=== PATIENT | male | born 1960 | race Caucasian/White ===

== ENCOUNTER 2017-09-10 05:55 | Inpatient (IN) | payer BC ==
[2017-09-10] MEDS ORDERED: IPRATROPIUM-ALBUTEROL 3 ML NEB INHALATION STA (06:29)
--- NOTE | 2017-09-10 06:47 | ED ---
General Adult HPI - General Chief complaint: Upper Respiratory Infection Stated complaint: CODEY Time Seen by Provider: 09/10/17 06:39 Source: patient, RN notes reviewed, old records reviewed Mode of arrival: ambulatory Limitations: no limitations - History of Present Illness Initial comments: This is a 56-year-old male the ER for evaluation, significant increased cough and congestion, shortness of breath. Patient denies recent travel history or sick contacts. Patient states he was at work yesterday he was getting comes and difficulty breathing. This persisted again today at work and he states he felt crappy. Low-grade fever. No modifying factors no recent similar complaints. No travel history no known sick contacts. Patient states he cannot catch his breath he has continuous chronic hacking cough and is coughing up sputum - Related Data Allergies Allergy/AdvReac Type Severity Reaction Status Date / Time aluminum hydroxide Allergy Nausea & Verified 09/10/17 06:02 [From Mylanta] Vomiting barium iodide Allergy Nausea & Verified 09/10/17 06:02 Vomiting barium sulfate Allergy Nausea & Verified 09/10/17 06:02 Vomiting bee venom protein (honey bee) Allergy Swelling Verified 09/10/17 06:02 calcium carbonate Allergy Nausea & Verified 09/10/17 06:02 [From Mylanta] Vomiting magnesium [From Mylanta] Allergy Nausea & Verified 09/10/17 06:02 Vomiting magnesium hydroxide Allergy Nausea & Verified 09/10/17 06:02 [From Mylanta] Vomiting simethicone [From Mylanta] Allergy Nausea & Verified 09/10/17 06:02 Vomiting Review of Systems ROS Statement: Those systems with pertinent positive or pertinent negative responses have been documented in the HPI. ROS Other: All systems not noted in ROS Statement are negative. Past Medical History Past Medical History: Diabetes Mellitus History of Any Multi-Drug Resistant Organisms: None Reported Additional Past Surgical History / Comment(s): eye surgery Past Psychological History: No Psychological Hx Reported Smoking Status: Former smoker Past Alcohol Use History: None Reported Past Drug Use History: None Reported General Exam Limitations: no limitations General appearance: alert, in no apparent distress Head exam: Present: atraumatic, normocephalic, normal inspection Eye exam: Present: normal appearance, PERRL, EOMI. Absent: scleral icterus, conjunctival injection, periorbital swelling ENT exam: Present: normal exam, mucous membranes moist Neck exam: Present: normal inspection. Absent: tenderness, meningismus, lymphadenopathy Respiratory exam: Present: normal lung sounds bilaterally, wheezes, decreased breath sounds, prolonged expiratory. Absent: respiratory distress, rales, rhonchi, stridor Cardiovascular Exam: Present: regular rate, normal rhythm, normal heart sounds. Absent: systolic murmur, diastolic murmur, rubs, gallop, clicks GI/Abdominal exam: Present: soft, normal bowel sounds. Absent: distended, tenderness, guarding, rebound, rigid Extremities exam: Present: normal inspection, full ROM, normal capillary refill. Absent: tenderness, pedal edema, joint swelling, calf tenderness Back exam: Present: normal inspection Neurological exam: Present: alert, oriented X3, CN II-XII intact Psychiatric exam: Present: normal affect, normal mood Skin exam: Present: warm, dry, intact, normal color. Absent: rash Course Vital Signs 09/10/17 09/10/17 09/10/17 05:56 06:32 06:44 Temperature 98.4 F Pulse Rate 87 85 97 Respiratory 20 Rate Blood Pressure 150/85 O2 Sat by Pulse 96 Oximetry - Reevaluation(s) Reevaluation #1: 09/10/17 07:15 Minimal improvement no improvement after breathing treatment EKG Findings - EKG Comments: EKG Findings:: EKG shows sinus rhythm rate of 86, MD 150, QRS 90, QTc 435 Medical Decision Making - Medical Decision Making 56 male the ER for evaluation positive cough and congestion positive pneumonia, patient will be admitted for breathing treatments IV antibiotics - Lab Data Result diagrams: 09/10/17 06:17 09/10/17 06:17 Lab Results 09/10/17 09/10/17 Range/Units 06:17 06:17 WBC 9.6 (3.8-10.6) k/uL RBC 4.69 (4.30-5.90) m/uL Hgb 13.1 (13.0-17.5) gm/dL Hct 39.4 (39.0-53.0) % MCV 84.1 (80.0-100.0) fL MCH 28.0 (25.0-35.0) pg MCHC 33.3 (31.0-37.0) g/dL RDW 14.5 (11.5-15.5) % Plt Count 160 (150-450) k/uL Neutrophils % 75 % Lymphocytes % 14 % Monocytes % 8 % Eosinophils % 1 % Basophils % 1 % Neutrophils # 7.2 (1.3-7.7) k/uL Lymphocytes # 1.4 (1.0-4.8) k/uL Monocytes # 0.7 (0-1.0) k/uL Eosinophils # 0.1 (0-0.7) k/uL Basophils # 0.1 (0-0.2) k/uL Sodium 139 (137-145) mmol/L Potassium 4.5 (3.5-5.1) mmol/L Chloride 103 (98-107) mmol/L Carbon Dioxide 25 (22-30) mmol/L Anion Gap 11 mmol/L BUN 15 (9-20) mg/dL Creatinine 0.90 (0.66-1.25) mg/dL Est GFR (CKD-EPI)AfAm >90 (>60 ml/min/1.73 sqM) Est GFR (CKD-EPI)NonAf >90 (>60 ml/min/1.73 sqM) Glucose 189 H (74-99) mg/dL Calcium 9.1 (8.4-10.2) mg/dL Magnesium 1.7 (1.6-2.3) mg/dL Total Bilirubin 0.7 (0.2-1.3) mg/dL AST 20 (17-59) U/L ALT 34 (21-72) U/L Alkaline Phosphatase 84 (38-126) U/L Total Protein 6.4 (6.3-8.2) g/dL Albumin 3.7 (3.5-5.0) g/dL Lipase 63 (23-300) U/L - Radiology Data Radiology results: report reviewed (Right middle lobe pneumonia on chest x-ray) , image reviewed Disposition Clinical Impression: Bronchitis, Community acquired pneumonia Disposition: ADMITTED IP TO THIS HOSP Condition: Good Is patient prescribed a controlled substance at d/c from ED?: No Referrals: Jonas Holden MD [Primary Care Provider] - 1-2 days
[2017-09-10 06:52] LABS: Basophils # (A) 0.1 k/uL (0-0.2); Basophils % (A) 1 %; Eosinophils # (A) 0.1 k/uL (0-0.7); Eosinophils % (A) 1 %; HCT 39.4 % (39.0-53.0); HGB 13.1 gm/dL (13.0-17.5); Lymphocytes # (A) 1.4 k/uL (1.0-4.8); Lymphocytes % (A) 14 %; MCHC 33.3 g/dL (31.0-37.0); MCV 84.1 fL (80.0-100.0); Monocytes # (A) 0.7 k/uL (0-1.0); Monocytes % (A) 8 %; Neutrophils # (A) 7.2 k/uL (1.3-7.7); Neutrophils % (A) 75 %; Platelet Count 160 k/uL (150-450); RBC 4.69 m/uL (4.30-5.90); RDW 14.5 % (11.5-15.5); WBC 9.6 k/uL (3.8-10.6)
[2017-09-10 07:06] LABS: D-Dimer 1.36 mg/L FEU (<0.60); Partial Thromboplastin Time 24.5 sec (22.0-30.0); Prothrombin Time 10.1 sec (9.0-12.0)
[2017-09-10 07:11] LABS: ALT 34 U/L (21-72); AST 20 U/L (17-59); Albumin 3.7 g/dL (3.5-5.0); Alkaline Phosphatase 84 U/L (38-126); Anion Gap 11 mmol/L; Blood Urea Nitrogen 15 mg/dL (9-20); Calcium 9.1 mg/dL (8.4-10.2); Carbon Dioxide 25 mmol/L (22-30); Chloride 103 mmol/L (98-107); Glucose 189 mg/dL (74-99); Lipase 63 U/L (23-300); Magnesium 1.7 mg/dL (1.6-2.3); Potassium 4.5 mmol/L (3.5-5.1); Sodium 139 mmol/L (137-145); Total Bilirubin 0.7 mg/dL (0.2-1.3); Total Protein 6.4 g/dL (6.3-8.2)
[2017-09-10] MEDS ORDERED: MORPHINE SULFATE 2 MG/ML SYRINGE IVP STA (07:12)
[2017-09-10] MEDS ORDERED: AZITHROMYCIN 500 MG in SODIUM CHLORIDE 0.9% 250 ML IVPB STA (07:13)
[2017-09-10] MEDS ORDERED: PNEUMONIA PROTOCOL UTILIZED 1 EACH MISC PO PRN (07:13)
[2017-09-10] MEDS ORDERED: cefTRIAXone IN SWFI 1,000 MG/10 ML SYRINGE IVP STA (07:13)
[2017-09-10] MEDS ORDERED: SODIUM CHLORIDE 0.9% 1,000 ML IV SCH (07:15)
[2017-09-10 07:31] LABS: Creatine Kinase 298 U/L (55-170)
[2017-09-10 07:43] LABS: Creatine Kinase MB 1.7 ng/mL (0.0-2.4); Troponin I <0.012 ng/mL (0.000-0.034)
--- NOTE | 2017-09-10 07:46 | XR ---
EXAMINATION TYPE: XR chest 2V DATE OF EXAM: 09/10/2017 COMPARISON: NONE INDICATION: Chest pain cough x3 days TECHNIQUE: Frontal and lateral views of the chest are obtained. FINDINGS: The heart size is normal. The pulmonary vasculature is normal. The lungs are clear. IMPRESSION: 1. No acute pulmonary process.
[2017-09-10] MEDS: IPRATROPIUM-ALBUTEROL 3 ML NEB INHALATION SCH ×4 (09:02→20:36)
[2017-09-10] MEDS: ENOXAPARIN 40 MG/0.4 ML SYRINGE SQ SCH (09:08)
[2017-09-10] MEDS: SODIUM CHLORIDE 0.9% 1,000 ML IV SCH (16:13)
[2017-09-10 17:12] LABS: Glucose,Whole Blood 190 mg/dL (75-99)
[2017-09-10] MEDS: INSULIN ASPART 100 UNIT/ML 1 ML 10 ML VIAL SQ SCH ×2 (17:58→21:05)
--- NOTE | 2017-09-10 18:18 | HP ---
HISTORY AND PHYSICAL CHIEF COMPLAINT: Cough and difficulty breathing. HISTORY OF PRESENT ILLNESS: This gentleman was at work and became short of breath. He came to the emergency room. He was not febrile and he was not coughing up any blood or sputum. He had no chest pain. In the emergency room he had an assessment which reports that he had a right middle lobe pneumonia, and he was admitted. REVIEW OF SYSTEMS: He has had no headaches, neurologic problems, difficulty with vision or hearing, sore throat, chest pain, orthopnea, PND, abdominal pain, nausea, vomiting, hematemesis, melena, hematochezia, jaundice, liver disease, abdominal pain, vomiting, diarrhea, melena, etc. He is diabetic and has a history of hypertension. ALLERGIES: 1. REGLAN. 2. ANTACIDS. 3. BARIUM. MEDICATIONS: 1. Lipitor 80 mg at bedtime. 2. Lisinopril 10 mg once a day. 3. Glimepiride 4 mg twice a day. 4. Metformin 1 gram twice a day. 5. Pioglitazone 45 mg once a day. 6. Acarbose 100 mg 3 times a day. 7. Vitamin D3 two monthly. 8. Vicodin 7.5 p.r.n. Past medical history, family history, and personal and social histories are all otherwise unremarkable and noncontributory. He used to smoke and he does have a history of mild COPD. He does not drink. He has had some problems with depression and recently lost his . PHYSICAL EXAMINATION: Blood pressure 144/84 with a pulse of 93 and respirations of 38. He is afebrile. In general he appeared to be overweight and in no acute distress, but he was short of breath. Lymph nodes are not enlarged. Head, ears, eyes, nose, mouth and throat were normal. Chest demonstrated somewhat decreased sounds with occasional rales. Cardiac exam was sinus with no murmurs or extra sounds. The abdomen was protuberant, soft and nontender without any visceromegaly or masses. Bowel sounds were present. Neurologically he was intact. He is admitted to the hospital with the diagnoses: 1. Exacerbation of chronic obstructive pulmonary disease. 2. Possible pneumonia, but x-ray report is read as not showing same. 3. Type 2 [id number] diabetes mellitus. 4. Hypertension. PLAN: 1. Bed rest. 2. IV fluids. 3. Updrafts. 4. IV and inhaled steroids. MMODL / IJN: [id number] /
[2017-09-10 21:05] LABS: Glucose,Whole Blood 173 mg/dL (75-99)
[2017-09-10] MEDS: LATANOPROST 0.005% OPHTH DROPS 2.5 ML BTL BOTH EYES SCH (21:05)
[2017-09-11] MEDS: ACETAMINOPHEN TAB 325 MG TAB PO PRN ×3 (02:14→21:34)
[2017-09-11 02:46] LABS: Hemoglobin A1C 9.4 % (4.0-6.0)
[2017-09-11 07:14] LABS: Glucose,Whole Blood 184 mg/dL (75-99)
--- NOTE | 2017-09-11 07:26 | XR ---
EXAMINATION TYPE: XR chest 2V DATE OF EXAM: 09/11/2017 COMPARISON: 09/10/2017 HISTORY: Symptoms of pneumonia per patient history. Cough. Follow-up exam. TECHNIQUE: Frontal and lateral views of the chest are obtained. FINDINGS: There is no focal air space opacity, pleural effusion, or pneumothorax seen. The cardiac silhouette size is within normal limits. The osseous structures are intact. Mild multilevel degener ative changes of the thoracic spine are seen. Very mild right infrahilar peribronchial cuffing could relate to reactive airway disease. IMPRESSION: No focal consolidation. Very mild right infrahilar peribronchial cuffing may relate to r eactive airway disease in this patient with clinical provided history of pneumonia.
[2017-09-11] MEDS: ENOXAPARIN 40 MG/0.4 ML SYRINGE SQ SCH (07:47)
[2017-09-11] MEDS: INSULIN ASPART 100 UNIT/ML 1 ML 10 ML VIAL SQ SCH ×4 (07:47→21:21)
[2017-09-11] MEDS: AZITHROMYCIN 500 MG TAB PO SCH (07:47)
[2017-09-11] MEDS: cefTRIAXone IN SWFI 1,000 MG/10 ML SYRINGE IVP SCH (07:48)
[2017-09-11] MEDS: SODIUM CHLORIDE 0.9% 1,000 ML IV SCH ×2 (07:48→23:23)
[2017-09-11] MEDS: IPRATROPIUM-ALBUTEROL 3 ML NEB INHALATION SCH ×4 (08:21→20:59)
[2017-09-11 10:37] VITALS: BMI 39.4
[2017-09-11 11:55] LABS: Glucose,Whole Blood 168 mg/dL (75-99)
--- NOTE | 2017-09-11 14:22 | PN ---
PROGRESS NOTE CHIEF COMPLAINT: Shortness of breath and congestion. HISTORY OF PRESENT ILLNESS: This gentleman is a little bit better but he still has some congestion, shortness of breath and wheezing. He has had no fever or chills. PHYSICAL EXAM: He has rhonchi and rales scattered throughout with expiratory wheezing. Cardiac exam is normal. The abdomen is soft, nontender. IMPRESSION: 1. Chest pain. 2. Chronic obstructive pulmonary disease. 3. Possible pneumonitis. PLAN: Continue with updrafts, steroids and antibiotics. MMODL / IJN: [id number] /
[2017-09-11 17:22] LABS: Glucose,Whole Blood 206 mg/dL (75-99)
[2017-09-11 20:42] LABS: Glucose,Whole Blood 155 mg/dL (75-99)
[2017-09-11] MEDS: LATANOPROST 0.005% OPHTH DROPS 2.5 ML BTL BOTH EYES SCH (21:20)
[2017-09-11] MEDS: GLIMEPIRIDE 4 MG TAB PO SCH (21:21)
[2017-09-12 07:17] LABS: Glucose,Whole Blood 153 mg/dL (75-99)
[2017-09-12] MEDS: INSULIN ASPART 100 UNIT/ML 1 ML 10 ML VIAL SQ SCH ×3 (07:46→17:55)
[2017-09-12] MEDS: AZITHROMYCIN 500 MG TAB PO SCH (07:47)
[2017-09-12] MEDS: ENOXAPARIN 40 MG/0.4 ML SYRINGE SQ SCH (07:48)
[2017-09-12] MEDS: GLIMEPIRIDE 4 MG TAB PO SCH (07:48)
[2017-09-12] MEDS: cefTRIAXone IN SWFI 1,000 MG/10 ML SYRINGE IVP SCH (07:48)
[2017-09-12] MEDS: IPRATROPIUM-ALBUTEROL 3 ML NEB INHALATION SCH ×3 (07:53→17:11)
[2017-09-12 12:18] LABS: Glucose,Whole Blood 137 mg/dL (75-99)
[2017-09-12] MEDS ORDERED: RX INFO: IV CONTRAST WAS GIVEN 1 EACH MISC MISCELLANE PRN (14:46)
[2017-09-12 14:56] VITALS: BP 126/67; PULSE 93; RESP 18; TEMP 98.2
--- NOTE | 2017-09-12 17:49 | CT ---
EXAMINATION TYPE: CT chest angio for PE DATE OF EXAM: 09/12/2017 COMPARISON: NONE HISTORY: Difficulty breathing. CT DLP: 519 mGycm Automated exposure control for dose reduction was used. CONTRAST: CT Chest for pulmonary embolism performed with with IV Contrast, patient injected with 100 mL of Isov ue 370. There are 3-D post processed images. FINDINGS: There is a 2.6 cm somewhat rounded infiltrate at the anterior aspect of right pulmonary hilum. There is some peripheral airspace infiltrate in the anterior right upper lobe. There is a 19 x 14 mm enlarg ed right bronchial lymph node. The other lung alvarez are clear. There is no pleural effusion. Heart size is normal. There is no red cardial effusion. Thoracic aorta appears normal. There is no evidence of aneurysm or dissection. The bony thorax appears intact. There is normal contrast opacification of the pulmonary arteries. I see no filling defects. IMPRESSION: Masslike infiltrate at the right pulmonary hilum. Right bronchial adenopathy. Tumor is possible. Foll ow-up is recommended. No evidence of pulmonary embolism.
[2017-09-12 17:53] LABS: Glucose,Whole Blood 122 mg/dL (75-99)
[2017-09-12] MEDS: SODIUM CHLORIDE 0.9% 1,000 ML IV SCH (18:08)
--- NOTE | 2017-09-12 18:23 | DS ---
DISCHARGE SUMMARY I am covering for Dr. Holden. FINAL DIAGNOSES: 1. Chronic obstructive pulmonary disease acute exacerbation with possible right infrahilar peribronchial bronchopneumonia. 2. Chest pain, improved. 3. Hypertension. 4. Hyperlipidemia. DISCHARGE DISPOSITION: Patient will be discharged in stable condition with guarded prognosis. HISTORY OF PRESENT ILLNESS: This 56-year-old gentleman with past medical history of multiple medical problems was admitted with COPD exacerbation also possible pneumonia, treated with IV antibiotics. The patient improved significantly. Bronchodilators also given. The was as mentioned earlier. The patient will be discharged in stable condition with guarded prognosis with the following advice and medications: 1. Diet is cardiac. 2. Activity limited until followup. 3. Follow with Dr. Holden in 3-4 days or p.r.n. MEDICATIONS: 1.acarbose 100 mg p.o. t.i.d. 2. Lipitor 80 mg p.o. daily. 3. Zithromax 500 mg p.o. daily for 5 days. 4. Symbicort 1 puff b.i.d. 5. Ceftin 500 mg p.o. b.i.d. for 5 days. 6. Amaryl 4 mg b.i.d. 7. [place] 7.5 q.i.d. p.r.n. 8. DuoNeb q.i.d. and p.r.n. 9. Xalatan 0.05% 1 drop both eyes. 10.Zestril 10 mg p.o. daily. 11.Metformin 1000 mg p.o. b.i.d. 12.Actos 45 mg p.o. daily. Once again, the patient will be discharged in stable condition with guarded prognosis. MMODL / IJN: [id number] / MTDD
--- NOTE | 2017-09-15 21:53 | DS ---
DISCHARGE SUMMARY CHIEF COMPLAINT: Difficulty breathing. HISTORY OF PRESENT ILLNESS AND PHYSICAL EXAM: Details of this man's history and physical can be found in the initial workup. LABORATORY STUDIES: While he was in the hospital, he had laboratory studies, details of which can be found in the laboratory section of his chart. COURSE IN HOSPITAL: After admission, he was placed on bedrest and started on intravenous fluids, updrafts and steroids. He slowly began to improve and he is doing well enough that it was felt he could be discharged on the . He will go home on light activity and regular diet and follow up in the office in a few days. FINAL DIAGNOSES: 1. Bronchial pneumonia. 2. Exacerbation of chronic obstructive pulmonary disease. 3. Reactive airway disease. 4. Hypertension. 5. Diabetes mellitus. OPERATIONS: None. CONSULTATION: None. He is improved. MMODL / KRYSN: [id number] /
== END 2017-09-12 19:39 | disposition home or self-care (01) | DRG 194 ==
LOC: EC 05:55 → 4MS4W 07:14 → UNDODISIN 09-12 15:52
PROVIDERS: ADMIT Family Medicine; ATTEND Family Medicine
DX: J18.0 Bronchopneumonia, unspecified organism (principal); J44.0 Chronic obstructive pulmonary disease with (acute) lower respiratory infection; J44.1 Chronic obstructive pulmonary disease with (acute) exacerbation; E11.9 Type 2 diabetes mellitus without complications; E78.5 Hyperlipidemia, unspecified; I10 Essential (primary) hypertension; Z87.891 Personal history of nicotine dependence; Z88.8 Allergy status to other drugs, medicaments and biological substances; Z79.84 Long term (current) use of oral hypoglycemic drugs; Z79.899 Other long term (current) drug therapy; Z91.030 Bee allergy status
CPT/HCPCS: 36415; 71046; 71275; 80053; 82550; 82553; 83036; 83690; 83735; 84484; 85025; 85379; 85610; 85730; 87040; 93005; 94640; 96365; 96372; 96375; 99285

== ENCOUNTER → 2017-11-12 | Outpatient (CLI) | payer BC ==
[2017-11-12 12:26] LABS: Blood Urea Nitrogen 12 mg/dL (9-20)
--- NOTE | 2017-11-12 13:24 | CT ---
EXAMINATION TYPE: CT chest w con DATE OF EXAM: 11/12/2017 COMPARISON: 09/12/2017 HISTORY: Lung nodule CT DLP: 747 mGycm Automated exposure control for dose reduction was used. CONTRAST: CT scan of the chest is performed with IV Contrast, patient injected with 100 mL of Isovue 300. FINDINGS: LUNGS: Previously noted masslike area right suprahilar region has resolved. There is no evidence for nodule or mass at this time. The lungs are clear . No effusions seen. MEDIASTINUM: There are no greater than 1 cm hilar or mediastinal lymph nodes. No pericardial effusi on is seen. Thoracic aorta is of normal caliber. The heart is not enlarged. UPPER ABDOMEN: No significant abnormality appreciated. OTHER: Bilateral gynecomastia noted. IMPRESSION: 1. Resolution of previously noted right suprahilar infiltrate. No evidence for mass or nodule at this time. No adenopathy. 2. Gynecomastia.
== END ==
LOC: RADCTMAIN 11:50
PROVIDERS: ATTEND Internal Medicine Sleep Medicine
DX: N62 Hypertrophy of breast (principal); R91.1 Solitary pulmonary nodule
CPT/HCPCS: 82565; 84520; 71260; 36415; Q9967

== ENCOUNTER → 2017-12-31 | Outpatient (CLI) | payer BC ==
--- NOTE | 2017-12-31 09:50 | XR ---
EXAMINATION TYPE: XR chest 2V DATE OF EXAM: 12/31/2017 COMPARISON: 09/11/2017 HISTORY: Cough and congestion for 4 days TECHNIQUE: Frontal and lateral views of the chest are obtained. FINDINGS: There is no focal air space opacity, pleural effusion, or pneumothorax seen. The cardiac silhouette size is within normal limits. The osseous structures are intact. Multilevel mild degener ative changes of the thoracic spine. IMPRESSION: No acute cardiopulmonary process.
== END | disposition home or self-care (01) ==
LOC: RADXRMAIN 09:20
PROVIDERS: ATTEND Internal Medicine Sleep Medicine
DX: J18.9 Pneumonia, unspecified organism (principal)
CPT/HCPCS: 71046

== ENCOUNTER 2018-02-21 18:38 | Emergency (ER) | payer BC ==
[2018-02-21 19:02] VITALS: TEMP 98.3
[2018-02-21 20:45] LABS: Basophils # (A) 0.1 k/uL (0-0.2); Basophils % (A) 0 %; Eosinophils # (A) 0.2 k/uL (0-0.7); Eosinophils % (A) 1 %; HCT 40.9 % (39.0-53.0); HGB 13.5 gm/dL (13.0-17.5); Lymphocytes # (A) 1.9 k/uL (1.0-4.8); Lymphocytes % (A) 15 %; MCH 28.8 pg (25.0-35.0); MCHC 32.9 g/dL (31.0-37.0); MCV 87.4 fL (80.0-100.0); Mean Platelet Volume 7.2; Monocytes # (A) 0.6 k/uL (0-1.0); Monocytes % (A) 5 %; Neutrophils % (A) 78 %; Platelet Count 162 k/uL (150-450); RBC 4.68 m/uL (4.30-5.90); WBC 12.8 k/uL (3.8-10.6)
[2018-02-21 21:10] LABS: ALT 27 U/L (21-72); AST 17 U/L (17-59); Albumin 3.6 g/dL (3.5-5.0); Alkaline Phosphatase 101 U/L (38-126); Anion Gap 11 mmol/L; Blood Urea Nitrogen 15 mg/dL (9-20); Carbon Dioxide 24 mmol/L (22-30); Chloride 104 mmol/L (98-107); Glucose 276 mg/dL (74-99); Potassium 4.8 mmol/L (3.5-5.1); Sodium 139 mmol/L (137-145); Total Bilirubin 0.6 mg/dL (0.2-1.3); Total Protein 6.6 g/dL (6.3-8.2)
--- NOTE | 2018-02-21 21:13 | US ---
EXAMINATION TYPE: US venous doppler duplex LE DATE OF EXAM: 02/21/2018 9:00 PM COMPARISON: NONE CLINICAL HISTORY: Leg pain. SIDE PERFORMED: Bilateral TECHNIQUE: The lower extremity deep venous system is examined utilizing real time linear array sonog caleb with graded compression, doppler sonography and color-flow sonography. VESSELS IMAGED: External Iliac Vein (EIV) Common Femoral Vein Deep Femoral Vein Greater Saphenous Vein * Femoral Vein Popliteal Vein Small Saphenous Vein * Proximal Calf Veins (* superficial vessels) Limited due to pt tolerance. Right Leg: Negative for DVT Left Leg: Negative for DVT IMPRESSION: No sonographic evidence of thrombus of the bilateral lower extremities.
[2018-02-21 21:45] LABS: Basophils # (A) 0.1 k/uL (0-0.2); Basophils % (A) 0 %; Eosinophils # (A) 0.2 k/uL (0-0.7); Eosinophils % (A) 1 %; HCT 39.5 % (39.0-53.0); HGB 13.5 gm/dL (13.0-17.5); Lymphocytes % (A) 16 %; MCH 29.4 pg (25.0-35.0); MCHC 34.2 g/dL (31.0-37.0); MCV 85.8 fL (80.0-100.0); Mean Platelet Volume 7.5; Monocytes # (A) 0.6 k/uL (0-1.0); Monocytes % (A) 5 %; Neutrophils # (A) 9.9 k/uL (1.3-7.7); Neutrophils % (A) 77 %; Platelet Count 167 k/uL (150-450); RDW 13.9 % (11.5-15.5); WBC 12.9 k/uL (3.8-10.6)
[2018-02-21 22:04] LABS: Partial Thromboplastin Time 24.3 sec (22.0-30.0); Prothrombin Time 9.8 sec (9.0-12.0)
--- NOTE | 2018-02-21 22:16 | ED ---
General Adult HPI - General Source: patient, RN notes reviewed, old records reviewed Mode of arrival: ambulatory Limitations: no limitations <Jaylan Lerma - Last Filed: 02/21/18 23:23> <Claudio Richards - Last Filed: 02/23/18 23:34> - General Chief complaint: Extremity Injury, Lower Stated complaint: Leg Pain - History of Present Illness Initial comments: 57-year-old male patient past medical history of diabetes presents to ER with 1 day of left lower extremity pain. Patient states until he woke up this morning he notices posterior knee, posterior left calf was very tender. Patient additionally complains that his left posterior calf is swollen, red. Patient has pain with ambulation. Patient denies any recent fall or trauma. Patient denies any history of blood clots. Patient denies any blood thinners, regular NSAID use. Patient denies prolonged recent travel, history of malignancy, recent surgery. Patient denies chest pain, shortness of breath, abdominal pain , pleuritic chest pain, nausea vomiting diarrhea, fever chills, heart palpitations. Systemic: Pt denies fatigue, myalgia, fever/chills, rash. Pt denies weakness, night sweats, weight loss. Neuro: Pt denies headache, visual disturbances, syncope or pre-syncope. HEENT: Pt denies ocular discharge or irritation, otalgia, rhinorrhea, pharyngitis or notable lymphadenopathy. Cardiopulmonary: Pt denies chest pain, SOB, heart palpitations, dyspnea on exertion. Abdominal/GI: Pt denies abdominal pain, n/v/d. : Pt denies dysuria, burning w/ urination, frequency/urgency. Denies new onset urinary or bowel incontinence. (Jaylan Lerma) - Related Data Home Medications Medication Instructions Recorded Confirmed Acarbose 100 mg PO TID 09/10/17 09/10/17 Atorvastatin [Lipitor] 80 mg PO DAILY 09/10/17 09/10/17 Glimepiride [Amaryl] 4 mg PO AC-BID 09/10/17 09/10/17 HYDROcodone/APAP 7.5-325MG [Goff 1 tab PO QID PRN 09/10/17 09/10/17 7.5-325] Latanoprost [Xalatan 0.005%] 1 drop BOTH EYES HS 09/10/17 09/10/17 Lisinopril [Zestril] 10 mg PO DAILY 09/10/17 09/10/17 Pioglitazone [Actos] 45 mg PO DAILY 09/10/17 09/10/17 metFORMIN HCL 1,000 mg PO BID 09/10/17 09/10/17 Previous Rx's Medication Instructions Recorded Azithromycin [Zithromax] 500 mg PO DAILY #5 tab 09/12/17 Budesonide/Formoterol Fumarate 1 puff IH BID #1 hfa.aer.ad 09/12/17 [Symbicort 160-4.5 Mcg Inhaler] Cefuroxime Axetil [Ceftin] 500 mg PO BID #10 tab 09/12/17 Ipratropium-Albuterol Nebulize 3 ml INHALATION RT-QID #120 09/12/17 [Duoneb 0.5 mg-3 mg/3 ml Soln] ampul.neb Apixaban [Eliquis] 5 mg PO DIRECTED #42 tab 02/22/18 Allergies Allergy/AdvReac Type Severity Reaction Status Date / Time aluminum hydroxide Allergy Nausea & Verified 02/21/18 18:59 [From Mylanta] Vomiting barium iodide Allergy Nausea & Verified 02/21/18 18:59 Vomiting barium sulfate Allergy Nausea & Verified 02/21/18 18:59 Vomiting bee venom protein (honey bee) Allergy Swelling Verified 02/21/18 18:59 calcium carbonate Allergy Nausea & Verified 02/21/18 18:59 [From Mylanta] Vomiting magnesium [From Mylanta] Allergy Nausea & Verified 02/21/18 18:59 Vomiting magnesium hydroxide Allergy Nausea & Verified 02/21/18 18:59 [From Mylanta] Vomiting simethicone [From Mylanta] Allergy Nausea & Verified 02/21/18 18:59 Vomiting Review of Systems ROS Other: All systems not noted in ROS Statement are negative. <Jaylan Lerma - Last Filed: 02/21/18 23:23> ROS Other: All systems not noted in ROS Statement are negative. <Claudio Richards - Last Filed: 02/23/18 23:34> ROS Statement: Those systems with pertinent positive or pertinent negative responses have been documented in the HPI. Past Medical History Past Medical History: Diabetes Mellitus, Eye Disorder, Hyperlipidemia, Hypertension Additional Past Medical History / Comment(s): NIDDM type II, glaucoma bilateral eyes, leg cramps at night occasionally, bilateral hand tremors-pt states he does not know reason. History of Any Multi-Drug Resistant Organisms: None Reported Additional Past Surgical History / Comment(s): bilateral eye laser surgery for cataract removal/lens implants Past Anesthesia/Blood Transfusion Reactions: Unable to Obtain Additional Past Anesthesia/Blood Transfusion Reaction / Comment(s): Pt states he has never had general anesthesia. Past Psychological History: No Psychological Hx Reported Smoking Status: Never smoker Past Alcohol Use History: None Reported Past Drug Use History: None Reported - Past Family History Mother Family Medical History: Diabetes Mellitus Additional Family Medical History / Comment(s): Mother in her sleep when she was in her 60s. Pt does not know cause of . Father Family Medical History: No Reported History Additional Family Medical History / Comment(s): Pt states father is healthy and is 88yrs old <Jaylan Lerma - Last Filed: 02/21/18 23:23> General Exam Limitations: no limitations <Jaylan Lerma - Last Filed: 02/21/18 23:23> <Claudio Richards - Last Filed: 02/23/18 23:34> - General Exam Comments Initial Comments: Constitutional: NAD, AOX3, Pt has pleasant affect. HEENT: NC/AT, trachea midline, neck supple, no lymphadenopathy. Posterior pharynx non erythematous, without exudates. External ears appear normal, without discharge. Mucous membranes moist. Eyes PERRLA, EOM intact. There is no scleral icterus. No pallor noted. Cardiopulmonary: RRR, no murmurs, rubs or gallops, no JVD noted. No tachypnea. Lungs CTAB in anterior and posterior alvarez. No peripheral edema. Abdominal exam: Abdomen soft and non-distended. Abdomen non-tender to palpation in all 4 quadrants. Bowel sounds active in LLQ. No hepatosplenomegaly. Neuro: CN II-XII grossly intact. MSK: LLE edematous, ttp in posterior L calf and popliteal region. Homans sign positive on left lower extremity, Homans sign negative and right lower extremity. RLE non edematous, non ttp in calf and popliteal region. Lower extremities neurovascularly intact bilaterally, posterior tibialis, dorsalis pedis pulse +2 bilaterally, sensation intact bilaterally. Bilateral anterior/ posterior thigh non tender to palpation. (Jaylan Lerma) Vital Signs 02/21/18 02/22/18 18:59 00:13 Temperature 98.3 F Pulse Rate 99 86 Respiratory 18 20 Rate Blood Pressure 140/83 114/65 O2 Sat by Pulse 97 98 Oximetry Medical Decision Making - Lab Data Result diagrams: 02/21/18 21:30 02/21/18 20:22 <Jaylan Lerma - Last Filed: 02/21/18 23:23> - Lab Data Result diagrams: 02/21/18 21:30 02/21/18 20:22 <BharathhernanClaudio - Last Filed: 02/23/18 23:34> - Medical Decision Making 57-year-old male patient past medical history of diabetes presents to ER with 1 day of left lower extremity pain. Patient states until he woke up this morning he notices posterior knee, posterior left calf was very tender. Patient additionally complains that his left posterior calf is swollen, red. Patient has pain with ambulation. Patient denies any recent fall or trauma. Patient denies any history of blood clots. Patient denies any blood thinners, regular NSAID use. Patient denies prolonged recent travel, history of malignancy, recent surgery. Patient denies chest pain, shortness of breath, abdominal pain , pleuritic chest pain, nausea vomiting diarrhea, fever chills, heart palpitations. LLE edematous, ttp in posterior L calf and popliteal region. Homans sign positive on left lower extremity, Homans sign negative and right lower extremity. RLE non edematous, non ttp in calf and popliteal region. Lower extremities neurovascularly intact bilaterally, posterior tibialis, dorsalis pedis pulse +2 bilaterally, sensation intact bilaterally. Bilateral anterior/posterior thigh non tender to palpation. Laboratory investigations were conducted including CBC, CMP, CBC displayed a slight leukocytosis, CMP displayed elevated glucose, patient history of diabetes. Coagulation studies were not impressive. EKG not concerning for acute ischemia. D-dimer is elevated at 5.2. Bilateral venous duplex ultrasound did not display a DVT. CT pulmonary angiography did not display a pulmonary embolism. Long discussion with patient was initiated, shared decision making. Explained to patient that I have a strong suspicion of a DVT in his left lower extremity, explained to Patient that his d-dimer is elevated which is indicative of some sort of thrombotic process. Explained results of CT pulmonary angiography with patient. Explained Dr. Newman's and I recommendation of starting on eliquis for 2 weeks until proper follow up can be attained. Risks versus benefits were explained, patient verbalized understanding. Patient to follow-up with PCP in 1- 2 days. Patient to follow up with heme/onc tomorrow. Patient to return to [facility] to have repeat lower extremity ultrasound on 02/27. Eliquis dosing discussed with Pharmacy. Case discussed in depth and pt examined by Dr. Newman. (Jaylan Lerma) I saw this patient in conjunction with the physician assistant professor of dietetics. I performed independent history and physical exam. Agree with case management. (Claudio Richards) - Lab Data Lab Results 02/21/18 02/21/18 02/21/18 Range/Units 20:22 20:22 21:30 WBC 12.8 H 12.9 H (3.8-10.6) k/uL RBC 4.68 4.60 (4.30-5.90) m/uL Hgb 13.5 13.5 (13.0-17.5) gm/dL Hct 40.9 39.5 (39.0-53.0) % MCV 87.4 85.8 (80.0-100.0) fL MCH 28.8 29.4 (25.0-35.0) pg MCHC 32.9 34.2 (31.0-37.0) g/dL RDW 14.0 13.9 (11.5-15.5) % Plt Count 162 167 (150-450) k/uL Neutrophils % 78 77 % Lymphocytes % 15 16 % Monocytes % 5 5 % Eosinophils % 1 1 % Basophils % 0 0 % Neutrophils # 10.0 H 9.9 H (1.3-7.7) k/uL Lymphocytes # 1.9 2.0 (1.0-4.8) k/uL Monocytes # 0.6 0.6 (0-1.0) k/uL Eosinophils # 0.2 0.2 (0-0.7) k/uL Basophils # 0.1 0.1 (0-0.2) k/uL PT (9.0-12.0) sec INR (<1.2) APTT (22.0-30.0) sec D-Dimer (<0.60) mg/L FEU Sodium 139 (137-145) mmol/L Potassium 4.8 (3.5-5.1) mmol/L Chloride 104 (98-107) mmol/L Carbon Dioxide 24 (22-30) mmol/L Anion Gap 11 mmol/L BUN 15 (9-20) mg/dL Creatinine 0.82 (0.66-1.25) mg/dL Est GFR (CKD-EPI)AfAm >90 (>60 ml/min/1.73 sqM) Est GFR (CKD-EPI)NonAf >90 (>60 ml/min/1.73 sqM) Glucose 276 H (74-99) mg/dL Calcium 9.0 (8.4-10.2) mg/dL Total Bilirubin 0.6 (0.2-1.3) mg/dL AST 17 (17-59) U/L ALT 27 (21-72) U/L Alkaline Phosphatase 101 (38-126) U/L Total Protein 6.6 (6.3-8.2) g/dL Albumin 3.6 (3.5-5.0) g/dL 02/21/18 Range/Units 21:30 WBC (3.8-10.6) k/uL RBC (4.30-5.90) m/uL Hgb (13.0-17.5) gm/dL Hct (39.0-53.0) % MCV (80.0-100.0) fL MCH (25.0-35.0) pg MCHC (31.0-37.0) g/dL RDW (11.5-15.5) % Plt Count (150-450) k/uL Neutrophils % % Lymphocytes % % Monocytes % % Eosinophils % % Basophils % % Neutrophils # (1.3-7.7) k/uL Lymphocytes # (1.0-4.8) k/uL Monocytes # (0-1.0) k/uL Eosinophils # (0-0.7) k/uL Basophils # (0-0.2) k/uL PT 9.8 (9.0-12.0) sec INR 1.0 (<1.2) APTT 24.3 (22.0-30.0) sec D-Dimer 5.32 H (<0.60) mg/L FEU Sodium (137-145) mmol/L Potassium (3.5-5.1) mmol/L Chloride (98-107) mmol/L Carbon Dioxide (22-30) mmol/L Anion Gap mmol/L BUN (9-20) mg/dL Creatinine (0.66-1.25) mg/dL Est GFR (CKD-EPI)AfAm (>60 ml/min/1.73 sqM) Est GFR (CKD-EPI)NonAf (>60 ml/min/1.73 sqM) Glucose (74-99) mg/dL Calcium (8.4-10.2) mg/dL Total Bilirubin (0.2-1.3) mg/dL AST (17-59) U/L ALT (21-72) U/L Alkaline Phosphatase (38-126) U/L Total Protein (6.3-8.2) g/dL Albumin (3.5-5.0) g/dL Disposition Is patient prescribed a controlled substance at d/c from ED?: No Time of Disposition: 00:02 Decision Time: 00:09 <Jaylan Lerma - Last Filed: 02/21/18 23:23> <Claudio Richards - Last Filed: 02/23/18 23:34> Clinical Impression: DVT (deep venous thrombosis) Disposition: HOME SELF-CARE Condition: Good Instructions: Deep Vein Thrombosis (ED) Additional Instructions: Patient to adhere to previously discussed treatment plan and will take medication(s) as directed. Patient to follow up with PCP in 1-2 days. Patient to return to ED if symptoms do not improve. Prescriptions: Apixaban [Eliquis] 5 mg PO DIRECTED #42 tab Referrals: Jonas Holden MD [Primary Care Provider] - 1-2 days Daren Walsh MD [STAFF PHYSICIAN] - 1-2 days
[2018-02-21 22:25] LABS: D-Dimer 5.32 mg/L FEU (<0.60)
--- NOTE | 2018-02-21 23:24 | CT ---
EXAMINATION TYPE: CT chest angio for PE DATE OF EXAM: 02/21/2018 COMPARISON: 09/12/2017 HISTORY: R/O PE CT DLP: 741.50 mGycm Automated exposure control for dose reduction was used. CONTRAST: CT Chest for pulmonary embolism performed with with IV Contrast, patient injected with 100 mL of Isov ue 370. FINDINGS: There are 3-D post processed images. The lungs are clear of infiltrate. There is no pleural effusion. Heart size is normal. There is no pe ricardial effusion. There is no mediastinal adenopathy. Thoracic aorta shows no evidence of aneurysm or dissection. There is normal contrast opacification of the pulmonary arteries. I see no filling defects. There is small hiatal hernia. There is spurring in the thoracic spine. There is no compression fracture. IMPRESSION: No evidence of pulmonary embolism. There is apparent complete clearing of the right upper lobe infilt rate compared to old exam.
--- NOTE | 2018-02-22 00:11 | ED ---
Medical Decision Making - Medical Decision Making discussed eliquis dosing with Maria Elena Funes. - Lab Data Result diagrams: 02/21/18 21:30 02/21/18 20:22 Lab Results 02/21/18 02/21/18 02/21/18 Range/Units 20:22 20:22 21:30 WBC 12.8 H 12.9 H (3.8-10.6) k/uL RBC 4.68 4.60 (4.30-5.90) m/uL Hgb 13.5 13.5 (13.0-17.5) gm/dL Hct 40.9 39.5 (39.0-53.0) % MCV 87.4 85.8 (80.0-100.0) fL MCH 28.8 29.4 (25.0-35.0) pg MCHC 32.9 34.2 (31.0-37.0) g/dL RDW 14.0 13.9 (11.5-15.5) % Plt Count 162 167 (150-450) k/uL Neutrophils % 78 77 % Lymphocytes % 15 16 % Monocytes % 5 5 % Eosinophils % 1 1 % Basophils % 0 0 % Neutrophils # 10.0 H 9.9 H (1.3-7.7) k/uL Lymphocytes # 1.9 2.0 (1.0-4.8) k/uL Monocytes # 0.6 0.6 (0-1.0) k/uL Eosinophils # 0.2 0.2 (0-0.7) k/uL Basophils # 0.1 0.1 (0-0.2) k/uL PT (9.0-12.0) sec INR (<1.2) APTT (22.0-30.0) sec D-Dimer (<0.60) mg/L FEU Sodium 139 (137-145) mmol/L Potassium 4.8 (3.5-5.1) mmol/L Chloride 104 (98-107) mmol/L Carbon Dioxide 24 (22-30) mmol/L Anion Gap 11 mmol/L BUN 15 (9-20) mg/dL Creatinine 0.82 (0.66-1.25) mg/dL Est GFR (CKD-EPI)AfAm >90 (>60 ml/min/1.73 sqM) Est GFR (CKD-EPI)NonAf >90 (>60 ml/min/1.73 sqM) Glucose 276 H (74-99) mg/dL Calcium 9.0 (8.4-10.2) mg/dL Total Bilirubin 0.6 (0.2-1.3) mg/dL AST 17 (17-59) U/L ALT 27 (21-72) U/L Alkaline Phosphatase 101 (38-126) U/L Total Protein 6.6 (6.3-8.2) g/dL Albumin 3.6 (3.5-5.0) g/dL 02/21/18 Range/Units 21:30 WBC (3.8-10.6) k/uL RBC (4.30-5.90) m/uL Hgb (13.0-17.5) gm/dL Hct (39.0-53.0) % MCV (80.0-100.0) fL MCH (25.0-35.0) pg MCHC (31.0-37.0) g/dL RDW (11.5-15.5) % Plt Count (150-450) k/uL Neutrophils % % Lymphocytes % % Monocytes % % Eosinophils % % Basophils % % Neutrophils # (1.3-7.7) k/uL Lymphocytes # (1.0-4.8) k/uL Monocytes # (0-1.0) k/uL Eosinophils # (0-0.7) k/uL Basophils # (0-0.2) k/uL PT 9.8 (9.0-12.0) sec INR 1.0 (<1.2) APTT 24.3 (22.0-30.0) sec D-Dimer 5.32 H (<0.60) mg/L FEU Sodium (137-145) mmol/L Potassium (3.5-5.1) mmol/L Chloride (98-107) mmol/L Carbon Dioxide (22-30) mmol/L Anion Gap mmol/L BUN (9-20) mg/dL Creatinine (0.66-1.25) mg/dL Est GFR (CKD-EPI)AfAm (>60 ml/min/1.73 sqM) Est GFR (CKD-EPI)NonAf (>60 ml/min/1.73 sqM) Glucose (74-99) mg/dL Calcium (8.4-10.2) mg/dL Total Bilirubin (0.2-1.3) mg/dL AST (17-59) U/L ALT (21-72) U/L Alkaline Phosphatase (38-126) U/L Total Protein (6.3-8.2) g/dL Albumin (3.5-5.0) g/dL Disposition Clinical Impression: DVT (deep venous thrombosis) Disposition: HOME SELF-CARE Condition: Good Instructions: Deep Vein Thrombosis (ED) Additional Instructions: Patient to adhere to previously discussed treatment plan and will take medication(s) as directed. Patient to follow up with PCP in 1-2 days. Patient to return to ED if symptoms do not improve. Prescriptions: Apixaban [Eliquis] 5 mg PO DIRECTED #42 tab Is patient prescribed a controlled substance at d/c from ED?: No Referrals: Jonas Holden MD [Primary Care Provider] - 1-2 days Daren Walsh MD [STAFF PHYSICIAN] - 1-2 days
[2018-02-22 00:20] VITALS: BP 114/65; PULSE 86; RESP 20
== END 2018-02-22 00:14 | disposition home or self-care (01) ==
LOC: EC 18:38
DX: I82.402 Acute embolism and thrombosis of unspecified deep veins of left lower extremity (principal); E11.9 Type 2 diabetes mellitus without complications; E78.5 Hyperlipidemia, unspecified; I10 Essential (primary) hypertension; H40.9 Unspecified glaucoma; Z79.84 Long term (current) use of oral hypoglycemic drugs; Z79.899 Other long term (current) drug therapy; Z79.01 Long term (current) use of anticoagulants; Z91.030 Bee allergy status; Z88.8 Allergy status to other drugs, medicaments and biological substances
CPT/HCPCS: 36415; 93005; 85379; 80053; 85025; 85610; 85730; 93970; 71275; 99284; Q9967

== ENCOUNTER 2018-03-31 21:49 | Observation (INO) | payer BC ==
[2018-03-31] MEDS ORDERED: SODIUM CHLORIDE 0.9% 1,000 ML BAG ONE (23:30)
[2018-04-01] MEDS ORDERED: HEPARIN SOD,PORK IN 0.45% NACL PMX 25,000 UNIT/250 ML BAG IV ONE (02:00)
[2018-04-01] MEDS ORDERED: MAGNESIUM SULFATE-D5W PMX 1 GM/100 ML BAG IVPB ONE (02:00)
[2018-04-01] MEDS ORDERED: HEPARIN SODIUM,PORCINE 5,000 UNIT/ML 1 ML VIAL ONE (02:00)
[2018-04-01 03:13] LABS: Glucose,Whole Blood 161 mg/dL (75-99)
[2018-04-01 05:52] LABS: ALT 38 U/L (21-72); AST 19 U/L (17-59); Albumin 3.8 g/dL (3.5-5.0); Alkaline Phosphatase 88 U/L (38-126); Amylase 38 U/L (30-110); Anion Gap 9 mmol/L; Blood Urea Nitrogen 12 mg/dL (9-20); Carbon Dioxide 24 mmol/L (22-30); Chloride 104 mmol/L (98-107); GGT 21 U/L (15-73); Glucose 168 mg/dL (74-99); Lipase 128 U/L (23-300); Magnesium 1.4 mg/dL (1.6-2.3); Sodium 137 mmol/L (137-145); Total Bilirubin 0.7 mg/dL (0.2-1.3); Total Protein 6.6 g/dL (6.3-8.2)
[2018-04-01 05:53] LABS: Creatine Kinase 152 U/L (55-170); Creatine Kinase MB 0.5 ng/mL (0.0-2.4); Troponin I <0.012 ng/mL (0.000-0.034)
[2018-04-01 06:10] LABS: Basophils # (A) 0.1 k/uL (0-0.2); Basophils % (A) 1 %; Eosinophils # (A) 0.1 k/uL (0-0.7); Eosinophils % (A) 2 %; HCT 39.8 % (39.0-53.0); HGB 13.4 gm/dL (13.0-17.5); Lymphocytes # (A) 1.2 k/uL (1.0-4.8); Lymphocytes % (A) 14 %; MCH 28.5 pg (25.0-35.0); MCHC 33.6 g/dL (31.0-37.0); Mean Platelet Volume 7.1; Monocytes # (A) 0.5 k/uL (0-1.0); Monocytes % (A) 6 %; Neutrophils # (A) 6.3 k/uL (1.3-7.7); Neutrophils % (A) 76 %; Platelet Count 171 k/uL (150-450); RBC 4.69 m/uL (4.30-5.90); RDW 14.5 % (11.5-15.5); WBC 8.3 k/uL (3.8-10.6)
[2018-04-01 06:14] LABS: INR 0.9 (<1.2); Partial Thromboplastin Time 24.8 sec (22.0-30.0); Prothrombin Time 10.2 sec (9.0-12.0)
[2018-04-01 06:15] LABS: D-Dimer 0.7 mg/L FEU (<0.60)
[2018-04-01] MEDS ORDERED: ACETAMINOPHEN TAB 325 MG TAB PO PRN (08:16)
[2018-04-01] MEDS ORDERED: ONDANSETRON 4 MG/2 ML VIAL IVP PRN (08:16)
[2018-04-01] MEDS ORDERED: NITROGLYCERIN OINT 1 INCH/GM PACKET TOPICAL STA (08:32)
[2018-04-01 09:57] LABS: Glucose,Whole Blood 229 mg/dL (75-99)
[2018-04-01] MEDS ORDERED: Magnesium Replacement Protocol 1 EACH MISC MISCELLANE PRN (10:09)
[2018-04-01 10:26] LABS: Creatine Kinase MB 0.3 ng/mL (0.0-2.4)
[2018-04-01] MEDS: SODIUM CHLORIDE 0.9% 1,000 ML IV SCH ×2 (11:41→20:56)
--- NOTE | 2018-04-01 11:59 | CT ---
ADDENDUM - Added by Sherin Kelly M.D. on 04/01/2018 4:43 AM (-08:00) History: Elevated d-dimer EXAM: CT Angiography Chest With Intravenous Contrast CLINICAL HISTORY: R/O PE TECHNIQUE: Axial computed tomographic angiography images of the chest with intravenous contrast using pulmonary embolism protocol. CTDI is 15.7 mGy and DLP is 745.6. mGy-cm. This CT exam was performed using one or more of the following dose reduction techniques: automated exposure control, adjustment of the mA and/or kV according to patient size, and/or use of iterative reconstruction technique. MIP reconstructed images were created and reviewed. COMPARISON: 11/12/2017 and 09/12/[address] 01/19/16 [address] pelvis. FINDINGS: Artifacts: Mild breathing motion artifact and streak artifact from dense contrast in the superior vena cava. Somewhat limits evaluation of smaller vessels. Pulmonary arteries: No central pulmonary embolism. Slightly lower density appearance of the left upper lobe pulmonary arteries has somewhat symmetric appearance to the right side. Series 401, image 48. On the corresponding coronal images and MIP images, again slightly lower density without discrete filling defect appearance. Favor this is artifactual rather than PE. Aorta: No acute findings. No thoracic aortic aneurysm. Lungs: Unremarkable. No mass. No consolidation. Pleural space: Unremarkable. No significant effusion. No pneumothorax. Heart: Coronary calcifications. No significant pericardial effusion. No evidence of RV dysfunction. Mediastinum: Small hiatal hernia. Bones/joints: No acute fracture. No dislocation. Soft tissues: Bilateral gynecomastia. Lymph nodes: Unremarkable. No enlarged lymph nodes. Kidneys and ureters: Partially visualized left kidney with left hydronephrosis versus parapelvic cysts. On the prior CT pelvis study, similar appearance and likely represent parapelvic cysts. Partially visualized proximal ureter is not dilated today. Other findings: . IMPRESSION: 1. Some artifact limits evaluation of small arteries. No central pulmonary embolism. Slightly lower density appearance of the left upper lobe pulmonary arteries. Favor this is artifactual rather than PE. Correlate. 2. Coronary calcifications. 3. Small hiatal hernia. 4. Probable left renal parapelvic cysts [employer] 04/01/18 04:41 Call Doctor Regarding Above results, called Dr. Montejo on 04/01 04:40 (-05:00)
--- NOTE | 2018-04-01 11:59 | XR ---
EXAM: XR Chest, 2 Views CLINICAL HISTORY: General Abd. pain. TECHNIQUE: Frontal and lateral views of the chest. COMPARISON: 12/31/17. FINDINGS: Lungs: Unremarkable. No consolidation. Pleural space: Unremarkable. No pneumothorax. Heart: Unremarkable. No cardiomegaly. Mediastinum: Unremarkable. Bones/joints: Unremarkable. IMPRESSION: No evidence of acute cardiopulmonary disease.
--- NOTE | 2018-04-01 12:00 | XR ---
EXAM: XR Abdomen, 2 Views CLINICAL HISTORY: General Abd. pain. TECHNIQUE: 2 upright frontal views of the abdomen. COMPARISON: Chest x-ray today and 12/31/17 FINDINGS: Intraperitoneal space: No free air. Gastrointestinal tract: Nonspecific bowel gas pattern with scattered normal caliber gas-filled small bowel and colonic loops. No dilation. Bones/joints: Mild levorotoscoliosis of the lumbar spine and degenerative changes. IMPRESSION: No acute findings.
[2018-04-01] MEDS: FAMOTIDINE 20 MG TAB PO SCH ×2 (12:13→20:55)
[2018-04-01] MEDS: LISINOPRIL 10 MG TAB PO SCH (12:13)
[2018-04-01] MEDS: ATORVASTATIN 80 MG TAB PO SCH (12:15)
[2018-04-01] MEDS: MAGNESIUM SULFATE-D5W PMX 1 GM in DEXTROSE/WATER 1 100ML.BAG IVPB SCH ×3 (12:16→17:20)
[2018-04-01] MEDS: NITROGLYCERIN OINT 1 INCH/GM PACKET TOPICAL SCH ×3 (12:18→23:00)
[2018-04-01] MEDS: metFORMIN 500 MG TAB PO SCH ×2 (12:35→20:55)
[2018-04-01] MEDS: PIOGLITAZONE 45 MG TAB PO SCH (12:35)
[2018-04-01] MEDS: GLIMEPIRIDE 4 MG TAB PO SCH (12:35)
[2018-04-01] MEDS: INSULIN ASPART 100 UNIT/ML 1 ML 10 ML VIAL SQ SCH ×2 (12:37→18:14)
--- NOTE | 2018-04-01 13:00 | P.CRDCN ---
History of Present Illness History of present illness: This is a pleasant 57-year-old male past medical history significant for hypertension, dyslipidemia, diabetes mellitus and morbid obesity with a BMI of 43. He denies history of coronary artery disease or heart failure and has never seen a cadmium plater for any reason. We have been asked to see him in consultation for symptoms of chest discomfort. He states for the previous day or 2 he has been feeling generally unwell. He states he had pneumonia over the summer and symptoms feel very similar in nature. He states he has been coughing but not bringing up any phlegm has felt increasingly short of breath at rest and with exertion and has felt a tight burning sensation in the midsternal region. He continues to have a burning in the midsternal region described as heartburn despite having a nitro patch in place. Chest x-ray and CT angio are pending. He states he presented to the hospital in early February with symptoms of lower extremity pain, redness and swelling and despite having a negative lower extremity Doppler he was still diagnosed with a probable DVT and placed on Eliquis. He states he took the Eliquis for approximately one week , which is what was prescribed, and then stopped. He denies ongoing pain, swelling or redness in either lower extremity. EKG reveals sinus mechanism with no acute ST or T wave abnormalities noted. Laboratory data reviewed, WBC 8.3, hemoglobin 13.4, platelets 171, d-dimer 0.7, sodium 137, potassium 4.0, magnesium 1.4, creatinine 0.74, cardiac enzymes negative 1. Current cardiac medications include atorvastatin 80 mg daily and lisinopril 10 mg daily. At the time of my exam: CONSTITUTIONAL: Denies fever. Denies chills. EYES: Denies blurred vision. Denies vision changes. Denies eye pain. EARS, NOSE, MOUTH & THROAT: Denies headache. Denies sore throat. Denies ear pain. CARDIOVASCULAR: Denies chest pain. Denies shortness of breath. Denies orthopnea. Denies PND. Denies palpitations. RESPIRATORY: Complains of cough. GASTROINTESTINAL: Denies abdominal pain. Denies diarrhea. Denies constipation. Denies nausea. Denies vomiting. MUSCULOSKELETAL: Denies myalgias. INTEGUMENTARY: Denies pruitis. Denies rash. NEUROLOGIC: Denies numbness. Denies tingling. Denies weakness. PSYCHIATRIC: Denies anxiety. Denies depression. ENDOCRINE: Denies fatigue. Denies weight change. Denies polydipsia. Denies polyurina. GENITOURINARY: Denies burning, hematuria or urgency with micturation. HEMATOLOGIC: Denies history of anemia. Denies bleeding. Blood pressure 134/71 heart rate 71 afebrile maintaining oxygen saturation on room air GENERAL: This is a 57-year-old male in no apparent distress at the time of my examination. Morbidly obese. HEENT: Head is atraumatic, normocephalic. Pupils are equal, round. Sclerae anicteric. Conjunctivae are clear. Mucous membranes of the mouth are moist. Neck is supple. There is no jugular venous distention. No carotid bruit is heard. LUNGS: Clear to auscultation no wheezes, rales or rhonchi. No chest wall tenderness is noted on palpation or with deep breathing. HEART: Regular rate and rhythm without murmurs, rubs or gallops. S1 and S2 heard. ABDOMEN: Soft, nontender. Bowel sounds are heard. No organomegaly noted. EXTREMITIES: Trace bilateral lower extremity edema and no calf tenderness noted. VASCULAR: Radial and dorsalis pedis pulses palpated, no evidence of clubbing. NEUROLOGIC: Patient is awake, alert and oriented x3. ASSESSMENT Chest pain, atypical for angina. Hypomagnesemia Hypertension Dyslipidemia Diabetes mellitus Morbid obesity, BMI 43 PLAN Obtain 2-D echocardiogram and Doppler study to assess cardiac structure and function. Continue to obtain serial cardiac enzymes to rule out an acute event. Replace magnesium per protocol. If enzymes are normal we will pursue a stress test tomorrow morning. After stress testing we will place him on a beta libby. Lifestyle modifications recommended for weight loss. Thank you kindly for this consultation. Nurse Practitioner note has been reviewed, I agree with a documented findings and plan of care. Patient was seen and examined. Past Medical History Past Medical History: Diabetes Mellitus, Eye Disorder, Hyperlipidemia, Hypertension Additional Past Medical History / Comment(s): NIDDM type II, glaucoma bilateral eyes, leg cramps at night occasionally, bilateral hand tremors-pt states he does not know reason. History of Any Multi-Drug Resistant Organisms: None Reported Additional Past Surgical History / Comment(s): bilateral eye laser surgery for cataract removal/lens implants Past Anesthesia/Blood Transfusion Reactions: Unable to Obtain Additional Past Anesthesia/Blood Transfusion Reaction / Comment(s): Pt states he has never had general anesthesia. Past Psychological History: No Psychological Hx Reported Smoking Status: Never smoker Past Alcohol Use History: None Reported Past Drug Use History: None Reported - Past Family History Mother Family Medical History: Diabetes Mellitus Additional Family Medical History / Comment(s): Mother in her sleep when she was in her 60s. Pt does not know cause of . Father Family Medical History: No Reported History Additional Family Medical History / Comment(s): Pt states father is healthy and is 88yrs old Medications and Allergies Home Medications Medication Instructions Recorded Confirmed Type Atorvastatin [Lipitor] 80 mg PO DAILY 09/10/17 04/01/18 History HYDROcodone/APAP 7.5-325MG [Starlight 1 tab PO QID PRN 09/10/17 04/01/18 History 7.5-325] Lisinopril [Zestril] 10 mg PO DAILY 09/10/17 04/01/18 History metFORMIN HCL 1,000 mg PO BID 09/10/17 04/01/18 History Insulin Glargine,Hum.rec.anlog 64 unit SQ DAILY 03/31/18 04/01/18 History [Basaglar Kwikpen U-100] Acarbose 100 mg PO TID 04/01/18 04/01/18 History Ergocalciferol (Vitamin D2) 50,000 unit PO QMONTH 04/01/18 04/01/18 History [Vitamin D2] Glimepiride [Amaryl] 4 mg PO AC-BRKFST 04/01/18 04/01/18 History Insulin Lispro [humaLOG Kwikpen] 10 unit SQ AC-TID 04/01/18 04/01/18 History Pioglitazone [Actos] 45 mg PO DAILY 04/01/18 04/01/18 History Allergies Allergy/AdvReac Type Severity Reaction Status Date / Time aluminum hydroxide Allergy Nausea & Verified 04/01/18 09:19 [From Mylanta] Vomiting barium iodide Allergy Nausea & Verified 04/01/18 09:19 Vomiting barium sulfate Allergy Nausea & Verified 04/01/18 09:19 Vomiting bee venom protein (honey bee) Allergy Swelling Verified 04/01/18 09:19 calcium carbonate Allergy Nausea & Verified 04/01/18 09:19 [From Mylanta] Vomiting magnesium [From Mylanta] Allergy Nausea & Verified 04/01/18 09:19 Vomiting magnesium hydroxide Allergy Nausea & Verified 04/01/18 09:19 [From Mylanta] Vomiting simethicone [From Mylanta] Allergy Nausea & Verified 04/01/18 09:19 Vomiting Physical Exam Vitals: Vital Signs Temp Pulse Pulse Resp BP BP Pulse Ox 04/01/18 08:45 98.2 F 71 18 134/71 96 04/01/18 05:33 98.2 F 77 16 129/79 98 03/31/18 22:46 20 03/31/18 22:15 98.4 F 78 20 133/77 98 Intake and Output 03/31/18 04/01/18 04/01/18 22:59 06:59 14:59 Other: Weight 115.212 kg Results 03/31/18 22:50 03/31/18 22:50 Cardiac Enzymes 03/31/18 03/31/18 Range/Units 22:50 22:50 AST 19 (17-59) U/L CK-MB (CK-2) 0.5 (0.0-2.4) ng/mL Troponin I <0.012 (0.000-0.034) ng/mL Coagulation 03/31/18 04/01/18 Range/Units 22:50 09:08 PT 10.2 (9.0-12.0) sec APTT 24.8 46.0 H (22.0-30.0) sec CBC 03/31/18 Range/Units 22:50 WBC 8.3 (3.8-10.6) k/uL RBC 4.69 (4.30-5.90) m/uL Hgb 13.4 (13.0-17.5) gm/dL Hct 39.8 (39.0-53.0) % Plt Count 171 (150-450) k/uL Comprehensive Metabolic Panel 03/31/18 Range/Units 22:50 Sodium 137 (137-145) mmol/L Potassium 4.0 (3.5-5.1) mmol/L Chloride 104 (98-107) mmol/L Carbon Dioxide 24 (22-30) mmol/L BUN 12 (9-20) mg/dL Creatinine 0.74 (0.66-1.25) mg/dL Glucose 168 H (74-99) mg/dL Calcium 9.0 (8.4-10.2) mg/dL AST 19 (17-59) U/L ALT 38 (21-72) U/L Alkaline Phosphatase 88 (38-126) U/L Total Protein 6.6 (6.3-8.2) g/dL Albumin 3.8 (3.5-5.0) g/dL Current Medications Generic Name Dose Route Start Last Admin Trade Name Freq PRN Reason Stop Dose Admin Acetaminophen 650 mg 04/01/18 08:16 Tylenol Tab PO Q6HR PRN Mild Pain or Fever > 100.5 Famotidine 20 mg 04/01/18 09:00 Pepcid PO BID [facility] Sodium Chloride 1,000 mls @ 80 mls/hr 04/01/18 08:30 Saline 0.9% IV .[id number] [facility] Nitroglycerin 1 inch 04/01/18 13:00 Nitro-Bid Oint TOPICAL Q6HR [facility] Ondansetron HCl 4 mg 04/01/18 08:16 Zofran IVP DAILY PRN Nausea And Vomiting Zolpidem Tartrate 5 mg 04/01/18 21:00 Ambien PO HS PRN Insomnia Intake and Output 03/31/18 04/01/18 04/01/18 22:59 06:59 14:59 Other: Weight 115.212 kg 03/31/18 22:50 03/31/18 22:50
[2018-04-01 15:25] LABS: Glucose,Whole Blood 190 mg/dL (75-99)
--- NOTE | 2018-04-01 15:58 | HP ---
HISTORY AND PHYSICAL CHIEF COMPLAINT: Chest pain. HISTORY OF PRESENT ILLNESS: This is another admission for this 57-year-old obese white male with insulin-dependent diabetes mellitus with only fair control. Presented to the emergency room with a burning anterior chest pain. EKG and enzymes are normal. His D-dimer was up slightly and a CTA was ordered, but this was normal. He is admitted for observation. He has never had heart trouble in the past. REVIEW OF SYSTEMS: He has had no syncope, radiation of the pain, diaphoresis, shortness of breath, nausea, etc. Past medical history, family history personal and social history social history is reveal that he is not take Reglan, oral antacids. He is on Humalog 10 units 3 times a day, Eliquis 5 mg twice a day, 64 units once a day, atorvastatin 80 q.h.s., lisinopril 10 once a day, glimepiride 4 mg twice a day, metformin 1 g twice a day, Pioglitazone 45 mg once a day, acarbose 100 mg 3 times a day, vitamin D, and Vicodin. The remainder of his history is unremarkable. He does not smoke or drink. PHYSICAL EXAM: Blood pressure 130/80 with a pulse of 80, respirations. He is afebrile. In general, he appeared to be overweight in no acute distress. Skin color is normal. Skin is warm, dry. Lymph nodes not enlarged. Head, ears, eyes, nose, mouth, and throat were normal. Neck veins not distended. Thyroid is not enlarged. Chest is clear. Cardiac exam demonstrates normal sinus rhythm and no murmurs or extra sounds. Abdomen is soft, nontender and it is protuberant. EXTREMITIES: Normal. NEUROLOGICAL: He is intact. He is admitted to the hospital with diagnoses: 1. Chest pain. 2. Insulin-dependent diabetes mellitus. 3. Hypertension. PLAN: 1. Bed rest. 2. IV fluids. 3. Serial EKGs and enzymes. 4. Consult Cardiology. MMODL / IJN: [id number] /
[2018-04-01 16:07] VITALS: BMI 43.6
[2018-04-01 16:41] LABS: Creatine Kinase 150 U/L (55-170)
[2018-04-01 16:46] LABS: Glucose,Whole Blood 158 mg/dL (75-99)
[2018-04-01 16:54] LABS: Creatine Kinase MB 0.7 ng/mL (0.0-2.4); Troponin I <0.012 ng/mL (0.000-0.034)
[2018-04-01] MEDS: INSULIN DETEMIR 100 UNIT/ML 10 ML VIAL SQ SCH (18:14)
[2018-04-01] MEDS: ACARBOSE 25 MG TAB PO SCH ×2 (18:15→20:55)
--- NOTE | 2018-04-01 19:17 | ECHOF ---
Referral Reason:cp MEASUREMENTS -------- HEIGHT: 162.6 cm WEIGHT: 115.2 kg BP: RVIDd: 2.7 cm (< 3.3) IVSd: 1.2 cm (0.6 - 1.1) LVIDd: 4.6 cm (3.9 - 5.3) LVPWd: 1.3 cm (0.6 - 1.1) IVSs: 1.7 cm LVIDs: 3.3 cm LVPWs: 1.2 cm LAESV Index (A-L): 12.46 ml/m Ao Diam: 4.0 cm (2.0 - 3.7) AV Cusp: 1.6 cm (1.5 - 2.6) LA Diam: 3.2 cm (2.7 - 3.8) MV EXCURSION: 14.577 mm (> 18.000) MV EF SLOPE: 74 mm/s (70 - 150) EPSS: 0.6 cm MV E Rocael: 0.71 m/s MV DecT: 251 ms MV A Rocael: 0.98 m/s MV E/A Ratio: 0.73 RAP: 5.00 mmHg RVSP: 15.73 mmHg FINDINGS -------- Sinus rhythm. Morbid Obesity The left ventricular size is normal. There is borderline concentric left ventricular hypertrophy. Overall left ventricular systolic function is normal with, an EF between 55 - 60 %. The right ventricle is normal in size. The left atrial size is normal. The right atrial size is normal. The aortic valve is trileaflet, and appears structurally normal. No aortic stenosis or regurgitation. Mild mitral annular calcification present. Mild mitral regurgitation is present. Mild tricuspid regurgitation present. There is no evidence of pulmonary hypertension. The right v entricular systolic pressure, as measured by Doppler, is 15.73mmHg. There is no pulmonic regurgitation present. The aortic root size is normal. Echo free space represents a pericardial fat pad. CONCLUSIONS -------- 1. Morbid Obesity 2. The left ventricular size is normal. 3. There is borderline concentric left ventricular hypertrophy. 4. Overall left ventricular systolic function is normal with, an EF between 55 - 60 %. 5. The right ventricle is normal in size. 6. The left atrial size is normal. 7. The right atrial size is normal. 8. The aortic valve is trileaflet, and appears structurally normal. No aortic stenosis or regurgitati on. 9. Mild mitral annular calcification present. 10. Mild mitral regurgitation is present. 11. Mild tricuspid regurgitation present. 12. There is no evidence of pulmonary hypertension. 13. The right ventricular systolic pressure, as measured by Doppler, is 15.73mmHg. 14. There is no pulmonic regurgitation present. 15. The aortic root size is normal. 16. Echo free space represents a pericardial fat pad. MEDICAL CLAIMS ANALYST: Laila Hardin RDCS
[2018-04-01] MEDS ORDERED: ZOLPIDEM 5 MG TAB PO PRN (21:00)
[2018-04-01 21:01] LABS: Glucose,Whole Blood 99 mg/dL (75-99)
[2018-04-02 07:01] LABS: Glucose,Whole Blood 139 mg/dL (75-99)
[2018-04-02] MEDS ORDERED: DOBUTamine DRIP for NUC MED 500 MG in DEXTROSE/WATER 1 250ML.BAG IV ONE (08:00)
[2018-04-02 08:36] VITALS: RESP 18
--- NOTE | 2018-04-02 11:30 | P.PN ---
Subjective This is a pleasant 57-year-old male past medical history significant for hypertension, dyslipidemia, diabetes mellitus and morbid obesity with a BMI of 43. He denies history of coronary artery disease or heart failure and has never seen a patient appointment coordinator for any reason. We have been asked to see him in consultation for symptoms of chest discomfort. Echocardiogram data reveals preserved left ventricular systolic function ejection fraction 55-60%. Blood pressure 116/68 heart rate 67 afebrile maintaining oxygen saturation on room air. Laboratory data reviewed, magnesium 2.3, cardiac enzymes negative 3. He denies any further symptoms of chest discomfort. Continues to complain of shortness of breath and cough intermittently. GENERAL: This is a 57-year-old male in no apparent distress at the time of my examination. Morbidly obese. HEENT: Head is atraumatic, normocephalic. Pupils are equal, round. Sclerae anicteric. Conjunctivae are clear. Mucous membranes of the mouth are moist. Neck is supple. There is no jugular venous distention. No carotid bruit is heard. LUNGS: Clear to auscultation no wheezes, rales or rhonchi. No chest wall tenderness is noted on palpation or with deep breathing. HEART: Regular rate and rhythm without murmurs, rubs or gallops. S1 and S2 heard. EXTREMITIES: Trace bilateral lower extremity edema and no calf tenderness noted. ASSESSMENT Chest pain, atypical for angina. An acute coronary event has been ruled out with no EKG evidence of ischemia and negative cardiac enzymes. Hypomagnesemia, resolved. Hypertension Dyslipidemia Diabetes mellitus Morbid obesity, BMI 43 PLAN Proceed with dobutamine stress echocardiogram as ordered. If stress test is normal he is stable from a cardiac perspective. Symptoms may be related to gastroesophageal reflux disease. Follow up with Dr. Black in 2-3 weeks upon discharge. Nurse Practitioner note has been reviewed, I agree with a documented findings and plan of care. Patient was seen and examined. Objective - Vital Signs Vital signs: Vital Signs Temp 98.1 F 04/02/18 08:00 Pulse 67 04/02/18 08:00 Resp 18 04/02/18 08:00 BP 116/68 04/02/18 08:00 Pulse Ox 96 04/02/18 08:00 Intake & Output 04/01/18 04/02/18 04/02/18 18:59 06:59 18:59 Weight 115.212 kg Other: Voiding Method Toilet Toilet Toilet # Voids 1 1 - Labs CBC & Chem 7: 03/31/18 22:50 03/31/18 22:50 Labs: Abnormal Lab Results - Last 24 Hours (Table) 04/01/18 04/01/18 04/01/18 Range/Units 09:08 15:16 16:43 POC Glucose (mg/dL) 190 H 158 H (75-99) mg/dL Hemoglobin A1c 10.0 H (4.0-6.0) % 04/02/18 Range/Units 06:50 POC Glucose (mg/dL) 139 H (75-99) mg/dL Hemoglobin A1c (4.0-6.0) %
[2018-04-02 12:16] LABS: Glucose,Whole Blood 109 mg/dL (75-99)
--- NOTE | 2018-04-02 12:22 | ECHOS ---
STRESS ECHOCARDIOGRAM DATE OF SERVICE: 04/02/2018 INDICATIONS: Chest pain. MEDICATIONS: BASELINE HEART RATE: 66 BASELINE BLOOD PRESSURE: 169/77 MAXIMUM HEART RATE: 142 MAXIMUM BLOOD PRESSURE: 217/75 85% MPHR: 139 100% MPHR: 163 METS: MAXIMUM STAGE REACHED: TOTAL EXERCISE TIME: CLINICAL INFORMATION: Baseline EKG revealed normal sinus rhythm without significant ST-T changes. With dobutamine administration as per protocol, his heart rate went up to 142 beats per minute which is more than 85% of predicted maximal. He also had hypertensive response with a peak pressure of 217/75. He did not have any anginal symptoms. There were no ST-segment changes to indicate ischemia. By EKG criteria, this is an unremarkable dobutamine stress test. Baseline echo images revealed normal wall motion and wall thickening of all segments. With dobutamine administration as per protocol, there was progressive increase in contractility noted without any evidence of ischemia. FINAL IMPRESSION: 1. By EKG criteria, this is an unremarkable dobutamine stress test. 2. Normal dobutamine stress echocardiogram. MMODL / IJN: [id number] /
[2018-04-02] MEDS: INSULIN ASPART 100 UNIT/ML 1 ML 10 ML VIAL SQ SCH (12:32)
[2018-04-02] MEDS: LISINOPRIL 10 MG TAB PO SCH (12:36)
[2018-04-02] MEDS: ACARBOSE 25 MG TAB PO SCH (12:36)
[2018-04-02] MEDS: ATORVASTATIN 80 MG TAB PO SCH (12:36)
[2018-04-02] MEDS: FAMOTIDINE 20 MG TAB PO SCH (12:36)
[2018-04-02] MEDS: GLIMEPIRIDE 4 MG TAB PO SCH (12:36)
[2018-04-02] MEDS: PIOGLITAZONE 45 MG TAB PO SCH (12:36)
[2018-04-02 12:37] VITALS: BP 130/77; PULSE 77; TEMP 97.7
[2018-04-02] MEDS: INSULIN DETEMIR 100 UNIT/ML 10 ML VIAL SQ SCH (12:37)
--- NOTE | 2018-04-03 19:31 | DS ---
DISCHARGE SUMMARY CHIEF COMPLAINT: Chest pain. HISTORY OF PRESENT ILLNESS AND PHYSICAL EXAM: Details of this man's history and physical can be found in the initial workup. LABORATORY STUDIES: While he was in the hospital, he had laboratory studies, details of which can be found in laboratory section of his chart. COURSE IN HOSPITAL: After admission, he was placed on bedrest, started on intravenous fluids and had serial EKGs and they were normal. He was seen by Cardiology. He was taken for a stress study, which is negative. It was felt he could go home. He will go home on his usual activity, diet and medication and follow up in a day or 2. He will probably be treated for GERD. FINAL DIAGNOSES: 1. Anterior chest pain, noncardiac. 2. History of insulin-dependent diabetes mellitus. 3. Probable esophagitis. OPERATIONS: None. CONSULTATIONS: Cardiology. He is improved. EVAN / TALIA: [id number] /
== END 2018-04-02 16:14 | disposition home or self-care (01) ==
LOC: EC 21:49 → 1SOBS 04-01 01:25 → 2ORMAIN 04-01 07:37 → 1SOBS 04-01 15:09
PROVIDERS: ADMIT Family Medicine; ATTEND Family Medicine
DX: R07.89 Other chest pain (principal); E83.42 Hypomagnesemia; R77.8 Other specified abnormalities of plasma proteins; R12 Heartburn; R06.02 Shortness of breath; R05 Cough; E11.9 Type 2 diabetes mellitus without complications; I10 Essential (primary) hypertension; E78.5 Hyperlipidemia, unspecified; E66.01 Morbid (severe) obesity due to excess calories; Z68.41 Body mass index [BMI] 40.0-44.9, adult; H40.9 Unspecified glaucoma; Z79.4 Long term (current) use of insulin; Z79.01 Long term (current) use of anticoagulants; Z79.899 Other long term (current) drug therapy; Z88.8 Allergy status to other drugs, medicaments and biological substances; Z91.030 Bee allergy status; Z91.041 Radiographic dye allergy status; Z87.01 Personal history of pneumonia (recurrent); Z98.42 Cataract extraction status, left eye; Z98.41 Cataract extraction status, right eye; Z96.1 Presence of intraocular lens; Z83.3 Family history of diabetes mellitus
CPT/HCPCS: 96365; 96366; 99285; 36415; 93005; 93306; 93351; 85379; 80053; 82150; 82550; 82553; 82977; 83690; 83735 ×2; 84484; 85025; 85610; 85730; 83036; 71046; 74018; 71275; G0378 ×2; J1250; J3475; Q9967

== ENCOUNTER 2018-05-11 19:33 | Emergency (ER) | payer BC ==
[2018-05-11] MEDS ORDERED: SODIUM CHLORIDE 0.9% 500 ML 500 ML IV STA (22:01)
[2018-05-11] MEDS ORDERED: KETOROLAC 30 MG/ML 1 ML VIAL IVP STA (22:01)
[2018-05-11 22:14] LABS: Basophils # (A) 0.1 k/uL (0-0.2); Basophils % (A) 1 %; Eosinophils # (A) 0.2 k/uL (0-0.7); Eosinophils % (A) 1 %; HCT 43.4 % (39.0-53.0); HGB 14.2 gm/dL (13.0-17.5); Lymphocytes # (A) 2.1 k/uL (1.0-4.8); Lymphocytes % (A) 16 %; MCH 28.7 pg (25.0-35.0); MCHC 32.7 g/dL (31.0-37.0); MCV 87.8 fL (80.0-100.0); Mean Platelet Volume 6.5; Monocytes # (A) 0.7 k/uL (0-1.0); Monocytes % (A) 5 %; Neutrophils % (A) 76 %; Platelet Count 238 k/uL (150-450); RBC 4.94 m/uL (4.30-5.90); RDW 14.9 % (11.5-15.5); WBC 13.1 k/uL (3.8-10.6)
[2018-05-11 22:23] LABS: ALT 37 U/L (21-72); AST 19 U/L (17-59); Albumin 4.2 g/dL (3.5-5.0); Alkaline Phosphatase 111 U/L (38-126); Anion Gap 11 mmol/L; Blood Urea Nitrogen 15 mg/dL (9-20); Calcium 9.7 mg/dL (8.4-10.2); Carbon Dioxide 26 mmol/L (22-30); Chloride 102 mmol/L (98-107); Glucose 122 mg/dL (74-99); Magnesium 1.5 mg/dL (1.6-2.3); Potassium 4.4 mmol/L (3.5-5.1); Sodium 139 mmol/L (137-145); Total Bilirubin 0.7 mg/dL (0.2-1.3); Total Protein 7.5 g/dL (6.3-8.2)
[2018-05-11 22:24] LABS: INR 0.9 (<1.2); Partial Thromboplastin Time 25.9 sec (22.0-30.0)
[2018-05-11 22:31] LABS: Creatine Kinase 63 U/L (55-170)
[2018-05-11 22:45] LABS: Creatine Kinase MB 0.6 ng/mL (0.0-2.4); Troponin I <0.012 ng/mL (0.000-0.034)
--- NOTE | 2018-05-11 22:55 | XR ---
EXAM: XR Chest, 2 Views CLINICAL HISTORY: Chest pain TECHNIQUE: Frontal and lateral views of the chest. COMPARISON: Chest x-ray dated 03/31/2017 FINDINGS: Lungs: Unremarkable. No consolidation. Pleural space: Unremarkable. No pneumothorax. Heart: Unremarkable. No cardiomegaly. Mediastinum: Unremarkable. Bones/joints: Unremarkable. IMPRESSION: Normal chest x-rays.
--- NOTE | 2018-05-11 22:56 | XR ---
EXAM: XR Left Shoulder Complete, 2 or More Views CLINICAL HISTORY: Pain TECHNIQUE: Two or more views of the left shoulder. COMPARISON: No relevant prior studies available. FINDINGS: Bones/joints: Unremarkable. No acute fracture. No dislocation. Soft tissues: Unremarkable. IMPRESSION: Normal left shoulder x-rays.
[2018-05-11] MEDS ORDERED: MORPHINE SULFATE 4 MG/ML SYRINGE IVP STA (23:31)
--- NOTE | 2018-05-11 23:33 | ED ---
General Adult HPI - General Chief complaint: Extremity Injury, Upper Stated complaint: Arm pain, can't move arm Time Seen by Provider: 05/11/18 21:47 Source: patient Mode of arrival: ambulatory Limitations: no limitations - History of Present Illness Initial comments: 57-year-old male patient presents to the emergency department today for evaluation of left shoulder pain. Patient states the pain worsens significantly with any type of movement. States that the pain started last evening. He denies any injury to the arm. Patient states the pain radiates from the shoulder down to the elbow. Denies any pain to the elbow or difficulty with range of motion of the elbow or wrist. Denies any swelling or redness to the arm. Denies any fevers or chills. Patient states that time the pain becomes so bad it causes some tightness in his chest and his been having some mild shortness of breath. Denies any sweats, nausea, vomiting. Denies any abdominal pain. Denies any dizziness or weakness. Patient denies any recent rash, diarrhea, constipation, back pain, numbness, tingling, hematuria, dysuria, urinary urgency, urinary frequency, headache, visual changes, or any other complaints. - Related Data Home Medications Medication Instructions Recorded Confirmed Atorvastatin [Lipitor] 80 mg PO DAILY 09/10/17 04/01/18 HYDROcodone/APAP 7.5-325MG [Logan 1 tab PO QID PRN 09/10/17 04/01/18 7.5-325] Lisinopril [Zestril] 10 mg PO DAILY 09/10/17 04/01/18 metFORMIN HCL 1,000 mg PO BID 09/10/17 04/01/18 Insulin Glargine,Hum.rec.anlog 64 unit SQ DAILY 03/31/18 04/01/18 [Basaglar Kwikpen U-100] Acarbose 100 mg PO TID 04/01/18 04/01/18 Ergocalciferol (Vitamin D2) 50,000 unit PO QMONTH 04/01/18 04/01/18 [Vitamin D2] Glimepiride [Amaryl] 4 mg PO AC-BRKFST 04/01/18 04/01/18 Insulin Lispro [humaLOG Kwikpen] 10 unit SQ AC-TID 04/01/18 04/01/18 Pioglitazone [Actos] 45 mg PO DAILY 04/01/18 04/01/18 Previous Rx's Medication Instructions Recorded Ibuprofen [Motrin] 600 mg PO Q8HR PRN #30 tab 05/11/18 Allergies Allergy/AdvReac Type Severity Reaction Status Date / Time aluminum hydroxide Allergy Nausea & Verified 05/11/18 20:08 [From Mylanta] Vomiting barium iodide Allergy Nausea & Verified 05/11/18 20:08 Vomiting barium sulfate Allergy Nausea & Verified 05/11/18 20:08 Vomiting bee venom protein (honey bee) Allergy Swelling Verified 05/11/18 20:08 calcium carbonate Allergy Nausea & Verified 05/11/18 20:08 [From Mylanta] Vomiting magnesium [From Mylanta] Allergy Nausea & Verified 05/11/18 20:08 Vomiting magnesium hydroxide Allergy Nausea & Verified 05/11/18 20:08 [From Mylanta] Vomiting simethicone [From Mylanta] Allergy Nausea & Verified 05/11/18 20:08 Vomiting Review of Systems ROS Statement: Those systems with pertinent positive or pertinent negative responses have been documented in the HPI. ROS Other: All systems not noted in ROS Statement are negative. Past Medical History Past Medical History: Asthma, COPD, Diabetes Mellitus, Eye Disorder, Hyperlipidemia, Hypertension, Sleep Apnea/CPAP/BIPAP Additional Past Medical History / Comment(s): NIDDM type II, glaucoma bilat eyes , eye laser sx to help glaucoma per pt, leg cramps at night occasionally, bilateral hand tremors-pt states he does not know reason. possible asthma/copd, KATY with cpap, History of Any Multi-Drug Resistant Organisms: None Reported Additional Past Surgical History / Comment(s): bilateral eye laser surgery for cataract removal/lens implants, Past Anesthesia/Blood Transfusion Reactions: Unable to Obtain Additional Past Anesthesia/Blood Transfusion Reaction / Comment(s): Pt states he has never had general anesthesia. Past Psychological History: No Psychological Hx Reported Smoking Status: Former smoker Past Alcohol Use History: None Reported Past Drug Use History: None Reported - Past Family History Mother Family Medical History: Diabetes Mellitus Additional Family Medical History / Comment(s): Mother in her sleep when she was in her 60s. Pt does not know cause of . Father Family Medical History: No Reported History Additional Family Medical History / Comment(s): Pt states father is healthy and is 88yrs old General Exam Limitations: no limitations General appearance: alert, in no apparent distress, other (This is a well- developed, well-nourished adult male patient in no acute distress. Vital signs upon presentation were temperature 98.1F, pulse 83, respirations 20, blood pressure 144/83, pulse ox 96% on room air.) Eye exam: Present: normal appearance, PERRL, EOMI. Absent: scleral icterus, conjunctival injection, periorbital swelling ENT exam: Present: normal exam, normal oropharynx, mucous membranes moist Neck exam: Present: normal inspection, full ROM. Absent: tenderness, meningismus, lymphadenopathy Respiratory exam: Present: normal lung sounds bilaterally. Absent: respiratory distress, wheezes, rales, rhonchi, stridor Cardiovascular Exam: Present: regular rate, normal rhythm, normal heart sounds. Absent: systolic murmur, diastolic murmur, rubs, gallop, clicks GI/Abdominal exam: Present: soft, normal bowel sounds. Absent: distended, tenderness, guarding, rebound, rigid Extremities exam: Present: tenderness (Right anterior shoulder tenderness), normal capillary refill, other (Skin to the right upper extremity is pink, warm , dry. Cap refills less than 3 seconds. Radial pulses 2+ and equal bilaterally.). Absent: normal inspection, full ROM (Decreased range of motion due to increased pain with movement), pedal edema, joint swelling, calf tenderness Neurological exam: Present: alert, oriented X3, CN II-XII intact Psychiatric exam: Present: normal affect, normal mood Skin exam: Present: warm, dry, intact, normal color. Absent: rash Course Vital Signs 05/11/18 05/11/18 20:02 22:46 Temperature 98.1 F Pulse Rate 83 80 Respiratory 20 20 Rate Blood Pressure 144/83 148/89 O2 Sat by Pulse 96 96 Oximetry EKG Findings - EKG Comments: EKG Findings:: EKG obtained at 2051 shows normal sinus rhythm with incomplete right bundle branch block. Ventricular rate 75, VT interval 154, QR uatsdin 96, QT 376, QTC 419. No evidence of ST elevation or depression. Medical Decision Making - Medical Decision Making 57-year-old male patient presents to emergency department today for evaluation of left shoulder pain started last evening. No trauma. Physical examination did reveal left anterior shoulder tenderness and significant pain with any attempts at movement. Patient also stated when the pain in his shoulder gets worse he does have some chest tightness with this. Labs reviewed and did reveal white blood cell count 13.1, remainder labs were normal. Normal troponin. Left shoulder x-ray was negative. Chest x-ray is negative. EKG showed no acute abnormalities. Patient symptoms are consistent with a left shoulder bursitis. Joint is not swollen or red. We will discharge with anti- inflammatory pain medication. He is instructed to follow-up with orthopedics for further evaluation as soon as possible. Return parameters discussed in detail. He verbalizes understanding and agrees with this plan. - Lab Data Result diagrams: 05/11/18 21:55 05/11/18 21:55 Lab Results 05/11/18 05/11/18 05/11/18 Range/Units 21:55 21:55 21:55 WBC 13.1 H (3.8-10.6) k/uL RBC 4.94 (4.30-5.90) m/uL Hgb 14.2 (13.0-17.5) gm/dL Hct 43.4 (39.0-53.0) % MCV 87.8 (80.0-100.0) fL MCH 28.7 (25.0-35.0) pg MCHC 32.7 (31.0-37.0) g/dL RDW 14.9 (11.5-15.5) % Plt Count 238 (150-450) k/uL Neutrophils % 76 % Lymphocytes % 16 % Monocytes % 5 % Eosinophils % 1 % Basophils % 1 % Neutrophils # 10.0 H (1.3-7.7) k/uL Lymphocytes # 2.1 (1.0-4.8) k/uL Monocytes # 0.7 (0-1.0) k/uL Eosinophils # 0.2 (0-0.7) k/uL Basophils # 0.1 (0-0.2) k/uL PT (9.0-12.0) sec INR (<1.2) APTT (22.0-30.0) sec Sodium 139 (137-145) mmol/L Potassium 4.4 (3.5-5.1) mmol/L Chloride 102 (98-107) mmol/L Carbon Dioxide 26 (22-30) mmol/L Anion Gap 11 mmol/L BUN 15 (9-20) mg/dL Creatinine 0.88 (0.66-1.25) mg/dL Est GFR (CKD-EPI)AfAm >90 (>60 ml/min/1.73 sqM) Est GFR (CKD-EPI)NonAf >90 (>60 ml/min/1.73 sqM) Glucose 122 H (74-99) mg/dL Calcium 9.7 (8.4-10.2) mg/dL Magnesium 1.5 L (1.6-2.3) mg/dL Total Bilirubin 0.7 (0.2-1.3) mg/dL AST 19 (17-59) U/L ALT 37 (21-72) U/L Alkaline Phosphatase 111 (38-126) U/L Total Creatine Kinase 63 (55-170) U/L CK-MB (CK-2) 0.6 (0.0-2.4) ng/mL CK-MB (CK-2) Rel Index 1.0 Troponin I <0.012 (0.000-0.034) ng/mL Total Protein 7.5 (6.3-8.2) g/dL Albumin 4.2 (3.5-5.0) g/dL 05/11/18 Range/Units 21:55 WBC (3.8-10.6) k/uL RBC (4.30-5.90) m/uL Hgb (13.0-17.5) gm/dL Hct (39.0-53.0) % MCV (80.0-100.0) fL MCH (25.0-35.0) pg MCHC (31.0-37.0) g/dL RDW (11.5-15.5) % Plt Count (150-450) k/uL Neutrophils % % Lymphocytes % % Monocytes % % Eosinophils % % Basophils % % Neutrophils # (1.3-7.7) k/uL Lymphocytes # (1.0-4.8) k/uL Monocytes # (0-1.0) k/uL Eosinophils # (0-0.7) k/uL Basophils # (0-0.2) k/uL PT 10.0 (9.0-12.0) sec INR 0.9 (<1.2) APTT 25.9 (22.0-30.0) sec Sodium (137-145) mmol/L Potassium (3.5-5.1) mmol/L Chloride (98-107) mmol/L Carbon Dioxide (22-30) mmol/L Anion Gap mmol/L BUN (9-20) mg/dL Creatinine (0.66-1.25) mg/dL Est GFR (CKD-EPI)AfAm (>60 ml/min/1.73 sqM) Est GFR (CKD-EPI)NonAf (>60 ml/min/1.73 sqM) Glucose (74-99) mg/dL Calcium (8.4-10.2) mg/dL Magnesium (1.6-2.3) mg/dL Total Bilirubin (0.2-1.3) mg/dL AST (17-59) U/L ALT (21-72) U/L Alkaline Phosphatase (38-126) U/L Total Creatine Kinase (55-170) U/L CK-MB (CK-2) (0.0-2.4) ng/mL CK-MB (CK-2) Rel Index Troponin I (0.000-0.034) ng/mL Total Protein (6.3-8.2) g/dL Albumin (3.5-5.0) g/dL - Radiology Data Radiology results: report reviewed, image reviewed X-ray of the left shoulder was obtained. Report was reviewed in its entirety. Impression by Dr. Villarreal shows normal left shoulder x-rays. Two-view x-ray of the chest is obtained. Report reviewed in its entirety. Impression by Dr. Villarreal shows normal chest x-rays Disposition Clinical Impression: Bursitis of left shoulder Disposition: HOME SELF-CARE Condition: Good Instructions (If sedation given, give patient instructions): Shoulder Bursitis (ED) Additional Instructions: Take medications as directed. Follow-up with the orthopedic physician for recheck in 1-2 days. Return to the emergency department immediately for any new , worsening, or concerning symptoms. Prescriptions: Ibuprofen [Motrin] 600 mg PO Q8HR PRN #30 tab PRN Reason: Pain Is patient prescribed a controlled substance at d/c from ED?: No Referrals: Jonas Holden MD [Primary Care Provider] - 1-2 days Modesto Murdock MD [Medical Doctor] - 1-2 days Time of Disposition: 23:33
[2018-05-12 00:21] VITALS: BP 140/78; PULSE 82; RESP 16; TEMP 98
== END 2018-05-12 00:20 | disposition home or self-care (01) ==
LOC: EC 19:33
DX: M75.52 Bursitis of left shoulder (principal); E11.9 Type 2 diabetes mellitus without complications; E78.5 Hyperlipidemia, unspecified; I10 Essential (primary) hypertension; G47.33 Obstructive sleep apnea (adult) (pediatric); Z99.89 Dependence on other enabling machines and devices; H40.9 Unspecified glaucoma; Z87.891 Personal history of nicotine dependence; Z79.4 Long term (current) use of insulin; Z79.899 Other long term (current) drug therapy; Z91.030 Bee allergy status; Z88.8 Allergy status to other drugs, medicaments and biological substances
CPT/HCPCS: 36415; 93005; 80053; 82550; 82553; 83735; 84484; 85025; 85610; 85730; 73030; 71046; 99284; 96374; 96375; 96361; J2270; J1885

== ENCOUNTER → 2018-07-23 | Outpatient (CLI) | payer BC ==
--- NOTE | 2018-07-24 07:29 | CT ---
EXAMINATION TYPE: CT abdomen wo/w con DATE OF EXAM: 07/23/2018 COMPARISON: CTA chest April 01, 2018. CT pelvis January 19, 2016 HISTORY: Renal mass, hematuria CT DLP: 2456.20 mGycm, Automated Exposure Control for Dose Reduction was Utilized. CONTRAST: CT scan of the abdomen is performed with oral and without and with IV Contrast, patient injected with 100 mL of Isovue 300. FINDINGS: LUNG BASES: No significant abnormality is appreciated. LIVER/GB: Contracted gallbladder incidentally seen. PANCREAS: No significant abnormality is seen. SPLEEN: Small splenule splenic hilum redemonstrated.. ADRENALS: No significant abnormality is seen. KIDNEYS: Noncontrast images show single 2 mm calculus mid pole level posteriorly right kidney coronal image 73. No definitive left-sided nephrolithiasis. Postcontrast images show symmetric cardiomegaly uptake and excretion without evidence of hydronephrosis bilaterally. There are persistent prominent o therwise simple appearing parapelvic cysts centrally in the left kidney mid to lower pole level not s ignificantly changed back through [address] No new suspicious solid or cystic mass in either ki dney is identified. BOWEL: Oral contrast does not reach colonic level. No suspicious small or large bowel dilatation. LYMPH NODES: No greater than 1cm abdominal lymph nodes are appreciated. OSSEOUS STRUCTURES: No significant abnormality is seen. OTHER: No significant additional abnormality is seen. IMPRESSION: Single 2 mm nonobstructing calculus mid pole of the right kidney. Stable simple appearing parapelvic cysts mid to lower pole level left kidney. No new concerning solid or cystic renal mass i n either kidney identified. No hydronephrosis is noted bilaterally.
== END | disposition home or self-care (01) ==
LOC: RADCTMAIN 16:10
PROVIDERS: ATTEND Family Medicine
DX: N20.0 Calculus of kidney (principal); N28.1 Cyst of kidney, acquired; E11.9 Type 2 diabetes mellitus without complications; Z88.2 Allergy status to sulfonamides; Z88.8 Allergy status to other drugs, medicaments and biological substances
CPT/HCPCS: 82565; 84520; 74170; 36415; Q9967

== ENCOUNTER 2018-09-22 22:45 | Emergency (ER) | payer BC ==
[2018-09-22 22:49] VITALS: RESP 18; TEMP 98.2
--- NOTE | 2018-09-23 00:02 | ED ---
General Adult HPI - General Chief complaint: Extremity Injury, Lower Stated complaint: Lt Leg Pain Time Seen by Provider: 09/22/18 22:50 Source: patient Mode of arrival: ambulatory Limitations: no limitations - History of Present Illness Initial comments: The patient is a 57-year-old male presents to the emergency room with complaint of left leg cramping. Patient admits to history of lower extremity cramping. States that tonight he was sitting in his recliner when he had sudden onset of cramping in his posterior left thigh. Reports that it starts at the knee and the radiates to his left mid thigh. Denies history of DVTs or PEs. Denies numbness, weakness or paralysis. Denies any swelling or cellulitic changes. No pain in the hip, knee or ankle. Patient is ambulatory without difficulty. He did not take any medications at home for symptoms. He denies any numbness or weakness in his upper extremities. Denies chest pain, shortness of breath, headache or vision changes. No back pain or flank pain. No trauma. Denies saddle anesthesia or urinary/stool retention or incontinence. No recent travel or prolonged immobility. No history of blood clotting disorders. There are no other alleviating, precipitating or modifying factors - Related Data Home Medications Medication Instructions Recorded Confirmed Atorvastatin [Lipitor] 80 mg PO DAILY 09/10/17 09/22/18 Lisinopril [Zestril] 10 mg PO DAILY 09/10/17 09/22/18 metFORMIN HCL 1,000 mg PO BID 09/10/17 09/22/18 Insulin Glargine,Hum.rec.anlog 80 unit SQ DAILY 03/31/18 09/22/18 [Basaglar Kwikpen U-100] Ergocalciferol (Vitamin D2) 50,000 unit PO QMONTH 04/01/18 09/22/18 [Vitamin D2] Insulin Lispro [humaLOG Kwikpen] 16 unit SQ AC-TID 04/01/18 09/22/18 Dulaglutide [Trulicity] 1.5 mg SQ SA 09/22/18 09/22/18 Furosemide [Lasix] 40 mg PO DAILY 09/22/18 09/22/18 Allergies Allergy/AdvReac Type Severity Reaction Status Date / Time aluminum hydroxide Allergy Nausea & Verified 09/22/18 23:13 [From Mylanta] Vomiting barium iodide Allergy Nausea & Verified 09/22/18 23:13 Vomiting barium sulfate Allergy Nausea & Verified 09/22/18 23:13 Vomiting bee venom protein (honey bee) Allergy Swelling Verified 09/22/18 23:13 calcium carbonate Allergy Nausea & Verified 09/22/18 23:13 [From Mylanta] Vomiting magnesium [From Mylanta] Allergy Nausea & Verified 09/22/18 23:13 Vomiting magnesium hydroxide Allergy Nausea & Verified 09/22/18 23:13 [From Mylanta] Vomiting simethicone [From Mylanta] Allergy Nausea & Verified 09/22/18 23:13 Vomiting Review of Systems ROS Statement: Those systems with pertinent positive or pertinent negative responses have been documented in the HPI. ROS Other: All systems not noted in ROS Statement are negative. Past Medical History Past Medical History: Asthma, COPD, Diabetes Mellitus, Eye Disorder, Hyperlipidemia, Hypertension, Sleep Apnea/CPAP/BIPAP Additional Past Medical History / Comment(s): NIDDM type II, glaucoma bilat eyes, eye laser sx to help glaucoma per pt, leg cramps at night occasionally, bilateral hand tremors-pt states he does not know reason. possible asthma/copd, KATY with cpap, History of Any Multi-Drug Resistant Organisms: None Reported Additional Past Surgical History / Comment(s): bilateral eye laser surgery for cataract removal/lens implants, Past Anesthesia/Blood Transfusion Reactions: Unable to Obtain Additional Past Anesthesia/Blood Transfusion Reaction / Comment(s): Pt states he has never had general anesthesia. Past Psychological History: No Psychological Hx Reported Smoking Status: Former smoker Past Alcohol Use History: None Reported Past Drug Use History: None Reported - Past Family History Mother Family Medical History: Diabetes Mellitus Additional Family Medical History / Comment(s): Mother in her sleep when she was in her 60s. Pt does not know cause of . Father Family Medical History: No Reported History Additional Family Medical History / Comment(s): Pt states father is healthy and is 88yrs old General Exam Limitations: no limitations General appearance: alert, in no apparent distress Head exam: Present: atraumatic, normocephalic, normal inspection Eye exam: Present: normal appearance, PERRL, EOMI. Absent: scleral icterus, conjunctival injection, periorbital swelling ENT exam: Present: normal exam, mucous membranes moist Neck exam: Present: normal inspection. Absent: tenderness, meningismus, lymphadenopathy Respiratory exam: Present: normal lung sounds bilaterally. Absent: respiratory distress, wheezes, rales, rhonchi, stridor Cardiovascular Exam: Present: regular rate, normal rhythm, normal heart sounds. Absent: systolic murmur, diastolic murmur, rubs, gallop, clicks GI/Abdominal exam: Present: soft, normal bowel sounds. Absent: distended, tenderness, guarding, rebound, rigid Extremities exam: Present: normal inspection, full ROM, tenderness, normal capillary refill, other (The patient has mild tenderness to palpation of the left posteior thigh. Compartments are soft. 5/5 muscle strength in his b/l lower extremities. 2+ DP an PT pulses bilaterally. Cap refill <3 seconds. Intact 2 point discrimination and soft touch over the medial, lateral and dorsal b/l lower extremities. ). Absent: pedal edema, joint swelling, calf tenderness Back exam: Present: normal inspection Neurological exam: Present: alert, oriented X3, CN II-XII intact Psychiatric exam: Present: normal affect, normal mood Skin exam: Present: warm, dry, intact, normal color. Absent: rash Course Vital Signs 09/22/18 09/22/18 09/23/18 22:46 23:51 01:17 Temperature 98.2 F Pulse Rate 93 84 79 Respiratory 18 18 18 Rate Blood Pressure 157/66 127/69 121/68 O2 Sat by Pulse 96 94 L 96 Oximetry Medical Decision Making - Medical Decision Making Upon arrival the patient is placed in bed 2. He is offered pain medication however he refuses. I did recommend laboratory studies as well as a venous duplex the patient's lower extremity. The patient does have 2+ dorsalis pedis and posterior tibial pulses. Upon return, the results are discussed with the patient. I did offer pain medication once again and the patient does agree. He is given a 30 mg IM injection of Toradol. He is reevaluated and does have some improvement in his pain. I discussed the diagnosis, differential and treatment options. I did inform the patient that his symptoms may be secondary to his statin. I did inform him that he should follow up with his primary care physician and discuss lowering his dose to see if this improves his symptoms. The patient does have Sandwich at home for pain. I did inform him that he should take this medication when he gets home if he has continued pain. He is to follo w-up with his primary care physician in 2-4 days for reevaluation. If he has any new or worsening symptoms, he should return the emergency room. Patient was in agreement to plan and was discharged home in stable condition. - Differential Diagnosis acute myalgias, electrolyte abnormality, compartment syndrom, rhabdo - Lab Data Result diagrams: 09/22/18 23:47 09/22/18 23:47 Lab Results 09/22/18 09/22/18 09/22/18 Range/Units 23:47 23:47 23:47 WBC 11.5 H (3.8-10.6) k/uL RBC 4.35 (4.30-5.90) m/uL Hgb 12.3 L (13.0-17.5) gm/dL Hct 37.0 L (39.0-53.0) % MCV 85.1 (80.0-100.0) fL MCH 28.3 (25.0-35.0) pg MCHC 33.3 (31.0-37.0) g/dL RDW 15.4 (11.5-15.5) % Plt Count 185 (150-450) k/uL Neutrophils % 74 % Lymphocytes % 16 % Monocytes % 6 % Eosinophils % 1 % Basophils % 1 % Neutrophils # 8.5 H (1.3-7.7) k/uL Lymphocytes # 1.9 (1.0-4.8) k/uL Monocytes # 0.7 (0-1.0) k/uL Eosinophils # 0.2 (0-0.7) k/uL Basophils # 0.1 (0-0.2) k/uL Sodium 137 (137-145) mmol/L Potassium 4.7 (3.5-5.1) mmol/L Chloride 104 (98-107) mmol/L Carbon Dioxide 21 L (22-30) mmol/L Anion Gap 12 mmol/L BUN 37 H (9-20) mg/dL Creatinine 1.39 H (0.66-1.25) mg/dL Est GFR (CKD-EPI)AfAm 65 (>60 ml/min/1.73 sqM) Est GFR (CKD-EPI)NonAf 56 (>60 ml/min/1.73 sqM) Glucose 120 H (74-99) mg/dL Calcium 10.1 (8.4-10.2) mg/dL Magnesium 2.0 (1.6-2.3) mg/dL Creatine Kinase 161 (55-170) U/L Disposition Clinical Impression: Leg cramp Disposition: HOME SELF-CARE Condition: Stable Instructions (If sedation given, give patient instructions): Leg Pain (ED) Additional Instructions: Please follow-up with your primary care physician in one to 2 days. Your leg cramping may be secondary to your statin medication. Please discuss this with your doctor and possibly lowering your dose. Return to the emergency department if you have any new or worsening symptoms. Is patient prescribed a controlled substance at d/c from ED?: No Referrals: Jonas Holden MD [Primary Care Provider] - 1-2 days Time of Disposition: 01:49
[2018-09-23 00:03] LABS: Basophils # (A) 0.1 k/uL (0-0.2); Basophils % (A) 1 %; Eosinophils # (A) 0.2 k/uL (0-0.7); Eosinophils % (A) 1 %; HGB 12.3 gm/dL (13.0-17.5); Lymphocytes # (A) 1.9 k/uL (1.0-4.8); Lymphocytes % (A) 16 %; MCH 28.3 pg (25.0-35.0); MCHC 33.3 g/dL (31.0-37.0); MCV 85.1 fL (80.0-100.0); Mean Platelet Volume 8.2; Monocytes # (A) 0.7 k/uL (0-1.0); Monocytes % (A) 6 %; Neutrophils # (A) 8.5 k/uL (1.3-7.7); Neutrophils % (A) 74 %; Platelet Count 185 k/uL (150-450); RBC 4.35 m/uL (4.30-5.90); RDW 15.4 % (11.5-15.5); WBC 11.5 k/uL (3.8-10.6)
[2018-09-23 00:12] LABS: Calcium 10.1 mg/dL (8.4-10.2)
[2018-09-23 00:26] LABS: Potassium 4.7 mmol/L (3.5-5.1)
--- NOTE | 2018-09-23 00:30 | US ---
EXAM: US Duplex Left Lower Extremity Veins CLINICAL HISTORY: Pain. Left leg pain x 1 day. No hx of DVT. Pt not on blood thinners. TECHNIQUE: Left lower extremity deep venous system is examined utilizing real time linear array sonography with graded compression, doppler sonography and color-flow sonography. COMPARISON: No relevant prior studies available. FINDINGS: veins: Unremarkable. No DVT in the visualized common femoral, femoral, proximal deep femoral , greater saphenous or popliteal veins. The veins demonstrate normal color flow, are normally compressible, with normal phasic flow and/or augmentation response. Soft tissues: No acute findings. No popliteal cyst. IMPRESSION: No venous thrombosis identified.
[2018-09-23 01:18] VITALS: BP 121/68; PULSE 79
[2018-09-23] MEDS ORDERED: KETOROLAC 60 MG/2 ML VIAL IM STA (01:48)
--- NOTE | 2018-09-24 01:55 | CDI ---
Documentation Clarification OP Dear Rhoda GARCIA, DO Please do addendum to ED report for missing Physical examination. Thank you, Manuela Bray Paraprofessional Education Assistant If you have any questions, please contact [employer] at [phone] Original document not signed yet - addendum not needed... Doc added now that I signed it. [id number]
== END 2018-09-23 02:09 | disposition home or self-care (01) ==
LOC: EC 22:45
DX: R25.2 Cramp and spasm (principal); E11.9 Type 2 diabetes mellitus without complications; E78.5 Hyperlipidemia, unspecified; I10 Essential (primary) hypertension; G47.33 Obstructive sleep apnea (adult) (pediatric); Z99.89 Dependence on other enabling machines and devices; Z87.891 Personal history of nicotine dependence; Z79.4 Long term (current) use of insulin; Z79.899 Other long term (current) drug therapy; Z88.8 Allergy status to other drugs, medicaments and biological substances; Z91.048 Other nonmedicinal substance allergy status
CPT/HCPCS: 99284; 96372; 36415; 80048; 82550; 83735; 85025; 93971; J1885

== ENCOUNTER → 2018-09-22 | Outpatient (CLI) | payer BC ==
--- NOTE | 2018-09-22 10:30 | CT ---
EXAMINATION TYPE: CT angio chest DATE OF EXAM: 09/22/2018 COMPARISON: 04/01/2018 HISTORY: 57-year-old male shortness of breath, Elevated D-dimer TECHNIQUE: Contiguous axial scanning of the chest performed with IV Contrast, patient injected with 1 00 mL of Isovue 370. Coronal/sagittal MIP reconstructions performed. CT DLP: 590 mGycm Automated exposure control for dose reduction was used. FINDINGS: Heart normal size without pericardial effusion. Coronary vessel calcifications are present in remarka ble for coronary artery disease. Aorta normal caliber with bovine configuration to the aortic arch. Mild to moderate bilateral gynecomastia. No thoracic lymphadenopathy by CT size criteria. There is suboptimal opacification of the pulmonary arterial system with attenuation up to 215 Hounsfi eld units. No definite large central or lobar embolus is seen. Many of the segmental and more distal branches are nondiagnostic and emboli in these locations cannot be adequately excluded on the basis o f this exam. Mild diffuse bronchial wall thickening. No consolidation or pleural effusion. Tiny hiatal hernia. Hilar splenule. Bones: Bulky anterior endplate thoracic spine. IMPRESSION: 1. SUBOPTIMAL CONTRAST BOLUS. NO DEFINITE LARGE CENTRAL OR LOBAR PULMONARY EMBOLUS. ASSESSMENT OF MAN Y OF THE SEGMENTAL AND MORE DISTAL ARTERIAL BRANCHES IS NONDIAGNOSTIC AND EMBOLI IN THESE LOCATIONS C ANNOT BE ADEQUATELY EXCLUDED ON THE BASIS OF THIS EXAM. 2. MILD DIFFUSE BRONCHIAL WALL THICKENING SUGGESTS BRONCHITIS OR ASTHMA. 3. CORONARY ARTERY DISEASE. 4. TINY HIATAL HERNIA.
== END | disposition home or self-care (01) ==
LOC: RADCTMAIN 06:04
PROVIDERS: ATTEND Family Medicine
DX: J98.09 Other diseases of bronchus, not elsewhere classified (principal); K44.9 Diaphragmatic hernia without obstruction or gangrene; E11.9 Type 2 diabetes mellitus without complications; Z88.2 Allergy status to sulfonamides; Z88.8 Allergy status to other drugs, medicaments and biological substances; Z91.030 Bee allergy status
CPT/HCPCS: 82565; 84520; 71275; 36415; Q9967

== ENCOUNTER → 2018-10-09 | Outpatient (CLI) | payer BC ==
--- NOTE | 2018-10-09 11:56 | P.STRESS ---
- Stress Test Note Stress Test Results/Findings: Exam Performed: Exam Date: Reason for Exam: Height: 0 in Weight: 0 g Protocol: Stage: Duration of Exercise: Resting Heart Rate: Resting Blood Pressure: Maximum Achieved Heart Rate: Maximum Achieved Blood Pressure: 85% PMHR: 100% PMHR: METS: Technologist Comment: Stress Test Results/Findings: This is a 57-year-old gentleman with history of hypertension, diabetes and family history of ischemic heart disease being evaluated for symptoms of chest pain and shortness of breath. Stress data: Baseline EKG showed sinus rhythm with normal CO interval and QRS duration. Blood pressure at rest is 127/67 with a pulse rate of 78. Patient walked on the Jeremy protocol for about 7 minutes achieving a maximum heart rate of 141 with a blood pressure of 208/107. EKGs taken during and after exercise not revealing significant changes from the baseline. Echo data: This study is done with contrast. Baseline echo images showed normal wall motion and thickening. Exercise echo images showed augmentation of wall motion and thickening in all the segments. Final impression: #1. Negative stress test #2. Negative stress echo.
--- NOTE | 2018-10-12 13:58 | ECHOS ---
Stress Test Results/Findings: Exam Performed: Exam Date: Reason for Exam: Height: 64 in Weight: 251 lbs Protocol: Stress Echo Stage: 3 Duration of Exercise: 7:00 Resting Heart Rate: 78 Resting Blood Pressure: 127/67 Maximum Achieved Heart Rate: 141 Maximum Achieved Blood Pressure: 214/46 85% PMHR: 100% PMHR: METS: Technologist Comment: Stress Test Results/Findings: This is a 57-year-old gentleman with history of hypertension, diabetes and family history of ischemic heart disease being evaluated for symptoms of chest pain and shortness of breath. Stress data: Baseline EKG showed sinus rhythm with normal ME interval and QRS duration. Blood pressure at rest is 127/67 with a pulse rate of 78. Patient walked on the Jeremy protocol for about 7 minutes achieving a maximum heart rate of 141 with a blood pressure of 208/107. EKGs taken during and after exercise not revealing significant changes from the baseline. Echo data: This study is done with contrast. Baseline echo images showed normal wall motion and thickening. Exercise echo images showed augmentation of wall motion and thickening in all the segments. Final impression: #1. Negative stress test #2. Negative stress echo. FAMD
== END | disposition home or self-care (01) ==
LOC: RADNMMAIN 09:22
PROVIDERS: ATTEND Family Medicine
DX: I25.10 Atherosclerotic heart disease of native coronary artery without angina pectoris (principal); J44.9 Chronic obstructive pulmonary disease, unspecified; E11.65 Type 2 diabetes mellitus with hyperglycemia; R06.02 Shortness of breath; Z91.030 Bee allergy status; Z88.8 Allergy status to other drugs, medicaments and biological substances
CPT/HCPCS: 93351; Q9950

== ENCOUNTER → 2018-10-26 | Outpatient (CLI) | payer BC ==
--- NOTE | 2018-10-26 15:54 | US ---
EXAMINATION TYPE: US kidneys/renal and bladder DATE OF EXAM: 10/26/2018 COMPARISON: CT July 23, 2018 CLINICAL HISTORY: N18 Chronic Kidney Disease. CKD EXAM MEASUREMENTS: Right Kidney: 11.1 x 5.6 x 4.4 cm Left Kidney: 12.7 x 5.1 x 4.8 cm Right Kidney: no evidence of hydronephrosis Left Kidney: parapelvic cystic areas noted Bladder: not fully distended Bilateral Jets seen: no There is no evidence for hydronephrosis at this point in time. No nephrolithiasis is seen. No jackeline s are identified. The urinary bladder is poorly distended. Bilateral ureteral jets are not seen. IMPRESSION: Redemonstration of central simple appearing parapelvic cyst in left kidney. No hydronephrosis is evid ent bilaterally.
[2018-10-26 18:36] LABS: Total Volume 24 Hour,Urine 1600 mls (800-1800)
[2018-10-26 18:47] LABS: Total Protein 24 Hour,Urine 144 mg/24hr (42.0-225.0)
== END | disposition home or self-care (01) ==
LOC: RADUSWWP 15:17
PROVIDERS: ATTEND Family Medicine
DX: N28.1 Cyst of kidney, acquired (principal); N18.9 Chronic kidney disease, unspecified; Z91.030 Bee allergy status; Z88.8 Allergy status to other drugs, medicaments and biological substances
CPT/HCPCS: 76770; 81050; 82575; 84156

== ENCOUNTER 2019-02-08 18:24 | Observation (INO) | payer BC ==
--- NOTE | 2019-02-08 18:35 | ED ---
General Adult HPI - General Chief complaint: Chest Pain Stated complaint: CHEST PAIN Time Seen by Provider: 02/08/19 18:25 Source: patient, RN notes reviewed, old records reviewed Mode of arrival: wheelchair Limitations: no limitations - History of Present Illness Initial comments: This is a 58-year-old male who presents emergency Department with a past medical history significant for diabetes hypertension high cholesterol. Patient states he does not smoke. Patient comes in today because last 4 days been having intermittent chest pain that radiates to his back and makes her short of breath. Patient states the pain comes about a half an hour to hour a time. Patient states he went to his primary medical care doctor's office today and he recomm ended he come to the hospital. Patient denies any fever chills or cough. Patient does state he recently had a stress test that was normal but he continues to have chest pain. Patient denies any lightheadedness or dizziness. Patient denies any abdominal pain patient denies nausea vomiting or diarrhea. Patient denies any recent injury or trauma. - Related Data Home Medications Medication Instructions Recorded Confirmed Atorvastatin [Lipitor] 80 mg PO DAILY 09/10/17 09/22/18 Lisinopril [Zestril] 10 mg PO DAILY 09/10/17 09/22/18 metFORMIN HCL 1,000 mg PO BID 09/10/17 09/22/18 Insulin Glargine,Hum.rec.anlog 80 unit SQ DAILY 03/31/18 09/22/18 [Basaglar Kwikpen U-100] Ergocalciferol (Vitamin D2) 50,000 unit PO QMONTH 04/01/18 09/22/18 [Vitamin D2] Insulin Lispro [humaLOG Kwikpen] 16 unit SQ AC-TID 04/01/18 09/22/18 Dulaglutide [Trulicity] 1.5 mg SQ SA 09/22/18 09/22/18 Furosemide [Lasix] 40 mg PO DAILY 09/22/18 09/22/18 Allergies Allergy/AdvReac Type Severity Reaction Status Date / Time aluminum hydroxide Allergy Nausea & Verified 09/22/18 23:13 [From Mylanta] Vomiting barium iodide Allergy Nausea & Verified 09/22/18 23:13 Vomiting barium sulfate Allergy Nausea & Verified 09/22/18 23:13 Vomiting bee venom protein (honey bee) Allergy Swelling Verified 09/22/18 23:13 calcium carbonate Allergy Nausea & Verified 09/22/18 23:13 [From Mylanta] Vomiting magnesium [From Mylanta] Allergy Nausea & Verified 09/22/18 23:13 Vomiting magnesium hydroxide Allergy Nausea & Verified 09/22/18 23:13 [From Mylanta] Vomiting simethicone [From Mylanta] Allergy Nausea & Verified 09/22/18 23:13 Vomiting Review of Systems ROS Statement: Those systems with pertinent positive or pertinent negative responses have been documented in the HPI. ROS Other: All systems not noted in ROS Statement are negative. Past Medical History Past Medical History: Asthma, COPD, Diabetes Mellitus, Eye Disorder, Hyperlipidemia, Hypertension, Sleep Apnea/CPAP/BIPAP Additional Past Medical History / Comment(s): NIDDM type II, glaucoma bilat eyes, eye laser sx to help glaucoma per pt, leg cramps at night occasionally, bilateral hand tremors-pt states he does not know reason. possible asthma/copd, KATY with cpap, History of Any Multi-Drug Resistant Organisms: None Reported Additional Past Surgical History / Comment(s): bilateral eye laser surgery for cataract removal/lens implants, Past Anesthesia/Blood Transfusion Reactions: Unable to Obtain Additional Past Anesthesia/Blood Transfusion Reaction / Comment(s): Pt states he has never had general anesthesia. Past Psychological History: No Psychological Hx Reported Smoking Status: Former smoker Past Alcohol Use History: None Reported Past Drug Use History: None Reported - Past Family History Mother Family Medical History: Diabetes Mellitus Additional Family Medical History / Comment(s): Mother in her sleep when she was in her 60s. Pt does not know cause of . Father Family Medical History: No Reported History Additional Family Medical History / Comment(s): Pt states father is healthy and is 88yrs old General Exam - General Exam Comments Initial Comments: GENERAL: Patient is well-developed and well-nourished. Patient is nontoxic and well-hydr ated and is in mild distress. ENT: Neck is soft and supple. No significant lymphadenopathy is noted. Oropharynx is clear. Moist mucous membranes. Neck has full range of motion without eliciting any pain. EYES: The sclera were anicteric and conjunctiva were pink and moist. Extraocular movements were intact and pupils were equal round and reactive to light. Eyelids were unremarkable. PULMONARY: Unlabored respirations. Good breath sounds bilaterally. No audible rales rhonchi or wheezing was noted. CARDIOVASCULAR: There is a regular rate and rhythm without any murmurs gallops or rubs. ABDOMEN: Soft and nontender with normal bowel sounds. SKIN: Skin is clear with no lesions or rashes and otherwise unremarkable. NEUROLOGIC: Patient is alert and oriented x3. Cranial nerves II through XII are grossly intact. Motor and sensory are also intact. Normal speech, volume and content. Symmetrical smile. MUSCULOSKELETAL: Normal extremities with adequate strength and full range of motion. No lower extremity swelling or edema. No calf tenderness. LYMPHATICS: No significant lymphadenopathy is noted PSYCHIATRIC: Normal psychiatric evaluation. Limitations: no limitations Course Vital Signs 02/08/19 02/08/19 02/08/19 18:26 18:41 19:00 Temperature 97.8 F Pulse Rate 81 80 80 Respiratory 18 18 Rate Blood Pressure 147/89 129/88 O2 Sat by Pulse 98 95 96 Oximetry 02/08/19 02/08/19 19:20 19:40 Temperature Pulse Rate 83 85 Respiratory 18 18 Rate Blood Pressure 141/83 131/77 O2 Sat by Pulse 94 L 96 Oximetry Medical Decision Making - Medical Decision Making EKG shows a normal sinus rhythm at 78 bpm WI interval 156 QRS is 98 QT interval 378 QTC is 4:30. Patient's EKG shows no ST segment elevation or depression. Chest x-ray shows no acute abnormalities I spoke with Dr. Gomez and he agreed to admit the patient admitted the patient wrote admitting ordersI consulted cardiology. - Lab Data Result diagrams: 02/08/19 19:10 02/08/19 19:10 Lab Results 02/08/19 02/08/19 02/08/19 Range/Units 19:10 19:10 19:10 WBC 12.9 H (3.8-10.6) k/uL RBC 4.74 (4.30-5.90) m/uL Hgb 13.6 (13.0-17.5) gm/dL Hct 40.8 (39.0-53.0) % MCV 86.1 (80.0-100.0) fL MCH 28.7 (25.0-35.0) pg MCHC 33.3 (31.0-37.0) g/dL RDW 14.0 (11.5-15.5) % Plt Count 214 (150-450) k/uL Neutrophils % 73 % Lymphocytes % 18 % Monocytes % 5 % Eosinophils % 2 % Basophils % 1 % Neutrophils # 9.5 H (1.3-7.7) k/uL Lymphocytes # 2.4 (1.0-4.8) k/uL Monocytes # 0.6 (0-1.0) k/uL Eosinophils # 0.2 (0-0.7) k/uL Basophils # 0.1 (0-0.2) k/uL PT 10.3 (9.0-12.0) sec INR 1.0 (<1.2) APTT 25.1 (22.0-30.0) sec Sodium 142 (137-145) mmol/L Potassium 4.0 (3.5-5.1) mmol/L Chloride 108 H (98-107) mmol/L Carbon Dioxide 24 (22-30) mmol/L Anion Gap 10 mmol/L BUN 16 (9-20) mg/dL Creatinine 0.96 (0.66-1.25) mg/dL Est GFR (CKD-EPI)AfAm >90 (>60 ml/min/1.73 sqM) Est GFR (CKD-EPI)NonAf 87 (>60 ml/min/1.73 sqM) Glucose 87 (74-99) mg/dL Calcium 9.3 (8.4-10.2) mg/dL Magnesium 1.7 (1.6-2.3) mg/dL Total Bilirubin 0.5 (0.2-1.3) mg/dL AST 20 (17-59) U/L ALT 28 (21-72) U/L Alkaline Phosphatase 93 (38-126) U/L Troponin I (0.000-0.034) ng/mL Total Protein 7.1 (6.3-8.2) g/dL Albumin 3.9 (3.5-5.0) g/dL 02/08/19 Range/Units 19:10 WBC (3.8-10.6) k/uL RBC (4.30-5.90) m/uL Hgb (13.0-17.5) gm/dL Hct (39.0-53.0) % MCV (80.0-100.0) fL MCH (25.0-35.0) pg MCHC (31.0-37.0) g/dL RDW (11.5-15.5) % Plt Count (150-450) k/uL Neutrophils % % Lymphocytes % % Monocytes % % Eosinophils % % Basophils % % Neutrophils # (1.3-7.7) k/uL Lymphocytes # (1.0-4.8) k/uL Monocytes # (0-1.0) k/uL Eosinophils # (0-0.7) k/uL Basophils # (0-0.2) k/uL PT (9.0-12.0) sec INR (<1.2) APTT (22.0-30.0) sec Sodium (137-145) mmol/L Potassium (3.5-5.1) mmol/L Chloride (98-107) mmol/L Carbon Dioxide (22-30) mmol/L Anion Gap mmol/L BUN (9-20) mg/dL Creatinine (0.66-1.25) mg/dL Est GFR (CKD-EPI)AfAm (>60 ml/min/1.73 sqM) Est GFR (CKD-EPI)NonAf (>60 ml/min/1.73 sqM) Glucose (74-99) mg/dL Calcium (8.4-10.2) mg/dL Magnesium (1.6-2.3) mg/dL Total Bilirubin (0.2-1.3) mg/dL AST (17-59) U/L ALT (21-72) U/L Alkaline Phosphatase (38-126) U/L Troponin I <0.012 (0.000-0.034) ng/mL Total Protein (6.3-8.2) g/dL Albumin (3.5-5.0) g/dL Disposition Clinical Impression: Chest pain Disposition: ADMITTED IP TO THIS HOSP Referrals: Jonas Holden MD [Primary Care Provider] - 1-2 days Time of Disposition: 20:02
[2019-02-08] MEDS ORDERED: NITROGLYCERIN OINT 1 INCH/GM PACKET TOPICAL STA (18:48)
[2019-02-08] MEDS ORDERED: ASPIRIN 81 MG PO STA (18:48)
--- NOTE | 2019-02-08 19:33 | XR ---
EXAMINATION TYPE: XR chest 2V DATE OF EXAM: 02/08/2019 COMPARISON: 05/11/2018 HISTORY: Shortness of breath TECHNIQUE: Frontal and lateral views of the chest are obtained. FINDINGS: Scattered senescent parenchymal changes noted. Hyperinflation compatible with COPD. No evidence for infiltrate. No evidence for atelectasis. Heart size is stable. Mediastinal structures are stable and grossly unremarkable. No evidence for hilar prominence. Degenerative changes dorsal spine. IMPRESSION: 1. No evidence for acute pulmonary disease.
[2019-02-08 19:36] LABS: Basophils # (A) 0.1 k/uL (0-0.2); Basophils % (A) 1 %; Eosinophils # (A) 0.2 k/uL (0-0.7); Eosinophils % (A) 2 %; HCT 40.8 % (39.0-53.0); HGB 13.6 gm/dL (13.0-17.5); Lymphocytes # (A) 2.4 k/uL (1.0-4.8); Lymphocytes % (A) 18 %; MCH 28.7 pg (25.0-35.0); MCHC 33.3 g/dL (31.0-37.0); MCV 86.1 fL (80.0-100.0); Mean Platelet Volume 7.1; Monocytes # (A) 0.6 k/uL (0-1.0); Monocytes % (A) 5 %; Neutrophils # (A) 9.5 k/uL (1.3-7.7); Neutrophils % (A) 73 %; Platelet Count 214 k/uL (150-450); RBC 4.74 m/uL (4.30-5.90); WBC 12.9 k/uL (3.8-10.6)
[2019-02-08 19:38] LABS: ALT 28 U/L (21-72); AST 20 U/L (17-59); African American GFR (CKD) >90 (>60 ml/min/1.73 sqM); Albumin 3.9 g/dL (3.5-5.0); Alkaline Phosphatase 93 U/L (38-126); Anion Gap 10 mmol/L; Blood Urea Nitrogen 16 mg/dL (9-20); Calcium 9.3 mg/dL (8.4-10.2); Carbon Dioxide 24 mmol/L (22-30); Chloride 108 mmol/L (98-107); Glucose 87 mg/dL (74-99); Magnesium 1.7 mg/dL (1.6-2.3); Non-African American GFR(CKD) 87 (>60 ml/min/1.73 sqM); Sodium 142 mmol/L (137-145); Total Bilirubin 0.5 mg/dL (0.2-1.3); Total Protein 7.1 g/dL (6.3-8.2)
[2019-02-08 19:47] LABS: Partial Thromboplastin Time 25.1 sec (22.0-30.0); Prothrombin Time 10.3 sec (9.0-12.0)
[2019-02-08] MEDS ORDERED: NITROGLYCERIN SL TABS 0.4 MG TAB SUBLINGUAL PRN (20:04)
[2019-02-08 22:22] LABS: Glucose,Whole Blood 82 mg/dL (75-99)
[2019-02-08] MEDS: NITROGLYCERIN OINT 1 INCH/GM PACKET TOPICAL SCH (23:10)
[2019-02-08] MEDS: LATANOPROST 0.005% OPHTH DROPS 2.5 ML BTL BOTH EYES SCH (23:11)
[2019-02-09] MEDS: NITROGLYCERIN OINT 1 INCH/GM PACKET TOPICAL SCH ×4 (01:37→22:16)
[2019-02-09 06:32] LABS: Glucose,Whole Blood 121 mg/dL (75-99)
[2019-02-09 08:38] LABS: Cholesterol 124 mg/dL (<200); HDL Cholesterol 29 mg/dL (40-60); LDL Cholesterol,Calculated 75 mg/dL (0-99); Triglycerides 100 mg/dL (<150)
[2019-02-09] MEDS ORDERED: ALPRAZolam 0.25 MG TAB PO PRN (09:23)
[2019-02-09] MEDS ORDERED: SODIUM CHLORIDE 0.9% 1,000 ML in EMPTY BAG 1 BAG IV ONE (09:23)
[2019-02-09] MEDS ORDERED: ALPRAZolam 0.5 MG TAB PO PRN (09:23)
[2019-02-09] MEDS ORDERED: METOPROLOL TARTRATE 12.5 MG TAB PO SCH (09:30)
[2019-02-09] MEDS: ATORVASTATIN 80 MG TAB PO SCH (10:44)
[2019-02-09] MEDS: ASPIRIN 325 MG TAB PO SCH (10:44)
[2019-02-09] MEDS: LISINOPRIL 10 MG TAB PO SCH (10:44)
--- NOTE | 2019-02-09 10:53 | P.CRDCN ---
History of Present Illness History of present illness: HISTORY OF PRESENTING ILLNESS This is a pleasant 58-year-old male past medical history significant for diabetes mellitus, hypertension, dyslipidemia, sleep apnea, COPD and frequent tremors. He presented with chest pain. 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 We have been asked to see him in consultation for chest pain. He complains of pain in the left precordial region with radiation back and forth in the midsternal area intermittently and ongoing for the pre vious one year. When he has this discomfort he also has associated shortness of breath. The pain does not radiate to the arm, back, neck or jaw. There is no specific aggravating or alleviating factors. He denies associated palpitations, nausea, vomiting or diaphoresis. He has undergone stress testing on 2 separate occasions in March 2018 he had a dobutamine stress echocardiogram that was ne gative for stress-induced ischemia. In September 2018 he had a stress echocardiogram that also was negative for stress-induced ischemia. He states he has been under significant amount of stress in the previous one year losing his and most recently his father. 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 DIAGNOSTICS EKG reveals sinus mechanism heart rate 78, incomplete right bundle branch block, no acute ST or T-wave abnormalities. Chest xray due to for acute cardiopulmonary process. Laboratory reviewed, ABC 12.9, hemoglobin 13.6, platelets 214, sodium 140, po tassium 4.0, creatinine 0.96, magnesium 1.7, cardiac enzymes negative 3, LDL 75. Current cardiac medications include lisinopril 10 mg daily, Lasix 40 mg daily and atorvastatin 80 mg daily. Most recent echocardiogram obtained 03/2018 reveals preserved LV systolic function EF 55-60%. REVIEW OF SYSTEMS At the time of my exam: CONSTITUTIONAL: Denies fever or chills. CARDIOVASCULAR: Denies chest pain, shortness of breath, orthopnea, PND or palpitations. RESPIRATORY: Denies cough. GASTROINTESTINAL: Denies abdominal pain, diarrhea, constipation, nausea or vomiting. MUSCULOSKELETAL: Denies myalgias. NEUROLOGIC: Denies numbness, tingling or weakness. ENDOCRINE: Denies fatigue, weight change, polydipsia or polyurina. GENITOURINARY: Denies burning, hematuria or urgency with micturation. HEMATOLOGIC: Denies history of anemia or bleeding. PHYSICAL EXAMINATION Blood pressure 123/76 heart rate 71 afebrile and maintaining oxygen saturaiton on room air. CONSTITUTIONAL: No apparent distress. Obese. HEENT: Head is normocephalic. Pupils are equal, round. Sclerae anicteric. Mucous membranes of the mouth are moist. No JVD. No carotid bruit. CHEST EXAMINATION: Lungs are clear to auscultation. No chest wall tenderness is noted on palpation or with deep breathing. HEART EXAMINATION: Regular rate and rhythm. S1, S2 heard. No murmurs, gallops or rub. ABDOMEN: Soft, nontender. Positive bowel sounds. EXTREMITIES: 2+ peripheral pulses, no lower extremity edema and no calf tenderness. NEUROLOGIC EXAMINATION: Patient is awake, alert and oriented x3. ASSESSMENT Chest pain, an acute coronary event has been ruled out. Hypertension Dyslipidemia Diabetes mellitus Family history of premature coronary artery disease PLAN Symptoms are atypical however he has significant risk factors. Recommend pr oceeding with cardiac catheterization for definitive diagnosis. I have discussed the risks, benefits and alternative therapies for the above-mentioned procedure and for both sedation/analgesia as well as necessary blood product administration, if indicated, as they pertain to this patient. The patient has indicated understanding and acceptance of the risks and procedures discussed. Questions have been answered appropriately and he is agreeable to move forward with the above-stated procedure. Initiate metoprolol 12.5 mg twice a day. Continue atorvastatin and lisinopril as previously ordered. Further recommendations to follow based upon clinical course. Thank you kindly for this consultation. Nurse Practitioner note has been reviewed, I agree with a documented findings and plan of care. Patient was seen and examined. Past Medical History Past Medical History: Asthma, COPD, Diabetes Mellitus, Eye Disorder, Hyperlipidemia, Hypertension, Sleep Apnea/CPAP/BIPAP Additional Past Medical History / Comment(s): NIDDM type II, glaucoma bilat eyes, eye laser sx to help glaucoma per pt, leg cramps at night occasionally, bilateral hand tremors-pt states he does not know reason. possible asthma/copd, KATY with cpap, History of Any Multi-Drug Resistant Organisms: None Reported Additional Past Surgical History / Comment(s): bilateral eye laser surgery for cataract removal/lens implants, Past Anesthesia/Blood Transfusion Reactions: Unable to Obtain Additional Past Anesthesia/Blood Transfusion Reaction / Comment(s): Pt states he has never had general anesthesia. Past Psychological History: No Psychological Hx Reported Smoking Status: Never smoker Past Alcohol Use History: None Reported Past Drug Use History: None Reported - Past Family History Mother Family Medical History: Diabetes Mellitus Additional Family Medical History / Comment(s): Mother in her sleep when she was in her 60s. Pt does not know cause of . Father Family Medical History: No Reported History Additional Family Medical History / Comment(s): Pt states father is healthy and is 88yrs old Medications and Allergies Home Medications Medication Instructions Recorded Confirmed Type Atorvastatin [Lipitor] 80 mg PO DAILY 09/10/17 02/08/19 History Lisinopril [Zestril] 10 mg PO DAILY 09/10/17 02/08/19 History Insulin Glargine,Hum.rec.anlog 94 unit SQ DAILY 03/31/18 02/08/19 History [Basaglar Kwikpen U-100] Ergocalciferol (Vitamin D2) 50,000 unit PO QMONTH 04/01/18 02/08/19 History [Vitamin D2] Insulin Lispro [humaLOG Kwikpen] 18 unit SQ AC-TID 04/01/18 02/08/19 History Dulaglutide [Trulicity] 1.5 mg SQ SA 09/22/18 02/08/19 History Furosemide [Lasix] 40 mg PO DAILY 09/22/18 02/08/19 History Hydrocortisone Cream 1 applic TOPICAL TID PRN 02/08/19 02/08/19 History [Hydrocortisone 2.5% Cream] Latanoprost/Pf [Latanoprost 0.005% 1 drop BOTH EYES HS 02/08/19 02/08/19 History Eye Drop] Allergies Allergy/AdvReac Type Severity Reaction Status Date / Time aluminum hydroxide Allergy Nausea & Verified 02/08/19 21:46 [From Mylanta] Vomiting barium iodide Allergy Nausea & Verified 02/08/19 21:46 Vomiting barium sulfate Allergy Nausea & Verified 02/08/19 21:46 Vomiting bee venom protein (honey bee) Allergy Swelling Verified 02/08/19 21:46 calcium carbonate Allergy Nausea & Verified 02/08/19 21:46 [From Mylanta] Vomiting magnesium [From Mylanta] Allergy Nausea & Verified 02/08/19 21:46 Vomiting magnesium hydroxide Allergy Nausea & Verified 02/08/19 21:46 [From Mylanta] Vomiting simethicone [From Mylanta] Allergy Nausea & Verified 02/08/19 21:46 Vomiting Physical Exam Vitals: Vital Signs Temp Pulse Pulse Resp BP BP BP 02/09/19 07:05 97.9 F 71 18 123/76 02/09/19 04:00 98 F 72 18 94/54 02/08/19 21:54 97.6 F 89 18 115/70 02/08/19 21:00 94 20 127/69 02/08/19 20:20 92 16 141/76 02/08/19 20:00 86 18 131/77 02/08/19 19:40 85 18 131/77 02/08/19 19:20 83 18 141/83 02/08/19 19:00 80 18 129/88 02/08/19 18:41 80 02/08/19 18:26 97.8 F 81 18 147/89 Pulse Ox 02/09/19 07:05 96 02/09/19 04:00 97 02/08/19 21:54 97 02/08/19 21:00 95 02/08/19 20:20 95 02/08/19 20:00 96 02/08/19 19:40 96 02/08/19 19:20 94 L 02/08/19 19:00 96 02/08/19 18:41 95 02/08/19 18:26 98 Intake and Output 02/08/19 02/09/19 02/09/19 22:59 06:59 14:59 Other: Voiding Method Toilet Toilet Toilet # Voids 1 Weight 115.212 kg Results 02/08/19 19:10 02/08/19 19:10 Cardiac Enzymes 02/08/19 02/08/19 02/09/19 Range/Units 19:10 19:10 01:44 AST 20 (17-59) U/L Troponin I <0.012 <0.012 (0.000-0.034) ng/mL Coagulation 02/08/19 Range/Units 19:10 PT 10.3 (9.0-12.0) sec APTT 25.1 (22.0-30.0) sec CBC 02/08/19 Range/Units 19:10 WBC 12.9 H (3.8-10.6) k/uL RBC 4.74 (4.30-5.90) m/uL Hgb 13.6 (13.0-17.5) gm/dL Hct 40.8 (39.0-53.0) % Plt Count 214 (150-450) k/uL Comprehensive Metabolic Panel 02/08/19 Range/Units 19:10 Sodium 142 (137-145) mmol/L Potassium 4.0 (3.5-5.1) mmol/L Chloride 108 H (98-107) mmol/L Carbon Dioxide 24 (22-30) mmol/L BUN 16 (9-20) mg/dL Creatinine 0.96 (0.66-1.25) mg/dL Glucose 87 (74-99) mg/dL Calcium 9.3 (8.4-10.2) mg/dL AST 20 (17-59) U/L ALT 28 (21-72) U/L Alkaline Phosphatase 93 (38-126) U/L Total Protein 7.1 (6.3-8.2) g/dL Albumin 3.9 (3.5-5.0) g/dL Current Medications Generic Name Dose Route Start Last Admin Trade Name Freq PRN Reason Stop Dose Admin Aspirin 325 mg 02/09/19 09:00 Aspirin PO DAILY MCKINLEY Latanoprost 1 drops 02/08/19 22:45 02/08/19 23:11 Xalatan 0.005% BOTH EYES 1 drops HS MCKINLEY Administration Nitroglycerin 0.4 mg 02/08/19 20:04 Nitrostat SUBLINGUAL Q5M PRN Chest Pain Nitroglycerin 1 inch 02/09/19 00:00 02/09/19 01:37 Nitro-Bid Oint TOPICAL Not Given Q6HR MCKINLEY Intake and Output 02/08/19 02/09/19 02/09/19 22:59 06:59 14:59 Other: Voiding Method Toilet Toilet Toilet # Voids 1 Weight 115.212 kg 02/08/19 19:10 02/08/19 19:10
[2019-02-09 11:43] LABS: Glucose,Whole Blood 186 mg/dL (75-99)
[2019-02-09] MEDS: INSULIN ASPART (NovoLOG) 100 UNIT/ML VIAL SQ SCH ×2 (12:03→16:53)
[2019-02-09] MEDS ORDERED: IV FLUID CONTINUATION 600 ML IV ONE (14:43)
[2019-02-09] MEDS ORDERED: MIDAZOLAM 2 MG/2 ML VIAL IV ONE (14:57)
[2019-02-09] MEDS ORDERED: LIDOCAINE 1% INJ 10MG/ML (20 ML MDV) SQ ONE (15:01)
[2019-02-09] MEDS: VERAPAMIL SYRINGE (5 MG/10 ML) INTRAARTER ONE ×2 (15:02→15:37)
[2019-02-09] MEDS: HEPARIN SODIUM 1,000 UN/ML (10ML VL) IV ONE ×2 (15:07→15:26)
[2019-02-09] MEDS ORDERED: NITROGLYCERIN 1000MCG/10ML SYRINGE INTRACORON ONE (15:34)
[2019-02-09] MEDS ORDERED: IOPAMIDOL-370 100ML BTL INJ ONE (15:36)
--- NOTE | 2019-02-09 16:27 | HP ---
HISTORY AND PHYSICAL CHIEF COMPLAINT: Chest pain. HISTORY OF PRESENT ILLNESS: This is another admission for this 58-year-old obese white male with a history of marginally controlled type 2 diabetes mellitus, hypertension and GERD. He presented to the office with a 2- to 3-day history of left anterior chest pain. It was not typical for angina. It was somewhat fleeting. It occasionally radiated to the back. He had no associated fever, chills, cough, hemoptysis, pleurisy, diaphoresis, shortness of breath, etc. In the office, chest x-ray demonstrated no definite disease and his EKG was unremarkable. His pulse ox was low in the low 80s, however. He did not seem to be tachypneic. He was sent to the emergency room for further evaluation. His enzymes are normal. He has had several stress studies and CTAs which have been negative. He is admitted for observation, and it is probably time to perform a cardiac cath to rule out coronary artery disease in this diabetic. REVIEW OF SYSTEMS: Review of systems is otherwise normal. He has had no syncope, problems with the vision or the hearing, focal neurologic deficits, murmurs, rheumatic fever, abdominal pain, nausea, vomiting, indigestion, melena, hematochezia, jaundice, etc. He does have GERD. He has had no renal failure, nocturia, incontinence, frequency, urgency, hematuria, prostate disease, etc. Past medical history, family history, and personal and social histories reveal that he is ALLERGIC to REGLAN, MAALOX, MYLANTA and BARIUM. MEDICATIONS: His medications include: Vitamin D, lisinopril 10 mg once a day, Humalog 18 units before Basaglar 94 units once a day, Lasix 20 mg once a day, atorvastatin 80 mg at bedtime, Trulicity 0.75 mg once a week, Vicodin 7.5 p.r.n. Remainder of his history is unremarkable. He does not have a significant history of heart disease and he smoked, but stopped long ago. PHYSICAL EXAMINATION: Blood pressure 120/78, pulse of 88, respirations of 18. He is afebrile. In general he appeared to be obese and in no acute distress. Skin color was normal. Skin was warm and dry. There was no diaphoresis. Lymph nodes are not enlarged. Head, ears, eyes, nose, mouth and throat were normal. Neck veins were not distended. Thyroid and his heart were not enlarged. Chest was clear. There were no rales, rhonchi, rubs, etc. Cardiac exam normal, in sinus rhythm with no murmurs or extra sounds. There was no chest wall tenderness. Abdominal exam was unremarkable. The abdomen was protuberant and there was no tenderness or visceromegaly. Bowel sounds were present. Extremities were normal. Neurologically he was intact. ADMITTING DIAGNOSES: 1. Anterior chest pain. 2. History of insulin-dependent, poorly controlled diabetes mellitus. 3. History of hypertension. PLAN: 1. Bed rest. 2. IV fluids. 3. Serial EKGs and enzymes. 4. Cardiology consult for possible cardiac cath. MMODL / IJN: [id number] /
[2019-02-09 16:44] LABS: Glucose,Whole Blood 136 mg/dL (75-99)
[2019-02-09] MEDS: SODIUM CHLORIDE 0.9% 1,000 ML IV SCH (16:53)
--- NOTE | 2019-02-09 17:18 | PN ---
PROGRESS NOTE DATE OF SERVICE: 02/09/2019 CHIEF COMPLAINT: Chest pain. HISTORY OF PRESENT ILLNESS: This gentleman is doing well. He has had no further pain. He is going for a cardiac cath. PHYSICAL EXAMINATION: His chest is clear. Cardiac exam is normal. The abdomen is soft and nontender. Extremities are normal. IMPRESSION: 1. Chest pain. 2. Hypertension. 3. Diabetes. PLAN: Cardiac cath today. MMODL / IJN: [id number] /
[2019-02-09 19:59] LABS: Glucose,Whole Blood 153 mg/dL (75-99)
[2019-02-09] MEDS: LATANOPROST 0.005% OPHTH DROPS 2.5 ML BTL BOTH EYES SCH (20:40)
[2019-02-10] MEDS ORDERED: ACETAMINOPHEN TAB 325 MG TAB PO STA (00:42)
[2019-02-10] MEDS: SODIUM CHLORIDE 0.9% 1,000 ML IV SCH (03:47)
[2019-02-10] MEDS: NITROGLYCERIN OINT 1 INCH/GM PACKET TOPICAL SCH (03:54)
[2019-02-10 06:46] LABS: Glucose,Whole Blood 142 mg/dL (75-99)
[2019-02-10] MEDS ORDERED: INSULIN DETEMIR (LEVEMIR) 100 UNIT/ML SYR SQ SCH (07:00)
[2019-02-10 07:35] VITALS: RESP 18
[2019-02-10] MEDS: INSULIN ASPART (NovoLOG) 100 UNIT/ML VIAL SQ SCH ×2 (08:45→11:57)
[2019-02-10] MEDS: ATORVASTATIN 80 MG TAB PO SCH (08:45)
[2019-02-10] MEDS: LISINOPRIL 10 MG TAB PO SCH (08:45)
[2019-02-10] MEDS: ASPIRIN 325 MG TAB PO SCH (08:45)
[2019-02-10] MEDS ORDERED: METOPROLOL TARTRATE 25 MG TAB PO SCH (09:00)
[2019-02-10] MEDS ORDERED: FUROSEMIDE 40 MG TAB PO SCH (09:00)
--- NOTE | 2019-02-10 11:15 | CC ---
CARDIAC CATHETERIZATION REPORT DATE OF SERVICE: 02/09/2019. PROCEDURES: 1. Left heart catheterization and coronary angiography. 2. Fractional flow reserve assessment of proximal RCA lesion/IFR assessment. PERFORMED BY: Dr. Souleymane Black Moderate conscious sedation time was 38 minutes. CLINICAL INFORMATION: Mr. Maynor Hoffman is a 58-year-old gentleman with history of obesity, type 2 diabetes, hypertension, hyperlipidemia with recurrent hospitalization with chest discomfort and a previous negative stress test. In view of his ongoing episodes of chest pain that were responding to nitroglycerin, even though he had a negative stress test, I recommended coronary angiography after due discussion with the patient and his friend. PROCEDURE NOTE: Under local anesthesia and strict aseptic precautions, a 6-Croatian introducer was placed in the right radial artery. Using a JL3.5 and JR4 catheters I performed coronary angiography using the same right catheter. I checked LV pressures but did not perform an LV gram. Following the procedure, I noted the patient had a moderate lesion in the proximal dominant RCA and also mild to moderate lesion in the left main body. He was advised FFR that was performed expeditiously. LV pressures were checked but LV gram was not performed. FFR ASSESSMENT: I used a JR4 guide catheter to cannulate the right coronary artery. A Verrata wire was advanced and positioned in the distal aspect of the RCA. An IFR assessment was performed after nitroglycerin was given and heparin was also given. IFR was 0.94 and 0.97 suggesting that the RCA lesion was not significant. The catheter and wire were taken out. Hemostasis was secured with a TR band. Saturation in the fingers of the right hand was 94%. Patient received 5000 units of heparin and also received intracoronary nitroglycerin prior to the IFR assessment. He tolerated the procedure well without complication. Findings and recommendations were reviewed with the patient and . Continued medical therapy is advised. 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 CARDIAC CATHETERIZATION FINDINGS: 1. Left ventricle end-diastolic pressure was 30 mmHg without any gradient across aortic valve. CORONARY ANGIOGRAPHY FINDINGS: 1. RIGHT CORONARY ARTERY: A very dominant vessel has about a 50% proximal lesion, caliber improves distally, bifurcates into a large PDA and PLV. No significant disease. Proximal RCA has about a 50% lesion. 2. LEFT MAIN CORONARY ARTERY: Short patent vessel in BAZAN caudal projection. There is a body of the left main lesion of about 30%. It then bifurcates into LAD and circumflex. 3. LEFT ANTERIOR DESCENDING CORONARY ARTERY: This is a very tortuous vessel, proximally branch comes off that runs superiorly and seem to directly empty into a low-pressure chamber, probably a pulmonary artery. 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 Beyond that, the LAD caliber is good, gives off a diagonal branch and gives off a large caliber diagonal branch and also some septal branches. There is no significant disease involving the LAD system other than minor irregularities. The diagonal branch is of good caliber has no significant disease. Immediately after the diagonal branches, there is about a 40% disease within the LAD and it runs all the way to the apex. Diagonal is a good caliber vessel that divides into 2 branches, supplies a fair amount of myocardium. LAD therefore has no significant disease. There is a 35% mid lesion after diagonal branch and both the diagonal and LAD itself are free of significant disease. There is a proximal branch that seems to go superiorly and empty into the pulmonary artery system. 4. LEFT POSTERIOR CIRCUMFLEX CORONARY ARTERY: Technically a nondominant vessel, gives off a good-sized obtuse marginal that runs laterally, has about a 35%-40% lesion in the midportion. The AV groove branch and left atrial circumflex branch are free of significant disease. FINAL IMPRESSION: This patient has a right dominant system 50% RCA lesion was noted proximally. Left main has a 35% body lesion. LAD is a 35% mid lesion. Circumflex marginal has a 35%- 40% mid lesion. There is a superior branch coming off from the LAD emptying into the pulmonary artery directly, it looks like a coronary fistula. I do not believe this is of clinical consequence at this time. Echo was unremarkable and will be repeated. There are no critical lesions. Patient has a right dominant system. Filling pressure is normal without any gradient across aortic valve. RECOMMENDATIONS: I am recommending aggressive medical therapy and we will perform an echocardiogram to assess for any pulmonary, arterial or right ventricular enlargement. I will consider doing a CT angio down the road or . However, patient is not symptomatic from the coronary fistula. I think his previous stress tests were negative. I will review the findings with the patient tomorrow. Moderate conscious sedation time was 38 minutes. Patient was administered Versed and oxygen saturation, hemodynamics and EKG were monitored closely. EVAN / KRYSN: [id number] /
[2019-02-10 11:43] LABS: Glucose,Whole Blood 198 mg/dL (75-99)
[2019-02-10 12:00] VITALS: BP 135/75; PULSE 69; TEMP 98
--- NOTE | 2019-02-10 15:48 | P.PN ---
Subjective HISTORY OF PRESENTING ILLNESS This is a pleasant 58-year-old male past medical history significant for diabetes mellitus, hypertension, dyslipidemia, sleep apnea, COPD and frequent tremors. He underwent cathterization yesterday late afternoon via right radial artery revealing mild non-obstructive CAD. No intervention required. Medical therapy. Right radial artery clean dry intact. No chest pain, shortness of breath or dizziness. Blood pressure 135/75 heart rate 69 afebrile and maintaining oxygen saturation on room air. PHYSICAL EXAMINATION CONSTITUTIONAL: No apparent distress. Obese. HEENT: Head is normocephalic. Pupils are equal, round. Sclerae anicteric. Mucous membranes of the mouth are moist. No JVD. No carotid bruit. CHEST EXAMINATION: Lungs are clear to auscultation. No chest wall tenderness is noted on palpation or with deep breathing. HEART EXAMINATION: Regular rate and rhythm. S1, S2 heard. No murmurs, gallops or rub. EXTREMITIES: 2+ peripheral pulses, no lower extremity edema and no calf tenderness. Right radial access site clean, dry and intact with strong pulse. No ecchymosis, hematoma or bleeding. ASSESSMENT Chest pain, an acute coronary event has been ruled out. Hypertension Dyslipidemia Diabetes mellitus Family history of premature coronary artery disease PLAN Increase lopressor to 25 mg BID. Continue aspirin, atorvastatin, lisinopril and lasix as previously ordered. Echocardiogram has been obtained and will be reviewed. Follow up in the office with Dr. Black in 1-2 weeks. Nurse Practitioner note has been reviewed, I agree with a documented findings and plan of care. Patient was seen and examined. Objective - Vital Signs Vital signs: Vital Signs Temp 98 F 02/10/19 11:57 Pulse 69 02/10/19 11:57 Resp 18 02/10/19 11:57 BP 135/75 02/10/19 11:57 Pulse Ox 97 02/10/19 11:57 Intake & Output 02/09/19 02/10/19 02/10/19 18:59 06:59 18:59 Intake Total 340 300 Balance 340 300 Intake: IV 100 Oral 240 300 Other: Voiding Method Toilet Toilet Toilet # Voids 1 1 - Labs CBC & Chem 7: 02/08/19 19:10 02/08/19 19:10 Labs: Abnormal Lab Results - Last 24 Hours (Table) 02/09/19 02/09/1902/10/19 Range/Units 16:36 19:57 06:44 POC Glucose (mg/dL) 136 H 153 H 142 H (75-99) mg/dL 02/10/19 Range/Units 11:42 POC Glucose (mg/dL) 198 H (75-99) mg/dL
--- NOTE | 2019-02-10 17:51 | DS ---
DISCHARGE SUMMARY CHIEF COMPLAINT: Chest pain. HISTORY OF PRESENT ILLNESS AND PHYSICAL EXAMINATION: Details of this man's history and physical can be found in the initial workup. COURSE IN THE HOSPITAL: After admission he was placed on bedrest and started on intravenous fluids. He had normal troponins. He was seen by Cardiology. Since he had had so many episodes of chest discomfort without any definite resolution, a decision was made to take him to the label drier. There he had no critical artery stenoses, but several significant lesions in several different arteries. It was felt that he could be managed medically. Postoperatively he had no problems, and it was felt that he could go home on February 10. He will go home on his usual medication, diet and activity. He was encouraged to lose weight and increase exercise. FINAL DIAGNOSES: 1. Chest pain. 2. Moderate coronary artery disease. 3. Obesity. 4. Insulin-dependent diabetes mellitus. PLAN: in 1 or 2 days and will start encouraging healthier lifestyle issues and management. MMODL / IJN: [id number] /
--- NOTE | 2019-02-11 07:28 | ECHOF ---
Referral Reason:evaluate right LV size MEASUREMENTS -------- HEIGHT: 162.6 cm WEIGHT: 115.2 kg BP: 128/78 RVIDd: 3.2 cm (< 3.3) IVSd: 1.2 cm (0.6 - 1.1) LVIDd: 4.4 cm (3.9 - 5.3) LVPWd: 1.3 cm (0.6 - 1.1) IVSs: 1.7 cm LVIDs: 1.5 cm LVPWs: 1.5 cm LAESV Index (A-L): 17.30 ml/m Ao Diam: 3.7 cm (2.0 - 3.7) AV Cusp: 1.7 cm (1.5 - 2.6) LA Diam: 2.6 cm (2.7 - 3.8) MV EXCURSION: 15.488 mm (> 18.000) MV EF SLOPE: 78 mm/s (70 - 150) EPSS: 0.4 cm MV E Rocael: 0.79 m/s MV DecT: 242 ms MV A Rocael: 0.91 m/s MV E/A Ratio: 0.86 RAP: 5.00 mmHg RVSP: 20.06 mmHg TAPSE: 18.13 mm FINDINGS -------- Sinus rhythm. This was a technically good study. The left ventricular size is normal. There is mild concentric left ventricular hypertrophy. Overa ll left ventricular systolic function is normal with, an EF between 55 - 60 %. The diastolic fillin g pattern is normal for the age of the patient 9.49. The right ventricle is normal in size. The right ventricular systolic function is normal. The left atrial size is normal. Normal LA size by volume 22+/-6 ml/m2. The right atrial size is normal. Interatrial and interventricular septum intact. The aortic valve is trileaflet and appears structurally normal. The mitral valve is normal. There is trace mitral regurgitation. The tricuspid valve appears structurally normal. Trace tricuspid regurgitation present. Right sonam tricular systolic pressure is normal at < 35 mmHg. There is no pulmonic regurgitation present. The aortic root size is normal. Normal inferior vena cava with normal inspiratory collapse consistent with estimated right atrial pre ssure of 5 mmHg. There is no pericardial effusion. CONCLUSIONS -------- 1. Sinus rhythm. 2. This was a technically good study. 3. The left ventricular size is normal. 4. There is mild concentric left ventricular hypertrophy. 5. Overall left ventricular systolic function is normal with, an EF between 55 - 60 %. 6. The diastolic filling pattern is normal for the age of the patient 9.49 7. The right ventricle is normal in size. 8. The right ventricular systolic function is normal. 9. The left atrial size is normal. 10. Normal LA size by volume 22+/-6 ml/m2. 11. The right atrial size is normal. 12. Interatrial and interventricular septum intact. 13. The aortic valve is trileaflet and appears structurally normal. 14. The mitral valve is normal. 15. There is trace mitral regurgitation. 16. The tricuspid valve appears structurally normal. 17. Trace tricuspid regurgitation present. 18. Right ventricular systolic pressure is normal at < 35 mmHg. 19. There is no pulmonic regurgitation present. 20. The aortic root size is normal. 21. Normal inferior vena cava with normal inspiratory collapse consistent with estimated right atrial pressure of 5 mmHg. 22. There is no pericardial effusion. [employer]OR WINDER: Debbie Arellano RDCS
[2019-02-11] MEDS ORDERED: FUROSEMIDE 40 MG TAB PO SCH (09:00)
[2019-02-11] MEDS ORDERED: ASPIRIN 81 MG PO SCH (09:00)
== END 2019-02-10 15:40 | disposition home or self-care (01) ==
LOC: EC 18:24 → UNDOADMOB 20:07 → 1SOBS 20:07 → INTOOBSV 02-10 09:05 → OBSVTOIN 02-10 09:05 → UNDODISIN 02-10 15:40
PROVIDERS: ADMIT Family Medicine; ATTEND Family Medicine
DX: I25.10 Atherosclerotic heart disease of native coronary artery without angina pectoris (principal); Z68.41 Body mass index [BMI] 40.0-44.9, adult; E11.9 Type 2 diabetes mellitus without complications; E66.9 Obesity, unspecified; E78.00 Pure hypercholesterolemia, unspecified; E78.5 Hyperlipidemia, unspecified; I25.41 Coronary artery aneurysm; I10 Essential (primary) hypertension; I45.10 Unspecified right bundle-branch block; J44.9 Chronic obstructive pulmonary disease, unspecified; K21.9 Gastro-esophageal reflux disease without esophagitis; G47.30 Sleep apnea, unspecified; Z96.1 Presence of intraocular lens; Z79.4 Long term (current) use of insulin; Z79.899 Other long term (current) drug therapy; Z82.49 Family history of ischemic heart disease and other diseases of the circulatory system; Z83.3 Family history of diabetes mellitus; Z87.891 Personal history of nicotine dependence; Z91.030 Bee allergy status; Z88.8 Allergy status to other drugs, medicaments and biological substances; Z91.048 Other nonmedicinal substance allergy status; Z91.09 Other allergy status, other than to drugs and biological substances; Z99.89 Dependence on other enabling machines and devices; Z98.42 Cataract extraction status, left eye; Z98.41 Cataract extraction status, right eye
CPT/HCPCS: 99285; 36415; 93005; 93306; 93571; 93458; 80061; 80053; 83735; 84484 ×2; 85025; 85610; 85730; 83036; 71046; G0378 ×3; C1887; C1769 ×2; C1894; J2250; J2001; J1644; Q9967

== ENCOUNTER → 2019-04-21 | Outpatient (CLI) | payer BC ==
[2019-04-21 09:28] LABS: MCH 28.3 pg (25.0-35.0); MCHC 32.5 g/dL (31.0-37.0); MCV 86.9 fL (80.0-100.0); Mean Platelet Volume 7.6; Platelet Count 213 k/uL (150-450); RDW 14.3 % (11.5-15.5); WBC 9.6 k/uL (3.8-10.6)
[2019-04-21 10:44] LABS: Appearance,Urine Clear (Clear); Bacteria,Urine Rare /hpf; Bilirubin,Urine Negative (Negative); Blood,Urine Moderate (Negative); Color,Urine Yellow; Glucose,Urine (UA) Negative (Negative); Ketones,Urine Negative (Negative); Leukocyte Esterase,Urine Negative (Negative); Mucus,Urine Rare /hpf; Nitrite,Urine Negative (Negative); Protein,Urine Trace (Negative); RBC,Urine 22 /hpf (0-5); Specific Gravity,Urine 1.013 (1.001-1.035); Squamous Epithelial Cell,Urine <1 /hpf (0-4); Urobilinogen,Urine <2.0 mg/dL (<2.0); WBC,Urine 2 /hpf (0-5)
[2019-04-21 19:24] LABS: % Iron Saturation 19.42 (15.00-50.00); African American GFR (CKD) 95.7 (60.0-200.0); Albumin 4.2 g/dL (3.80-4.90); Albumin/Globulin Ratio 2.1 (1.60-3.17); Anion Gap 8.7 mmol/L (4.00-12.00); Calcium 8.6 mg/dL (8.7-10.3); Carbon Dioxide 28.3 mmol/L (21.6-31.8); Ferritin 661.9 ng/mL (22.0-322.0); Magnesium 1.8 mg/dL (1.5-2.4); Non-African American GFR(CKD) 82.6 (60.0-200.0); Phosphorus 2.4 mg/dL (2.4-5.1); Potassium 3.8 mmol/L (3.5-5.5); Total Bilirubin 0.6 mg/dL (0.3-1.2); Total Protein 6.2 g/dL (6.2-8.2); Uric Acid 6.7 mg/dL (3.7-8.7)
[2019-04-21 21:31] LABS: Urine Creatinine 99.3 mg/dL
== END ==
LOC: LABWHC1 08:58
PROVIDERS: ATTEND Internal Medicine
DX: N17.9 Acute kidney failure, unspecified (principal); D64.9 Anemia, unspecified; N39.0 Urinary tract infection, site not specified; N25.81 Secondary hyperparathyroidism of renal origin; E55.9 Vitamin D deficiency, unspecified; M10.9 Gout, unspecified; R80.9 Proteinuria, unspecified
CPT/HCPCS: 36415; 80053; 81001; 82043; 82306; 82570; 82728; 83540; 83550; 83735; 83970; 84100; 84550; 85027

== ENCOUNTER 2019-05-23 23:18 | Emergency (ER) | payer BC ==
--- NOTE | 2019-05-23 23:32 | ED ---
Abdominal Pain HPI - General Chief Complaint: Abdominal Pain Stated Complaint: LLQ Pain/SOB Time Seen by Provider: 05/23/19 23:32 Source: patient Mode of arrival: ambulatory Limitations: no limitations - History of Present Illness Initial Comments: Maynor is a pleasant but morbidly obese 43-year-old gentleman who presents the emergency department today for evaluation of pain in the left side of his abdomen. Patient reports the pain developed earlier in the day. He cannot identify any positive factors. Denies any heavy lifting or injuries. Denies any change in bowel or bladder habits. Patient reports he feels like the left side of his abdomen is tender. Pain seems to be superficial, not worse with deep palpation. Patient can night identify any relieving factors. Reports is worse with any palpation and taking deep breaths or moving the muscles of his abdomen. Patient denies history of similar pain. Patient has not noticed any rash or injury to the skin. - Related Data Home Medications Medication Instructions Recorded Confirmed RX: Atorvastatin [Lipitor] 80 mg PO DAILY 09/10/17 02/08/19 RX: Lisinopril [Zestril] 10 mg PO DAILY 09/10/17 02/08/19 RX: Insulin Glargine,Hum.rec.anlog 94 unit SQ DAILY 03/31/18 02/08/19 [Basaglar Kwikpen U-100] RX: Ergocalciferol (Vitamin D2) 50,000 unit PO QMONTH 04/01/18 02/08/19 [Vitamin D2] RX: Insulin Lispro [humaLOG 18 unit SQ AC-TID 04/01/18 02/08/19 Kwikpen] RX: Dulaglutide [Trulicity] 1.5 mg SQ SA 09/22/18 02/08/19 RX: Furosemide [Lasix] 40 mg PO DAILY 09/22/18 02/08/19 RX: Hydrocortisone Cream 1 applic TOPICAL TID PRN 02/08/19 02/08/19 [Hydrocortisone 2.5% Cream] RX: Latanoprost/Pf [Latanoprost 1 drop BOTH EYES HS 02/08/19 02/08/19 0.005% Eye Drop] Previous Rx's Medication Instructions Recorded RX: Aspirin 81 mg PO DAILY #100 chew 02/10/19 RX: Metoprolol Tartrate [Lopressor] 25 mg PO BID #60 tab 02/10/19 RX: Nitroglycerin Sl Tabs 0.4 mg SUBLINGUAL Q5M PRN #20 tab 02/10/19 [Nitrostat] Allergies Allergy/AdvReac Type Severity Reaction Status Date / Time aluminum hydroxide Allergy Nausea & Verified 05/23/19 23:26 [From Mylanta] Vomiting barium iodide Allergy Nausea & Verified 05/23/19 23:26 Vomiting barium sulfate Allergy Nausea & Verified 05/23/19 23:26 Vomiting bee venom protein (honey bee) Allergy Swelling Verified 05/23/19 23:26 calcium carbonate Allergy Nausea & Verified 05/23/19 23:26 [From Mylanta] Vomiting magnesium [From Mylanta] Allergy Nausea & Verified 05/23/19 23:26 Vomiting magnesium hydroxide Allergy Nausea & Verified 05/23/19 23:26 [From Mylanta] Vomiting simethicone [From Mylanta] Allergy Nausea & Verified 05/23/19 23:26 Vomiting Review of Systems ROS Statement: Those systems with pertinent positive or pertinent negative responses have been documented in the HPI. ROS Other: All systems not noted in ROS Statement are negative. Past Medical History Past Medical History: Asthma, COPD, Diabetes Mellitus, Eye Disorder, Hyperlipidemia, Hypertension, Sleep Apnea/CPAP/BIPAP Additional Past Medical History / Comment(s): NIDDM type II, glaucoma bilat eyes, eye laser sx to help glaucoma per pt, leg cramps at night occasionally, bilateral hand tremors-pt states he does not know reason. possible asthma/copd, KATY with cpap, History of Any Multi-Drug Resistant Organisms: None Reported Additional Past Surgical History / Comment(s): bilateral eye laser surgery for cataract removal/lens implants, Past Anesthesia/Blood Transfusion Reactions: Unable to Obtain Additional Past Anesthesia/Blood Transfusion Reaction / Comment(s): Pt states he has never had general anesthesia. Past Psychological History: No Psychological Hx Reported Smoking Status: Never smoker Past Alcohol Use History: None Reported Past Drug Use History: None Reported - Past Family History Mother Family Medical History: Diabetes Mellitus Additional Family Medical History / Comment(s): Mother in her sleep when she was in her 60s. Pt does not know cause of . Father Family Medical History: No Reported History Additional Family Medical History / Comment(s): Pt states father is healthy and is 88yrs old General Exam - General Exam Comments Initial Comments: Physical Exam GENERAL: Patient is well-developed and well-nourished. Patient is nontoxic and well- hydrated and is in no distress. HENT: Normocephalic, Atraumatic. EYES: PERRL, EOMI PULMONARY: Unlabored respirations. No audible rales rhonchi or wheezing was noted. CARDIOVASCULAR: There is a regular rate and rhythm without any murmurs gallops or rubs. ABDOMEN: Obese Soft and nontender with normal bowel sounds. SKIN: Skin is clear with no lesions or rashes and otherwise unremarkable. No rash or signs of shingles : Deferred NEUROLOGIC: Patient is alert and oriented x3. Moving all extremities spontaneously MUSCULOSKELETAL: Normal extremities with adequate strength and full range of motion. No lower extremity swelling or edema. No calf tenderness. PSYCHIATRIC: Normal psychiatric evaluation. Limitations: no limitations Course Vital Signs 05/23/19 05/24/19 23:24 02:57 Temperature 97.8 F 98.4 F Pulse Rate 85 87 Respiratory 18 20 Rate Blood Pressure 174/70 131/74 O2 Sat by Pulse 99 95 Oximetry Medical Decision Making - Medical Decision Making Patient was seen and evaluated history was obtained from the patient History and physical exam are relatively unremarkable patient is obese abdomen with tenderness to palpation of the skin but no worsening tenderness with deep palpation No rash on the skin or signs of shingles Labs were obtained and resulted with mild leukocytosis of unknown etiology, urinalysis with no signs of infection but there is hematuria A computed tomography scan of the abdomen was obtained and resulted with no acute pathology These results were discussed with the patient who stresses some relief. I did discuss the patient possibility of development of very early shingles in the importance of keeping an eye on the area to make sure he is not developing a rash and immediately being evaluated by a physician if he does develop a rash. All questions pertaining care were answered return parameters were discussed patient was discharged home in stable condition with a planned follow-up with his primary care physician. - Lab Data Result diagrams: 05/23/19 23:40 05/23/19 23:40 Lab Results 05/23/19 05/23/19 05/23/19 Range/Units 23:40 23:40 23:40 WBC 14.9 H (3.8-10.6) k/uL RBC 4.80 (4.30-5.90) m/uL Hgb 13.5 (13.0-17.5) gm/dL Hct 41.6 (39.0-53.0) % MCV 86.5 (80.0-100.0) fL MCH 28.1 (25.0-35.0) pg MCHC 32.5 (31.0-37.0) g/dL RDW 14.7 (11.5-15.5) % Plt Count 209 (150-450) k/uL Neutrophils % 76 % Lymphocytes % 15 % Monocytes % 5 % Eosinophils % 2 % Basophils % 0 % Neutrophils # 11.4 H (1.3-7.7) k/uL Lymphocytes # 2.3 (1.0-4.8) k/uL Monocytes # 0.7 (0-1.0) k/uL Eosinophils # 0.3 (0-0.7) k/uL Basophils # 0.1 (0-0.2) k/uL Sodium 136 L (137-145) mmol/L Potassium 4.0 (3.5-5.1) mmol/L Chloride 99 (98-107) mmol/L Carbon Dioxide 26 (22-30) mmol/L Anion Gap 11 mmol/L BUN 21 H (9-20) mg/dL Creatinine 1.10 (0.66-1.25) mg/dL Est GFR (CKD-EPI)AfAm 85 (>60 ml/min/1.73 sqM) Est GFR (CKD-EPI)NonAf 74 (>60 ml/min/1.73 sqM) Glucose 190 H (74-99) mg/dL Plasma Lactic Acid [place] (0.7-2.0) mmol/L Calcium 9.2 (8.4-10.2) mg/dL Total Bilirubin 0.4 (0.2-1.3) mg/dL AST 23 (17-59) U/L ALT 24 (4-49) U/L Alkaline Phosphatase 96 (38-126) U/L Total Protein 7.2 (6.3-8.2) g/dL Albumin 4.1 (3.5-5.0) g/dL Lipase 806 H (23-300) U/L Urine Color Yellow Urine Appearance Clear (Clear) Urine pH 6.0 (5.0-8.0) Ur Specific [place] 1.023 (1.001-1.035) Urine Protein Trace H (Negative) Urine Glucose (UA) Negative (Negative) Urine Ketones Negative (Negative) Urine Blood Moderate H (Negative) Urine Nitrite Negative (Negative) Urine Bilirubin Negative (Negative) Urine Urobilinogen 2.0 (<2.0) mg/dL Ur Leukocyte Esterase Negative (Negative) Urine RBC 37 H (0-5) /hpf Urine WBC <1 (0-5) /hpf Ur Squamous Epith Cells <1 (0-4) /hpf Urine Bacteria Rare H (None) /hpf Urine Mucus Rare H (None) /hpf 05/23/19 Range/Units 23:40 WBC (3.8-10.6) k/uL RBC (4.30-5.90) m/uL Hgb (13.0-17.5) gm/dL Hct (39.0-53.0) % MCV (80.0-100.0) fL MCH (25.0-35.0) pg MCHC (31.0-37.0) g/dL RDW (11.5-15.5) % Plt Count (150-450) k/uL Neutrophils % % Lymphocytes % % Monocytes % % Eosinophils % % Basophils % % Neutrophils # (1.3-7.7) k/uL Lymphocytes # (1.0-4.8) k/uL Monocytes # (0-1.0) k/uL Eosinophils # (0-0.7) k/uL Basophils # (0-0.2) k/uL Sodium (137-145) mmol/L Potassium (3.5-5.1) mmol/L Chloride (98-107) mmol/L Carbon Dioxide (22-30) mmol/L Anion Gap mmol/L BUN (9-20) mg/dL Creatinine (0.66-1.25) mg/dL Est GFR (CKD-EPI)AfAm (>60 ml/min/1.73 sqM) Est GFR (CKD-EPI)NonAf (>60 ml/min/1.73 sqM) Glucose (74-99) mg/dL Plasma Lactic Acid [place] 1.7 (0.7-2.0) mmol/L Calcium (8.4-10.2) mg/dL Total Bilirubin (0.2-1.3) mg/dL AST (17-59) U/L ALT (4-49) U/L Alkaline Phosphatase (38-126) U/L Total Protein (6.3-8.2) g/dL Albumin (3.5-5.0) g/dL Lipase (23-300) U/L Urine Color Urine Appearance (Clear) Urine pH (5.0-8.0) Ur Specific [place] (1.001-1.035) Urine Protein (Negative) Urine Glucose (UA) (Negative) Urine Ketones (Negative) Urine Blood (Negative) Urine Nitrite (Negative) Urine Bilirubin (Negative) Urine Urobilinogen (<2.0) mg/dL Ur Leukocyte Esterase (Negative) Urine RBC (0-5) /hpf Urine WBC (0-5) /hpf Ur Squamous Epith Cells (0-4) /hpf Urine Bacteria (None) /hpf Urine Mucus (None) /hpf Disposition Clinical Impression: Abdominal pain Disposition: HOME SELF-CARE Condition: Stable Additional Instructions: Your labs look pretty good today, you do have some slight blood in your urine but no infection Follow up with your primary care doctor to have this urine test repeated to make sure that this improves She is drinking plenty of fluids and stay hydrated take Tylenol or Motrin for discomfort Follow-up with your regular doctor in the next week for reevaluation of your abdominal pain Return to the emergency department for any worsening of your abdominal pain or development of any new or concerning symptoms Is patient prescribed a controlled substance at d/c from ED?: No Referrals: Jonas Holden MD [Primary Care Provider] - 1-2 days
[2019-05-24 00:07] LABS: Basophils # (A) 0.1 k/uL (0-0.2); Basophils % (A) 0 %; Eosinophils # (A) 0.3 k/uL (0-0.7); Eosinophils % (A) 2 %; HCT 41.6 % (39.0-53.0); HGB 13.5 gm/dL (13.0-17.5); Lymphocytes # (A) 2.3 k/uL (1.0-4.8); Lymphocytes % (A) 15 %; MCH 28.1 pg (25.0-35.0); MCHC 32.5 g/dL (31.0-37.0); MCV 86.5 fL (80.0-100.0); Mean Platelet Volume 7.6; Monocytes # (A) 0.7 k/uL (0-1.0); Monocytes % (A) 5 %; Neutrophils # (A) 11.4 k/uL (1.3-7.7); Neutrophils % (A) 76 %; Platelet Count 209 k/uL (150-450); RDW 14.7 % (11.5-15.5); WBC 14.9 k/uL (3.8-10.6)
--- NOTE | 2019-05-24 00:17 | XR ---
EXAMINATION TYPE: XR KUB DATE OF EXAM: 05/24/2019 COMPARISON: NONE HISTORY: Left lower quadrant pain TECHNIQUE: 2 views upright FINDINGS: Bowel gas pattern is normal. There is no sign of intestinal obstruction or pneumoperitoneum . Fecal pattern is normal. Lung bases are clear of consolidation. There is probably some mild atelect asis right lung base. There are no pathologic calcifications over the kidneys. IMPRESSION: Nonacute abdomen. There is probably some atelectasis at the lung bases.
[2019-05-24 00:27] LABS: Albumin 4.1 g/dL (3.5-5.0); Calcium 9.2 mg/dL (8.4-10.2); Total Bilirubin 0.4 mg/dL (0.2-1.3); Total Protein 7.2 g/dL (6.3-8.2)
[2019-05-24 00:36] LABS: Appearance,Urine Clear (Clear); Bacteria,Urine Rare /hpf; Bilirubin,Urine Negative (Negative); Blood,Urine Moderate (Negative); Color,Urine Yellow; Glucose,Urine (UA) Negative (Negative); Ketones,Urine Negative (Negative); Leukocyte Esterase,Urine Negative (Negative); Mucus,Urine Rare /hpf; Nitrite,Urine Negative (Negative); Protein,Urine Trace (Negative); RBC,Urine 37 /hpf (0-5); Specific Gravity,Urine 1.023 (1.001-1.035); Squamous Epithelial Cell,Urine <1 /hpf (0-4); WBC,Urine <1 /hpf (0-5)
--- NOTE | 2019-05-24 01:21 | CT ---
EXAMINATION TYPE: CT abdomen pelvis w con DATE OF EXAM: 05/24/2019 COMPARISON: July 23, 2018 HISTORY: LLQ Abd Pain CT DLP: 2419.40 mGycm Automated exposure control for dose reduction was used. CONTRAST: Performed with IV Contrast, patient injected with 100 mL of Isovue 300. Multiple axial sections were obtained from the diaphragm to the floor the pelvis with intravenous con trast. The lung bases are clear of infiltrate. There is no pleural effusion. There is mild subsegmental atel ectasis left lung base. Heart size is normal. There is no pericardial effusion. Stomach is intact. Liver spleen pancreas gallbladder appear normal. Bile ducts are not dilated. There is no adrenal mass. Kidneys show satisfactory contrast opacification. There is no hydronephrosi s. Ureters are not dilated. There is 1 mm calculus posterior right kidney. There are left-sided renal parapelvic cysts. There is no retroperitoneal adenopathy. Bladder distends smoothly. There is no ing uinal hernia. There is no free fluid in the pelvis. The appendix appears normal. There is no mesenter ic edema. There is no ascites or free air. There is no sign of a bowel obstruction. Lumbar vertebra have fairly normal spacing and alignment. The posterior elements are intact. There is a very slight lumbar levoscoliosis. Bony pelvis appears intact. There is prostatic calcification. IMPRESSION: No sign of acute abdomen and pelvis. I do not see a cause for left lower quadrant pain. No adverse ch rik compared to old exam.
[2019-05-24 03:00] VITALS: BP 131/74; PULSE 87; RESP 20; TEMP 98.4
== END 2019-05-24 03:35 | disposition home or self-care (01) ==
LOC: EC 23:18
DX: R10.9 Unspecified abdominal pain (principal); D72.829 Elevated white blood cell count, unspecified; R31.9 Hematuria, unspecified; E11.9 Type 2 diabetes mellitus without complications; E78.5 Hyperlipidemia, unspecified; I10 Essential (primary) hypertension; H40.9 Unspecified glaucoma; G47.33 Obstructive sleep apnea (adult) (pediatric); Z88.8 Allergy status to other drugs, medicaments and biological substances; Z91.030 Bee allergy status; Z91.048 Other nonmedicinal substance allergy status; Z79.4 Long term (current) use of insulin; Z79.899 Other long term (current) drug therapy; Z98.890 Other specified postprocedural states; Z99.89 Dependence on other enabling machines and devices
CPT/HCPCS: 36415; 80053; 83605; 83690; 85025; 81001; 74018; 74177; 99284; Q9967

== ENCOUNTER 2020-03-08 07:37 | Day surgery (SDC) | payer BC ==
[2020-03-06 09:43] VITALS: BMI 44.2
[~2020-03-08 07:37] MED LIST: LACTATED RINGERS 1,000 ML IV SCH
[2020-03-08 08:03] LABS: Glucose,Whole Blood 120 mg/dL (75-99)
[2020-03-08 08:08] VITALS: RESP 16; TEMP 97.5
[2020-03-08] MEDS ORDERED: LIDOCAINE 1% (10MG/ML) FOR IV START INTRADERMA ONE (08:08)
[2020-03-08] MEDS ORDERED: PROPOFOL 10 MG/ML 20 ML VIAL IV ONE (08:36)
--- NOTE | 2020-03-08 08:55 | P.PCN ---
Date of Procedure: 03/08/20 Procedure(s) Performed: BRIEF HISTORY: Patient is a 59-year-old pleasant male scheduled for an elective colonoscopy as a part of evaluation of Hemoccult-positive stool. PROCEDURE PERFORMED: Colonoscopy with biopsy. PREOPERATIVE DIAGNOSIS: Hemoccult-positive. IV sedation per Anesthesia. PROCEDURE: After informed consent was obtained, the patient, was brought into the endoscopy unit. IV sedation was administered by Anesthesia under continuous monitoring. Digital rectal examination was normal. Initially the Olympus CF-160 flexible video colonoscope was then inserted in the rectum, gradually advanced into the cecum without any difficulty. Careful examination was performed as the scope was gradually being withdrawn. Ileocecal valve and the appendiceal orifice were visualized and appeared normal. Prep was excellent. Mucosa of the cecum, appeared normal. In descending colon there was a 2-3 mm polyp that was removed by cold biopsy. Rest of the ascending colon, transverse colon, descending colon, sigmoid colon, and rectum appeared normal. Retroflexion was performed in the rectum and all internal hemorrhoids were seen. The patient tolerated the procedure well. IMPRESSION: 2-3 mm ascending colon polyp status post removal by cold biopsy Small internal hemorrhoids RECOMMENDATIONS: Findings of this examination were discussed with the patient as well as his family. He was advised to follow with the biopsy results. If the biopsy shows an adenoma he can have a repeat colonoscopy in 5 years.
[2020-03-08 09:11] VITALS: BP 126/77; PULSE 75
== END 2020-03-08 09:52 | disposition home or self-care (01) ==
LOC: ORWHC2ENDO 07:37
PROVIDERS: ATTEND Internal Medicine Gastroenterology
DX: D12.4 Benign neoplasm of descending colon (principal); K64.8 Other hemorrhoids; I10 Essential (primary) hypertension; E78.5 Hyperlipidemia, unspecified; J44.9 Chronic obstructive pulmonary disease, unspecified; G47.33 Obstructive sleep apnea (adult) (pediatric); H40.9 Unspecified glaucoma; E11.9 Type 2 diabetes mellitus without complications; K21.9 Gastro-esophageal reflux disease without esophagitis; Z79.82 Long term (current) use of aspirin; Z79.4 Long term (current) use of insulin; Z79.899 Other long term (current) drug therapy
CPT/HCPCS: 88305; 45380; J2704

== ENCOUNTER 2020-08-26 22:56 | Emergency (ER) | payer BC ==
[2020-08-26 23:20] VITALS: TEMP 98.3
[2020-08-27] MEDS ORDERED: MORPHINE SULFATE 2 MG/ML SYRINGE IVP STA (00:01)
[2020-08-27] MEDS ORDERED: ONDANSETRON 4 MG/2 ML VIAL IVP STA (00:01)
[2020-08-27] MEDS ORDERED: SODIUM CHLORIDE 0.9% 500 ML 500 ML IV STA (00:01)
[2020-08-27 00:45] LABS: Basophils # (A) 0.1 k/uL (0-0.2); Basophils % (A) 1 %; Eosinophils # (A) 0.1 k/uL (0-0.7); Eosinophils % (A) 1 %; HCT 40.2 % (39.0-53.0); HGB 13.2 gm/dL (13.0-17.5); Lymphocytes # (A) 1.7 k/uL (1.0-4.8); Lymphocytes % (A) 15 %; MCH 28.7 pg (25.0-35.0); MCHC 32.9 g/dL (31.0-37.0); MCV 87.3 fL (80.0-100.0); Mean Platelet Volume 7.1; Monocytes # (A) 0.6 k/uL (0-1.0); Monocytes % (A) 5 %; Neutrophils # (A) 9.1 k/uL (1.3-7.7); Neutrophils % (A) 77 %; Platelet Count 184 k/uL (150-450); RDW 15.4 % (11.5-15.5); WBC 11.8 k/uL (3.8-10.6)
[2020-08-27 00:46] LABS: Albumin 4.2 g/dL (3.5-5.0); Calcium 9.4 mg/dL (8.4-10.2); Potassium 3.7 mmol/L (3.5-5.1); Total Bilirubin 0.7 mg/dL (0.2-1.3)
[2020-08-27 01:30] LABS: Appearance,Urine Clear (Clear); Bacteria,Urine Rare /hpf; Bilirubin,Urine Negative (Negative); Blood,Urine Large (Negative); Color,Urine Yellow; Glucose,Urine (UA) Negative (Negative); Ketones,Urine Negative (Negative); Leukocyte Esterase,Urine Negative (Negative); Mucus,Urine Rare /hpf; Nitrite,Urine Negative (Negative); PH, Urine 5.5 (5.0-8.0); Protein,Urine 1+ (Negative); RBC,Urine 7 /hpf (0-5); Specific Gravity,Urine 1.026 (1.001-1.035); Urobilinogen,Urine <2.0 mg/dL (<2.0); WBC,Urine 3 /hpf (0-5)
--- NOTE | 2020-08-27 01:32 | CT ---
EXAM: CT Abdomen and Pelvis With Intravenous Contrast CLINICAL HISTORY: ITS.REASON CT Reason: RLQ abdominal pain TECHNIQUE: Axial computed tomography images of the abdomen and pelvis with intravenous contrast. CTDI is 62.552 mGy and DLP is 2341.70 mGy-cm. This CT exam was performed using one or more of the following dose reduction techniques: automated exposure control, adjustment of the mA and/or kV according to patient size, and/or use of iterative reconstruction technique. COMPARISON: CT dated 05/24/2019 FINDINGS: Lung bases: Unremarkable. ABDOMEN: Liver: Hepatic steatosis. Gallbladder and bile ducts: Unremarkable. Pancreas: Unremarkable. Spleen: Unremarkable. Adrenals: Unremarkable. Kidneys and ureters: Nonobstructing calculi within both kidneys. Otherwise the kidneys and ureters are unremarkable. Stomach and bowel: Unremarkable. PELVIS: Appendix: Appendix is not identified. Bladder: Unremarkable. Reproductive: Unremarkable as visualized. ABDOMEN and PELVIS: Intraperitoneal space: Unremarkable. Bones/joints: No acute fracture. No dislocation. Soft tissues: Unremarkable. Vasculature: Vascular calcifications. Lymph nodes: Unremarkable. IMPRESSION: Nonobstructing calculi within both kidneys. Otherwise the kidneys and ureters are unremarkable.
[2020-08-27] MEDS ORDERED: ACET/COD 300 MG/30 MG STARTER PACK 6 TAB BTL PO STA (01:41)
--- NOTE | 2020-08-27 01:41 | ED ---
Abdominal Pain HPI - General Chief Complaint: Abdominal Pain Stated Complaint: abd & leg pain Time Seen by Provider: 08/26/20 23:53 Source: patient Mode of arrival: ambulatory Limitations: no limitations - History of Present Illness Initial Comments: 59-year-old male patient presents to the emergency department today for evaluation of right lower quadrant abdominal pain. He is also reporting pain to the left medial thigh. Patient states symptoms started earlier today. States that with thigh pain does worsen with movement and walking. States that the pain in his abdomen is a sharp stabbing pain. States it has improved since onset. Denies nausea or vomiting. Denies any constipation or diarrhea. Denies any difficulty with urination. He denies any fever or chills. Denies previous abdominal surgery. Has had colonoscopy within the last year. Patient denies any recent rash, cough, shortness of breath, chest pain, back pain, numbness, ting ling, dizziness, weakness, hematuria, dysuria, urinary urgency, urinary frequency, headache, visual changes, or any other complaints. - Related Data Home Medications Medication Instructions Recorded Confirmed Atorvastatin [Lipitor] 80 mg PO DAILY 09/10/17 03/08/20 Insulin Glargine,Hum.rec.anlog 130 unit SQ QAM 03/31/18 03/08/20 [Basaglar Kwikpen U-100] Ergocalciferol (Vitamin D2) 50,000 unit PO QMONTH 04/01/18 03/08/20 [Vitamin D2] Insulin Lispro [humaLOG Kwikpen] 24 unit SQ AC-TID 04/01/18 03/08/20 Dulaglutide [Trulicity] 1.5 mg SQ TH 09/22/18 03/08/20 Carbidopa-Levodopa 25-250 mg 1 each PO BID 03/06/20 03/08/20 [Sinemet 25-250] Furosemide [Lasix] 20 mg PO DAILY 03/06/20 03/08/20 lisinopriL [Zestril] 2.5 mg PO DAILY 03/06/20 03/08/20 Previous Rx's Medication Instructions Recorded Aspirin 81 mg PO DAILY #100 chew 02/10/19 Nitroglycerin Sl Tabs [Nitrostat] 0.4 mg SUBLINGUAL Q5M PRN #20 tab 02/10/19 Allergies Allergy/AdvReac Type Severity Reaction Status Date / Time aluminum hydroxide Allergy Nausea & Verified 08/26/20 23:20 [From Mylanta] Vomiting barium iodide Allergy Nausea & Verified 08/26/20 23:20 Vomiting barium sulfate Allergy Nausea & Verified 08/26/20 23:20 Vomiting bee venom protein (honey bee) Allergy Swelling Verified 08/26/20 23:20 calcium carbonate Allergy Nausea & Verified 08/26/20 23:20 [From Mylanta] Vomiting magnesium [From Mylanta] Allergy Nausea & Verified 08/26/20 23:20 Vomiting magnesium hydroxide Allergy Nausea & Verified 08/26/20 23:20 [From Mylanta] Vomiting simethicone [From Mylanta] Allergy Nausea & Verified 08/26/20 23:20 Vomiting LYSAL SPRAY Allergy Unknown Dyspnea Uncoded 08/26/20 23:20 Review of Systems ROS Statement: Those systems with pertinent positive or pertinent negative responses have been documented in the HPI. ROS Other: All systems not noted in ROS Statement are negative. Past Medical History Past Medical History: Asthma, COPD, Diabetes Mellitus, Eye Disorder, GERD/Reflux, Hyperlipidemia, Hypertension, Sleep Apnea/CPAP/BIPAP Additional Past Medical History / Comment(s): hx glaucoma with surgery, bilateral hand tremors, sleep apnea (no machine)., states positive blood in stool. History of Any Multi-Drug Resistant Organisms: None Reported Past Surgical History: Heart Catheterization Additional Past Surgical History / Comment(s): bilateral eye laser surgery for cataract removal/lens implants, Past Anesthesia/Blood Transfusion Reactions: No Reported Reaction Additional Past Anesthesia/Blood Transfusion Reaction / Comment(s): . Past Psychological History: No Psychological Hx Reported Smoking Status: Never smoker Past Alcohol Use History: None Reported Past Drug Use History: None Reported - Past Family History Mother Family Medical History: Diabetes Mellitus Additional Family Medical History / Comment(s): Mother in her sleep when she was in her 60s. Pt does not know cause of . Father Family Medical History: No Reported History Additional Family Medical History / Comment(s): . General Exam Limitations: no limitations General appearance: alert, in no apparent distress, other (This is a well- developed, well-nourished adult male patient in no acute distress. Vital signs upon presentation are temperature 98.3F, pulse 88, respirations 20, blood pressure 137/79, pulse ox 95% on room air.) Eye exam: Present: normal appearance, PERRL, EOMI. Absent: scleral icterus, conjunctival injection, periorbital swelling ENT exam: Present: normal exam, normal oropharynx, mucous membranes moist Respiratory exam: Present: normal lung sounds bilaterally. Absent: respiratory distress, wheezes, rales, rhonchi, stridor Cardiovascular Exam: Present: regular rate, normal rhythm, normal heart sounds. Absent: systolic murmur, diastolic murmur, rubs, gallop, clicks GI/Abdominal exam: Present: soft, tenderness (Right lower quadrant), normal bowel sounds. Absent: distended, guarding, rebound, rigid Back exam: Present: normal inspection. Absent: CVA tenderness (R), CVA tenderness (L) Neurological exam: Present: alert, oriented X3, CN II-XII intact Psychiatric exam: Present: normal affect, normal mood Skin exam: Present: warm, dry, intact, normal color. Absent: rash Course Vital Signs 08/26/20 08/27/20 23:15 02:02 Temperature 98.3 F Pulse Rate 88 76 Respiratory 20 18 Rate Blood Pressure 137/79 136/83 O2 Sat by Pulse 95 98 Oximetry Medical Decision Making - Medical Decision Making 59-year-old male patient presents the emergency department today for evaluation of right lower quadrant abdominal pain left thigh pain. Physical examination is unremarkable. Abdomen did reveal some right lower quadrant tenderness. Skin to the left thigh is normal no evidence for rash or skin changes. There is no leg swelling. Neurovascular status is intact. Labs reviewed and did reveal white blood cell count at 11.8, neutrophils 9.1. BUN 31, creatinine 1.62. Urinalysis shows a small amount of red blood cells. CT abdomen and pelvis shows nonobstructing calculi within both kidneys but no other abnormalities. Patient was given IV fluids and pain medication. Upon reevaluation is resting comfor tably in bed. States he does feel somewhat improved. He did discuss findings and results with him. He'll be discharged with his primary care physician for recheck in 1-2 days. Return parameters were discussed in detail. He verbalizes understanding and agrees with this plan. Case discussed with my attending Dr. Hebert. - Lab Data Result diagrams: 08/27/20 00:15 08/27/20 00:15 Lab Results 08/27/20 08/27/20 08/27/20 Range/Units 00:15 00:15 00:15 WBC 11.8 H (3.8-10.6) k/uL RBC 4.60 (4.30-5.90) m/uL Hgb 13.2 (13.0-17.5) gm/dL Hct 40.2 (39.0-53.0) % MCV 87.3 (80.0-100.0) fL MCH 28.7 (25.0-35.0) pg MCHC 32.9 (31.0-37.0) g/dL RDW 15.4 (11.5-15.5) % Plt Count 184 (150-450) k/uL MPV 7.1 Neutrophils % 77 % Lymphocytes % 15 % Monocytes % 5 % Eosinophils % 1 % Basophils % 1 % Neutrophils # 9.1 H (1.3-7.7) k/uL Lymphocytes # 1.7 (1.0-4.8) k/uL Monocytes # 0.6 (0-1.0) k/uL Eosinophils # 0.1 (0-0.7) k/uL Basophils # 0.1 (0-0.2) k/uL Sodium 139 (137-145) mmol/L Potassium 3.7 (3.5-5.1) mmol/L Chloride 103 (98-107) mmol/L Carbon Dioxide 25 (22-30) mmol/L Anion Gap 11 mmol/L BUN 31 H (9-20) mg/dL Creatinine 1.62 H (0.66-1.25) mg/dL Est GFR (CKD-EPI)AfAm 53 (>60 ml/min/1.73 sqM) Est GFR (CKD-EPI)NonAf 46 (>60 ml/min/1.73 sqM) Glucose 73 L (74-99) mg/dL Plasma Lactic Acid [place] (0.7-2.0) mmol/L Calcium 9.4 (8.4-10.2) mg/dL Total Bilirubin 0.7 (0.2-1.3) mg/dL AST 45 (17-59) U/L ALT 26 (4-49) U/L Alkaline Phosphatase 99 (38-126) U/L Total Protein 7.0 (6.3-8.2) g/dL Albumin 4.2 (3.5-5.0) g/dL Lipase 76 (23-300) U/L Urine Color Yellow Urine Appearance Clear (Clear) Urine pH 5.5 (5.0-8.0) Ur Specific [place] 1.026 (1.001-1.035) Urine Protein 1+ H (Negative) Urine Glucose (UA) Negative (Negative) Urine Ketones Negative (Negative) Urine Blood Large H (Negative) Urine Nitrite Negative (Negative) Urine Bilirubin Negative (Negative) Urine Urobilinogen <2.0 (<2.0) mg/dL Ur Leukocyte Esterase Negative (Negative) Urine RBC 7 H (0-5) /hpf Urine WBC 3 (0-5) /hpf Urine Bacteria Rare H (None) /hpf Urine Mucus Rare H (None) /hpf 08/27/20 Range/Units 00:15 WBC (3.8-10.6) k/uL RBC (4.30-5.90) m/uL Hgb (13.0-17.5) gm/dL Hct (39.0-53.0) % MCV (80.0-100.0) fL MCH (25.0-35.0) pg MCHC (31.0-37.0) g/dL RDW (11.5-15.5) % Plt Count (150-450) k/uL MPV Neutrophils % % Lymphocytes % % Monocytes % % Eosinophils % % Basophils % % Neutrophils # (1.3-7.7) k/uL Lymphocytes # (1.0-4.8) k/uL Monocytes # (0-1.0) k/uL Eosinophils # (0-0.7) k/uL Basophils # (0-0.2) k/uL Sodium (137-145) mmol/L Potassium (3.5-5.1) mmol/L Chloride (98-107) mmol/L Carbon Dioxide (22-30) mmol/L Anion Gap mmol/L BUN (9-20) mg/dL Creatinine (0.66-1.25) mg/dL Est GFR (CKD-EPI)AfAm (>60 ml/min/1.73 sqM) Est GFR (CKD-EPI)NonAf (>60 ml/min/1.73 sqM) Glucose (74-99) mg/dL Plasma Lactic Acid [place] 0.8 (0.7-2.0) mmol/L Calcium (8.4-10.2) mg/dL Total Bilirubin (0.2-1.3) mg/dL AST (17-59) U/L ALT (4-49) U/L Alkaline Phosphatase (38-126) U/L Total Protein (6.3-8.2) g/dL Albumin (3.5-5.0) g/dL Lipase (23-300) U/L Urine Color Urine Appearance (Clear) Urine pH (5.0-8.0) Ur Specific [place] (1.001-1.035) Urine Protein (Negative) Urine Glucose (UA) (Negative) Urine Ketones (Negative) Urine Blood (Negative) Urine Nitrite (Negative) Urine Bilirubin (Negative) Urine Urobilinogen (<2.0) mg/dL Ur Leukocyte Esterase (Negative) Urine RBC (0-5) /hpf Urine WBC (0-5) /hpf Urine Bacteria (None) /hpf Urine Mucus (None) /hpf - Radiology Data Radiology results: report reviewed, image reviewed CT abdomen and pelvis with contrast was obtained. Report was reviewed in its entirety. Impression by Dr. Elise shows nonobstructive calculi within both kidneys. Otherwise the kidneys and ureters are unremarkable. Disposition Clinical Impression: Abdominal pain, Left leg pain Disposition: HOME SELF-CARE Condition: Good Instructions (If sedation given, give patient instructions): Abdominal Pain (ED), Leg Pain (ED) Additional Instructions: Follow up with your primary care physician for recheck in 1-2 days. Return for any new, worsening, or concerning symptoms. Is patient prescribed a controlled substance at d/c from ED?: No Referrals: Jonas Holden MD [Primary Care Provider] - 1-2 days Time of Disposition: 01:41
[2020-08-27 02:03] VITALS: BP 136/83; PULSE 76; RESP 18
== END 2020-08-27 02:03 | disposition home or self-care (01) ==
LOC: EC 22:56
DX: R10.31 Right lower quadrant pain (principal); M79.652 Pain in left thigh; E11.9 Type 2 diabetes mellitus without complications; E78.5 Hyperlipidemia, unspecified; I10 Essential (primary) hypertension; G47.30 Sleep apnea, unspecified; J44.9 Chronic obstructive pulmonary disease, unspecified; K21.9 Gastro-esophageal reflux disease without esophagitis; Z79.4 Long term (current) use of insulin; Z79.82 Long term (current) use of aspirin
CPT/HCPCS: 36415; 80053; 83605; 83690; 85025; 81001; 74177; 99284; 96374; 96375; J2405; J2270; Q9967

== ENCOUNTER → 2021-01-31 | Outpatient (CLI) | payer BC ==
[2021-01-31 10:11] VITALS: BMI 43.2
== END ==
LOC: DBWHC3 08:24
PROVIDERS: ATTEND Family Medicine
DX: E11.9 Type 2 diabetes mellitus without complications (principal); Z91.030 Bee allergy status; Z88.8 Allergy status to other drugs, medicaments and biological substances

== ENCOUNTER 2021-09-28 02:06 | Emergency (ER) | payer BC ==
[2021-09-28 02:35] VITALS: TEMP 98.2
[2021-09-28] MEDS ORDERED: IPRATROPIUM-ALBUTEROL 3 ML NEB INHALATION STA (04:03)
[2021-09-28] MEDS ORDERED: MORPHINE SULFATE 4 MG/ML SYRINGE IV STA (04:03)
[2021-09-28] MEDS ORDERED: SODIUM CHLORIDE 0.9% 1,000 ML IV STA (04:03)
[2021-09-28] MEDS ORDERED: ONDANSETRON 4 MG/2 ML VIAL IVP STA (04:03)
--- NOTE | 2021-09-28 04:04 | ED ---
Abdominal Pain HPI - General Chief Complaint: Abdominal Pain Stated Complaint: side pain Time Seen by Provider: 09/28/21 03:19 Source: patient, RN notes reviewed, old records reviewed, Caregiver Mode of arrival: ambulatory Limitations: no limitations - History of Present Illness Initial Comments: This is a 60-year-old male to the emergency department for evaluation patient resents today for evaluation bowel pain nausea vomiting. No fevers no travel s how sick contacts no history of similar complaint in the past. Patient has right-sided abdominal pain that occurred with a coughing fit. Patient's pain is persistent here in the ER with abdominal pain MD Complaint: abdominal pain -: days(s) Location: diffuse Radiation: epigastric, suprapubic, L flank, R flank Migration to: epigastric, suprapubic Severity: moderate Severity scale (1-10): 7 Quality: cramping, aching, fullness Consistency: intermittent Improves With: nothing Worsens With: eating Context: possible food poisoning Associated Symptoms: vomiting, diarrhea Treatments Prior to Arrival: other (0) - Related Data Home Medications Medication Instructions Recorded Confirmed Atorvastatin [Lipitor] 80 mg PO DAILY 09/10/17 03/08/20 Insulin Glargine,Hum.rec.anlog 130 unit SQ QAM 03/31/18 03/08/20 [Basaglar Kwikpen U-100] Ergocalciferol (Vitamin D2) 50,000 unit PO QMONTH 04/01/18 03/08/20 [Vitamin D2] Insulin Lispro [humaLOG Kwikpen] 24 unit SQ AC-TID 04/01/18 03/08/20 Dulaglutide [Trulicity] 1.5 mg SQ TH 09/22/18 03/08/20 Carbidopa-Levodopa 25-250 mg 1 each PO BID 03/06/20 03/08/20 [Sinemet 25-250] Furosemide [Lasix] 20 mg PO DAILY 03/06/20 03/08/20 lisinopriL [Zestril] 2.5 mg PO DAILY 03/06/20 03/08/20 Previous Rx's Medication Instructions Recorded Aspirin 81 mg PO DAILY #100 chew 02/10/19 Nitroglycerin Sl Tabs [Nitrostat] 0.4 mg SUBLINGUAL Q5M PRN #20 tab 02/10/19 Allergies Allergy/AdvReac Type Severity Reaction Status Date / Time aluminum hydroxide Allergy Nausea & Verified 09/28/21 02:36 [From Mylanta] Vomiting barium iodide Allergy Nausea & Verified 09/28/21 02:36 Vomiting barium sulfate Allergy Nausea & Verified 09/28/21 02:36 Vomiting bee venom protein (honey bee) Allergy Swelling Verified 09/28/21 02:36 calcium carbonate Allergy Nausea & Verified 09/28/21 02:36 [From Mylanta] Vomiting magnesium [From Mylanta] Allergy Nausea & Verified 09/28/21 02:36 Vomiting magnesium hydroxide Allergy Nausea & Verified 09/28/21 02:36 [From Mylanta] Vomiting simethicone [From Mylanta] Allergy Nausea & Verified 09/28/21 02:36 Vomiting LYSAL SPRAY Allergy Unknown Dyspnea Uncoded 09/28/21 02:36 Review of Systems ROS Statement: Those systems with pertinent positive or pertinent negative responses have been documented in the HPI. ROS Other: All systems not noted in ROS Statement are negative. Past Medical History Past Medical History: Asthma, COPD, Diabetes Mellitus, Eye Disorder, GERD/Reflux, Hyperlipidemia, Hypertension, Sleep Apnea/CPAP/BIPAP Additional Past Medical History / Comment(s): hx glaucoma with surgery, bilateral hand tremors, sleep apnea (no machine)., states positive blood in stool. History of Any Multi-Drug Resistant Organisms: None Reported Past Surgical History: Heart Catheterization Additional Past Surgical History / Comment(s): bilateral eye laser surgery for cataract removal/lens implants, Past Anesthesia/Blood Transfusion Reactions: No Reported Reaction Additional Past Anesthesia/Blood Transfusion Reaction / Comment(s): . Past Psychological History: No Psychological Hx Reported Smoking Status: Never smoker Past Alcohol Use History: None Reported Past Drug Use History: None Reported - Past Family History Mother Family Medical History: Diabetes Mellitus Additional Family Medical History / Comment(s): Mother in her sleep when she was in her 60s. Pt does not know cause of . Father Family Medical History: No Reported History Additional Family Medical History / Comment(s): . General Exam Limitations: no limitations General appearance: alert, in no apparent distress, anxious Head exam: Present: atraumatic, normocephalic, normal inspection Eye exam: Present: normal appearance, PERRL, EOMI. Absent: scleral icterus, conjunctival injection, periorbital swelling ENT exam: Present: normal exam, mucous membranes moist Neck exam: Present: normal inspection. Absent: tenderness, meningismus, lymphadenopathy Respiratory exam: Present: normal lung sounds bilaterally. Absent: respiratory distress, wheezes, rales, rhonchi, stridor Cardiovascular Exam: Present: regular rate, normal rhythm, normal heart sounds. Absent: systolic murmur, diastolic murmur, rubs, gallop, clicks GI/Abdominal exam: Present: soft, normal bowel sounds. Absent: distended, tenderness, guarding, rebound, rigid Extremities exam: Present: normal inspection, full ROM, normal capillary refill. Absent: tenderness, pedal edema, joint swelling, calf tenderness Back exam: Present: normal inspection Neurological exam: Present: alert, oriented X3, CN II-XII intact Psychiatric exam: Present: normal affect, normal mood Skin exam: Present: warm, dry, intact, normal color. Absent: rash Course Vital Signs 09/28/21 09/28/21 09/28/21 02:27 05:43 05:51 Temperature 98.2 F Pulse Rate 89 92 95 Respiratory 18 Rate Blood Pressure 153/93 O2 Sat by Pulse 97 Oximetry 09/28/21 06:37 Temperature Pulse Rate 86 Respiratory 20 Rate Blood Pressure 160/82 O2 Sat by Pulse 97 Oximetry - Reevaluation(s) Reevaluation #1: 09/28/21 Medical record is reviewed Reevaluation #2: 09/28/21 Patient informed results and questions answered Reevaluation #3: 09/28/21 Patient symptoms improved is okay for discharge home Medical Decision Making - Medical Decision Making 60 male to the emergency department for evaluation. Patient presents today for evaluation regards to nausea vomiting abdominal pain. No acute cause found patient symptoms are improving he can be discharged home - Lab Data Result diagrams: 09/28/21 04:56 09/28/21 04:56 Lab Results 09/28/21 09/28/21 09/28/21 Range/Units 04:56 04:56 04:56 WBC 10.0 (3.8-10.6) k/uL RBC 4.59 (4.30-5.90) m/uL Hgb 13.7 (13.0-17.5) gm/dL Hct 40.2 (39.0-53.0) % MCV 87.7 (80.0-100.0) fL MCH 29.9 (25.0-35.0) pg MCHC 34.0 (31.0-37.0) g/dL RDW 15.0 (11.5-15.5) % Plt Count 172 (150-450) k/uL MPV 8.1 Neutrophils % 77 % Lymphocytes % 14 % Monocytes % 5 % Eosinophils % 2 % Basophils % 1 % Neutrophils # 7.7 (1.3-7.7) k/uL Lymphocytes # 1.4 (1.0-4.8) k/uL Monocytes # 0.5 (0-1.0) k/uL Eosinophils # 0.2 (0-0.7) k/uL Basophils # 0.1 (0-0.2) k/uL PT 10.3 (9.0-12.0) sec INR 0.9 (<1.2) APTT 23.2 (22.0-30.0) sec Sodium (137-145) mmol/L Potassium (3.5-5.1) mmol/L Chloride (98-107) mmol/L Carbon Dioxide (22-30) mmol/L Anion Gap mmol/L BUN (9-20) mg/dL Creatinine (0.66-1.25) mg/dL Est GFR (CKD-EPI)AfAm (>60 ml/min/1.73 sqM) Est GFR (CKD-EPI)NonAf (>60 ml/min/1.73 sqM) Glucose (74-99) mg/dL Calcium (8.4-10.2) mg/dL Phosphorus (2.5-4.5) mg/dL Magnesium (1.6-2.3) mg/dL Total Bilirubin (0.2-1.3) mg/dL AST (17-59) U/L ALT (4-49) U/L Alkaline Phosphatase (38-126) U/L Troponin I (0.000-0.034) ng/mL NT-Pro-B Natriuret Pep pg/mL Total Protein (6.3-8.2) g/dL Albumin (3.5-5.0) g/dL Lipase (23-300) U/L TSH (0.465-4.680) mIU/L Urine Color Light Yellow Urine Appearance Clear (Clear) Urine pH 6.5 (5.0-8.0) Ur Specific [place] 1.011 (1.001-1.035) Urine Protein Trace H (Negative) Urine Glucose (UA) 1+ H (Negative) Urine Ketones Negative (Negative) Urine Blood Large H (Negative) Urine Nitrite Negative (Negative) Urine Bilirubin Negative (Negative) Urine Urobilinogen <2.0 (<2.0) mg/dL Ur Leukocyte Esterase Negative (Negative) Urine RBC 29 H (0-5) /hpf Urine WBC 1 (0-5) /hpf 09/28/21 09/28/21 09/28/21 Range/Units 04:56 04:56 04:56 WBC (3.8-10.6) k/uL RBC (4.30-5.90) m/uL Hgb (13.0-17.5) gm/dL Hct (39.0-53.0) % MCV (80.0-100.0) fL MCH (25.0-35.0) pg MCHC (31.0-37.0) g/dL RDW (11.5-15.5) % Plt Count (150-450) k/uL MPV Neutrophils % % Lymphocytes % % Monocytes % % Eosinophils % % Basophils % % Neutrophils # (1.3-7.7) k/uL Lymphocytes # (1.0-4.8) k/uL Monocytes # (0-1.0) k/uL Eosinophils # (0-0.7) k/uL Basophils # (0-0.2) k/uL PT (9.0-12.0) sec INR (<1.2) APTT (22.0-30.0) sec Sodium 136 L (137-145) mmol/L Potassium 4.1 (3.5-5.1) mmol/L Chloride 99 (98-107) mmol/L Carbon Dioxide 29 (22-30) mmol/L Anion Gap 8 mmol/L BUN 14 (9-20) mg/dL Creatinine 0.98 (0.66-1.25) mg/dL Est GFR (CKD-EPI)AfAm >90 (>60 ml/min/1.73 sqM) Est GFR (CKD-EPI)NonAf 84 (>60 ml/min/1.73 sqM) Glucose 232 H (74-99) mg/dL Calcium 9.1 (8.4-10.2) mg/dL Phosphorus 3.2 (2.5-4.5) mg/dL Magnesium 1.5 L (1.6-2.3) mg/dL Total Bilirubin 0.5 (0.2-1.3) mg/dL AST 17 (17-59) U/L ALT 22 (4-49) U/L Alkaline Phosphatase 100 (38-126) U/L Troponin I <0.012 (0.000-0.034) ng/mL NT-Pro-B Natriuret Pep 63 pg/mL Total Protein 6.8 (6.3-8.2) g/dL Albumin 3.9 (3.5-5.0) g/dL Lipase 106 (23-300) U/L TSH 4.080 (0.465-4.680) mIU/L Urine Color Urine Appearance (Clear) Urine pH (5.0-8.0) Ur Specific [place] (1.001-1.035) Urine Protein (Negative) Urine Glucose (UA) (Negative) Urine Ketones (Negative) Urine Blood (Negative) Urine Nitrite (Negative) Urine Bilirubin (Negative) Urine Urobilinogen (<2.0) mg/dL Ur Leukocyte Esterase (Negative) Urine RBC (0-5) /hpf Urine WBC (0-5) /hpf - EKG Data -: EKG Interpreted by Me (EKG shows sinus rhythm 80 ID 170 QRS 99 QTC 404) - Radiology Data Radiology results: report reviewed (Chest x-ray CT head and pelvis is negative for acute disease), image reviewed Disposition Clinical Impression: Abdominal pain, Nausea & vomiting, Chest pain Disposition: HOME SELF-CARE Condition: Good Instructions (If sedation given, give patient instructions): Acute Nausea and Vomiting (ED), Abdominal Pain (ED) Is patient prescribed a controlled substance at d/c from ED?: No Referrals: Jonas Holden MD [Primary Care Provider] - 1-2 days Time of Disposition: 06:30
[2021-09-28 05:09] LABS: Basophils # (A) 0.1 k/uL (0-0.2); Basophils % (A) 1 %; Eosinophils # (A) 0.2 k/uL (0-0.7); Eosinophils % (A) 2 %; HCT 40.2 % (39.0-53.0); HGB 13.7 gm/dL (13.0-17.5); Lymphocytes # (A) 1.4 k/uL (1.0-4.8); Lymphocytes % (A) 14 %; MCH 29.9 pg (25.0-35.0); MCV 87.7 fL (80.0-100.0); Mean Platelet Volume 8.1; Monocytes # (A) 0.5 k/uL (0-1.0); Monocytes % (A) 5 %; Neutrophils # (A) 7.7 k/uL (1.3-7.7); Neutrophils % (A) 77 %; Platelet Count 172 k/uL (150-450); RBC 4.59 m/uL (4.30-5.90)
--- NOTE | 2021-09-28 05:15 | XR ---
EXAMINATION TYPE: XR chest 1V portable DATE OF EXAM: 09/28/2021 COMPARISON: Chest x-ray February 08, 2019. HISTORY: Shortness of breath and cough with right-sided pain TECHNIQUE: Single AP portable frontal upright view of the chest is obtained. FINDINGS: Slightly elevated left hemidiaphragm. There is mild chronic parenchymal change without susp icious new focal air space opacity, pleural effusion, or pneumothorax seen. The cardiac silhouette s ize is stable and upper limits of normal. The osseous structures are intact. IMPRESSION: No acute process. No significant change from prior.
[2021-09-28 05:19] LABS: ALT 22 U/L (4-49); AST 17 U/L (17-59); African American GFR (CKD) >90 (>60 ml/min/1.73 sqM); Albumin 3.9 g/dL (3.5-5.0); Alkaline Phosphatase 100 U/L (38-126); Anion Gap 8 mmol/L; Blood Urea Nitrogen 14 mg/dL (9-20); Calcium 9.1 mg/dL (8.4-10.2); Carbon Dioxide 29 mmol/L (22-30); Chloride 99 mmol/L (98-107); Glucose 232 mg/dL (74-99); Lipase 106 U/L (23-300); Magnesium 1.5 mg/dL (1.6-2.3); Non-African American GFR(CKD) 84 (>60 ml/min/1.73 sqM); Phosphorus 3.2 mg/dL (2.5-4.5); Potassium 4.1 mmol/L (3.5-5.1); Sodium 136 mmol/L (137-145); Total Bilirubin 0.5 mg/dL (0.2-1.3); Total Protein 6.8 g/dL (6.3-8.2)
--- NOTE | 2021-09-28 05:23 | CT ---
EXAMINATION TYPE: CT abdomen pelvis wo con DATE OF EXAM: 09/28/2021 HISTORY: Right-sided pain after coughing CT DLP: 1372 mGycm. Automated Exposure Control for Dose Reduction was Utilized. TECHNIQUE: CT scan of the abdomen and pelvis is performed without oral or IV contrast. COMPARISON: CT abdomen and pelvis August 27, 2020 FINDINGS: Within the limitations of a non-contrast study, the following observations are made. LUNG BASES: Slightly elevated left hemidiaphragm redemonstrated. Coronary artery calcification in the RCA distribution redemonstrated LIVER/GB: Visualized liver is heterogeneously hypodense consistent with diffuse fatty infiltration. PANCREAS: No significant abnormality is seen. SPLEEN: Small splenules in splenic hilum redemonstrated. Mild splenomegaly at 14.7 cm long axis coron al image 78 redemonstrated. ADRENALS: No significant abnormality is seen. KIDNEYS: Cortical thinning bilaterally redemonstrated. Stable 3 mm nonobstructing calculus lower pole right kidney coronal image 68. Stable 2 mm nonobstructing calculus posteriorly in the mid pole level left kidney coronal image 83. No hydronephrosis or obstructing ureteral calculi. No intraluminal birgit culi in the bladder. Scattered bilateral pelvic phleboliths. BOWEL: No significant abnormality is seen. GENITAL ORGANS: Normal size prostate with central calcifications. LYMPH NODES: No greater than 1cm abdominal or pelvic lymph nodes are appreciated. OSSEOUS STRUCTURES: Underlying scoliotic curvature redemonstrated. Facet arthropathy lower lumbar lev els. OTHER: Anterior skin thickening and superficial soft tissue stranding likely reflecting pannus in the pelvis is redemonstrated. Small symmetric fat containing bilateral inguinal hernias redemonstrated. IMPRESSION: No suspicious new or acute finding present to account for patient's symptoms.
[2021-09-28 05:45] LABS: INR 0.9 (<1.2); Partial Thromboplastin Time 23.2 sec (22.0-30.0); Prothrombin Time 10.3 sec (9.0-12.0)
[2021-09-28 06:39] VITALS: BP 160/82; PULSE 86; RESP 20
[2021-09-28 06:49] LABS: Appearance,Urine Clear (Clear); Bilirubin,Urine Negative (Negative); Blood,Urine Large (Negative); Color,Urine Light Yellow; Glucose,Urine (UA) 1+ (Negative); Ketones,Urine Negative (Negative); Leukocyte Esterase,Urine Negative (Negative); Nitrite,Urine Negative (Negative); PH, Urine 6.5 (5.0-8.0); Protein,Urine Trace (Negative); RBC,Urine 29 /hpf (0-5); Specific Gravity,Urine 1.011 (1.001-1.035); Urobilinogen,Urine <2.0 mg/dL (<2.0); WBC,Urine 1 /hpf (0-5)
== END 2021-09-28 07:03 | disposition home or self-care (01) ==
LOC: EC 02:06
DX: R11.2 Nausea with vomiting, unspecified (principal); R10.84 Generalized abdominal pain; R07.9 Chest pain, unspecified; J44.9 Chronic obstructive pulmonary disease, unspecified; E11.9 Type 2 diabetes mellitus without complications; E78.5 Hyperlipidemia, unspecified; I10 Essential (primary) hypertension; Z88.8 Allergy status to other drugs, medicaments and biological substances; Z91.030 Bee allergy status; Z79.899 Other long term (current) drug therapy; Z79.4 Long term (current) use of insulin
CPT/HCPCS: 36415; 94640; 93005; 83880; 80053; 83690; 83735; 84100; 84443; 84484; 85025; 85610; 85730; 81001; 71045; 74176; 99284; 96374; 96375; 96361; J2270; J2405

== ENCOUNTER 2022-03-24 04:02 | Emergency (ER) | payer BC ==
[2022-03-24 04:11] VITALS: TEMP 97.9
[2022-03-24 04:58] LABS: Basophils # (A) 0.1 k/uL (0-0.2); Basophils % (A) 1 %; Eosinophils # (A) 0.2 k/uL (0-0.7); Eosinophils % (A) 2 %; HCT 37.3 % (39.0-53.0); HGB 13.1 gm/dL (13.0-17.5); Lymphocytes # (A) 1.8 k/uL (1.0-4.8); Lymphocytes % (A) 18 %; MCH 29.8 pg (25.0-35.0); MCHC 35.1 g/dL (31.0-37.0); MCV 84.8 fL (80.0-100.0); Mean Platelet Volume 7.9; Monocytes # (A) 0.6 k/uL (0-1.0); Monocytes % (A) 6 %; Neutrophils % (A) 71 %; Platelet Count 191 k/uL (150-450); RDW 13.9 % (11.5-15.5); WBC 9.8 k/uL (3.8-10.6)
[2022-03-24 05:10] LABS: ALT 24 U/L (4-49); African American GFR (CKD) 72 (>60 ml/min/1.73 sqM); Albumin 3.7 g/dL (3.5-5.0); Anion Gap 7 mmol/L; Blood Urea Nitrogen 29 mg/dL (9-20); Calcium 9.3 mg/dL (8.4-10.2); Carbon Dioxide 25 mmol/L (22-30); Chloride 106 mmol/L (98-107); Glucose 154 mg/dL (74-99); Non-African American GFR(CKD) 62 (>60 ml/min/1.73 sqM); Sodium 138 mmol/L (137-145); Total Bilirubin 0.5 mg/dL (0.2-1.3); Total Protein 6.6 g/dL (6.3-8.2)
[2022-03-24 05:18] LABS: AST 24 U/L (17-59); Alkaline Phosphatase 88 U/L (38-126); Potassium 4.1 mmol/L (3.5-5.1)
[2022-03-24 05:19] LABS: Magnesium 1.4 mg/dL (1.6-2.3)
--- NOTE | 2022-03-24 06:13 | ED ---
General Adult HPI - General Chief complaint: Abdominal Pain Stated complaint: Abd Pain, Back Pain Time Seen by Provider: 03/24/22 04:14 Source: patient Mode of arrival: ambulatory Limitations: no limitations - History of Present Illness Initial comments: This patient is a 61-year-old man who presents to have evaluation of a "charley horse," that started in his right calf and then spread to the right leg. The spasms have resolved now, but they did last for number of minutes. The patient was concerned about whether it may be related to an ulceration to the left groin that he states Dr. Gomez then started treating for recently. Patient indicates that the folds under the abdomen stay moist and that there was concern they may be getting infected. He has not noted fever or chills. No leg swelling. No chest pain, dyspnea, palpitations, hemoptysis or syncope. -: minutes(s) Location: right, lower extremity Severity scale (1-10): 6 Quality: other (Spasm) Consistency: now resolved Improves with: none Worsens with: none Associated Symptoms: denies other symptoms Treatments Prior to Arrival: none - Related Data Home Medications Medication Instructions Recorded Confirmed Atorvastatin [Lipitor] 80 mg PO DAILY 09/10/17 03/08/20 Insulin Glargine,Hum.rec.anlog 130 unit SQ QAM 03/31/18 03/08/20 [Basaglar Kwikpen U-100] Ergocalciferol (Vitamin D2) 50,000 unit PO QMONTH 04/01/18 03/08/20 [Vitamin D2] Insulin Lispro [humaLOG Kwikpen] 24 unit SQ AC-TID 04/01/18 03/08/20 Dulaglutide [Trulicity] 1.5 mg SQ TH 09/22/18 03/08/20 Carbidopa-Levodopa 25-250 mg 1 each PO BID 03/06/20 03/08/20 [Sinemet 25-250] Furosemide [Lasix] 20 mg PO DAILY 03/06/20 03/08/20 lisinopriL [Zestril] 2.5 mg PO DAILY 03/06/20 03/08/20 Previous Rx's Medication Instructions Recorded Aspirin 81 mg PO DAILY #100 chew 02/10/19 Nitroglycerin Sl Tabs [Nitrostat] 0.4 mg SUBLINGUAL Q5M PRN #20 tab 02/10/19 Cephalexin [Keflex] 500 mg PO Q6HR #28 cap 03/24/22 Miconazole Nitrate [Lotrimin AF 1 applic TOPICAL Q8H #133 gm 03/24/22 Powder] Allergies Allergy/AdvReac Type Severity Reaction Status Date / Time aluminum hydroxide Allergy Nausea & Verified 03/24/22 04:11 [From Mylanta] Vomiting barium iodide Allergy Nausea & Verified 03/24/22 04:11 Vomiting barium sulfate Allergy Nausea & Verified 03/24/22 04:11 Vomiting bee venom protein (honey bee) Allergy Swelling Verified 03/24/22 04:11 calcium carbonate Allergy Nausea & Verified 03/24/22 04:11 [From Mylanta] Vomiting magnesium [From Mylanta] Allergy Nausea & Verified 03/24/22 04:11 Vomiting magnesium hydroxide Allergy Nausea & Verified 03/24/22 04:11 [From Mylanta] Vomiting simethicone [From Mylanta] Allergy Nausea & Verified 03/24/22 04:11 Vomiting LYSAL SPRAY Allergy Unknown Dyspnea Uncoded 03/24/22 04:11 Review of Systems ROS Statement: Those systems with pertinent positive or pertinent negative responses have been documented in the HPI. ROS Other: All systems not noted in ROS Statement are negative. Constitutional: Denies: fever, chills Respiratory: Denies: cough, dyspnea, hemoptysis Cardiovascular: Denies: chest pain, palpitations, syncope Gastrointestinal: Denies: abdominal pain, vomiting, diarrhea Genitourinary: Denies: dysuria, hematuria Musculoskeletal: Reports: myalgia Skin: Reports: as per HPI, rash, lesions Neurological: Denies: headache, weakness, numbness, paresthesias Past Medical History Past Medical History: Asthma, COPD, Diabetes Mellitus, Eye Disorder, GERD/Reflux, Hyperlipidemia, Hypertension, Sleep Apnea/CPAP/BIPAP Additional Past Medical History / Comment(s): hx glaucoma with surgery, bilateral hand tremors, sleep apnea (no machine)., states positive blood in stool. History of Any Multi-Drug Resistant Organisms: None Reported Past Surgical History: Heart Catheterization Additional Past Surgical History / Comment(s): bilateral eye laser surgery for cataract removal/lens implants, Past Anesthesia/Blood Transfusion Reactions: No Reported Reaction Additional Past Anesthesia/Blood Transfusion Reaction / Comment(s): . Past Psychological History: No Psychological Hx Reported Smoking Status: Never smoker Past Alcohol Use History: None Reported Past Drug Use History: None Reported - Past Family History Mother Family Medical History: Diabetes Mellitus Additional Family Medical History / Comment(s): Mother in her sleep when she was in her 60s. Pt does not know cause of . Father Family Medical History: No Reported History Additional Family Medical History / Comment(s): . General Exam Limitations: no limitations General appearance: alert, in no apparent distress Head exam: Present: atraumatic, normocephalic Eye exam: Present: normal appearance. Absent: scleral icterus, conjunctival injection Respiratory exam: Present: normal lung sounds bilaterally. Absent: respiratory distress, wheezes, rales, rhonchi, stridor Cardiovascular Exam: Present: regular rate, normal rhythm, normal heart sounds. Absent: systolic murmur, diastolic murmur, rubs, gallop GI/Abdominal exam: Present: soft. Absent: distended, tenderness, guarding, rebound, rigid, mass Extremities exam: Present: normal inspection, normal capillary refill. Absent: pedal edema, calf tenderness Neurological exam: Present: alert. Absent: motor sensory deficit Skin exam: Present: warm, dry, normal color, other (The patient does have some intertrigo. In addition there are 2 small ulcerations at the left groin. No erythema, warmth or purulent drainage.). Absent: rash Course Vital Signs 03/24/22 03/24/22 04:08 06:10 Temperature 97.9 F Pulse Rate 93 81 Respiratory 18 16 Rate Blood Pressure 169/70 138/76 O2 Sat by Pulse 96 96 Oximetry Medical Decision Making - Medical Decision Making Patient is 61-year-old man who has some intertrigo and there are also small ulcerations at the left groin. Patient will be prescribed antifungal powder. I discussed with him on port is to keep the area dry to prevent further skin breakdown or ulcerations developing. Patient will be given course of Keflex for the current ulcerations though no purulent drainage no erythema or warmth suggestive of current infection. There is some mild hypomagnesemia suspect this is due to patient having some underlying diuresis related to the hyperglycemia and discussed this with patient, he'll follow-up with Dr. Holden and attempt better blood sugar control. Was pt. sent in by a medical professional or institution? @ -no Did you speak to anyone other than the patient for history? @ -[no Did you review nursing and triage notes? @ -[agree Were old charts reviewed? @ -[No Differential Diagnosis? @ -[Differential diagnosis for skin rash includes bacterial infection, fungal infection EKG interpreted by me (3pts min.)? @ -no X-rays interpreted by me (1pt min.)? @ -no CT interpreted by me (1pt min.)? @ -[none] U/S interpreted by me (1pt. min.)? @ -[none] What testing was considered but not performed? (CT, X-rays, U/S, labs)? Why? @ [CT, X-rays, U/S, labs? Why?] What meds were considered but not given? Why? @ -[none] Did you discuss the management of the patient with other professionals? @ -[no] Did you reconcile home meds? @ -[none] Was smoking cessation discussed for >3mins.? @ -[none] Was critical care preformed (if so, how long)? @ -[none] Were there social determinants of health that impacted care today? How? (Homelessness, low income, unemployed, alcoholism, drug addiction, tr ansportation, low edu. Level, literacy, decrease access to med. care, care home, rehab)? @ -[none] Was there de-escalation of care discussed even if they declined? (Discuss DNR or withdrawal of care, Hospice)? @ -[no] What co-morbidities impacted this encounter? (DM, HTN, Smoking, COPD, CAD, Cancer, CVA, Hep., AIDS, mental health diagnosis, sleep apnea, morbid obesity)? @ -[Diabetes and morbid obesity Was patient admitted / discharged? @ -[Discharge Undiagnosed new problem with uncertain prognosis? @ -[none] Drug Therapy requiring intensive monitoring for toxicity (Heparin, Nitro, Insulin, Cardizem)? @ -[none] Were any procedures done? @ -[none] Diagnosis/symptom? @ -[Intertrigo Acute, or Chronic, or Acute on Chronic? @ -[Acute Uncomplicated (without systemic symptoms) or Complicated (systemic symptoms)? @ -[Uncomplicated] Side effects of treatment? @ -[none] Exacerbation, Progression, or Severe Exacerbation] @ -[no] Poses a threat to life or bodily function? @ -[no] - Lab Data Result diagrams: 03/24/22 04:48 03/24/22 04:48 Lab Results 03/24/22 03/24/22 Range/Units 04:48 04:48 WBC 9.8 (3.8-10.6) k/uL RBC 4.40 (4.30-5.90) m/uL Hgb 13.1 (13.0-17.5) gm/dL Hct 37.3 L (39.0-53.0) % MCV 84.8 (80.0-100.0) fL MCH 29.8 (25.0-35.0) pg MCHC 35.1 (31.0-37.0) g/dL RDW 13.9 (11.5-15.5) % Plt Count 191 (150-450) k/uL MPV 7.9 Neutrophils % 71 % Lymphocytes % 18 % Monocytes % 6 % Eosinophils % 2 % Basophils % 1 % Neutrophils # 7.0 (1.3-7.7) k/uL Lymphocytes # 1.8 (1.0-4.8) k/uL Monocytes # 0.6 (0-1.0) k/uL Eosinophils # 0.2 (0-0.7) k/uL Basophils # 0.1 (0-0.2) k/uL Sodium 138 (137-145) mmol/L Potassium 4.1 (3.5-5.1) mmol/L Chloride 106 (98-107) mmol/L Carbon Dioxide 25 (22-30) mmol/L Anion Gap 7 mmol/L BUN 29 H (9-20) mg/dL Creatinine 1.25 (0.66-1.25) mg/dL Est GFR (CKD-EPI)AfAm 72 (>60 ml/min/1.73 sqM) Est GFR (CKD-EPI)NonAf 62 (>60 ml/min/1.73 sqM) Glucose 154 H (74-99) mg/dL Calcium 9.3 (8.4-10.2) mg/dL Magnesium 1.4 L (1.6-2.3) mg/dL Total Bilirubin 0.5 (0.2-1.3) mg/dL AST 24 (17-59) U/L ALT 24 (4-49) U/L Alkaline Phosphatase 88 (38-126) U/L Total Protein 6.6 (6.3-8.2) g/dL Albumin 3.7 (3.5-5.0) g/dL Acetone, Qual Negative (Negative) Disposition Clinical Impression: Intertrigo Disposition: HOME SELF-CARE Condition: Good Prescriptions: Cephalexin [Keflex] 500 mg PO Q6HR #28 cap Miconazole Nitrate [Lotrimin AF Powder] 1 applic TOPICAL Q8H #133 gm Is patient prescribed a controlled substance at d/c from ED?: No Referrals: Jonas Holden MD [Primary Care Provider] - 1-2 days
[2022-03-24 06:29] VITALS: BP 138/76; PULSE 81; RESP 16
== END 2022-03-24 06:29 | disposition home or self-care (01) ==
LOC: EC 04:02
DX: L30.4 Erythema intertrigo (principal); J44.9 Chronic obstructive pulmonary disease, unspecified; E11.9 Type 2 diabetes mellitus without complications; K21.9 Gastro-esophageal reflux disease without esophagitis; E78.5 Hyperlipidemia, unspecified; I10 Essential (primary) hypertension; Z91.048 Other nonmedicinal substance allergy status; Z91.041 Radiographic dye allergy status; Z88.8 Allergy status to other drugs, medicaments and biological substances; Z79.4 Long term (current) use of insulin; Z79.899 Other long term (current) drug therapy
CPT/HCPCS: 36415; 80053; 82009; 83735; 85025; 99284

== ENCOUNTER 2022-07-15 23:39 | Observation (INO) | payer BC ==
[2022-07-16 00:22] LABS: Glucose,Whole Blood 97 mg/dL (70-110)
[2022-07-16] MEDS ORDERED: SODIUM CHLORIDE 0.9% 500 ML 500 ML IV STA (01:22)
--- NOTE | 2022-07-16 01:25 | ED ---
General Adult HPI - General Chief complaint: Extremity Problem,Nontraumatic Stated complaint: MUSCLE CRAMPS Time Seen by Provider: 07/16/22 01:17 Source: patient, RN notes reviewed, old records reviewed Mode of arrival: ambulatory Limitations: no limitations - History of Present Illness Initial comments: 61-year-old morbidly obese male presents to the emergency room with complaints of bilateral leg cramping and right arm cramping intermittently over the past few days. States that pain lasted about 5-10 minutes and is unable to walk denies any fevers. No difficulty breathing. No cough. No shortness of breath -: days(s) Location: right (forearm), lower extremity (bilateral thighs) Radiation: non-radiation Severity scale (1-10): 4 Quality: other (cramping) Consistency: now resolved Worsens with: none Treatments Prior to Arrival: none - Related Data Home Medications Medication Instructions Recorded Confirmed Atorvastatin [Lipitor] 80 mg PO DAILY 09/10/17 07/16/22 Insulin Glargine,Hum.rec.anlog 130 unit SQ QAM 03/31/18 07/16/22 [Basaglar Kwikpen U-100] Insulin Lispro [humaLOG Kwikpen] 24 unit SQ AC-TID 04/01/18 07/16/22 Dulaglutide [Trulicity] 1.5 mg SQ TH 09/22/18 07/16/22 Carbidopa-Levodopa 25-250 mg 1 each PO BID 03/06/20 07/16/22 [Sinemet 25-250] Furosemide [Lasix] 20 mg PO DAILY 03/06/20 07/16/22 lisinopriL [Zestril] 2.5 mg PO DAILY 03/06/20 07/16/22 Ergocalciferol [Vitamin D2 (1250 1,250 mcg PO QMONTHLY 07/16/22 07/16/22 Mcg = [id number] Iu)] HYDROcodone/APAP 7.5-325MG [[place] 1 tab PO Q6HR PRN 07/16/22 07/16/22 7.5-325] Hydrocortisone Cream 1 applic TOPICAL QID PRN 07/16/22 07/16/22 [Hydrocortisone 2.5% Cream] Ibuprofen [Motrin] 800 mg PO QID PRN 07/16/22 07/16/22 Latanoprost [Latanoprost 0.005%] 1 drop BOTH EYES HS 07/16/22 07/16/22 Metoprolol Tartrate [Lopressor] 25 mg PO BID 07/16/22 07/16/22 Previous Rx's Medication Instructions Recorded Aspirin 81 mg PO DAILY #100 chew 02/10/19 Nitroglycerin Sl Tabs [Nitrostat] 0.4 mg SUBLINGUAL Q5M PRN #20 tab 02/10/19 Allergies Allergy/AdvReac Type Severity Reaction Status Date / Time aluminum hydroxide Allergy Nausea & Verified 07/16/22 08:24 [From Mylanta] Vomiting barium iodide Allergy Nausea & Verified 07/16/22 08:24 Vomiting barium sulfate Allergy Nausea & Verified 07/16/22 08:24 Vomiting bee venom protein (honey bee) Allergy Swelling Verified 07/16/22 08:24 calcium carbonate Allergy Nausea & Verified 07/16/22 08:24 [From Mylanta] Vomiting magnesium [From Mylanta] Allergy Nausea & Verified 07/16/22 08:24 Vomiting magnesium hydroxide Allergy Nausea & Verified 07/16/22 08:24 [From Mylanta] Vomiting simethicone [From Mylanta] Allergy Nausea & Verified 07/16/22 08:24 Vomiting LYSAL SPRAY Allergy Unknown Dyspnea Uncoded 07/16/22 00:16 Review of Systems ROS Statement: Those systems with pertinent positive or pertinent negative responses have been documented in the HPI. ROS Other: All systems not noted in ROS Statement are negative. Past Medical History Past Medical History: Asthma, COPD, Diabetes Mellitus, Eye Disorder, GERD/Reflux, Hyperlipidemia, Hypertension, Sleep Apnea/CPAP/BIPAP Additional Past Medical History / Comment(s): hx glaucoma with surgery, bilateral hand tremors, sleep apnea (no machine)., states positive blood in stool. History of Any Multi-Drug Resistant Organisms: None Reported Past Surgical History: Heart Catheterization Additional Past Surgical History / Comment(s): bilateral eye laser surgery for cataract removal/lens implants, Past Anesthesia/Blood Transfusion Reactions: No Reported Reaction Additional Past Anesthesia/Blood Transfusion Reaction / Comment(s): . Past Psychological History: No Psychological Hx Reported Smoking Status: Never smoker Past Alcohol Use History: None Reported Past Drug Use History: None Reported - Past Family History Mother Family Medical History: Diabetes Mellitus Additional Family Medical History / Comment(s): Mother in her sleep when she was in her 60s. Pt does not know cause of . Father Family Medical History: No Reported History Additional Family Medical History / Comment(s): . General Exam Limitations: no limitations General appearance: alert, in no apparent distress Head exam: Present: atraumatic Eye exam: Present: normal appearance. Absent: scleral icterus, conjunctival injection, periorbital swelling, periorbital tenderness ENT exam: Present: mucous membranes moist Neck exam: Absent: meningismus Respiratory exam: Absent: respiratory distress, accessory muscle use Cardiovascular Exam: Present: regular rate GI/Abdominal exam: Present: soft Extremities exam: Present: normal capillary refill, pedal edema (1+) Back exam: Absent: tenderness, CVA tenderness (R), CVA tenderness (L), muscle spasm, paraspinal tenderness, vertebral tenderness, rash noted Neurological exam: Present: alert, altered Psychiatric exam: Present: normal affect, normal mood Skin exam: Present: warm, dry, normal color. Absent: cyanosis, diaphoretic, petechiae, pallor Course Vital Signs 07/16/22 07/16/22 07/16/22 00:12 03:00 08:30 Temperature 98.2 F 98.4 F Pulse Rate 87 77 85 Respiratory 18 20 20 Rate Blood Pressure 138/74 127/68 134/79 O2 Sat by Pulse 96 97 96 Oximetry EKG Findings - EKG Results: EKG: sinus rhythm (Sinus rhythm with a ventricular rate of 78, MS interval 0.159, QRS .106, QTC 0.399; normal axis no significant change compared to old 09/28/2021) Medical Decision Making - Medical Decision Making Patient has a history of asthma, COPD, diabetes, GERD, hypertension, hyperlipidemia. States lives at home with his special needs daughter. On physical exam patient has a rash to bilateral lower extremities that he states appeared today. Denies any itching. No fevers. Concerning for vasculitis. Patient states mainly concerned with bilateral leg cramping and right forearm pain, states feels like a charley horse getting ready to come on. Sinus rhythm with a ventricular rate of 78, MS interval 0.159, QRS .106, QTC 0.399; normal axis no significant change compared to old 09/28/2021 Troponin negative at 0.012. Electrolytes are unremarkable. Leukocytosis of 14.6 Magnesium level was low at 1.5 and was replaced. Chest x-ray interpreted by me shows no focal consolidation. Trachea is midline. No evidence of free air. Radiologist interpretation pending Patient was offered admission and is considering. Case was turned over to Dr. Richards for disposition - Lab Data Result diagrams: 07/16/22 01:39 07/16/22 01:39 Lab Results 07/16/22 07/16/22 07/16/22 Range/Units 00:20 01:39 01:39 WBC 14.6 H (3.8-10.6) k/uL RBC 4.85 (4.30-5.90) m/uL Hgb 13.9 (13.0-17.5) gm/dL Hct 42.2 (39.0-53.0) % MCV 87.0 (80.0-100.0) fL MCH 28.7 (25.0-35.0) pg MCHC 32.9 (31.0-37.0) g/dL RDW 14.7 (11.5-15.5) % Plt Count 210 (150-450) k/uL MPV 8.0 Neutrophils % 75 % Lymphocytes % 17 % Monocytes % 4 % Eosinophils % 2 % Basophils % 0 % Neutrophils # 11.0 H (1.3-7.7) k/uL Lymphocytes # 2.5 (1.0-4.8) k/uL Monocytes # 0.6 (0-1.0) k/uL Eosinophils # 0.3 (0-0.7) k/uL Basophils # 0.1 (0-0.2) k/uL PT 10.0 (9.0-12.0) sec INR 0.9 (<1.2) APTT 22.2 (22.0-30.0) sec Sodium (137-145) mmol/L Potassium (3.5-5.1) mmol/L Chloride (98-107) mmol/L Carbon Dioxide (22-30) mmol/L Anion Gap mmol/L BUN (9-20) mg/dL Creatinine (0.66-1.25) mg/dL Est GFR (CKD-EPI)AfAm (>60 ml/min/1.73 sqM) Est GFR (CKD-EPI)NonAf (>60 ml/min/1.73 sqM) Glucose (74-99) mg/dL POC Glucose (mg/dL) 97 (70-110) mg/dL POC Glu Handwriting Expert ID Katy Lipscomb Lactic Ac Sepsis Rflx Plasma Lactic Acid [place] (0.7-2.0) mmol/L Calcium (8.4-10.2) mg/dL Magnesium (1.6-2.3) mg/dL Total Bilirubin (0.2-1.3) mg/dL AST (17-59) U/L ALT (4-49) U/L Alkaline Phosphatase (38-126) U/L Troponin I (0.000-0.034) ng/mL NT-Pro-B Natriuret Pep pg/mL Total Protein (6.3-8.2) g/dL Albumin (3.5-5.0) g/dL 07/16/22 07/16/22 07/16/22 Range/Units 01:39 01:39 01:39 WBC (3.8-10.6) k/uL RBC (4.30-5.90) m/uL Hgb (13.0-17.5) gm/dL Hct (39.0-53.0) % MCV (80.0-100.0) fL MCH (25.0-35.0) pg MCHC (31.0-37.0) g/dL RDW (11.5-15.5) % Plt Count (150-450) k/uL MPV Neutrophils % % Lymphocytes % % Monocytes % % Eosinophils % % Basophils % % Neutrophils # (1.3-7.7) k/uL Lymphocytes # (1.0-4.8) k/uL Monocytes # (0-1.0) k/uL Eosinophils # (0-0.7) k/uL Basophils # (0-0.2) k/uL PT (9.0-12.0) sec INR (<1.2) APTT (22.0-30.0) sec Sodium 137 (137-145) mmol/L Potassium 4.9 (3.5-5.1) mmol/L Chloride 102 (98-107) mmol/L Carbon Dioxide 24 (22-30) mmol/L Anion Gap 11 mmol/L BUN 20 (9-20) mg/dL Creatinine 0.97 (0.66-1.25) mg/dL Est GFR (CKD-EPI)AfAm >90 (>60 ml/min/1.73 sqM) Est GFR (CKD-EPI)NonAf 85 (>60 ml/min/1.73 sqM) Glucose 87 (74-99) mg/dL POC Glucose (mg/dL) (70-110) mg/dL POC Glu Handwriting Expert ID Lactic Ac Sepsis Rflx Plasma Lactic Acid [place] 2.2 H* (0.7-2.0) mmol/L Calcium 9.3 (8.4-10.2) mg/dL Magnesium 1.5 L (1.6-2.3) mg/dL Total Bilirubin 0.9 (0.2-1.3) mg/dL AST 29 (17-59) U/L ALT 24 (4-49) U/L Alkaline Phosphatase 99 (38-126) U/L Troponin I <0.012 (0.000-0.034) ng/mL NT-Pro-B Natriuret Pep pg/mL Total Protein 7.5 (6.3-8.2) g/dL Albumin 3.9 (3.5-5.0) g/dL 07/16/22 07/16/22 07/16/22 Range/Units 01:39 02:51 04:52 WBC (3.8-10.6) k/uL RBC (4.30-5.90) m/uL Hgb (13.0-17.5) gm/dL Hct (39.0-53.0) % MCV (80.0-100.0) fL MCH (25.0-35.0) pg MCHC (31.0-37.0) g/dL RDW (11.5-15.5) % Plt Count (150-450) k/uL MPV Neutrophils % % Lymphocytes % % Monocytes % % Eosinophils % % Basophils % % Neutrophils # (1.3-7.7) k/uL Lymphocytes # (1.0-4.8) k/uL Monocytes # (0-1.0) k/uL Eosinophils # (0-0.7) k/uL Basophils # (0-0.2) k/uL PT (9.0-12.0) sec INR (<1.2) APTT (22.0-30.0) sec Sodium (137-145) mmol/L Potassium (3.5-5.1) mmol/L Chloride (98-107) mmol/L Carbon Dioxide (22-30) mmol/L Anion Gap mmol/L BUN (9-20) mg/dL Creatinine (0.66-1.25) mg/dL Est GFR (CKD-EPI)AfAm (>60 ml/min/1.73 sqM) Est GFR (CKD-EPI)NonAf (>60 ml/min/1.73 sqM) Glucose (74-99) mg/dL POC Glucose (mg/dL) (70-110) mg/dL POC Glu Handwriting Expert ID Lactic Ac Sepsis Rflx Y Plasma Lactic Acid [place] 1.0 (0.7-2.0) mmol/L Calcium (8.4-10.2) mg/dL Magnesium (1.6-2.3) mg/dL Total Bilirubin (0.2-1.3) mg/dL AST (17-59) U/L ALT (4-49) U/L Alkaline Phosphatase (38-126) U/L Troponin I (0.000-0.034) ng/mL NT-Pro-B Natriuret Pep 86 pg/mL Total Protein (6.3-8.2) g/dL Albumin (3.5-5.0) g/dL Disposition Clinical Impression: Hypomagnesemia, Weakness
[2022-07-16 01:52] LABS: Basophils # (A) 0.1 k/uL (0-0.2); Basophils % (A) 0 %; Eosinophils # (A) 0.3 k/uL (0-0.7); Eosinophils % (A) 2 %; HCT 42.2 % (39.0-53.0); HGB 13.9 gm/dL (13.0-17.5); Lymphocytes # (A) 2.5 k/uL (1.0-4.8); Lymphocytes % (A) 17 %; MCH 28.7 pg (25.0-35.0); MCHC 32.9 g/dL (31.0-37.0); Monocytes # (A) 0.6 k/uL (0-1.0); Monocytes % (A) 4 %; Neutrophils % (A) 75 %; Platelet Count 210 k/uL (150-450); RBC 4.85 m/uL (4.30-5.90); RDW 14.7 % (11.5-15.5); WBC 14.6 k/uL (3.8-10.6)
[2022-07-16 02:02] LABS: ALT 24 U/L (4-49); African American GFR (CKD) >90 (>60 ml/min/1.73 sqM); Albumin 3.9 g/dL (3.5-5.0); Anion Gap 11 mmol/L; Blood Urea Nitrogen 20 mg/dL (9-20); Calcium 9.3 mg/dL (8.4-10.2); Carbon Dioxide 24 mmol/L (22-30); Chloride 102 mmol/L (98-107); Glucose 87 mg/dL (74-99); Non-African American GFR(CKD) 85 (>60 ml/min/1.73 sqM); Sodium 137 mmol/L (137-145); Total Bilirubin 0.9 mg/dL (0.2-1.3); Total Protein 7.5 g/dL (6.3-8.2)
[2022-07-16 02:18] LABS: INR 0.9 (<1.2); Partial Thromboplastin Time 22.2 sec (22.0-30.0)
[2022-07-16 02:49] LABS: AST 29 U/L (17-59); Alkaline Phosphatase 99 U/L (38-126); Magnesium 1.5 mg/dL (1.6-2.3); Potassium 4.9 mmol/L (3.5-5.1)
[2022-07-16] MEDS ORDERED: Magnesium Replacement Protocol 1 EACH MISC MISCELLANE PRN (03:07)
[2022-07-16] MEDS: MAGNESIUM SULFATE-D5W PMX 1 GM in DEXTROSE/WATER 1 100ML.BAG IVPB SCH ×2 (03:16→04:04)
--- NOTE | 2022-07-16 05:44 | XR ---
EXAMINATION TYPE: XR chest 2V DATE OF EXAM: 07/16/2022 COMPARISON: Chest x-ray September 2021 HISTORY: Weakness. TECHNIQUE: Frontal and lateral views of the chest are obtained. FINDINGS: There is no suspicious focal air space opacity, pleural effusion, or pneumothorax seen. T he cardiac silhouette size is stable and upper limits of normal. The osseous structures are intact. IMPRESSION: No acute process. No significant change from prior.
[2022-07-16] MEDS ORDERED: ONDANSETRON 4 MG/2 ML VIAL IVP PRN (07:33)
[2022-07-16] MEDS ORDERED: IBUPROFEN 400 MG TAB PO PRN (07:33)
[2022-07-16] MEDS ORDERED: ACETAMINOPHEN TAB 325 MG TAB PO PRN (07:33)
[2022-07-16] MEDS ORDERED: NALOXONE 0.4 MG/ML 1 ML VIAL IV PRN (07:33)
[2022-07-16] MEDS: SODIUM CHLORIDE 0.9% 1,000 ML IV SCH (08:54)
[2022-07-16] MEDS: HEPARIN SODIUM,PORCINE/PF 5,000 UNIT/0.5 ML SYRINGE SQ SCH ×3 (08:55→20:34)
[2022-07-16] MEDS: FAMOTIDINE 20 MG TAB PO SCH ×2 (08:55→20:34)
[2022-07-16 09:29] LABS: Glucose,Whole Blood 154 mg/dL (70-110)
[2022-07-16 12:58] LABS: Glucose,Whole Blood 142 mg/dL (70-110)
[2022-07-16] MEDS ORDERED: IBUPROFEN 800 MG TAB PO PRN (13:08)
[2022-07-16] MEDS ORDERED: HYDROCORTISONE 1% CREAM 30 GM TUBE TOPICAL PRN (13:08)
[2022-07-16 17:25] LABS: Glucose,Whole Blood 241 mg/dL (70-110)
[2022-07-16] MEDS: INSULIN ASPART (NovoLOG) 100 UNIT/ML VIAL SQ SCH (17:30)
[2022-07-16 20:32] LABS: Glucose,Whole Blood 224 mg/dL (70-110)
[2022-07-16] MEDS: HYDROcodone/APAP 7.5-325MG 1 EACH TAB PO PRN (20:32)
[2022-07-16] MEDS: CARBIDOPA-LEVODOPA 25-250 MG 1 EACH TAB PO SCH (20:34)
[2022-07-16] MEDS: LATANOPROST 0.005% OPHTH DROPS 2.5 ML BTL BOTH EYES SCH (20:34)
[2022-07-16] MEDS: METOPROLOL TARTRATE 25 MG TAB PO SCH (20:34)
--- NOTE | 2022-07-16 22:59 | HP ---
HISTORY AND PHYSICAL CHIEF COMPLAINT: Rash in the legs. HISTORY OF PRESENT ILLNESS: This is another admission for this 61-year-old white male with history of diabetes. He is a fairly compliant individual. He came into the emergency room when he noticed red spots on his legs. In the emergency room, the physician felt that these were petechiae. The patient had these only in his legs. He has had no fever, chills, change in medication, joint pain, myalgias, hematuria, etc. Past medical history, family history, and personal and social histories are otherwise unremarkable and noncontributory. He is allergic to Reglan. CURRENT MEDICATIONS: 1. Lasix 20 mg once a day. 2. Atorvastatin 80 mg once a day. 3. Lisinopril 2.5 mg once a day. 4. Nystatin powder q.i.d. p.r.n. 5. Pepcid 20 mg daily. 6. Basaglar 78 units twice a day. 7. Metformin 1 g twice a day. 8. Farxiga 10 mg once a day. 9. Carbidopa/levodopa 25/250 once a day. 10.Vicodin p.r.n. 11.Omeprazole 20 mg once a day. 12.Metoprolol 25 twice a day. 13.Humalog 24 units before meals. 14.Vitamin D. 15.Trulicity 1.5 mg once a week. 16.Ibuprofen 800 q.i.d. p.r.n. 17.Aspirin. Major of his history is unremarkable. He does not smoke or drink. PHYSICAL EXAMINATION: VITAL SIGNS: Blood pressure 134/78, pulse 78, respirations 14, and he is afebrile. GENERAL: He appeared to be overweight, in no acute distress. HEAD, EARS, EYES, NOSE, MOUTH, AND THROAT: Normal. LYMPHATICS: Lymph nodes are not enlarged. Carotids are normal. CHEST: Clear. CARDIAC: Normal. No murmurs or extra sounds. ABDOMEN: Protuberant, soft and nontender without visceromegaly or masses. Bowel sounds present. EXTREMITIES: Normal except several areas on both legs it looked more like folliculitis than anything else. There are no petechiae. NEUROLOGICAL: Intact. IMPRESSION: 1. Rash on the lower extremities, etiology known. 2. Folliculitis. 3. Hypertension. 4. Insulin-dependent type 2 diabetes mellitus. 5. Hyperlipidemia. 6. Parkinson disease. PLAN: 1. Bed rest. 2. IV fluids. 3. Monitor rash and consider steroids. MMODL / KRYSN: [id number] /
[2022-07-17 07:27] LABS: Glucose,Whole Blood 156 mg/dL (70-110)
[2022-07-17] MEDS: HEPARIN SODIUM,PORCINE/PF 5,000 UNIT/0.5 ML SYRINGE SQ SCH ×3 (08:47→21:18)
[2022-07-17] MEDS: SODIUM CHLORIDE 0.9% 1,000 ML IV SCH (08:47)
[2022-07-17] MEDS: INSULIN ASPART (NovoLOG) 100 UNIT/ML VIAL SQ SCH ×3 (08:47→21:14)
[2022-07-17] MEDS: METOPROLOL TARTRATE 25 MG TAB PO SCH ×2 (08:48→21:18)
[2022-07-17] MEDS: ATORVASTATIN 80 MG TAB PO SCH (08:48)
[2022-07-17] MEDS: CARBIDOPA-LEVODOPA 25-250 MG 1 EACH TAB PO SCH ×2 (08:48→21:16)
[2022-07-17] MEDS: FAMOTIDINE 20 MG TAB PO SCH ×2 (08:48→21:18)
[2022-07-17] MEDS: ASPIRIN 81 MG PO SCH (08:48)
[2022-07-17] MEDS: FUROSEMIDE 20 MG TAB PO SCH (08:48)
[2022-07-17 12:13] LABS: Glucose,Whole Blood 220 mg/dL (70-110)
[2022-07-17] MEDS: INSULIN DETEMIR (LEVEMIR) 100 UNIT/ML SYR SQ SCH (13:01)
[2022-07-17 17:27] LABS: Glucose,Whole Blood 115 mg/dL (70-110)
[2022-07-17] MEDS: HYDROcodone/APAP 7.5-325MG 1 EACH TAB PO PRN (21:16)
[2022-07-17] MEDS: LATANOPROST 0.005% OPHTH DROPS 2.5 ML BTL BOTH EYES SCH (21:18)
[2022-07-17 21:19] LABS: Glucose,Whole Blood 215 mg/dL (70-110)
[2022-07-18 06:47] VITALS: BP 119/77; PULSE 96; RESP 16; TEMP 97.6
[2022-07-18 06:58] LABS: Glucose,Whole Blood 138 mg/dL (70-110)
[2022-07-18] MEDS: ASPIRIN 81 MG PO SCH (08:09)
[2022-07-18] MEDS: FAMOTIDINE 20 MG TAB PO SCH (08:09)
[2022-07-18] MEDS: FUROSEMIDE 20 MG TAB PO SCH (08:10)
[2022-07-18] MEDS: ATORVASTATIN 80 MG TAB PO SCH (08:10)
[2022-07-18] MEDS: METOPROLOL TARTRATE 25 MG TAB PO SCH (08:10)
[2022-07-18] MEDS: CARBIDOPA-LEVODOPA 25-250 MG 1 EACH TAB PO SCH (08:11)
[2022-07-18] MEDS: INSULIN DETEMIR (LEVEMIR) 100 UNIT/ML SYR SQ SCH (08:13)
[2022-07-18] MEDS: HEPARIN SODIUM,PORCINE/PF 5,000 UNIT/0.5 ML SYRINGE SQ SCH (08:13)
[2022-07-18] MEDS: INSULIN ASPART (NovoLOG) 100 UNIT/ML VIAL SQ SCH (08:14)
--- NOTE | 2022-07-19 16:04 | PN ---
PROGRESS NOTE DATE OF SERVICE: 07/17/2022 CHIEF COMPLAINT: Rash on the lower extremities. HISTORY OF PRESENT ILLNESS: This gentleman has had no symptoms. He has had no fever, chills, joint pains, extension of the rash, etc. PHYSICAL EXAMINATION: HEENT: Normal. CHEST: Clear. CARDIAC: Normal. ABDOMEN: Protuberant. Soft. EXTREMITIES: The rash, there are only relatively a few hemorrhagic areas under the skin of the lower extremities, and this actually looks more like a mild folliculitis. IMPRESSION: Rash on the lower extremities. PLAN: Wait for further studies to come back and continue to monitor his blood sugars. He will probably be able to go home tomorrow. MMODL / IJN: [id number] /
--- NOTE | 2022-07-20 08:43 | DS ---
DISCHARGE SUMMARY CHIEF COMPLAINT: Rash in the lower extremities. HISTORY OF PRESENT ILLNESS AND PHYSICAL EXAM: Details of this man's history and physical can be found in the initial workup. COURSE IN THE HOSPITAL: After admission, he was placed on bedrest, started intravenous fluids, and workup was begun for the rash in the lower extremities. This had been described as being petechial when he was in the emergency room, but it clearly was not. He had a few areas of hemorrhage probably around hair follicles and no further signs or symptoms developed. He had no fever, chills, pain in the legs, joint pain, etc. It was felt that he could return home on the on his usual activity, diet, and medication, and he will be followed in the office. FINAL DIAGNOSIS: 1. Follicular hemorrhages or folliculitis on the lower extremities. 2. Diabetes. 3. History of hypertension. OPERATIONS: None. CONSULTATIONS: None. He is improved. MMODL / IJN: [id number] /
== END 2022-07-18 12:00 | disposition home or self-care (01) ==
LOC: EC 23:39 → 6NMEDSUR 07-16 07:33
PROVIDERS: ADMIT Family Medicine; ATTEND Family Medicine
DX: L73.9 Follicular disorder, unspecified (principal); E83.42 Hypomagnesemia; R53.1 Weakness; J45.909 Unspecified asthma, uncomplicated; E11.9 Type 2 diabetes mellitus without complications; K21.9 Gastro-esophageal reflux disease without esophagitis; E78.5 Hyperlipidemia, unspecified; I10 Essential (primary) hypertension; G47.30 Sleep apnea, unspecified; G20 Parkinson's disease; E66.01 Morbid (severe) obesity due to excess calories; Z79.899 Other long term (current) drug therapy; Z79.4 Long term (current) use of insulin; Z79.85 Long-term (current) use of injectable non-insulin antidiabetic drugs; Z79.82 Long term (current) use of aspirin
CPT/HCPCS: 36415; 71046; 80053; 83605; 83735; 83880; 84484; 85025; 85610; 85730; 86038; 93005; 94760; 96361; 96365; 96366; 96372; 99284

== ENCOUNTER 2022-08-31 21:59 | Observation (INO) | payer BC ==
[2022-08-31 22:47] LABS: Basophils % (A) 0 %; Eosinophils # (A) 0.4 k/uL (0-0.7); Eosinophils % (A) 3 %; HCT 35.6 % (39.0-53.0); HGB 11.8 gm/dL (13.0-17.5); Lymphocytes % (A) 17 %; MCH 28.9 pg (25.0-35.0); MCHC 33.2 g/dL (31.0-37.0); MCV 87.1 fL (80.0-100.0); Mean Platelet Volume 7.7; Monocytes # (A) 0.5 k/uL (0-1.0); Monocytes % (A) 4 %; Neutrophils # (A) 9.1 k/uL (1.3-7.7); Neutrophils % (A) 75 %; Platelet Count 227 k/uL (150-450); RBC 4.09 m/uL (4.30-5.90); RDW 14.9 % (11.5-15.5); WBC 12.2 k/uL (3.8-10.6)
[2022-08-31 23:14] LABS: ALT 25 U/L (4-49); AST 25 U/L (17-59); African American GFR (CKD) 85 (>60 ml/min/1.73 sqM); Albumin 3.6 g/dL (3.5-5.0); Alkaline Phosphatase 91 U/L (38-126); Anion Gap 9 mmol/L; Blood Urea Nitrogen 18 mg/dL (9-20); Calcium 8.5 mg/dL (8.4-10.2); Carbon Dioxide 25 mmol/L (22-30); Chloride 105 mmol/L (98-107); Glucose 103 mg/dL (74-99); Non-African American GFR(CKD) 74 (>60 ml/min/1.73 sqM); Potassium 4.1 mmol/L (3.5-5.1); Sodium 139 mmol/L (137-145); Total Bilirubin 0.5 mg/dL (0.2-1.3); Total Protein 6.5 g/dL (6.3-8.2)
[2022-09-01] MEDS ORDERED: HYDROcodone/APAP 5-325MG 1 EACH TAB PO STA (00:08)
--- NOTE | 2022-09-01 00:12 | ED ---
Extremity Problem HPI - General Chief complaint: Extremity Problem,Nontraumatic Stated complaint: Swollen legs and feet Time Seen by Provider: 08/31/22 23:32 Source: patient, RN notes reviewed Mode of arrival: ambulatory Limitations: no limitations - History of Present Illness Initial comments: This is a 61-year-old male who presents to the emergency department for pain and swelling to the bilateral lower extremities. States that he noticed it this mo rning. He noticed open wounds to the left leg as well that started to drain pus. Denies any known injuries. States that the legs started to become very painful today as well. He is unsure if he has a history of blood clots or CHF. However, he does report a minor increase in shortness of breath over the last couple of days. Denies any chest pain. He is also unsure if he is on a water pill or blood thinner. While his legs are painful, he is still able to walk. Denies any fevers or chills associated with this. Denies any fevers, chills, sore throat, cough, chest pain, palpitations, abdominal pain, nausea, vomiting, diarrhea, back pain, or headaches. MD Complaint: extremity pain, extremity swelling Location: bilateral lower extremity - Related Data Home Medications Medication Instructions Recorded Confirmed Atorvastatin [Lipitor] 80 mg PO DAILY 09/10/17 07/16/22 Insulin Glargine,Hum.rec.anlog 130 unit SQ QAM 03/31/18 07/16/22 [Basaglar Kwikpen U-100] Insulin Lispro [humaLOG Kwikpen] 24 unit SQ AC-TID 04/01/18 07/16/22 Dulaglutide [Trulicity] 1.5 mg SQ TH 09/22/18 07/16/22 Carbidopa-Levodopa 25-250 mg 1 each PO BID 03/06/20 07/16/22 [Sinemet 25-250 mg] Furosemide [Lasix] 20 mg PO DAILY 03/06/20 07/16/22 lisinopriL [Zestril] 2.5 mg PO DAILY 03/06/20 07/16/22 Ergocalciferol [Vitamin D2 (1250 1,250 mcg PO QMONTHLY 07/16/22 07/16/22 Mcg = 78635 Iu)] HYDROcodone/APAP 7.5-325MG [[place] 1 tab PO Q6HR PRN 07/16/22 07/16/22 7.5-325] Hydrocortisone Cream 1 applic TOPICAL QID PRN 07/16/22 07/16/22 [Hydrocortisone 2.5% Cream] Ibuprofen [Motrin] 800 mg PO QID PRN 07/16/22 07/16/22 Latanoprost [Latanoprost 0.005%] 1 drop BOTH EYES HS 07/16/22 07/16/22 Metoprolol Tartrate [Lopressor] 25 mg PO BID 07/16/22 07/16/22 Previous Rx's Medication Instructions Recorded Aspirin 81 mg PO DAILY #100 chew 02/10/19 Nitroglycerin Sl Tabs [Nitrostat] 0.4 mg SUBLINGUAL Q5M PRN #20 tab 02/10/19 Allergies Allergy/AdvReac Type Severity Reaction Status Date / Time aluminum hydroxide Allergy Nausea & Verified 08/31/22 22:23 [From Mylanta] Vomiting barium iodide Allergy Nausea & Verified 08/31/22 22:23 Vomiting barium sulfate Allergy Nausea & Verified 08/31/22 22:23 Vomiting bee venom protein (honey bee) Allergy Swelling Verified 08/31/22 22:23 calcium carbonate Allergy Nausea & Verified 08/31/22 22:23 [From Mylanta] Vomiting magnesium [From Mylanta] Allergy Nausea & Verified 08/31/22 22:23 Vomiting magnesium hydroxide Allergy Nausea & Verified 08/31/22 22:23 [From Mylanta] Vomiting simethicone [From Mylanta] Allergy Nausea & Verified 08/31/22 22:23 Vomiting LYSAL SPRAY Allergy Unknown Dyspnea Uncoded 08/31/22 22:23 Review of Systems ROS Statement: Those systems with pertinent positive or pertinent negative responses have been documented in the HPI. ROS Other: All systems not noted in ROS Statement are negative. Past Medical History Past Medical History: Asthma, COPD, Diabetes Mellitus, Eye Disorder, GERD/Reflux, Hyperlipidemia, Hypertension, Sleep Apnea/CPAP/BIPAP Additional Past Medical History / Comment(s): hx glaucoma with surgery, bilateral hand tremors, sleep apnea (no machine)., states positive blood in stool. History of Any Multi-Drug Resistant Organisms: None Reported Past Surgical History: Heart Catheterization Additional Past Surgical History / Comment(s): bilateral eye laser surgery for cataract removal/lens implants, Past Anesthesia/Blood Transfusion Reactions: No Reported Reaction Additional Past Anesthesia/Blood Transfusion Reaction / Comment(s): . Past Psychological History: No Psychological Hx Reported Smoking Status: Never smoker Past Alcohol Use History: None Reported Past Drug Use History: None Reported - Past Family History Mother Family Medical History: Diabetes Mellitus Additional Family Medical History / Comment(s): Mother in her sleep when she was in her 60s. Pt does not know cause of . Father Family Medical History: No Reported History Additional Family Medical History / Comment(s): . General Exam Limitations: no limitations General appearance: alert, in no apparent distress Head exam: Present: atraumatic, normocephalic, normal inspection Respiratory exam: Present: normal lung sounds bilaterally. Absent: respiratory distress, wheezes, rales, rhonchi, stridor Cardiovascular Exam: Present: regular rate, normal rhythm, normal heart sounds. Absent: systolic murmur, diastolic murmur, rubs, gallop, clicks Extremities exam: Present: other (2-3+ pitting edema, erythema, and tenderness of the bilateral lower extremities. Several open wounds with active serous dr ainage to the left calf. 2+ DP and PT pulses and capillary refill <1 second bilaterally.) Neurological exam: Present: alert, oriented X3, CN II-XII intact Psychiatric exam: Present: normal affect, normal mood Course Vital Signs 08/31/22 09/01/22 22:24 02:56 Temperature 98.6 F Pulse Rate 88 80 Respiratory 18 18 Rate Blood Pressure 159/81 132/87 O2 Sat by Pulse 98 96 Oximetry Medical Decision Making - Medical Decision Making This is a 61-year-old male who presents to the emergency department for leg pain and swelling. Was pt. sent in by a medical professional or institution? @ -No Did you speak to anyone other than the patient for history? @ -No Did you review nursing and triage notes? @ -Yes, and I agree, it is accurate with regards to the patient's symptoms. Were old charts reviewed? @ -No Differential Diagnosis? @ -Differential Leg Pain/Swelling: Leg fracture, leg sprain, DVT, PVD, arterial insufficiency, iliac artery aneurysm, cellulitis, compartment syndrome, tendinopathy, nerve entrapment, piriformis syndrome, osteoarthritis, rhabdomyolysis, myositis, cramping from an electrolyte imbalance, this is not meant to be an all inclusive list. EKG interpreted by me (3pts min.)? @ -Not obtained. X-rays interpreted by me (1pt min.)? @ -Chest x-ray obtained, my interpretation identifies no localized consolidations or infiltrates. X-ray of the bilateral tib-fib obtained as well. My interpretation identifies no evidence of any acute fractures or subcutaneous gas formation. CT interpreted by me (1pt min.)? @ -Not obtained U/S interpreted by me (1pt. min.)? @ -Not obtained What testing was considered but not performed? (CT, X-rays, U/S, labs)? Why? @ -None What meds were considered but not given? Why? @ -None Did you discuss the management of the patient with other professionals? @ -ED attending Dr. Valenzuela spoke with Dr. Holden in the morning after shift completion. Did you reconcile home meds? @ -No Was smoking cessation discussed for >3mins.? @ -No Was critical care preformed (if so, how long)? @ -No Were there social determinants of health that impacted care today? How? (Homelessness, low income, unemployed, alcoholism, drug addiction, transportation, low edu. Level, literacy, decrease access to med. care, skilled nursing, rehab)? @ -No Was there de-escalation of care discussed even if they declined? (Discuss DNR or withdrawal of care, Hospice)? @ -No What co-morbidities impacted this encounter? (DM, HTN, Smoking, COPD, CAD, C ancer, CVA, Hep., AIDS, mental health diagnosis, sleep apnea, morbid obesity)? @ -DM, HTN, HLD, morbid obesity Was patient admitted / discharged? @ -Admitted. Lab work obtained revealing leukocytosis and a minor elevation in CRP. XR of the bilateral tib/fib reveals diffuse soft tissue swelling and no other acute findings. Duplex US of the LEs also negative for signs of a DVT. Patient appears to have cellulitis of the left lower extremity with scattered wounds, erythema, swelling, tenderness, and increased heat to the left lower extremity. The right lower extremity was not found to have any wounds, however it is erythematous, tender, and swollen, however not to the extent of the left leg. BNP was negative for signs of CHF. Discussed with the patient that given the extent of the cellulitis with his associated comorbidities, admission for IV antibiotics would be advised. Patient is agreeable to this, especially given that his pain isn't controllable with his medications at home. Patient admitted to medicine for further management. He was started on vancomycin and cefepime with blood cultures obtained prior. Infectious disease consult placed as well. Undiagnosed new problem with uncertain prognosis? @ -None Drug Therapy requiring intensive monitoring for toxicity (Heparin, Nitro, Insulin, Cardizem)? @ -None Were any procedures done? @ -None Diagnosis/symptom? @ -Left lower extremity cellulitis, Bilateral LE edema Acute, or Chronic, or Acute on Chronic? @ -Acute Uncomplicated (without systemic symptoms) or Complicated (systemic symptoms)? @ -Uncomplicated Side effects of treatment? @ -None Exacerbation, Progression, or Severe Exacerbation] @ -Not applicable Poses a threat to life or bodily function? @ -Yes This case was discussed in detail with the attending ED physician, Dr. Valenzuela. Presentation, findings, and treatment plan discussed in detail as well. - Lab Data Result diagrams: 08/31/22 22:40 08/31/22 22:40 Lab Results 08/31/22 08/31/22 08/31/22 Range/Units 22:40 22:40 23:58 WBC 12.2 H (3.8-10.6) k/uL RBC 4.09 L (4.30-5.90) m/uL Hgb 11.8 L (13.0-17.5) gm/dL Hct 35.6 L (39.0-53.0) % MCV 87.1 (80.0-100.0) fL MCH 28.9 (25.0-35.0) pg MCHC 33.2 (31.0-37.0) g/dL RDW 14.9 (11.5-15.5) % Plt Count 227 (150-450) k/uL MPV 7.7 Neutrophils % 75 % Lymphocytes % 17 % Monocytes % 4 % Eosinophils % 3 % Basophils % 0 % Neutrophils # 9.1 H (1.3-7.7) k/uL Lymphocytes # 2.0 (1.0-4.8) k/uL Monocytes # 0.5 (0-1.0) k/uL Eosinophils # 0.4 (0-0.7) k/uL Basophils # 0.0 (0-0.2) k/uL Sodium 139 (137-145) mmol/L Potassium 4.1 (3.5-5.1) mmol/L Chloride 105 (98-107) mmol/L Carbon Dioxide 25 (22-30) mmol/L Anion Gap 9 mmol/L BUN 18 (9-20) mg/dL Creatinine 1.08 (0.66-1.25) mg/dL Est GFR (CKD-EPI)AfAm 85 (>60 ml/min/1.73 sqM) Est GFR (CKD-EPI)NonAf 74 (>60 ml/min/1.73 sqM) Glucose 103 H (74-99) mg/dL Plasma Lactic Acid [place] 1.4 (0.7-2.0) mmol/L Calcium 8.5 (8.4-10.2) mg/dL Total Bilirubin 0.5 (0.2-1.3) mg/dL AST 25 (17-59) U/L ALT 25 (4-49) U/L Alkaline Phosphatase 91 (38-126) U/L C-Reactive Protein 2.3 H (<1.0) mg/dL NT-Pro-B Natriuret Pep pg/mL Total Protein 6.5 (6.3-8.2) g/dL Albumin 3.6 (3.5-5.0) g/dL 08/31/22 Range/Units 23:58 WBC (3.8-10.6) k/uL RBC (4.30-5.90) m/uL Hgb (13.0-17.5) gm/dL Hct (39.0-53.0) % MCV (80.0-100.0) fL MCH (25.0-35.0) pg MCHC (31.0-37.0) g/dL RDW (11.5-15.5) % Plt Count (150-450) k/uL MPV Neutrophils % % Lymphocytes % % Monocytes % % Eosinophils % % Basophils % % Neutrophils # (1.3-7.7) k/uL Lymphocytes # (1.0-4.8) k/uL Monocytes # (0-1.0) k/uL Eosinophils # (0-0.7) k/uL Basophils # (0-0.2) k/uL Sodium (137-145) mmol/L Potassium (3.5-5.1) mmol/L Chloride (98-107) mmol/L Carbon Dioxide (22-30) mmol/L Anion Gap mmol/L BUN (9-20) mg/dL Creatinine (0.66-1.25) mg/dL Est GFR (CKD-EPI)AfAm (>60 ml/min/1.73 sqM) Est GFR (CKD-EPI)NonAf (>60 ml/min/1.73 sqM) Glucose (74-99) mg/dL Plasma Lactic Acid Sohail (0.7-2.0) mmol/L Calcium (8.4-10.2) mg/dL Total Bilirubin (0.2-1.3) mg/dL AST (17-59) U/L ALT (4-49) U/L Alkaline Phosphatase (38-126) U/L C-Reactive Protein (<1.0) mg/dL NT-Pro-B Natriuret Pep 66 pg/mL Total Protein (6.3-8.2) g/dL Albumin (3.5-5.0) g/dL - Radiology Data Radiology results: report reviewed, image reviewed Disposition Clinical Impression: Cellulitis of left lower extremity, Bilateral edema of lower extremity Disposition: ADMITTED IP TO THIS HOSP
[2022-09-01 01:10] LABS: C Reactive Protein 2.3 mg/dL (<1.0)
--- NOTE | 2022-09-01 01:33 | US ---
EXAM: US Duplex Bilateral Lower Extremities Veins CLINICAL HISTORY: ITS.REASON US Reason: Pain, redness, and swelling TECHNIQUE: Real-time duplex ultrasound scan of the bilateral lower extremity veins integrating B-mode two-dimensional vascular structure, Doppler spectral analysis, color flow Doppler imaging and compression. COMPARISON: No relevant prior studies available. FINDINGS: Right deep veins: Unremarkable. No DVT in the right common femoral, femoral, proximal deep femoral or popliteal veins. The veins demonstrate normal color flow, are normally compressible, with normal phasic flow and/or augmentation response. The interrogated calf veins are patent. Right superficial veins: Unremarkable. No thrombus in the saphenofemoral junction. Left deep veins: Unremarkable. No DVT in the left common femoral, femoral, proximal deep femoral or popliteal veins. The veins demonstrate normal color flow, are normally compressible, with normal phasic flow and/or augmentation response. The interrogated calf veins are patent. Left superficial veins: Unremarkable. No thrombus in the saphenofemoral junction. Soft tissues: No acute findings. No popliteal cyst. IMPRESSION: No evidence for deep vein thrombosis involving the bilateral lower extremities.
--- NOTE | 2022-09-01 01:35 | XR ---
EXAM: XR Chest, 2 Views CLINICAL HISTORY: ITS. REASON XR Reason: CODEY TECHNIQUE: Frontal and lateral views of the chest. COMPARISON: No relevant prior studies available. FINDINGS: Lungs: Unremarkable. No consolidation. Pleural space: Unremarkable. No pneumothorax. Heart: Unremarkable. No cardiomegaly. Mediastinum: Unremarkable. Bones/joints: Unremarkable. IMPRESSION: Normal chest x-rays.
--- NOTE | 2022-09-01 01:41 | XR ---
EXAM: XR Bilateral Tibias and Fibulas, 2 Views CLINICAL HISTORY: ITS.REASON XR Reason: Pain, redness, and swelling TECHNIQUE: Frontal and lateral views of the bilateral tibias and fibulas. COMPARISON: No relevant prior studies available. FINDINGS: Bones/joints: Unremarkable. No bilateral acute fracture or dislocation. Soft tissues: Mild generalized soft tissue swelling, bilaterally. No radiopaque foreign body. IMPRESSION: 1. No bilateral acute fracture or dislocation. 2. Mild generalized soft tissue swelling, bilaterally.
[2022-09-01] MEDS ORDERED: HYDROcodone/APAP 5-325MG 1 EACH TAB PO PRN (02:22)
[2022-09-01] MEDS ORDERED: ACETAMINOPHEN TAB 325 MG TAB PO PRN (02:22)
[2022-09-01] MEDS ORDERED: NALOXONE 0.4 MG/ML 1 ML VIAL IV PRN (02:22)
[2022-09-01] MEDS ORDERED: IBUPROFEN 400 MG TAB PO PRN (02:22)
[2022-09-01] MEDS ORDERED: ONDANSETRON 4 MG/2 ML VIAL IVP PRN (02:22)
[2022-09-01] MEDS ORDERED: CEFEPIME 2 GM in SODIUM CHLORIDE 0.9% 100 ML IVPB STA (02:24)
[2022-09-01] MEDS ORDERED: VANCOMYCIN IV PER PHARMACY 1 EACH MISC MISCELLANE PRN (02:24)
[2022-09-01] MEDS ORDERED: VANCOMYCIN 2,000 MG in SODIUM CHLORIDE 0.9% 500 ML 500 ML IVPB STA (02:30)
[2022-09-01 06:16] LABS: Glucose,Whole Blood 127 mg/dL (70-110)
[2022-09-01] MEDS ORDERED: TRIAMCINOLONE 0.1% CREAM 80 GM TUBE TOPICAL PRN (09:45)
[2022-09-01] MEDS ORDERED: IBUPROFEN 800 MG TAB PO PRN (09:45)
[2022-09-01 12:04] LABS: Glucose,Whole Blood 141 mg/dL (70-110)
[2022-09-01] MEDS: INSULIN ASPART (NovoLOG) 100 UNIT/ML VIAL SQ SCH ×2 (17:14→18:24)
[2022-09-01 17:24] LABS: Glucose,Whole Blood 167 mg/dL (70-110)
[2022-09-01] MEDS ORDERED: VANCOMYCIN 2,000 MG in SODIUM CHLORIDE 0.9% 500 ML 500 ML IVPB SCH (18:00)
[2022-09-01] MEDS: METOPROLOL TARTRATE 25 MG TAB PO SCH (20:20)
[2022-09-01] MEDS: LATANOPROST 0.005% OPHTH DROPS 2.5 ML BTL BOTH EYES SCH (20:20)
[2022-09-01] MEDS: CARBIDOPA-LEVODOPA 25-250 MG 1 EACH TAB PO SCH (20:20)
[2022-09-01 20:44] LABS: Glucose,Whole Blood 171 mg/dL (70-110)
[2022-09-01] MEDS: HYDROcodone/APAP 7.5-325MG 1 EACH TAB PO PRN (21:22)
--- NOTE | 2022-09-01 22:45 | P.CONS ---
History of Present Illness - Reason for Consult Consult date: 09/01/22 - History of Present Illness Patient is a 61-year-old male with a past medical history significant for diabetes mellitus hypertension hyperlipidemia COPD presenting to the hospital for evaluation of bilateral lower extremity pain especially in the left leg with the patient did have some superficial ulceration and drainage patient denies having any history of any trauma he did have some dull aching pain especially to the left leg area 3-4 out of 10 no radiation with associated swelling redness and some drainage patient on presentation to the hospital was afebrile and no fever has been recorded subsequently patient did have a white count of 5.2 with a left shift creatinine was normal her liver enzymes are normal patient did have a venous Doppler study that was negative for DVT x-ray of the tibia-fibula did not show any bony erosion patient was admitted to hospital started on vancomycin infectious disease was consulted for further management of antibiotic therapy Past Medical History Past Medical History: Asthma, COPD, Diabetes Mellitus, Eye Disorder, GERD/Re flux, Hyperlipidemia, Hypertension, Sleep Apnea/CPAP/BIPAP Additional Past Medical History / Comment(s): hx glaucoma with surgery, bilateral hand tremors, sleep apnea (no machine)., states positive blood in stool. History of Any Multi-Drug Resistant Organisms: None Reported Past Surgical History: Heart Catheterization Additional Past Surgical History / Comment(s): bilateral eye laser surgery for c ataract removal/lens implants, Past Anesthesia/Blood Transfusion Reactions: No Reported Reaction Additional Past Anesthesia/Blood Transfusion Reaction / Comm: . Past Psychological History: No Psychological Hx Reported Additional Psychological History / Comment(s): Pt resides with his daughter. Smoking Status: Never smoker Past Alcohol Use History: None Reported Additional Past Alcohol Use History / Comment(s): . Past Drug Use History: None Reported - Past Family History Mother Family Medical History: Diabetes Mellitus Additional Family Medical History / Comment(s): Mother in her sleep when she was in her 60s. Pt does not know cause of . Father Family Medical History: No Reported History Additional Family Medical History / Comment(s): . Medications and Allergies Home Medications Medication Instructions Recorded Confirmed Type Atorvastatin [Lipitor] 80 mg PO DAILY 09/10/17 09/01/22 History Insulin Glargine,Hum.rec.anlog 90 unit SQ BID 03/31/18 09/01/22 History [Basaglar Kwikpen U-100] Insulin Lispro [humaLOG Kwikpen] 24 unit SQ AC-TID 04/01/18 09/01/22 History Aspirin 81 mg PO DAILY #100 chew 02/10/19 09/01/22 Rx Nitroglycerin Sl Tabs [Nitrostat] 0.4 mg SUBLINGUAL Q5M PRN #20 tab 02/10/19 09/01/22 Rx Carbidopa-Levodopa 25-250 mg 1 tab PO TID 03/06/20 09/01/22 History [Sinemet 25-250 mg] Furosemide [Lasix] 20 mg PO DAILY 03/06/20 09/01/22 History lisinopriL [Zestril] 2.5 mg PO DAILY 03/06/20 09/01/22 History Ergocalciferol [Vitamin D2 (1250 1,250 mcg PO QMONTHLY 07/16/22 09/01/22 History Mcg = 96377 Iu)] HYDROcodone/APAP 7.5-325MG [[place] 1 tab PO Q6HR PRN 07/16/22 09/01/22 History 7.5-325] Hydrocortisone Cream 1 applic TOPICAL QID PRN 07/16/22 09/01/22 History [Hydrocortisone 2.5% Cream] Ibuprofen [Motrin] 800 mg PO QID PRN 07/16/22 09/01/22 History Latanoprost [Latanoprost 0.005%] 1 drop BOTH EYES HS 07/16/22 09/01/22 History Metoprolol Tartrate [Lopressor] 25 mg PO BID 07/16/22 09/01/22 History Cyclobenzaprine [Flexeril] 10 mg PO Q6H PRN 09/01/22 09/01/22 History Dulaglutide [Trulicity] 3 mg SQ TH 09/01/22 09/01/22 History Nystatin 100,000 Unit/gm Powd 1 applic TOPICAL BID 09/01/22 09/01/22 History [Mycostatin Powder] metFORMIN HCL 1,000 mg PO BID 09/01/22 09/01/22 History Allergies Allergy/AdvReac Type Severity Reaction Status Date / Time aluminum hydroxide Allergy Nausea & Verified 09/01/22 10:37 [From Mylanta] Vomiting barium iodide Allergy Nausea & Verified 09/01/22 10:37 Vomiting barium sulfate Allergy Nausea & Verified 09/01/22 10:37 Vomiting bee venom protein (honey bee) Allergy Swelling Verified 09/01/22 10:37 calcium carbonate Allergy Nausea & Verified 09/01/22 10:37 [From Mylanta] Vomiting magnesium [From Mylanta] Allergy Nausea & Verified 09/01/22 10:37 Vomiting magnesium hydroxide Allergy Nausea & Verified 09/01/22 10:37 [From Mylanta] Vomiting simethicone [From Mylanta] Allergy Nausea & Verified 09/01/22 10:37 Vomiting LYSAL SPRAY Allergy Unknown Dyspnea Uncoded 08/31/22 22:23 Physical Exam Vitals: Vital Signs Temp Pulse Pulse Resp BP BP Pulse Ox 09/01/22 07:00 97.7 F 79 16 137/80 96 09/01/22 05:42 97.6 F 79 16 162/81 98 09/01/22 02:56 80 18 132/87 96 08/31/22 22:24 98.6 F 88 18 159/81 98 Intake and Output 08/31/22 09/01/22 09/01/22 22:59 06:59 14:59 Other: # Voids 1 Weight 120.202 kg 120.202 kg Results CBC & Chem 7: 08/31/22 22:40 09/02/22 06:14 Labs: Abnormal Lab Results - Last 24 Hours (Table) 08/31/22 08/31/22 09/01/22 Range/Units 22:40 22:40 06:14 WBC 12.2 H (3.8-10.6) k/uL RBC 4.09 L (4.30-5.90) m/uL Hgb 11.8 L (13.0-17.5) gm/dL Hct 35.6 L (39.0-53.0) % Neutrophils # 9.1 H (1.3-7.7) k/uL Glucose 103 H (74-99) mg/dL POC Glucose (mg/dL) 127 H (70-110) mg/dL C-Reactive Protein 2.3 H (<1.0) mg/dL 09/01/22 Range/Units 12:03 WBC (3.8-10.6) k/uL RBC (4.30-5.90) m/uL Hgb (13.0-17.5) gm/dL Hct (39.0-53.0) % Neutrophils # (1.3-7.7) k/uL Glucose (74-99) mg/dL POC Glucose (mg/dL) 141 H (70-110) mg/dL C-Reactive Protein (<1.0) mg/dL Assessment and Plan Plan: 1patient was in the hospital with bilateral extremity swelling especially some swelling redness to the left leg superficial ulceration and drainage concerning for cellulitis likely from gram-positive skin andre patient did have elevated white count however no definite fever recorded 2-discontinue vancomycin as the patient is a low risk factor for MRSA infection 3-we will start the patient on cefazolin 2 g every 8 hours 4-William wrap to the leg to keep the swelling down We will follow on clinical condition and cultures to further adjust medication if needed Thank you for this consultation we will follow the patient along with you Time with Patient: Greater than 30
[2022-09-01] MEDS: MORPHINE SULFATE 4 MG/ML SYRINGE IV PRN (22:48)
[2022-09-02 06:57] LABS: Glucose,Whole Blood 150 mg/dL (70-110)
[2022-09-02 06:58] LABS: African American GFR (CKD) >90 (>60 ml/min/1.73 sqM); Non-African American GFR(CKD) 80 (>60 ml/min/1.73 sqM)
--- NOTE | 2022-09-02 08:20 | HP ---
HISTORY AND PHYSICAL CHIEF COMPLAINT: Stasis dermatitis with weeping of the left leg. HISTORY OF PRESENT ILLNESS: This is another option for this obese 61-year-old white male with diabetes. He is very compliant with his disease. He has been having some lower extremity swelling for quite some time with stasis dermatitis. He began to notice that there was weeping from the back of the left lower leg and came to emergency room. He has had no fever, chills, significant swelling in that leg other than his usual dependent edema, etc. REVIEW OF SYSTEMS: He has had no headaches, neurologic problems, difficulty with vision or hearing, chest pain, shortness of breath, cough, hemoptysis, abdominal pain, nausea, vomiting, diarrhea, melena, urinary complaints, dysuria, frequency, urgency, incontinence, etc. He is type 2 insulin-dependent diabetic. 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 PAST MEDICAL HISTORY, FAMILY HISTORY, PERSONAL AND SOCIAL HISTORIES: All otherwise unremarkable. He does not smoke or drink. PHYSICAL EXAMINATION: VITAL SIGNS: Blood pressure is 138/75 with a pulse of 70, respirations of 22, and he is afebrile. GENERAL: Appeared to be overweight. SKIN: Color was normal. HEENT: Head, ears, eyes, nose, mouth, and throat were normal. CHEST: Clear. CARDIAC: Normal. ABDOMEN: Soft, nontender. EXTREMITIES: Normal except for lower extremities where he has edema and stasis dermatitis. There is drainage today in the area on the back of the left lower leg. The pulses are good. IMPRESSION: 1. Cellulitis, stasis dermatitis and transudation from the left lower leg. 2. Obesity. 3. Type 2 insulin dependent diabetes mellitus. PLAN: 1. Bedrest. 2. IV fluids. 3. Diuretics. 4. Possible vascular and wound care consult. MMODL / IJN: [id number] /
[2022-09-02] MEDS: INSULIN DETEMIR (LEVEMIR) 100 UNIT/ML SYR SQ SCH (08:59)
[2022-09-02] MEDS: ATORVASTATIN 80 MG TAB PO SCH (09:00)
[2022-09-02] MEDS: METOPROLOL TARTRATE 25 MG TAB PO SCH ×2 (09:00→20:57)
[2022-09-02] MEDS: ASPIRIN 81 MG PO SCH (09:00)
[2022-09-02] MEDS: FUROSEMIDE 20 MG TAB PO SCH (09:00)
[2022-09-02] MEDS: CARBIDOPA-LEVODOPA 25-250 MG 1 EACH TAB PO SCH ×2 (09:00→20:57)
[2022-09-02] MEDS: INSULIN ASPART (NovoLOG) 100 UNIT/ML VIAL SQ SCH ×3 (09:33→17:46)
[2022-09-02 12:01] LABS: Glucose,Whole Blood 151 mg/dL (70-110)
--- NOTE | 2022-09-02 16:56 | P.GSCN ---
History of Present Illness History of present illness: 61-year-old gentleman came to the emergency room with history of discomfort and pain left lower extremity no history of trauma patient has history of bilateral leg swelling no history of DVT in the past Dennis had ultrasound of the left leg no evidence of DVT. Patient has burned Brown induration of the both lower extremities suggestive of a chronic venous hypertension patient also history of diabetes controlled with medication Neck is supple no bruit appreciated Chest is clear good and both lungs first and second sound normal Abdomen soft nontender Vascular femorals are palpable bilateral ulcers pedis palpable patient has a venous hypertension with Brown induration of both lower extremity patient has a small wound on the left lower extremity extremity no evidence of redness patient is on antibiotic and care of infectious disease Plan is we'll use medihoney gel to the wound and was at pressure dressing if patient goes home follow-up in office in 2 weeks he may have underlying in venous reflux of the deep system or great saphenous vein and short saphenous vein which can be checked as an outpatient Past Medical History Past Medical History: Asthma, COPD, Diabetes Mellitus, Eye Disorder, GERD/Reflux, Hyperlipidemia, Hypertension, Sleep Apnea/CPAP/BIPAP Additional Past Medical History / Comment(s): hx glaucoma with surgery, bilateral hand tremors, sleep apnea (no machine)., states positive blood in st [facility]. History of Any Multi-Drug Resistant Organisms: None Reported Past Surgical History: Heart Catheterization Additional Past Surgical History / Comment(s): bilateral eye laser surgery for cataract removal/lens implants, Past Anesthesia/Blood Transfusion Reactions: No Reported Reaction Additional Past Anesthesia/Blood Transfusion Reaction / Comm: . Past Psychological History: No Psychological Hx Reported Additional Psychological History / Comment(s): Pt resides with his daughter. Smoking Status: Never smoker Past Alcohol Use History: None Reported Additional Past Alcohol Use History / Comment(s): . Past Drug Use History: None Reported - Past Family History Mother Family Medical History: Diabetes Mellitus Additional Family Medical History / Comment(s): Mother in her sleep when she was in her 60s. Pt does not know cause of . Father Family Medical History: No Reported History Additional Family Medical History / Comment(s): . Medications and Allergies Home Medications Medication Instructions Recorded Confirmed Type Atorvastatin [Lipitor] 80 mg PO DAILY 09/10/17 09/01/22 History Insulin Glargine,Hum.rec.anlog 90 unit SQ BID 03/31/18 09/01/22 History [Basaglar Kwikpen U-100] Insulin Lispro [humaLOG Kwikpen] 24 unit SQ AC-TID 04/01/18 09/01/22 History Aspirin 81 mg PO DAILY #100 chew 02/10/19 09/01/22 Rx Nitroglycerin Sl Tabs [Nitrostat] 0.4 mg SUBLINGUAL Q5M PRN #20 tab 02/10/19 09/01/22 Rx Carbidopa-Levodopa 25-250 mg 1 tab PO TID 03/06/20 09/01/22 History [Sinemet 25-250 mg] Furosemide [Lasix] 20 mg PO DAILY 03/06/20 09/01/22 History lisinopriL [Zestril] 2.5 mg PO DAILY 03/06/20 09/01/22 History Ergocalciferol [Vitamin D2 (1250 1,250 mcg PO QMONTHLY 07/16/22 09/01/22 History Mcg = 55925 Iu)] HYDROcodone/APAP 7.5-325MG [[place] 1 tab PO Q6HR PRN 07/16/22 09/01/22 History 7.5-325] Hydrocortisone Cream 1 applic TOPICAL QID PRN 07/16/22 09/01/22 History [Hydrocortisone 2.5% Cream] Ibuprofen [Motrin] 800 mg PO QID PRN 07/16/22 09/01/22 History Latanoprost [Latanoprost 0.005%] 1 drop BOTH EYES HS 07/16/22 09/01/22 History Metoprolol Tartrate [Lopressor] 25 mg PO BID 07/16/22 09/01/22 History Cyclobenzaprine [Flexeril] 10 mg PO Q6H PRN 09/01/22 09/01/22 History Dulaglutide [Trulicity] 3 mg SQ TH 09/01/22 09/01/22 History Nystatin 100,000 Unit/gm Powd 1 applic TOPICAL BID 09/01/22 09/01/22 History [Mycostatin Powder] metFORMIN HCL 1,000 mg PO BID 09/01/22 09/01/22 History Allergies Allergy/AdvReac Type Severity Reaction Status Date / Time aluminum hydroxide Allergy Nausea & Verified 09/01/22 10:37 [From Mylanta] Vomiting barium iodide Allergy Nausea & Verified 09/01/22 10:37 Vomiting barium sulfate Allergy Nausea & Verified 09/01/22 10:37 Vomiting bee venom protein (honey bee) Allergy Swelling Verified 09/01/22 10:37 calcium carbonate Allergy Nausea & Verified 09/01/22 10:37 [From Mylanta] Vomiting magnesium [From Mylanta] Allergy Nausea & Verified 09/01/22 10:37 Vomiting magnesium hydroxide Allergy Nausea & Verified 09/01/22 10:37 [From Mylanta] Vomiting simethicone [From Mylanta] Allergy Nausea & Verified 09/01/22 10:37 Vomiting LYSAL SPRAY Allergy Unknown Dyspnea Uncoded 08/31/22 22:23 Surgical - Exam Vital Signs Temp Pulse Resp BP Pulse Ox 98.6 F 88 18 159/81 98 08/31/22 22:24 08/31/22 22:24 08/31/22 22:24 08/31/22 22:24 08/31/22 22:24 Results - Labs 08/31/22 22:40 09/02/22 06:14 Abnormal Lab Results - Last 24 Hours (Table) 09/01/22 09/01/22 09/02/22 Range/Units 17:22 20:42 06:56 POC Glucose (mg/dL) 167 H 171 H 150 H (70-110) mg/dL 09/02/22 Range/Units 12:00 POC Glucose (mg/dL) 151 H (70-110) mg/dL Microbiology - Last 24 Hours (Table) 09/01/22 06:55 Blood Culture - Preliminary Blood Diabetes panel 09/02/22 Range/Units 06:14 Creatinine 1.01 (0.66-1.25) mg/dL Pituitary panel 09/02/22 Range/Units 06:14 Creatinine 1.01 (0.66-1.25) mg/dL Adrenal panel 09/02/22 Range/Units 06:14 Creatinine 1.01 (0.66-1.25) mg/dL
[2022-09-02 17:03] LABS: Glucose,Whole Blood 128 mg/dL (70-110)
[2022-09-02 20:56] LABS: Glucose,Whole Blood 206 mg/dL (70-110)
[2022-09-02] MEDS: HYDROcodone/APAP 7.5-325MG 1 EACH TAB PO PRN (20:56)
[2022-09-02] MEDS: NYSTATIN 100,000 UNIT/GM POWD 15 GM TOPICAL SCH (20:56)
[2022-09-02] MEDS: LATANOPROST 0.005% OPHTH DROPS 2.5 ML BTL BOTH EYES SCH (20:57)
[2022-09-02] MEDS: metFORMIN 500 MG TAB PO SCH (20:57)
--- NOTE | 2022-09-02 22:10 | P.PN ---
Subjective Progress Note Date: 09/02/22 Principal diagnosis: L leg cellulitis Patient is a 61-year-old male with a past medical history significant for diabetes mellitus hypertension hyperlipidemia COPD presenting to the hospital for evaluation of bilateral lower extremity pain especially in the left leg, patient has been diagnosed with a left lower extremity cellulitis. On today's evaluation that is 09/02/2022, patient denies having any fever or any chills patient is breathing comfortably on room air no chest pain shortness of breath or cough no abdominal pain or any worsening pain to lower extremity Objective - Vital Signs Vital signs: Vital Signs Temp 97.4 F L 09/02/22 06:40 Pulse 76 09/02/22 06:40 Resp 17 09/02/22 06:40 BP 109/71 09/02/22 06:40 Pulse Ox 97 09/02/22 06:40 FiO2 Intake & Output 09/01/22 09/02/22 09/02/22 18:59 06:59 18:59 Intake Total 100 118 Balance 100 118 Intake: Oral 100 118 Other: Voiding Method Toilet # Voids 5 2 - Exam GENERAL DESCRIPTION: Middle-age male up in the room in no distress RESPIRATORY SYSTEM: Unlabored breathing , decreased breath sounds at bases HEART: S1 S2 regular rate and rhythm ABDOMEN: Soft , no tenderness EXTREMITIES: Bilateral lower extremity currently wrapped in William wrap he did have a slight swelling to the right big toe area - Labs CBC & Chem 7: 08/31/22 22:40 09/02/22 06:14 Labs: Abnormal Lab Results - Last 24 Hours (Table) 09/01/22 09/01/22 09/01/22 Range/Units 12:03 17:22 20:42 POC Glucose (mg/dL) 141 H 167 H 171 H (70-110) mg/dL 09/02/22 Range/Units 06:56 POC Glucose (mg/dL) 150 H (70-110) mg/dL Assessment and Plan (1) Cellulitis of left lower extremity Current Visit: Yes Status: Acute Code(s): L03.116 - CELLULITIS OF LEFT LOWER LIMB SNOMED Code(s): 735530791 Plan: 1patient was in the hospital with bilateral extremity swelling especially some swelling redness to the left leg superficial ulceration and drainage concerning for cellulitis likely from gram-positive skin andre patient did have elevated white count however no definite fever recorded 2- patient to continue with cefazolin 2 g every 8 hours along with William wrap to the leg to keep the swelling down Time with Patient: Less than 30
[2022-09-03 01:17] LABS: Glucose,Whole Blood 56 mg/dL (70-110)
[2022-09-03 01:55] LABS: Glucose,Whole Blood 90 mg/dL (70-110)
[2022-09-03 05:39] LABS: Glucose,Whole Blood 132 mg/dL (70-110)
[2022-09-03 07:05] LABS: African American GFR (CKD) >90 (>60 ml/min/1.73 sqM); Non-African American GFR(CKD) 87 (>60 ml/min/1.73 sqM)
[2022-09-03] MEDS: NYSTATIN 100,000 UNIT/GM POWD 15 GM TOPICAL SCH ×2 (08:20→20:57)
[2022-09-03] MEDS: CARBIDOPA-LEVODOPA 25-250 MG 1 EACH TAB PO SCH ×2 (08:21→20:57)
[2022-09-03] MEDS: FUROSEMIDE 20 MG TAB PO SCH (08:21)
[2022-09-03] MEDS: METOPROLOL TARTRATE 25 MG TAB PO SCH ×2 (08:21→20:57)
[2022-09-03] MEDS: ATORVASTATIN 80 MG TAB PO SCH (08:21)
[2022-09-03] MEDS: metFORMIN 500 MG TAB PO SCH ×2 (08:21→20:57)
[2022-09-03] MEDS: ASPIRIN 81 MG PO SCH (08:21)
[2022-09-03] MEDS: INSULIN ASPART (NovoLOG) 100 UNIT/ML VIAL SQ SCH ×3 (08:22→17:44)
[2022-09-03] MEDS: INSULIN DETEMIR (LEVEMIR) 100 UNIT/ML SYR SQ SCH (08:22)
[2022-09-03 12:01] LABS: Glucose,Whole Blood 95 mg/dL (70-110)
[2022-09-03 17:17] LABS: Glucose,Whole Blood 127 mg/dL (70-110)
[2022-09-03 20:27] LABS: Glucose,Whole Blood 142 mg/dL (70-110)
[2022-09-03] MEDS: MORPHINE SULFATE 4 MG/ML SYRINGE IV PRN (21:00)
[2022-09-03] MEDS: LATANOPROST 0.005% OPHTH DROPS 2.5 ML BTL BOTH EYES SCH (21:25)
--- NOTE | 2022-09-03 22:24 | P.PN ---
Subjective Progress Note Date: 09/03/22 Principal diagnosis: L leg cellulitis Patient is a 61-year-old male with a past medical history significant for diabetes mellitus hypertension hyperlipidemia COPD presenting to the hospital for evaluation of bilateral lower extremity pain especially in the left leg, patient has been diagnosed with a left lower extremity cellulitis. On today's evaluation that is 09/03/2022, patient remains to be afebrile, patient is breathing comfortably on room air , the patient denies chest pain shortness of breath or cough no abdominal pain or any worsening pain to lower extremity Objective - Vital Signs Vital signs: Vital Signs Temp 97.7 F 09/03/22 14:23 Pulse 77 09/03/22 14:23 Resp 16 09/03/22 14:23 BP 123/69 09/03/22 14:23 Pulse Ox 98 09/03/22 14:23 FiO2 Intake & Output 09/02/22 09/03/22 09/03/22 18:59 06:59 18:59 Intake Total 286 118 Balance 286 118 Intake: Intake, IV Titration 50 Amount ceFAZolin 2 gm In Sodium 50 Chloride 0.9% 50 ml @ 100 mls/hr IVPB Q8HR [facility] Rx# :[id number] Oral 236 118 Other: Voiding Method Toilet # Voids 2 - Exam GENERAL DESCRIPTION: Middle-age male up in the room in no distress RESPIRATORY SYSTEM: Unlabored breathing , decreased breath sounds at bases HEART: S1 S2 regular rate and rhythm ABDOMEN: Soft , no tenderness EXTREMITIES: Bilateral lower extremity currently wrapped in William wrap he did have a slight swelling to the right big toe area - Labs CBC & Chem 7: 08/31/22 22:40 09/03/22 05:36 Labs: Abnormal Lab Results - Last 24 Hours (Table) 09/02/22 09/02/22 09/03/22 Range/Units 17:02 20:55 01:16 POC Glucose (mg/dL) 128 H 206 H 56 L (70-110) mg/dL 09/03/22 Range/Units 05:38 POC Glucose (mg/dL) 132 H (70-110) mg/dL Microbiology - Last 24 Hours (Table) 09/01/22 06:55 Blood Culture - Preliminary Blood 09/01/22 06:40 Blood Culture - Preliminary Blood Assessment and Plan (1) Cellulitis of left lower extremity Current Visit: Yes Status: Acute Code(s): L03.116 - CELLULITIS OF LEFT LOWER LIMB SNOMED Code(s): 021385058 Plan: 1patient was in the hospital with bilateral extremity swelling especially some swelling redness to the left leg superficial ulceration and drainage concerning for cellulitis likely from gram-positive skin andre patient did have elevated white count however no definite fever recorded 2- patient seem to have shown clinical improvement and will continue with cefazolin 2 g every 8 hours along with William wrap to the leg to keep the swelling down Time with Patient: Less than 30
--- NOTE | 2022-09-03 23:17 | PN ---
PROGRESS NOTE DATE OF SERVICE: 09/02/2022 CHIEF COMPLAINT: Dependent edema and cellulitis. HISTORY OF PRESENT ILLNESS: This gentleman is improving. Legs are wrapped. He is having some edema and slight cellulitis of right great toe. PHYSICAL EXAMINATION: CHEST: Clear. CARDIAC: Normal. ABDOMEN: Protuberant, soft. EXTREMITIES: Normal. Right great toe is slightly inflamed. IMPRESSION: 1. Dependent edema of lower extremities with cellulitis and transudation. 2. Diabetes mellitus. 3. Hypertension. PLAN: Continue with local wound care and IV antibiotics. He will be referred to vascular surgery. MMODL / IJN: [id number] /
--- NOTE | 2022-09-03 23:23 | PN ---
PROGRESS NOTE DATE OF SERVICE: 09/03/2022 CHIEF COMPLAINT: Cellulitis lower extremities. HISTORY OF PRESENT ILLNESS: This gentleman is doing well. Sugars are good. PHYSICAL EXAM: CHEST: Clear. CARDIAC: Normal. ABDOMEN: Soft, nontender. IMPRESSION: 1. Cellulitis of lower extremities with edema. 2. Hypertension. 3. Diabetes. PLAN: Continue with IV antibiotics and local wound care. MMODL / IJN: [id number] /
[2022-09-04 05:26] LABS: African American GFR (CKD) >90 (>60 ml/min/1.73 sqM); Non-African American GFR(CKD) 79 (>60 ml/min/1.73 sqM)
[2022-09-04 06:11] LABS: Glucose,Whole Blood 97 mg/dL (70-110)
[2022-09-04] MEDS: INSULIN DETEMIR (LEVEMIR) 100 UNIT/ML SYR SQ SCH (07:45)
[2022-09-04] MEDS: CARBIDOPA-LEVODOPA 25-250 MG 1 EACH TAB PO SCH ×2 (09:17→20:36)
[2022-09-04] MEDS: ASPIRIN 81 MG PO SCH (09:19)
[2022-09-04] MEDS: ATORVASTATIN 80 MG TAB PO SCH (09:19)
[2022-09-04] MEDS: metFORMIN 500 MG TAB PO SCH ×2 (09:19→20:36)
[2022-09-04] MEDS: INSULIN ASPART (NovoLOG) 100 UNIT/ML VIAL SQ SCH ×4 (09:20→17:53)
[2022-09-04] MEDS: NYSTATIN 100,000 UNIT/GM POWD 15 GM TOPICAL SCH ×2 (09:21→20:37)
[2022-09-04] MEDS: FUROSEMIDE 20 MG TAB PO SCH (09:26)
[2022-09-04] MEDS: METOPROLOL TARTRATE 25 MG TAB PO SCH ×2 (09:26→20:36)
[2022-09-04 12:15] LABS: Glucose,Whole Blood 122 mg/dL (70-110)
--- NOTE | 2022-09-04 14:47 | P.PN ---
Subjective Progress Note Date: 09/04/22 Principal diagnosis: L leg cellulitis Patient is a 61-year-old male with a past medical history significant for diabetes mellitus hypertension hyperlipidemia COPD presenting to the hospital for evaluation of bilateral lower extremity pain especially in the left leg, patient has been diagnosed with a left lower extremity cellulitis. On today's evaluation that is 09/04/2022, patient continues, patient is afebrile, patient is breathing comfortably on room air , the patient denies chest pain shortness of breath or cough no abdominal pain, the patient denies pain to lower extremity Objective - Vital Signs Vital signs: Vital Signs Temp 98.2 F 09/04/22 07:00 Pulse 75 09/04/22 07:00 Resp 16 09/04/22 09:18 BP 121/72 09/04/22 07:00 Pulse Ox 95 09/04/22 07:00 FiO2 Intake & Output 09/03/22 09/04/22 09/04/22 18:59 06:59 18:59 Intake Total 168 Balance 168 Intake: Intake, IV Titration 50 Amount ceFAZolin 2 gm In Sodium 50 Chloride 0.9% 50 ml @ 100 mls/hr IVPB Q8HR [facility] Rx# :[id number] Oral 118 Other: Voiding Method Toilet Toilet # Voids 2 - Exam GENERAL DESCRIPTION: Middle-age male up in the room in no distress RESPIRATORY SYSTEM: Unlabored breathing , decreased breath sounds at bases HEART: S1 S2 regular rate and rhythm ABDOMEN: Soft , no tenderness EXTREMITIES: Bilateral lower extremity currently wrapped in William wrap he did have a slight swelling to the right big toe area - Labs CBC & Chem 7: 08/31/22 22:40 09/04/22 04:50 Labs: Abnormal Lab Results - Last 24 Hours (Table) 09/03/22 09/03/22 09/04/22 Range/Units 17:16 20:26 12:14 POC Glucose (mg/dL) 127 H 142 H 122 H (70-110) mg/dL Microbiology - Last 24 Hours (Table) 09/01/22 06:55 Blood Culture - Preliminary Blood 09/01/22 06:40 Blood Culture - Preliminary Blood Assessment and Plan (1) Cellulitis of left lower extremity Current Visit: Yes Status: Acute Code(s): L03.116 - CELLULITIS OF LEFT LOWER LIMB SNOMED Code(s): 350599294 Plan: 1patient was in the hospital with bilateral extremity swelling especially some swelling redness to the left leg superficial ulceration and drainage concerning for cellulitis likely from gram-positive skin andre patient did have elevated white count however no definite fever recorded 2- patient did have some clinical improvement and will continue with cefazolin 2 g every 8 hours along with William wrap to the legs Time with Patient: Less than 30
[2022-09-04 17:24] LABS: Glucose,Whole Blood 110 mg/dL (70-110)
[2022-09-04 20:14] LABS: Glucose,Whole Blood 132 mg/dL (70-110)
[2022-09-04] MEDS: LATANOPROST 0.005% OPHTH DROPS 2.5 ML BTL BOTH EYES SCH (20:37)
[2022-09-05 01:42] LABS: Glucose,Whole Blood 84 mg/dL (70-110)
[2022-09-05 02:29] VITALS: RESP 16
[2022-09-05 06:07] LABS: Glucose,Whole Blood 143 mg/dL (70-110)
[2022-09-05] MEDS: INSULIN DETEMIR (LEVEMIR) 100 UNIT/ML SYR SQ SCH (06:27)
[2022-09-05] MEDS: INSULIN ASPART (NovoLOG) 100 UNIT/ML VIAL SQ SCH ×3 (07:29→13:29)
[2022-09-05] MEDS: NYSTATIN 100,000 UNIT/GM POWD 15 GM TOPICAL SCH (08:32)
[2022-09-05 08:50] VITALS: PULSE 75
[2022-09-05] MEDS: CARBIDOPA-LEVODOPA 25-250 MG 1 EACH TAB PO SCH (09:46)
[2022-09-05] MEDS: METOPROLOL TARTRATE 25 MG TAB PO SCH (09:46)
[2022-09-05] MEDS: FUROSEMIDE 20 MG TAB PO SCH (09:46)
[2022-09-05] MEDS: ATORVASTATIN 80 MG TAB PO SCH (09:46)
[2022-09-05] MEDS: metFORMIN 500 MG TAB PO SCH (09:46)
[2022-09-05] MEDS: ASPIRIN 81 MG PO SCH (09:46)
[2022-09-05 12:40] LABS: Glucose,Whole Blood 133 mg/dL (70-110)
[2022-09-05] MEDS ORDERED: NON FORMULARY DRUG (Dulaglutide [Trulicity] 3 MG/0.5 ML Each) SQ SCH (14:00)
[2022-09-05 15:56] VITALS: BP 120/62; TEMP 97.8
--- NOTE | 2022-09-05 15:57 | P.PN ---
Subjective Progress Note Date: 09/05/22 Principal diagnosis: L leg cellulitis Patient is a 61-year-old male with a past medical history significant for diabetes mellitus hypertension hyperlipidemia COPD presenting to the hospital for evaluation of bilateral lower extremity pain especially in the left leg, patient has been diagnosed with a left lower extremity cellulitis. On today's evaluation that is 09/05/2022, patient is afebrile, patient is breathing comfortably on room air , the patient denies chest pain shortness of breath or cough no abdominal pain, the patient denies pain to lower extremity, no new symptoms Objective - Vital Signs Vital signs: Vital Signs Temp 97.6 F 09/05/22 07:30 Pulse 75 09/05/22 07:30 Resp 16 09/05/22 08:00 BP 136/74 09/05/22 07:30 Pulse Ox 99 09/05/22 07:30 FiO2 Intake & Output 09/04/22 09/05/22 09/05/22 18:59 06:59 18:59 Intake Total 120 118 Balance 120 118 Intake: Oral 120 118 Other: Voiding Method Toilet Toilet Toilet # Voids 2 - Exam GENERAL DESCRIPTION: Middle-age male up in the room in no distress RESPIRATORY SYSTEM: Unlabored breathing , decreased breath sounds at bases HEART: S1 S2 regular rate and rhythm ABDOMEN: Soft , no tenderness EXTREMITIES: Bilateral lower extremity currently wrapped in William wrap he did have a slight swelling to the right big toe area - Labs CBC & Chem 7: 08/31/22 22:40 09/04/22 04:50 Labs: Abnormal Lab Results - Last 24 Hours (Table) 09/04/22 09/05/22 09/05/22 Range/Units 20:13 06:06 12:39 POC Glucose (mg/dL) 132 H 143 H 133 H (70-110) mg/dL Microbiology - Last 24 Hours (Table) 09/01/22 06:40 Blood Culture - Preliminary Blood 09/01/22 06:55 Blood Culture - Preliminary Blood Assessment and Plan (1) Cellulitis of left lower extremity Current Visit: Yes Status: Acute Code(s): L03.116 - CELLULITIS OF LEFT LOWER LIMB SNOMED Code(s): 408339563 Plan: 1patient was in the hospital with bilateral extremity swelling especially some swelling redness to the left leg superficial ulceration and drainage concerning for cellulitis likely from gram-positive skin andre patient did have elevated white count however no definite fever recorded 2- patient did have some clinical improvement and will finish therapy with oral Keflex, Local wound care with Aquacel silver dressing and William wrap Time with Patient: Less than 30
[2022-09-05] MEDS ORDERED: CEPHALEXIN 500 MG CAP PO SCH (16:00)
--- NOTE | 2022-09-06 02:36 | PN ---
PROGRESS NOTE DATE OF SERVICE: 09/04/2022 CHIEF COMPLAINT: Cellulitis of left leg with venostasis disease and dermatitis. HISTORY OF PRESENT ILLNESS: This gentleman is doing well. Wraps are helping. Edema is almost completely gone. PHYSICAL EXAMINATION: CHEST: Clear. CARDIAC: Normal. ABDOMEN: Protuberant, soft. EXTREMITIES: Both the legs are wrapped from the knees down. IMPRESSION: 1. Venous stasis disease with cellulitis and transudation. 2. Hypertension. 3. Diabetes. PLAN: He is doing well and we will probably try to get him out of the hospital tomorrow. MMODL / IJN: [id number] /
--- NOTE | 2022-09-06 03:36 | DS ---
DISCHARGE SUMMARY CHIEF COMPLAINT: Cellulitis of the left leg. HISTORY OF PRESENT ILLNESS AND PHYSICAL EXAMINATION: Details of this man's history and physical can be found in the initial workup. LABORATORY STUDIES: While he was in the hospital, he had laboratory studies, details of which can be found in the laboratory section of his chart. COURSE IN THE HOSPITAL: After admission, he was placed on bedrest, started intravenous fluids and started on IV antibiotics. He was seen by Infectious Disease and Vascular Surgery. The legs were wrapped and edema subsided. He was doing well. It was felt that he could go home on the on light activity about the house, his usual medication, and he will be set up with home nursing for dressing changes. He will be seen in the office in several days. FINAL DIAGNOSES: 1. Cellulitis of the left lower extremity. 2. Venous stasis of lower extremities. 3. Stasis dermatitis. 4. Transudation in the left leg cellulitic area. 5. Obesity. 6. Hypertension. 7. Insulin-dependent diabetes mellitus. OPERATIONS: None. CONSULTATIONS: Vascular Surgery, Infectious Disease. He is improved. MMODL / IJN: [id number] /
== END 2022-09-05 16:53 | disposition home health service (06) ==
LOC: EC 21:59 → 4SSUR 09-01 02:22 → 6NMEDSUR 09-01 03:06
PROVIDERS: ADMIT Family Medicine; ATTEND Family Medicine
DX: L03.116 Cellulitis of left lower limb (principal); L03.031 Cellulitis of right toe; J44.9 Chronic obstructive pulmonary disease, unspecified; I87.2 Venous insufficiency (chronic) (peripheral); E11.9 Type 2 diabetes mellitus without complications; K21.9 Gastro-esophageal reflux disease without esophagitis; I87.8 Other specified disorders of veins; E78.5 Hyperlipidemia, unspecified; I10 Essential (primary) hypertension; G20 Parkinson's disease; E66.9 Obesity, unspecified; Z98.42 Cataract extraction status, left eye; Z98.41 Cataract extraction status, right eye; Z79.899 Other long term (current) drug therapy; Z79.4 Long term (current) use of insulin; Z79.82 Long term (current) use of aspirin; Z88.8 Allergy status to other drugs, medicaments and biological substances; Z96.1 Presence of intraocular lens; Z63.4 Disappearance and death of family member; Z83.3 Family history of diabetes mellitus; Z79.84 Long term (current) use of oral hypoglycemic drugs; Z68.42 Body mass index [BMI] 45.0-49.9, adult
CPT/HCPCS: 96376; 96366 ×6; 96367 ×2; 96375; 96365 ×2; 99285; 36415; 83880; 80053; 82565 ×3; 83605; 85025; 86140; 87040; 73590; 71046; 93970; G0378 ×5; J3370; J2270 ×2; J0690 ×5; J0692

== ENCOUNTER 2022-10-26 00:47 | Observation (INO) | payer BC ==
[2022-10-26] MEDS ORDERED: FAMOTIDINE 20 MG/2 ML VIAL IV STA (02:04)
[2022-10-26] MEDS ORDERED: MORPHINE SULFATE 4 MG/ML SYRINGE IVP STA (02:04)
[2022-10-26 02:16] LABS: Basophils # (A) 0.1 k/uL (0-0.2); Basophils % (A) 1 %; Eosinophils # (A) 0.3 k/uL (0-0.7); Eosinophils % (A) 2 %; HCT 39.3 % (39.0-53.0); Lymphocytes # (A) 2.5 k/uL (1.0-4.8); Lymphocytes % (A) 22 %; MCHC 33.1 g/dL (31.0-37.0); MCV 87.6 fL (80.0-100.0); Mean Platelet Volume 8.4; Monocytes # (A) 0.6 k/uL (0-1.0); Monocytes % (A) 5 %; Neutrophils % (A) 68 %; Platelet Count 185 k/uL (150-450); RBC 4.49 m/uL (4.30-5.90); RDW 14.8 % (11.5-15.5); WBC 11.6 k/uL (3.8-10.6)
[2022-10-26 02:22] LABS: ALT 23 U/L (4-49); AST 25 U/L (17-59); African American GFR (CKD) 73 (>60 ml/min/1.73 sqM); Albumin 3.8 g/dL (3.5-5.0); Alkaline Phosphatase 87 U/L (38-126); Anion Gap 10 mmol/L; Blood Urea Nitrogen 26 mg/dL (9-20); Calcium 9.5 mg/dL (8.4-10.2); Carbon Dioxide 23 mmol/L (22-30); Chloride 102 mmol/L (98-107); Glucose 184 mg/dL (74-99); Lipase 283 U/L (23-300); Magnesium 1.8 mg/dL (1.6-2.3); Non-African American GFR(CKD) 63 (>60 ml/min/1.73 sqM); Potassium 4.9 mmol/L (3.5-5.1); Sodium 135 mmol/L (137-145); Total Bilirubin 0.5 mg/dL (0.2-1.3); Total Protein 7.1 g/dL (6.3-8.2)
[2022-10-26 02:25] LABS: INR 0.9 (<1.2); Partial Thromboplastin Time 23.1 sec (22.0-30.0)
[2022-10-26 02:31] LABS: NT-Pro-B-Type Natriuretic Pept 36 pg/mL
[2022-10-26] MEDS ORDERED: NALOXONE 0.4 MG/ML 1 ML VIAL IV PRN (04:13)
--- NOTE | 2022-10-26 04:13 | ED ---
Chest Pain HPI - General Chief Complaint: Chest Pain Stated Complaint: Chest Tightness Time Seen by Provider: 10/26/22 00:50 Source: patient Mode of arrival: ambulatory Limitations: no limitations - History of Present Illness Initial Comments: 61-year-old male with past medical history of diabetes, hypertension, hyperlipidemia who presents to the emergency department with reported chest pain and shortness of breath. States that his symptoms started Friday and has been intermittent. The shortness of breath is with rest. Denies underlying lung conditions. Also admits to chest tightness. No ripping or tearing sensation to his back. No fevers or chills. He denies previous history of coronary disease. Has had stress testing which was reportedly negative according to the patient. He also admits to me that last week he was shopping at [place] when he had symptoms of left-sided facial numbness. Symptoms only lasted for a few hours before they resolved. He denies having any numbness or weakness in his left arm or leg. Symptoms are fully resolved at this time. Denies history of stroke. No head trauma. No other alleviating, precipitating or modifying factors - Related Data Home Medications Medication Instructions Recorded Confirmed Atorvastatin [Lipitor] 80 mg PO DAILY 09/10/17 09/01/22 Insulin Glargine,Hum.rec.anlog 90 unit SQ BID 03/31/18 09/01/22 [Basaglar Kwikpen U-100] Insulin Lispro [humaLOG Kwikpen] 24 unit SQ AC-TID 04/01/18 09/01/22 Carbidopa-Levodopa 25-250 mg 1 tab PO TID 03/06/20 09/01/22 [Sinemet 25-250 mg] Furosemide [Lasix] 20 mg PO DAILY 03/06/20 09/01/22 lisinopriL [Zestril] 2.5 mg PO DAILY 03/06/20 09/01/22 Ergocalciferol [Vitamin D2 (1250 1,250 mcg PO QMONTHLY 07/16/22 09/01/22 Mcg = 59654 Iu)] HYDROcodone/APAP 7.5-325MG [[place] 1 tab PO Q6HR PRN 07/16/22 09/01/22 7.5-325] Hydrocortisone Cream 1 applic TOPICAL QID PRN 07/16/22 09/01/22 [Hydrocortisone 2.5% Cream] Ibuprofen [Motrin] 800 mg PO QID PRN 07/16/22 09/01/22 Latanoprost [Latanoprost 0.005%] 1 drop BOTH EYES HS 07/16/22 09/01/22 Metoprolol Tartrate [Lopressor] 25 mg PO BID 07/16/22 09/01/22 Cyclobenzaprine [Flexeril] 10 mg PO Q6H PRN 09/01/22 09/01/22 Dulaglutide [Trulicity] 3 mg SQ TH 09/01/22 09/01/22 Nystatin 100,000 Unit/gm Powd 1 applic TOPICAL BID 09/01/22 09/01/22 [Mycostatin Powder] metFORMIN HCL 1,000 mg PO BID 09/01/22 09/01/22 Previous Rx's Medication Instructions Recorded Aspirin 81 mg PO DAILY #100 chew 02/10/19 Nitroglycerin Sl Tabs [Nitrostat] 0.4 mg SUBLINGUAL Q5M PRN #20 tab 02/10/19 Cephalexin [Keflex] 500 mg PO QID #40 cap 09/05/22 Allergies Allergy/AdvReac Type Severity Reaction Status Date / Time aluminum hydroxide Allergy Nausea & Verified 09/01/22 10:37 [From Mylanta] Vomiting barium iodide Allergy Nausea & Verified 09/01/22 10:37 Vomiting barium sulfate Allergy Nausea & Verified 09/01/22 10:37 Vomiting bee venom protein (honey bee) Allergy Swelling Verified 09/01/22 10:37 calcium carbonate Allergy Nausea & Verified 09/01/22 10:37 [From Mylanta] Vomiting magnesium [From Mylanta] Allergy Nausea & Verified 09/01/22 10:37 Vomiting magnesium hydroxide Allergy Nausea & Verified 09/01/22 10:37 [From Mylanta] Vomiting simethicone [From Mylanta] Allergy Nausea & Verified 09/01/22 10:37 Vomiting LYSAL SPRAY Allergy Unknown Dyspnea Uncoded 08/31/22 22:23 Review of Systems ROS Statement: Those systems with pertinent positive or pertinent negative responses have been documented in the HPI. ROS Other: All systems not noted in ROS Statement are negative. Past Medical History Past Medical History: Asthma, COPD, Diabetes Mellitus, Eye Disorder, GERD/Reflux, Hyperlipidemia, Hypertension, Sleep Apnea/CPAP/BIPAP Additional Past Medical History / Comment(s): hx glaucoma with surgery, bilateral hand tremors, sleep apnea (no machine)., states positive blood in stool. History of Any Multi-Drug Resistant Organisms: None Reported Past Surgical History: Heart Catheterization Additional Past Surgical History / Comment(s): bilateral eye laser surgery for cataract removal/lens implants, Past Anesthesia/Blood Transfusion Reactions: No Reported Reaction Additional Past Anesthesia/Blood Transfusion Reaction / Comment(s): . Past Psychological History: No Psychological Hx Reported Smoking Status: Never smoker Past Alcohol Use History: None Reported Past Drug Use History: None Reported - Past Family History Mother Family Medical History: Diabetes Mellitus Additional Family Medical History / Comment(s): Mother in her sleep when she was in her 60s. Pt does not know cause of . Father Family Medical History: No Reported History Additional Family Medical History / Comment(s): . General Exam Limitations: no limitations General appearance: alert, in no apparent distress Head exam: Present: atraumatic, normocephalic, normal inspection Eye exam: Present: normal appearance, PERRL, EOMI. Absent: scleral icterus, conjunctival injection, periorbital swelling ENT exam: Present: normal exam, mucous membranes moist Neck exam: Present: normal inspection. Absent: tenderness, meningismus, lymphadenopathy Respiratory exam: Present: normal lung sounds bilaterally. Absent: respiratory distress, wheezes, rales, rhonchi, stridor Cardiovascular Exam: Present: regular rate, normal rhythm, normal heart sounds. Absent: systolic murmur, diastolic murmur, rubs, gallop, clicks GI/Abdominal exam: Present: soft, normal bowel sounds. Absent: distended, tenderness, guarding, rebound, rigid Extremities exam: Present: normal inspection, full ROM, normal capillary refill. Absent: tenderness, pedal edema, joint swelling, calf tenderness Back exam: Present: normal inspection Neurological exam: Present: alert, oriented X3, CN II-XII intact Psychiatric exam: Present: normal affect, normal mood Skin exam: Present: warm, dry, intact, normal color. Absent: rash Course Vital Signs 10/26/22 10/26/22 10/26/22 00:49 03:41 03:42 Temperature 98.4 F Pulse Rate 94 87 82 Respiratory 18 18 Rate Blood Pressure 157/82 120/62 120/62 O2 Sat by Pulse 97 98 97 Oximetry 10/26/22 10/26/22 10/26/22 04:00 05:00 06:00 Temperature Pulse Rate 83 85 Respiratory 20 Rate Blood Pressure 133/81 141/74 O2 Sat by Pulse 96 97 94 L Oximetry Chest Pain MDM - MDM Was pt. sent in by a medical professional or institution (, [place], [facility], urgent care, hospital, or halfway...) When possible be specific @ -No Did you speak to anyone other than the patient for history (EMS, parent, family, police, friend...)? What history was obtained from this source @ -No Did you review nursing and triage notes (agree or disagree)? Why? @ -I reviewed and agree with nursing and triage notes Were old charts reviewed (outside hosp., previous admission, EMS record, old EKG, old radiological studies, urgent care reports/EKG's, halfway records)? Report findings @ -No old charts were reviewed Differential Diagnosis (chest pain, altered mental status, abdominal pain women, abdominal pain men, vaginal bleeding, weakness, fever, dyspnea, syncope, headache, dizziness, GI bleed, back pain, seizure, CVA, palpatations, mental health, musculoskeletal)? @ -Differential Chest Pain: Stable Angina, Unstable Angina, STEMI, NSTEMI Aortic Dissection, Pneumothorax, Musculoskeletal, Esophageal Spasm GERD, Cholecystitis, Pancreatitis, Zoster, this is not meant to be an all-inclusive list. EKG interpreted by me (3pts min.). @ -Yes and demonstrates sinus rhythm with rate of 83. MD interval 163. QRS 108. QTC 399. No acute ST segment elevations or depressions X-rays interpreted by me (1pt min.). @ -Yes and demonstrates no acute process CT interpreted by me (1pt min.). @ -Yes and demonstrates possible lacunar infarct U/S interpreted by me (1pt. min.). @ -None done What testing was considered but not performed or refused? (CT, X-rays, U/S, labs)? Why? @ -None What meds were considered but not given or refused? Why? @ -None Did you discuss the management of the patient with other professionals (professionals i.e. , [facility], [facility], lab, RT, psych nurse, social science instructor, sewer line photo inspector, teacher, international first officer, casework supervisor)? Give summary @ -No Was smoking cessation discussed for >3mins.? @ -No Was critical care preformed (if so, how long)? @ -No Were there social determinants of health that impacted care today? How? (Homelessness, low income, unemployed, alcoholism, drug addiction, transportation, low edu. Level, literacy, decrease access to med. care, detention, rehab)? @ -No Was there de-escalation of care discussed even if they declined (Discuss DNR or withdrawal of care, Hospice)? DNR status @ -No What co-morbidities impacted this encounter? (DM, HTN, Smoking, COPD, CAD, Cancer, CVA, ARF, Chemo, Hep., AIDS, mental health diagnosis, sleep apnea, morbid obesity)? @ -Hypertension Was patient admitted / discharged? Hospital course, mention meds given and route, prescriptions, significant lab abnormalities, going to OR and other pertinent info. @ -Upon arrival patient was placed into room 9. A thorough history and physical exam was performed. Patient continues to have chest pain however states that his facial numbness has completely resolved several days ago. IV is established and laboratory studies are conducted. Patient remains on continuous pulse ox and cardiac monitoring. 12-lead EKG was obtained. Laboratory studies are reviewed. Troponin is negative. Chest x-ray is read by myself as negative for any acute intrathoracic process. CT of the brain was read by the radiologist as a 0.5 cm hypodensity within the right brainstem which could be lacunar infarct. Patient's NIH is 0 at this time. I did recommend admission. Spoke with Michelle who agreed to admit the patient. I will put cardiology and neurology on consult. Patient remained in stable condition awaiting a bed on the floor Undiagnosed new problem with uncertain prognosis? @ -Yes Drug Therapy requiring intensive monitoring for toxicity (Heparin, Nitro, Insulin, Cardizem)? @ -No Were any procedures done? @ -No Diagnosis/symptom? @ -Acute chest pain, acute respiratory insufficiency, transient facial numbness-resolved Acute, or Chronic, or Acute on Chronic? @ -Acute Uncomplicated (without systemic symptoms) or Complicated (systemic symptoms)? @ -Complicated Side effects of treatment? @ -No Exacerbation, Progression, or Severe Exacerbation? @ -No Poses a threat to life or bodily function? How? (Chest pain, [place], MT, pneumonia, PE, COPD, DKA, ARF, appy, cholecystitis, CVA, Diverticulitis, Homicidal, Suicidal, threat to staff... and all critical care pts) @ -No Disposition Clinical Impression: Chest pain, Exertional dyspnea Disposition: ADMITTED IP TO THIS HOSP Condition: Stable Is patient prescribed a controlled substance at d/c from ED?: No Time of Disposition: 04:13 Decision to Admit Reason: Admit from EC Decision Date: 10/26/22 Decision Time: 04:13
--- NOTE | 2022-10-26 07:53 | CT ---
EXAMINATION TYPE: CT brain wo con DATE OF EXAM: 10/26/2022 COMPARISON: None INDICATION: Left-sided facial numbness DLP: 1202.04 mGycm, Automated exposure control for dose reduction was used. CONTRAST: None CT of the brain is performed utilizing 3 mm thick sections through the posterior fossa and 3 mm thick sections through the remaining calvarium. Study is performed within 24 hours of arrival to the hosp ital. No abnormal hyperdensity is present to suggest an acute intracranial hemorrhage. No mass lesion is evident. There is a small area of hypodensity within the right brain stem, series 202 image 22. Small lacunar infarct could be considered. There is some beam hardening artifact near this level and artifact shoul d be considered. MRI can be performed for closer evaluation. Ventricles and sulci are appropriate for the patient age. Paranasal sinuses and mastoid air cells within the [id number] are clear. IMPRESSIONS: 1. 0.5 cm hypodensity right brain stem, correlate with symptoms. Small lacunar infarct could be con sidered. MRI can be performed as clinically indicated.
[2022-10-26] MEDS ORDERED: ASPIRIN 325 MG TAB PO STA (08:07)
--- NOTE | 2022-10-26 08:35 | XR ---
EXAMINATION TYPE: XR chest 2V DATE OF EXAM: 10/26/2022 COMPARISON: 09/01/2022 INDICATION: Chest pain TECHNIQUE: Frontal and lateral views of the chest are obtained. FINDINGS: The heart size is normal. The pulmonary vasculature is normal. The lungs are clear. IMPRESSION: 1. No acute pulmonary process.
--- NOTE | 2022-10-26 11:05 | P.CNNES ---
History of Present Illness Consult date: 10/26/22 Requesting physician: Rhoda Ayala Reason for Consult: left facial numbness with abnormal ct History of Present Illness: This is a 61-year-old gentleman with history of diabetes, hypertension, hyperlipidemia who presented emergency department because of chest pain shortness of breath. Neurology is consulted for episode of left facial numbness and abnormal CT. Patient states that last week he was shopping at a grocery store and had episode of left facial numbness in his symptoms lasted a few hours and the resolved. He denies any numbness associate anywhere else, focal weakness, difficulty getting his words out or swallowing. Patient is on home medication of aspirin 81 mg daily. Patient denies any history of stroke or TIAs in the past. He states that he has tremor and mouth tremor as well as the upper extremity tremor mostly in the right and the his neurologist (Dr. Burnett) did not feel was Parkinson's and according to patient he felt something else and he is unsure what medication he was started. Patient stated that in the past he was started on carbidopa levodopa and patient felt improvement in the tremor but again his neurologist did not feel was Parkinson's therefore he stated that he was taking off the medication according to the patient. But upon reviewing the his EMR is not still verified but there is questionable he is on carbidopa levodopa is a home medication. Some of the workup during this hospital visit consisted of: Calcium is 9.5, magnesium is a 1.8, sodium is 135, serum glucose is 184. CT of the head is reported as 0.5 cm hypodensity in the right brainstem, correlate with symptoms. I'll lacunar infarcts be considered. MRI can be performed as clinically indicated. Personally reviewed that as CT and it was a hard to ascertain the brainstem with her this is an acute or subacute ischemia or artifact or vessel. Otherwise no appreciable acute or subacute ischemia or any bleeding noted. Review of Systems Review of system: The 12 point system was reviewed and apparent positive and negative per HPI. Past Medical History Past Medical History: Asthma, COPD, Diabetes Mellitus, Eye Disorder, GERD/Reflux, Hyperlipidemia, Hypertension, Sleep Apnea/CPAP/BIPAP Additional Past Medical History / Comment(s): hx glaucoma with surgery, bilateral hand tremors, sleep apnea (no machine)., states positive blood in stool. History of Any Multi-Drug Resistant Organisms: None Reported Past Surgical History: Heart Catheterization Additional Past Surgical History / Comment(s): bilateral eye laser surgery for cataract removal/lens implants, Past Anesthesia/Blood Transfusion Reactions: No Reported Reaction Additional Past Anesthesia/Blood Transfusion Reaction / Comment(s): . Past Psychological History: No Psychological Hx Reported Smoking Status: Never smoker Past Alcohol Use History: None Reported Past Drug Use History: None Reported - Past Family History Mother Family Medical History: Diabetes Mellitus Additional Family Medical History / Comment(s): Mother in her sleep when she was in her 60s. Pt does not know cause of . Father Family Medical History: No Reported History Additional Family Medical History / Comment(s): . Medications and Allergies Home Medications Medication Instructions Recorded Confirmed Type Atorvastatin [Lipitor] 80 mg PO DAILY 09/10/17 09/01/22 History Insulin Glargine,Hum.rec.anlog 90 unit SQ BID 03/31/18 09/01/22 History [Basaglar Kwikpen U-100] Insulin Lispro [humaLOG Kwikpen] 24 unit SQ AC-TID 04/01/18 09/01/22 History Aspirin 81 mg PO DAILY #100 chew 02/10/19 09/01/22 Rx Nitroglycerin Sl Tabs [Nitrostat] 0.4 mg SUBLINGUAL Q5M PRN #20 tab 02/10/19 09/01/22 Rx Carbidopa-Levodopa 25-250 mg 1 tab PO TID 03/06/20 09/01/22 History [Sinemet 25-250 mg] Furosemide [Lasix] 20 mg PO DAILY 03/06/20 09/01/22 History lisinopriL [Zestril] 2.5 mg PO DAILY 03/06/20 09/01/22 History Ergocalciferol [Vitamin D2 (1250 1,250 mcg PO QMONTHLY 07/16/22 09/01/22 History Mcg = 61041 Iu)] HYDROcodone/APAP 7.5-325MG [[place] 1 tab PO Q6HR PRN 07/16/22 09/01/22 History 7.5-325] Hydrocortisone Cream 1 applic TOPICAL QID PRN 07/16/22 09/01/22 History [Hydrocortisone 2.5% Cream] Ibuprofen [Motrin] 800 mg PO QID PRN 07/16/22 09/01/22 History Latanoprost [Latanoprost 0.005%] 1 drop BOTH EYES HS 07/16/22 09/01/22 History Metoprolol Tartrate [Lopressor] 25 mg PO BID 07/16/22 09/01/22 History Cyclobenzaprine [Flexeril] 10 mg PO Q6H PRN 09/01/22 09/01/22 History Dulaglutide [Trulicity] 3 mg SQ TH 09/01/22 09/01/22 History Nystatin 100,000 Unit/gm Powd 1 applic TOPICAL BID 09/01/22 09/01/22 History [Mycostatin Powder] metFORMIN HCL 1,000 mg PO BID 09/01/22 09/01/22 History Cephalexin [Keflex] 500 mg PO QID #40 cap 09/05/22 Rx Allergies Allergy/AdvReac Type Severity Reaction Status Date / Time aluminum hydroxide Allergy Nausea & Verified 09/01/22 10:37 [From Mylanta] Vomiting barium iodide Allergy Nausea & Verified 09/01/22 10:37 Vomiting barium sulfate Allergy Nausea & Verified 09/01/22 10:37 Vomiting bee venom protein (honey bee) Allergy Swelling Verified 09/01/22 10:37 calcium carbonate Allergy Nausea & Verified 09/01/22 10:37 [From Mylanta] Vomiting magnesium [From Mylanta] Allergy Nausea & Verified 09/01/22 10:37 Vomiting magnesium hydroxide Allergy Nausea & Verified 09/01/22 10:37 [From Mylanta] Vomiting simethicone [From Mylanta] Allergy Nausea & Verified 09/01/22 10:37 Vomiting LYSAL SPRAY Allergy Unknown Dyspnea Uncoded 08/31/22 22:23 Physical Examination - Vital Signs Vital Signs: Vital Signs Temp Pulse Resp BP Pulse Ox 10/26/22 06:00 85 20 141/74 94 L 10/26/22 05:00 133/81 97 10/26/22 04:00 83 96 10/26/22 03:42 82 18 120/62 97 10/26/22 03:41 87 120/62 98 10/26/22 00:49 98.4 F 94 18 157/82 97 Intake and Output 10/25/22 10/26/22 10/26/22 22:59 06:59 14:59 Other: Weight 120.202 kg GENERAL: The patient is lying in bed and is not in acute distress. NEUROLOGICAL: Higher mental function: The patient is awake, alert, oriented to self, place and time. Patient is following commands. No aphasia and no neglect. Cranial nerves: The pupils are round, equal and reactive to light. Visual alvarez are full to confrontation throughout. Extraocular movement is intact no nystagmus is noted. Facial sensation is normal to touch throughout. The facial strength is normal throughout. Hearing is mildly decreased bilaterally to hand rub. Tongue is midline and moved [id number] without any difficulty. Patient has underlying mouth tremor. No dysarthria is noted. Shoulder shrug is normal bilaterally. Motor: The strength is 5 over 5 throughout. Has underlying right upper extremity resting tremor. Normal tone and bulk. Cerebellum: Normal finger to nose heel to caceres bilaterally. Sensation: Sensation is normal to touch throughout. Reflexes (right/left): 1+ throughout. Plantars are mute bilaterally. Results - Laboratory Findings CBC and BMP: 10/26/22 01:55 10/26/22 01:55 Abnormal Lab Findings: Abnormal Labs 10/26/22 10/26/22 01:55 01:55 WBC 11.6 H Neutrophils # 8.0 H Sodium 135 L BUN 26 H Glucose 184 H Assessment and Plan Assessment: This is a 61-year-old gentleman who presented emergency department because of chest pain or shortness of breath. It seems a week ago he had left facial numbness which lasted for a couple hours to resolve. CT of the head shows 0.570 hypodensity in the right brainstem, small lacunar infarct could be considered. Transient episode the left facial numbness with questionable abnormality over the right brainstem on the CT. Possible subacute ischemia. No IV tpa since symptoms resolved and outside window for tpa (>4.5 hours) and risk outweigh benefit. Chest pain or shortness of breath Tremor is resting on the right upper extremity and mouth appears likely due to Parkinson's disease but according to the patient was notified by his neurologist not Parkinson's. Diabetes mellitus Hypertension Hyperlipidemia Plan: I ordered stroke workup: MRI of the brain, CT angiography of the head and neck, lipid panel hemoglobin A1c, TSH ED team ordered 2-D echo is pending The patient was given aspirin 325mg once. I started patient on ASA 325mg daily. I'll hold off on dual antiplatelet until we receive further images and if the patient does have acute or subacute ischemia then I'll put the patient on dual antiplatelet of aspirin and Plavix I also started the patient on Lipitor 20 mg daily at bedtime. I also ordered vitamin B12, folate to further assess there is any abnormality 2 pitting for the facial numbness. Continue Neurochecks Continue cardiac monitoring PT OT is consulted Pharmacy still attempting to verify his home medication but preliminary is seems that the patient is on carbidopa levodopa 55730 one tablet 3 times a day but according to patient he is not on that medication. If he is not on Sinemet then I'll allow start him since I feel the patient's the tremor is due to underlying Parkinson's disease especially since his symptoms improved in the past according to the patient while he was on it. Cardiology team is consulted for acute chest pain with exertional dyspnea We'll defer the rest of the medical management to the primary team For DVT prophylaxis I started the patient on subcu heparin 5000 units every 12 hours The plan was discussed with the patient. Thank you for the consultation Time with Patient: Greater than 30
--- NOTE | 2022-10-26 11:53 | P.CRDCN ---
History of Present Illness History of present illness: HISTORY OF PRESENT ILLNESS: This is a 61-year-old male with a past medical history significant for nonobstructive coronary artery disease, hypertension, hyperlipidemia, obstructive sleep apnea, diabetes, and Parkinson's disease. Patient follows in the office with Dr. Black. We have been asked to see the patient in consultation for chest pain. Patient examined at the bedside in the emergency room. Patient states last week he had an episode of left-sided facial numbness. He reports last Friday he was at [employer] when he began to have chest pain. He is described the pain as a really bad heartburn and that then turned into chest tightness. He states the pain lasted for approximately 3-4 hours. He does report feeling short of breath and diaphoretic with this. He states the pain radiated into his back. He states when he got home he drinks some water and rested and the pain resolved on its own. The patient reports having another episode similar to this yesterday. At the time of examination, he denies any chest pain or pressure. He denies any shortness of breath. Vital signs are stable. * EKG reveals sinus mechanism with incomplete right bundle branch block. No signs of acute ischemia. * Chest xray negative for acute process * CT brain 0.5 cm hypodensity right brainstem. Small lacunar infarct could be considered. * Laboratory data: WBC 11.6. Hemoglobin 13.0. Platelet count 185. Sodium 135. Potassium 4.9. BUN 26. Creatinine 1.23. Troponin negative 2. ProBNP 36. * Current home cardiac medication list has not been updated at the time of this dictation * Most recent echocardiogram obtained in June 2021 revealing ejection fraction 55%, mild pulmonary hypertension, mild mitral and tricuspid insufficiency * Underwent Cardiolite stress test in March 2019 with no evidence of ischemia * Cardiac catheterization history: January 2018 revealing 50% proximal RCA lesion. 35% body of left main lesion, 35% mid LAD. Circumflex has a 40% mid lesion. A branch of the LAD MDs directly into pulmonary artery. Right dominant system. FFR of RCA was negative. REVIEW OF SYSTEMS: At the time of my exam: CONSTITUTIONAL: Denies fever or chills. HEENT: Denies blurred vision, vision changes, or eye pain. Denies hemoptysis CARDIOVASCULAR: Denies chest pain. Denies orthopnea. Denies PND. Denies pal pitations RESPIRATORY: Denies shortness of breath. GASTROINTESTINAL: Denies abdominal pain. Denies nausea or vomiting. HEMATOLOGIC: Denies bleeding disorders. GENITOURINARY: Denies any blood in urine. SKIN: Denies pruitis. Denies rash. PHYSICAL EXAM: VITAL SIGNS: Reviewed. GENERAL: Well-developed in no acute distress. HEENT: Head is normocephalic. Pupils are equal, round. Sclerae anicteric. Mucous membranes of the mouth are moist. Neck supple. No JVD or thyromegaly LUNGS: Respirations even and unlabored. Lungs essentially clear to auscultation bilaterally. HEART: Regular rate and rhythm. S1 and S2 heard. ABDOMEN: Soft. Nondistended. Nontender. EXTREMITIES: Normal range of motion. No clubbing or cyanosis. Peripheral pulses intact. No lower extremity edema NEUROLOGIC: Awake and alert. Oriented x 3. ASSESSMENT: Left-sided facial numbness, resolved Possible small lacunar infarct per CT brain Chest pain, troponins negative 2 and EKG without evidence of ischemia Nonobstructive coronary artery disease Hypertension Hyperlipidemia Obstructive sleep apnea Diabetes Parkinson's disease Morbid obesity: BMI 45.5 PLAN: An acute coronary event has been ruled out Resume home cardiac medications Add Imdur 30 mg daily Obtain 2-D echo to assess cardiac structure and function Neurology following. CT angiogram and MRI of the brain ordered. If neurology workup is negative, patient will be scheduled for Lexiscan stress test on Friday Further recommendations pending patient's course Nurse practitioner note has been reviewed by physician. Signing provider agrees with the documented findings, assessment, and plan of care. Past Medical History Past Medical History: Asthma, COPD, Diabetes Mellitus, Eye Disorder, GERD/Reflux, Hyperlipidemia, Hypertension, Sleep Apnea/CPAP/BIPAP Additional Past Medical History / Comment(s): hx glaucoma with surgery, bilateral hand tremors, sleep apnea (no machine)., states positive blood in stool. History of Any Multi-Drug Resistant Organisms: None Reported Past Surgical History: Heart Catheterization Additional Past Surgical History / Comment(s): bilateral eye laser surgery for cataract removal/lens implants, Past Anesthesia/Blood Transfusion Reactions: No Reported Reaction Additional Past Anesthesia/Blood Transfusion Reaction / Comment(s): . Past Psychological History: No Psychological Hx Reported Smoking Status: Never smoker Past Alcohol Use History: None Reported Past Drug Use History: None Reported - Past Family History Mother Family Medical History: Diabetes Mellitus Additional Family Medical History / Comment(s): Mother in her sleep when she was in her 60s. Pt does not know cause of . Father Family Medical History: No Reported History Additional Family Medical History / Comment(s): . Medications and Allergies Home Medications Medication Instructions Recorded Confirmed Type Atorvastatin [Lipitor] 80 mg PO DAILY 09/10/17 09/01/22 History Insulin Glargine,Hum.rec.anlog 90 unit SQ BID 03/31/18 09/01/22 History [Basaglar Kwikpen U-100] Insulin Lispro [humaLOG Kwikpen] 24 unit SQ AC-TID 04/01/18 09/01/22 History Aspirin 81 mg PO DAILY #100 chew 02/10/19 09/01/22 Rx Nitroglycerin Sl Tabs [Nitrostat] 0.4 mg SUBLINGUAL Q5M PRN #20 tab 02/10/19 09/01/22 Rx Carbidopa-Levodopa 25-250 mg 1 tab PO TID 03/06/20 09/01/22 History [Sinemet 25-250 mg] Furosemide [Lasix] 20 mg PO DAILY 03/06/20 09/01/22 History lisinopriL [Zestril] 2.5 mg PO DAILY 03/06/20 09/01/22 History Ergocalciferol [Vitamin D2 (1250 1,250 mcg PO QMONTHLY 07/16/22 09/01/22 History Mcg = 52012 Iu)] HYDROcodone/APAP 7.5-325MG [[place] 1 tab PO Q6HR PRN 07/16/22 09/01/22 History 7.5-325] Hydrocortisone Cream 1 applic TOPICAL QID PRN 07/16/22 09/01/22 History [Hydrocortisone 2.5% Cream] Ibuprofen [Motrin] 800 mg PO QID PRN 07/16/22 09/01/22 History Latanoprost [Latanoprost 0.005%] 1 drop BOTH EYES HS 07/16/22 09/01/22 History Metoprolol Tartrate [Lopressor] 25 mg PO BID 07/16/22 09/01/22 History Cyclobenzaprine [Flexeril] 10 mg PO Q6H PRN 09/01/22 09/01/22 History Dulaglutide [Trulicity] 3 mg SQ TH 09/01/22 09/01/22 History Nystatin 100,000 Unit/gm Powd 1 applic TOPICAL BID 09/01/22 09/01/22 History [Mycostatin Powder] metFORMIN HCL 1,000 mg PO BID 09/01/22 09/01/22 History Cephalexin [Keflex] 500 mg PO QID #40 cap 09/05/22 Rx Allergies Allergy/AdvReac Type Severity Reaction Status Date / Time aluminum hydroxide Allergy Nausea & Verified 09/01/22 10:37 [From Mylanta] Vomiting barium iodide Allergy Nausea & Verified 09/01/22 10:37 Vomiting barium sulfate Allergy Nausea & Verified 09/01/22 10:37 Vomiting bee venom protein (honey bee) Allergy Swelling Verified 09/01/22 10:37 calcium carbonate Allergy Nausea & Verified 09/01/22 10:37 [From Mylanta] Vomiting magnesium [From Mylanta] Allergy Nausea & Verified 09/01/22 10:37 Vomiting magnesium hydroxide Allergy Nausea & Verified 09/01/22 10:37 [From Mylanta] Vomiting simethicone [From Mylanta] Allergy Nausea & Verified 09/01/22 10:37 Vomiting LYSAL SPRAY Allergy Unknown Dyspnea Uncoded 08/31/22 22:23 Physical Exam Vitals: Vital Signs Temp Pulse Resp BP Pulse Ox 10/26/22 06:00 85 20 141/74 94 L 10/26/22 05:00 133/81 97 10/26/22 04:00 83 96 10/26/22 03:42 82 18 120/62 97 10/26/22 03:41 87 120/62 98 10/26/22 00:49 98.4 F 94 18 157/82 97 Intake and Output 10/25/22 10/26/22 10/26/22 22:59 06:59 14:59 Other: Weight 120.202 kg Results 10/26/22 01:55 10/26/22 01:55 Cardiac Enzymes 10/26/22 10/26/22 10/26/22 Range/Units 01:55 01:55 07:02 AST 25 (17-59) U/L Troponin I <0.012 <0.012 (0.000-0.034) ng/mL Coagulation 10/26/22 Range/Units 01:55 PT 10.0 (9.0-12.0) sec APTT 23.1 (22.0-30.0) sec CBC 10/26/22 Range/Units 01:55 WBC 11.6 H (3.8-10.6) k/uL RBC 4.49 (4.30-5.90) m/uL Hgb 13.0 (13.0-17.5) gm/dL Hct 39.3 (39.0-53.0) % Plt Count 185 (150-450) k/uL Comprehensive Metabolic Panel 10/26/22 Range/Units 01:55 Sodium 135 L (137-145) mmol/L Potassium 4.9 (3.5-5.1) mmol/L Chloride 102 (98-107) mmol/L Carbon Dioxide 23 (22-30) mmol/L BUN 26 H (9-20) mg/dL Creatinine 1.23 (0.66-1.25) mg/dL Glucose 184 H (74-99) mg/dL Calcium 9.5 (8.4-10.2) mg/dL AST 25 (17-59) U/L ALT 23 (4-49) U/L Alkaline Phosphatase 87 (38-126) U/L Total Protein 7.1 (6.3-8.2) g/dL Albumin 3.8 (3.5-5.0) g/dL Current Medications Generic Name Dose Route Start Last Admin Trade Name Freq PRN Reason Stop Dose Admin Atorvastatin Calcium 20 mg 10/26/22 21:00 Atorvastatin 20 Mg Tab PO HS MCKINLEY Heparin Sodium (Porcine) 5,000 unit 10/26/22 21:00 Heparin Sodium,Porcine 5,000 Unit/Ml 1 Ml Vial SQ Q12HR MCKINLEY Naloxone HCl 0.2 mg 10/26/22 04:13 Naloxone 0.4 Mg/Ml 1 Ml Vial IV Q2M PRN Opioid Reversal Intake and Output 10/25/22 10/26/22 10/26/22 22:59 06:59 14:59 Other: Weight 120.202 kg 10/26/22 01:55 10/26/22 01:55
[2022-10-26] MEDS ORDERED: FUROSEMIDE 40 MG TAB PO SCH (12:00)
--- NOTE | 2022-10-26 12:57 | CT ---
EXAMINATION TYPE: CT angio head neck DATE OF EXAM: 10/26/2022 HISTORY: Left facial numbness COMPARISON: None CT DLP: 1117 mGycm. Automated Exposure Control for Dose Reduction was Utilized. TECHNIQUE: CTA scan of the neck is performed with IV Contrast, patient injected with 65 mL of Isovue 370, axial images are obtained, coronal and sagittal reformatted images are reviewed. Three-D recons tructed images are created on an independent workstation and reviewed. Source images are reviewed. FINDINGS: Carotid/Vascular Structures: There is a two-vessel arch with common origin of the innominate and left common carotid artery. Common carotid arteries appear unremarkable. Vertebral arteries are codominan t. Common carotid arteries bifurcate normally into internal and external carotid arteries without foc al stenosis internal carotid arteries and vertebral arteries are patent to the skull base. Cervical of [place]: Vertebral basilar system appears normal. Posterior cerebral vasculature is unrema rkable. Internal carotid arteries bifurcate normally into A1 and M1 segments. A2 segments are normal. The anterior communicating artery is patent. Posterior communicating arteries are not identified. IMPRESSION: 1. No flow-limiting stenosis bilateral carotid bifurcations. 2. Normal [place] of [place] NASCET criteria was used in interpretation of this exam?
[2022-10-26] MEDS ORDERED: HYDROcodone/APAP 7.5-325MG 1 EACH TAB PO PRN (13:44)
[2022-10-26] MEDS ORDERED: NITROGLYCERIN SL TABS 0.4 MG TAB SUBLINGUAL PRN (13:44)
[2022-10-26] MEDS ORDERED: HYDROCORTISONE 1% CREAM 30 GM TUBE TOPICAL PRN (13:44)
[2022-10-26] MEDS ORDERED: CYCLOBENZAPRINE 5 MG TAB PO PRN (13:44)
--- NOTE | 2022-10-26 13:44 | P.HPIM ---
History of Present Illness 61-year-old male came in with compensative chest pressure like sensation, with mild exertion the pain feels like heartburn followed by chest tightness patient denied any diaphoresis denied any nausea vomiting lightheadedness chest pain is nonpruritic in nature, EKG showed sinus rhythm with an incomplete right bundle branch block chest x-ray did not show any significant abnormality CT of the brain showed a 0.5 cm hypodensity right brainstem with the possibility of a small lacunar stroke, unknown whether this is chronic and acute as patient was complaining of facial numbness which happened 2 days ago presently resolved. Patient does have mild leukocytosis without any evidence of infection patient had a CT angios the head and neck which did not show any significant abnormality patient was a valid by cardiology and neurology neurology is working him up for stroke with MRI. Patient is in aspirin. Patient was evaluated by cardiology is recommending a stress test on Friday. Patient denied any shortness of breath orthopnea proximal nocturnal dyspnea no evidence of congestive heart failure BNP is only 36 but patient does have significant peripheral edema. REVIEW OF SYSTEMS: CONSTITUTIONAL: No fever, no malaise, no fatigue. HEENT: No recent visual problems or hearing problems. Denied any sore throat. CARDIOVASCULAR: No orthopnea, PND, no palpitations, no syncope. PULMONARY: No shortness of breath, no cough, no hemoptysis. GASTROINTESTINAL: No diarrhea, no nausea, no vomiting, no abdominal pain. NEUROLOGICAL: No headaches, no weakness, no numbness. HEMATOLOGICAL: Denies any bleeding or petechiae. GENITOURINARY: Denies any burning micturition, frequency, or urgency. MUSCULOSKELETAL/RHEUMATOLOGICAL: Denies any joint pain, swelling, or any muscle pain. ENDOCRINE: Denies any polyuria or polydipsia. The rest of the 14-point review of systems is negative. PHYSICAL EXAMINATION: GENERAL: The patient is alert and oriented x3, not in any acute distress. Well developed, well nourished. Obese HEENT: Pupils are round and equally reacting to light. EOMI. No scleral icterus. No conjunctival pallor. Normocephalic, atraumatic. No pharyngeal erythema. No thyromegaly. CARDIOVASCULAR: S1 and S2 present. No murmurs, rubs, or gallops. PULMONARY: Chest is clear to auscultation, no wheezing or crackles. ABDOMEN: Soft, nontender, nondistended, normoactive bowel sounds. No palpable organomegaly. MUSCULOSKELETAL: No joint swelling or deformity. EXTREMITIES: No cyanosis, clubbing, patient does have 2+ pitting pedal edema bilateral lower extremities NEUROLOGICAL: Gross neurological examination did not reveal any focal deficits. SKIN: No rashes. Assessment and plan 1 chest pain rule out acute current syndromes, may have unstable angina, possible stress test on Friday. -Left-sided facial numbness, possibility of TIA/stroke: Neurology evaluated the patient patient is on aspirin and statin, echocardiac M is being obtained CT head and CT angios the head as mentioned above. MRI will be obtained. -Hypertension -Bilateral peripheral edema chronic venous insufficiency patient will be started on IV Lasix for that -Hyperlipidemia -Obesity sleep apnea -Type 2 diabetes mellitus -Parkinson's disease For above-mentioned chronic medical problems patient will be resumed on appropriate home medications. 4 type 2 diabetes mellitus Will use sliding scale insulin and hold off on oral hypoglycemic agents DVT prophylaxis: Subcutaneous heparin Past Medical History Past Medical History: Asthma, COPD, Diabetes Mellitus, Eye Disorder, GERD/Reflux, Hyperlipidemia, Hypertension, Sleep Apnea/CPAP/BIPAP Additional Past Medical History / Comment(s): hx glaucoma with surgery, bilateral hand tremors, sleep apnea (no machine)., states positive blood in stool. History of Any Multi-Drug Resistant Organisms: None Reported Past Surgical History: Heart Catheterization Additional Past Surgical History / Comment(s): bilateral eye laser surgery for cataract removal/lens implants, Past Anesthesia/Blood Transfusion Reactions: No Reported Reaction Additional Past Anesthesia/Blood Transfusion Reaction / Comment(s): . Past Psychological History: No Psychological Hx Reported Smoking Status: Never smoker Past Alcohol Use History: None Reported Past Drug Use History: None Reported - Past Family History Mother Family Medical History: Diabetes Mellitus Additional Family Medical History / Comment(s): Mother in her sleep when she was in her 60s. Pt does not know cause of . Father Family Medical History: No Reported History Additional Family Medical History / Comment(s): . Medications and Allergies Home Medications Medication Instructions Recorded Confirmed Type Atorvastatin [Lipitor] 80 mg PO DAILY 09/10/17 10/26/22 History Insulin Glargine,Hum.rec.anlog 100 unit SQ BID 03/31/18 10/26/22 History [Basaglar Kwikpen U-100] Insulin Lispro [humaLOG Kwikpen] 24 unit SQ AC-TID 04/01/18 10/26/22 History Aspirin 81 mg PO DAILY #100 chew 02/10/19 10/26/22 Rx Nitroglycerin Sl Tabs [Nitrostat] 0.4 mg SUBLINGUAL Q5M PRN #20 tab 02/10/19 10/26/22 Rx Carbidopa-Levodopa 25-250 mg 1 tab PO TID 03/06/20 10/26/22 History [Sinemet 25-250 mg] lisinopriL [Zestril] 2.5 mg PO DAILY 03/06/20 10/26/22 History Ergocalciferol [Vitamin D2 (1250 1,250 mcg PO QMONTHLY 07/16/22 10/26/22 History Mcg = 46643 Iu)] HYDROcodone/APAP 7.5-325MG [[place] 1 tab PO Q6HR PRN 07/16/22 10/26/22 History 7.5-325] Hydrocortisone Cream 1 applic TOPICAL QID PRN 07/16/22 10/26/22 History [Hydrocortisone 2.5% Cream] Ibuprofen [Motrin] 800 mg PO QID PRN 07/16/22 10/26/22 History Latanoprost [Latanoprost 0.005%] 1 drop BOTH EYES HS 07/16/22 10/26/22 History Metoprolol Tartrate [Lopressor] 25 mg PO BID 07/16/22 10/26/22 History Cyclobenzaprine [Flexeril] 10 mg PO Q6H PRN 09/01/22 10/26/22 History Dulaglutide [Trulicity] 3 mg SQ TH 09/01/22 10/26/22 History Empagliflozin [Jardiance] 25 mg PO DAILY 10/26/22 10/26/22 History Furosemide [Lasix] 40 mg PO DAILY 10/26/22 10/26/22 History Propranolol LA [Inderal LA] 60 mg PO DAILY 10/26/22 10/26/22 History Allergies Allergy/AdvReac Type Severity Reaction Status Date / Time aluminum hydroxide Allergy Nausea & Verified 10/26/22 11:48 [From Mylanta] Vomiting barium iodide Allergy Nausea & Verified 10/26/22 11:48 Vomiting barium sulfate Allergy Nausea & Verified 10/26/22 11:48 Vomiting bee venom protein (honey bee) Allergy Swelling Verified 10/26/22 11:48 calcium carbonate Allergy Nausea & Verified 10/26/22 11:48 [From Mylanta] Vomiting magnesium [From Mylanta] Allergy Nausea & Verified 10/26/22 11:48 Vomiting magnesium hydroxide Allergy Nausea & Verified 10/26/22 11:48 [From Mylanta] Vomiting simethicone [From Mylanta] Allergy Nausea & Verified 10/26/22 11:48 Vomiting LYSAL SPRAY Allergy Unknown Dyspnea Uncoded 08/31/22 22:23 Physical Exam Vitals: Vital Signs Temp Pulse Resp BP Pulse Ox 10/26/22 11:30 96 16 165/90 98 10/26/22 06:00 85 20 141/74 94 L 10/26/22 05:00 133/81 97 10/26/22 04:00 83 96 10/26/22 03:42 82 18 120/62 97 10/26/22 03:41 87 120/62 98 10/26/22 00:49 98.4 F 94 18 157/82 97 Intake and Output 10/25/22 10/26/22 10/26/22 22:59 06:59 14:59 Other: Weight 120.202 kg Results CBC & Chem 7: 10/26/22 01:55 10/26/22 01:55 Labs: Abnormal Lab Results - Last 24 Hours (Table) 10/26/22 10/26/22 Range/Units 01:55 01:55 WBC 11.6 H (3.8-10.6) k/uL Neutrophils # 8.0 H (1.3-7.7) k/uL Sodium 135 L (137-145) mmol/L BUN 26 H (9-20) mg/dL Glucose 184 H (74-99) mg/dL
[2022-10-26] MEDS: FUROSEMIDE 10 MG/ML 4 ML VIAL IV SCH (14:44)
[2022-10-26] MEDS: METOPROLOL TARTRATE 25 MG TAB PO SCH ×2 (14:45→20:14)
[2022-10-26] MEDS: ISOSORBIDE MONONITRATE ER 30 MG TAB.ER.24H PO SCH (14:45)
[2022-10-26] MEDS: DAPAGLIFLOZIN PROPANEDIOL 10 MG TABLET PO SCH (15:20)
[2022-10-26] MEDS: CARBIDOPA-LEVODOPA 25-250 MG 1 EACH TAB PO SCH ×2 (15:47→21:38)
[2022-10-26] MEDS: HEPARIN SODIUM,PORCINE 5,000 UNIT/ML 1 ML VIAL SQ SCH ×2 (15:49→23:21)
[2022-10-26 16:40] LABS: Glucose,Whole Blood 233 mg/dL (70-110)
[2022-10-26] MEDS: INSULIN ASPART (NovoLOG) 100 UNIT/ML VIAL SQ SCH (16:41)
[2022-10-26 20:07] LABS: Glucose,Whole Blood 206 mg/dL (70-110)
[2022-10-26] MEDS: ATORVASTATIN 80 MG TAB PO SCH (20:14)
[2022-10-26] MEDS ORDERED: HEPARIN SODIUM,PORCINE 5,000 UNIT/ML 1 ML VIAL SQ SCH (21:00)
[2022-10-26] MEDS ORDERED: ATORVASTATIN 20 MG TAB PO SCH (21:00)
[2022-10-26] MEDS: INSULIN DETEMIR (LEVEMIR) 100 UNIT/ML SYR SQ SCH (21:02)
[2022-10-27] MEDS: INSULIN DETEMIR (LEVEMIR) 100 UNIT/ML SYR SQ SCH ×2 (07:04→20:53)
[2022-10-27 07:05] LABS: Glucose,Whole Blood 184 mg/dL (70-110)
[2022-10-27] MEDS: FUROSEMIDE 10 MG/ML 4 ML VIAL IV SCH (08:03)
[2022-10-27] MEDS: INSULIN ASPART (NovoLOG) 100 UNIT/ML VIAL SQ SCH ×3 (08:03→16:48)
[2022-10-27] MEDS: HEPARIN SODIUM,PORCINE 5,000 UNIT/ML 1 ML VIAL SQ SCH ×3 (08:03→23:17)
[2022-10-27] MEDS: METOPROLOL TARTRATE 25 MG TAB PO SCH ×2 (08:04→20:53)
[2022-10-27] MEDS: CARBIDOPA-LEVODOPA 25-250 MG 1 EACH TAB PO SCH ×3 (08:04→23:17)
[2022-10-27] MEDS: ASPIRIN 325 MG TAB PO SCH (08:04)
[2022-10-27] MEDS: DAPAGLIFLOZIN PROPANEDIOL 10 MG TABLET PO SCH (08:04)
[2022-10-27] MEDS: ISOSORBIDE MONONITRATE ER 30 MG TAB.ER.24H PO SCH (08:04)
[2022-10-27 08:20] LABS: Chol/HDL Ratio 5.92 Ratio
[2022-10-27] MEDS ORDERED: PROPRANOLOL LA 60 MG CAP.SA.24H PO SCH (09:00)
[2022-10-27 09:09] LABS: Basophils # (A) 0.1 k/uL (0-0.2); Basophils % (A) 0 %; Eosinophils # (A) 0.2 k/uL (0-0.7); Eosinophils % (A) 2 %; HCT 39.3 % (39.0-53.0); HGB 12.9 gm/dL (13.0-17.5); Lymphocytes # (A) 1.9 k/uL (1.0-4.8); Lymphocytes % (A) 15 %; MCH 29.3 pg (25.0-35.0); MCHC 32.9 g/dL (31.0-37.0); MCV 88.9 fL (80.0-100.0); Mean Platelet Volume 7.8; Monocytes # (A) 0.6 k/uL (0-1.0); Monocytes % (A) 5 %; Neutrophils # (A) 10.1 k/uL (1.3-7.7); Neutrophils % (A) 77 %; Platelet Count 179 k/uL (150-450); RBC 4.42 m/uL (4.30-5.90); RDW 14.7 % (11.5-15.5); WBC 13.1 k/uL (3.8-10.6)
[2022-10-27 09:30] LABS: African American GFR (CKD) 58 (>60 ml/min/1.73 sqM); Anion Gap 10 mmol/L; Blood Urea Nitrogen 34 mg/dL (9-20); Calcium 9.4 mg/dL (8.4-10.2); Carbon Dioxide 24 mmol/L (22-30); Chloride 101 mmol/L (98-107); Glucose 211 mg/dL (74-99); Non-African American GFR(CKD) 51 (>60 ml/min/1.73 sqM); Potassium 4.8 mmol/L (3.5-5.1); Sodium 135 mmol/L (137-145)
[2022-10-27] MEDS: CYANOCOBALAMIN 500 MCG TAB PO SCH (09:43)
[2022-10-27] MEDS: FOLIC ACID 1 MG TAB PO SCH (09:43)
--- NOTE | 2022-10-27 11:39 | P.PN ---
Subjective Progress Note Date: 10/27/22 I am following-up seeing the patient and he feels he is back at baseline and denies any new neurological issues. Denies of any further numbness. Objective - Vital Signs Vital signs: Vital Signs Temp 98.7 F 10/27/22 03:29 Pulse 84 10/27/22 09:57 Resp 18 10/27/22 09:57 BP 114/66 10/27/22 08:00 Pulse Ox 97 10/27/22 08:00 FiO2 Intake & Output 10/26/22 10/27/22 10/27/22 18:59 06:59 18:59 Weight 120.202 kg 116.9 kg - Exam GENERAL: The patient is sitting in a recliner chair and is not in acute distress. NEUROLOGICAL: Higher mental function: The patient is awake, alert, oriented to self, place and time. Patient is following commands. No aphasia and no neglect. Cranial nerves: The pupils are round, equal and reactive to light. Visual alvarez are full to confrontation throughout. Extraocular movement is intact no nystagmus is noted. Facial sensation is normal to touch throughout. The facial strength is normal throughout. Hearing is mildly decreased bilaterally to hand rub. Tongue is midline and moved [id number] without any difficulty. Patient has underlying mouth tremor. No dysarthria is noted. Shoulder shrug is normal bilaterally. Motor: The strength is 5 over 5 throughout. Has underlying right upper extremity resting tremor. Normal tone and bulk. Cerebellum: Normal finger to nose heel to caceres bilaterally. Sensation: Sensation is normal to touch throughout. Reflexes (right/left): 1+ throughout. Plantars are mute bilaterally. Some of the workup during this hospital visit consisted of: Vitamin B12 is 362 Folate is 8.50 Hemoglobin A1c is 8.9. Lipid panel as triglycerides 223, cholesterol is 186, LDLs 110, HDL 31. Calcium is 9.5, magnesium is a 1.8, sodium is 135, serum glucose is 184. CT of the head is reported as 0.5 cm hypodensity in the right brainstem, correlate with symptoms. I'll lacunar infarcts be considered. MRI can be performed as clinically indicated. Personally reviewed that as CT and it was a hard to ascertain the brainstem with her this is an acute or subacute ischemia or artifact or vessel. Otherwise no appreciable acute or subacute ischemia or any bleeding noted. CT angiography of the head and neck was reported as no flow limiting stenosis bilateral carotid bifurcation. Normal [place]. - Labs CBC & Chem 7: 10/27/22 08:30 10/27/22 08:30 Labs: Abnormal Lab Results - Last 24 Hours (Table) 10/26/22 10/26/22 10/26/22 Range/Units 14:05 14:05 16:36 WBC (3.8-10.6) k/uL Hgb (13.0-17.5) gm/dL Neutrophils # (1.3-7.7) k/uL Sodium (137-145) mmol/L BUN (9-20) mg/dL Creatinine (0.66-1.25) mg/dL Glucose (74-99) mg/dL POC Glucose (mg/dL) 233 H (70-110) mg/dL Hemoglobin A1c 8.9 H (<=6.0) % Triglycerides 223.00 H (0.00-149.00) mg/dL VLDL Cholesterol, Calc 44.60 H (5.00-40.00) mg/dL HDL Cholesterol 31.40 L (40.00-60.00) mg/dL 10/26/22 10/27/22 10/27/22 Range/Units 20:06 07:03 08:30 WBC 13.1 H (3.8-10.6) k/uL Hgb 12.9 L (13.0-17.5) gm/dL Neutrophils # 10.1 H (1.3-7.7) k/uL Sodium (137-145) mmol/L BUN (9-20) mg/dL Creatinine (0.66-1.25) mg/dL Glucose (74-99) mg/dL POC Glucose (mg/dL) 206 H 184 H (70-110) mg/dL Hemoglobin A1c (<=6.0) % Triglycerides (0.00-149.00) mg/dL VLDL Cholesterol, Calc (5.00-40.00) mg/dL HDL Cholesterol (40.00-60.00) mg/dL 10/27/22 Range/Units 08:30 WBC (3.8-10.6) k/uL Hgb (13.0-17.5) gm/dL Neutrophils # (1.3-7.7) k/uL Sodium 135 L (137-145) mmol/L BUN 34 H (9-20) mg/dL Creatinine 1.48 H (0.66-1.25) mg/dL Glucose 211 H (74-99) mg/dL POC Glucose (mg/dL) (70-110) mg/dL Hemoglobin A1c (<=6.0) % Triglycerides (0.00-149.00) mg/dL VLDL Cholesterol, Calc (5.00-40.00) mg/dL HDL Cholesterol (40.00-60.00) mg/dL Assessment and Plan Assessment: This is a 61-year-old gentleman who presented emergency department because of chest pain or shortness of breath. It seems a week ago he had left facial numbness which lasted for a couple hours to resolve. CT of the head shows 0.570 hypodensity in the right brainstem, small lacunar infarct could be considered. Transient episode the left facial numbness with questionable abnormality over the right brainstem on the CT. Possible subacute ischemia. No IV tpa since symptoms resolved and outside window for tpa (>4.5 hours) and risk outweigh benefit. Chest pain or shortness of breath Tremor is resting on the right upper extremity and mouth appears likely due to Parkinson's disease but according to the patient was notified by his neurologist not Parkinson's but per medical records on Sinemet. Diabetes mellitus Hypertension Hyperlipidemia Plan: Pending MRI of the brain, 2-D echo. I started patient on ASA 325mg daily. I'll hold off on dual antiplatelet until we receive further images and if the patient does have acute or subacute ischemia then I'll put the patient on dual antiplatelet of aspirin and Plavix I also started the patient on On Lipitor 80 mg daily at bedtime started by cardiology team. Because of low normal vitamin B12 (362) as well as folate(8.9), I started the patient on vitamin B-12 1000 g daily as well as folic acid 1 mg daily. Continue Neurochecks Continue cardiac monitoring PT OT is consulted Patient is on home medication of Sinemet 25-250mg 1 tab tid and is resumed. Cardiology team is consulted for acute chest pain with exertional dyspnea We'll defer the rest of the medical management to the primary team For DVT prophylaxis On subcu heparin 5000 units every 12 hours The plan was discussed with the patient. Dr. Jay will start neurology service tomorrow A.M. Time with Patient: Less than 30
[2022-10-27 12:08] LABS: Glucose,Whole Blood 184 mg/dL (70-110)
--- NOTE | 2022-10-27 12:37 | P.PN ---
Subjective Progress Note Date: 10/27/22 HISTORY OF PRESENT ILLNESS: This is a 61-year-old male with a past medical history significant for nonobstructive coronary artery disease, hypertension, hyperlipidemia, obstructive sleep apnea, diabetes, and Parkinson's disease. Patient follows in the office with Dr. Black. We have been asked to see the patient in consultation for chest pain. Patient examined at the bedside in the emergency room. Patient states last week he had an episode of left-sided facial numbness. He reports last Friday he was at [employer] when he began to have chest pain. He is described the pain as a really bad heartburn and that then turned into chest tightness. He states the pain lasted for approximately 3-4 hours. He does report feeling short of breath and diaphoretic with this. He states the pain radiated into his back. He states when he got home he drinks some water and rested and the pain resolved on its own. The patient reports having another episode similar to this yesterday. At the time of examination, he denies any chest pain or pressure. He denies any shortness of breath. Vital signs are stable. * EKG reveals sinus mechanism with incomplete right bundle branch block. No signs of acute ischemia. * Chest xray negative for acute process * CT brain 0.5 cm hypodensity right brainstem. Small lacunar infarct could be considered. * Laboratory data: WBC 11.6. Hemoglobin 13.0. Platelet count 185. Sodium 135. Potassium 4.9. BUN 26. Creatinine 1.23. Troponin negative 2. ProBNP 36. * Current home cardiac medication list has not been updated at the time of this dictation * Most recent echocardiogram obtained in June 2021 revealing ejection fraction 55%, mild pulmonary hypertension, mild mitral and tricuspid insufficiency * Underwent Cardiolite stress test in March 2019 with no evidence of ischemia * Cardiac catheterization history: January 2018 revealing 50% proximal RCA lesion. 35% body of left main lesion, 35% mid LAD. Circumflex has a 40% mid lesion. A branch of the LAD MDs directly into pulmonary artery. Right dominant system. FFR of RCA was negative. 10/27 Patient is seen today in follow-up. He denies having any true chest pain but states his tightness is improved. He complains of dyspnea on exertion which is not new today. Echocardiogram is pending. He is scheduled for MRI of the brain on Friday PHYSICAL EXAM: VITAL SIGNS: Reviewed. GENERAL: Well-developed in no acute distress. HEENT: Head is normocephalic. Pupils are equal, round. Sclerae anicteric. Mucous membranes of the mouth are moist. Neck supple. No JVD or thyromegaly LUNGS: Respirations even and unlabored. Lungs essentially clear to auscultation bilaterally. HEART: Regular rate and rhythm. S1 and S2 heard. ABDOMEN: Soft. Nondistended. Nontender. EXTREMITIES: Normal range of motion. No clubbing or cyanosis. Peripheral pulses intact. No lower extremity edema NEUROLOGIC: Awake and alert. Oriented x 3. ASSESSMENT: Left-sided facial numbness, resolved Possible small lacunar infarct per CT brain Chest pain, troponins negative 2 and EKG without evidence of ischemia Nonobstructive coronary artery disease Hypertension Hyperlipidemia Obstructive sleep apnea Diabetes Parkinson's disease Morbid obesity: BMI 45.5 PLAN: An acute coronary event has been ruled out Resume home cardiac medications Continue the addition of Imdur 30 mg daily Obtain 2-D echo to assess cardiac structure and function Neurology following. MRI of the brain ordered. If neurology workup is negative, patient will be scheduled for Lexiscan stress test Further recommendations pending patient's course Nurse practitioner note has been reviewed by physician. Signing provider agrees with the documented findings, assessment, and plan of care. Objective - Vital Signs Vital signs: Vital Signs Temp 98.7 F 10/27/22 03:29 Pulse 84 10/27/22 09:57 Resp 18 10/27/22 09:57 BP 114/66 10/27/22 08:00 Pulse Ox 97 10/27/22 08:00 FiO2 Intake & Output 10/26/22 10/27/22 10/27/22 18:59 06:59 18:59 Weight 120.202 kg 116.9 kg - Labs CBC & Chem 7: 10/27/22 08:30 10/27/22 08:30 Labs: Abnormal Lab Results - Last 24 Hours (Table) 10/26/22 10/26/22 10/26/22 Range/Units 14:05 14:05 16:36 WBC (3.8-10.6) k/uL Hgb (13.0-17.5) gm/dL Neutrophils # (1.3-7.7) k/uL Sodium (137-145) mmol/L BUN (9-20) mg/dL Creatinine (0.66-1.25) mg/dL Glucose (74-99) mg/dL POC Glucose (mg/dL) 233 H (70-110) mg/dL Hemoglobin A1c 8.9 H (<=6.0) % Triglycerides 223.00 H (0.00-149.00) mg/dL VLDL Cholesterol, Calc 44.60 H (5.00-40.00) mg/dL HDL Cholesterol 31.40 L (40.00-60.00) mg/dL 10/26/22 10/27/22 10/27/22 Range/Units 20:06 07:03 08:30 WBC 13.1 H (3.8-10.6) k/uL Hgb 12.9 L (13.0-17.5) gm/dL Neutrophils # 10.1 H (1.3-7.7) k/uL Sodium (137-145) mmol/L BUN (9-20) mg/dL Creatinine (0.66-1.25) mg/dL Glucose (74-99) mg/dL POC Glucose (mg/dL) 206 H 184 H (70-110) mg/dL Hemoglobin A1c (<=6.0) % Triglycerides (0.00-149.00) mg/dL VLDL Cholesterol, Calc (5.00-40.00) mg/dL HDL Cholesterol (40.00-60.00) mg/dL 10/27/22 Range/Units 08:30 WBC (3.8-10.6) k/uL Hgb (13.0-17.5) gm/dL Neutrophils # (1.3-7.7) k/uL Sodium 135 L (137-145) mmol/L BUN 34 H (9-20) mg/dL Creatinine 1.48 H (0.66-1.25) mg/dL Glucose 211 H (74-99) mg/dL POC Glucose (mg/dL) (70-110) mg/dL Hemoglobin A1c (<=6.0) % Triglycerides (0.00-149.00) mg/dL VLDL Cholesterol, Calc (5.00-40.00) mg/dL HDL Cholesterol (40.00-60.00) mg/dL
--- NOTE | 2022-10-27 15:36 | P.PN ---
Subjective Progress Note Date: 10/27/22 61-year-old male came in with compensative chest pressure like sensation, with mild exertion the pain feels like heartburn followed by chest tightness patient denied any diaphoresis denied any nausea vomiting lightheadedness chest pain is nonpruritic in nature, EKG showed sinus rhythm with an incomplete right bundle branch block chest x-ray did not show any significant abnormality CT of the brain showed a 0.5 cm hypodensity right brainstem with the possibility of a small lacunar stroke, unknown whether this is chronic and acute as patient was complaining of facial numbness which happened 2 days ago presently resolved. Patient does have mild leukocytosis without any evidence of infection patient gr d a CT angios the head and neck which did not show any significant abnormality patient was a valid by cardiology and neurology neurology is working him up for stroke with MRI. Patient is in aspirin. Patient was evaluated by cardiology is recommending a stress test on Friday. Patient denied any shortness of breath orthopnea proximal nocturnal dyspnea no evidence of congestive heart failure BNP is only 36 but patient does have significant peripheral edema. 10/27/2022 Patient is evaluated today sitting on the edge of the bed. Patient reports feeling dizzy and lightheaded while up ambulating. He does continue to report chest tightness and inability to take a deep breath. He remains on IV Lasix daily and will be transitioned to oral Lasix in the morning. Cardiology following recommending patient to undergo a stress test on Friday. Neurologically his symptoms of facial numbness had completely resolved at this time. His CT showing a small old lacunar stroke Neurology is following patient will undergo a brain MRI tomorrow. Creatinine 1.48 today. Review of Systems Constitutional: Denied any fatigue denied any fever. Cardio vascular: Reports chest tightness, no palpitations Gastrointestinal: denied any nausea, vomiting, diarrhea Pulmonary: Denied any shortness of breath cough Neurologic denied any new focal deficits All inpatient medications were reviewed and appropriate changes in these medications as dictated in the interval history and assessment and plan. PHYSICAL EXAMINATION: GENERAL: The patient is alert and oriented x3, not in any acute distress. Well developed, well nourished. Obese HEENT: Pupils are round and equally reacting to light. EOMI. No scleral icterus. No conjunctival pallor. Normocephalic, atraumatic. No pharyngeal erythema. No thyromegaly. CARDIOVASCULAR: S1 and S2 present. No murmurs, rubs, or gallops. PULMONARY: Chest is clear to auscultation, no wheezing or crackles. ABDOMEN: Soft, nontender, nondistended, normoactive bowel sounds. No palpable organomegaly. MUSCULOSKELETAL: No joint swelling or deformity. EXTREMITIES: No cyanosis, clubbing, patient does have 1+ pitting pedal edema bilateral lower extremities NEUROLOGICAL: Gross neurological examination did not reveal any focal deficits. SKIN: No rashes. Assessment and plan -Chest pain rule out acute coronary syndromes, may have unstable angina, possible stress test on Friday. -Left-sided facial numbness, possibility of TIA/stroke: Neurology evaluated the patient patient is on aspirin and statin. Stroke workup in progress and patient will undergo an MRI and echocardiogram on Friday. Symptoms of facial numbness have resolved at this time. -Hypertension -Bilateral peripheral edema chronic venous insufficiency patient -Hyperlipidemia -Obesity sleep apnea -Type 2 diabetes mellitus -Parkinson's disease GI prophylaxis: IV pepcid DVT prophylaxis: Subcutaneous heparin Full Code Patient is continuing current cardiac medications we did hold lisinopril as patient's blood pressure is low-normal and also IV Lasix has been transitioned to oral creatinine is slightly elevated and we will repeat this level the morning. Plan is for patient to undergo a stress test Friday as well as an MRI and echocardiogram to complete the stroke workup. Neurology and cardiology are following closely. The impression and plan of care has been dictated by Michelle Lan Nurse Practitioner as directed. Dr. Bibiana MD I have performed a history and physical examination and medical decision making of this patient, discussed the same with the dictator, and agree with the dictators assessment and plan as written, documented as a scribe. Based on total visit time, I have performed more than 50% of this visit. Objective - Vital Signs Vital signs: Vital Signs Temp 98.7 F 10/27/22 03:29 Pulse 84 10/27/22 08:00 Resp 18 10/27/22 08:00 BP 114/66 10/27/22 08:00 Pulse Ox 97 10/27/22 08:00 FiO2 Intake & Output 10/26/22 10/27/22 10/27/22 18:59 06:59 18:59 Weight 120.202 kg 116.9 kg - Labs CBC & Chem 7: 10/27/22 08:30 10/27/22 08:30 Labs: Abnormal Lab Results - Last 24 Hours (Table) 10/26/22 10/26/22 10/26/22 Range/Units 14:05 14:05 16:36 POC Glucose (mg/dL) 233 H (70-110) mg/dL Hemoglobin A1c 8.9 H (<=6.0) % Triglycerides 223.00 H (0.00-149.00) mg/dL VLDL Cholesterol, Calc 44.60 H (5.00-40.00) mg/dL HDL Cholesterol 31.40 L (40.00-60.00) mg/dL 10/26/22 10/27/22 Range/Units 20:06 07:03 POC Glucose (mg/dL) 206 H 184 H (70-110) mg/dL Hemoglobin A1c (<=6.0) % Triglycerides (0.00-149.00) mg/dL VLDL Cholesterol, Calc (5.00-40.00) mg/dL HDL Cholesterol (40.00-60.00) mg/dL Assessment and Plan Time with Patient: Less than 30
[2022-10-27 16:40] LABS: Glucose,Whole Blood 159 mg/dL (70-110)
[2022-10-27 20:30] LABS: Glucose,Whole Blood 190 mg/dL (70-110)
[2022-10-27] MEDS: ATORVASTATIN 80 MG TAB PO SCH (20:52)
[2022-10-28] MEDS: INSULIN DETEMIR (LEVEMIR) 100 UNIT/ML SYR SQ SCH ×2 (06:51→22:48)
[2022-10-28 06:58] LABS: Glucose,Whole Blood 99 mg/dL (70-110)
[2022-10-28] MEDS: METOPROLOL TARTRATE 25 MG TAB PO SCH ×2 (08:16→21:31)
[2022-10-28] MEDS: ISOSORBIDE MONONITRATE ER 30 MG TAB.ER.24H PO SCH (08:16)
[2022-10-28] MEDS: CARBIDOPA-LEVODOPA 25-250 MG 1 EACH TAB PO SCH ×3 (08:16→21:31)
[2022-10-28] MEDS: DAPAGLIFLOZIN PROPANEDIOL 10 MG TABLET PO SCH (08:16)
[2022-10-28] MEDS: ASPIRIN 325 MG TAB PO SCH (08:16)
[2022-10-28] MEDS: FOLIC ACID 1 MG TAB PO SCH (08:16)
[2022-10-28] MEDS: CYANOCOBALAMIN 500 MCG TAB PO SCH (08:16)
[2022-10-28] MEDS: INSULIN ASPART (NovoLOG) 100 UNIT/ML VIAL SQ SCH ×3 (08:16→16:41)
[2022-10-28] MEDS: FUROSEMIDE 40 MG TAB PO SCH (08:16)
[2022-10-28] MEDS: HEPARIN SODIUM,PORCINE 5,000 UNIT/ML 1 ML VIAL SQ SCH ×2 (08:17→15:51)
--- NOTE | 2022-10-28 10:44 | P.PN ---
Subjective Progress Note Date: 10/28/22 HISTORY OF PRESENT ILLNESS: This is a 61-year-old male with a past medical history significant for nonobstructive coronary artery disease, hypertension, hyperlipidemia, obstructive sleep apnea, diabetes, and Parkinson's disease. Patient follows in the office with Dr. Black. We have been asked to see the patient in consultation for chest pain. Patient examined at the bedside in the emergency room. Patient states last week he had an episode of left-sided facial numbness. He reports last Friday he was at [employer] when he began to have chest pain. He is described the pain as a really bad heartburn and that then turned into chest tightness. He states the pain lasted for approximately 3-4 hours. He does report feeling short of breath and diaphoretic with this. He states the pain radiated into his back. He states when he got home he drinks some water and rested and the pain resolved on its own. The patient reports having another episode similar to this yesterday. At the time of examination, he denies any chest pain or pressure. He denies any shortness of breath. Vital signs are stable. * EKG reveals sinus mechanism with incomplete right bundle branch block. No signs of acute ischemia. * Chest xray negative for acute process * CT brain 0.5 cm hypodensity right brainstem. Small lacunar infarct could be considered. * Laboratory data: WBC 11.6. Hemoglobin 13.0. Platelet count 185. Sodium 135. Potassium 4.9. BUN 26. Creatinine 1.23. Troponin negative 2. ProBNP 36. * Current home cardiac medication list has not been updated at the time of this dictation * Most recent echocardiogram obtained in June 2021 revealing ejection fraction 55%, mild pulmonary hypertension, mild mitral and tricuspid insufficiency * Underwent Cardiolite stress test in March 2019 with no evidence of ischemia * Cardiac catheterization history: January 2018 revealing 50% proximal RCA lesion. 35% body of left main lesion, 35% mid LAD. Circumflex has a 40% mid lesion. A branch of the LAD MDs directly into pulmonary artery. Right dominant system. FFR of RCA was negative. 10/27 Patient is seen today in follow-up. He denies having any true chest pain but states his tightness is improved. He complains of dyspnea on exertion which is not new today. Echocardiogram is pending. He is scheduled for MRI of the brain on Friday10/28/2022 Patient examined this point. Patient is sitting up in the chair. Patient denies any further episodes of chest pain or pressure. He denies any shortness of breath. 2-D echo is pending. Patient is scheduled for MRI of the brain today. Vital signs are stable. Telemetry reveals sinus mechanism. Blood pressure 135/76. PHYSICAL EXAM: VITAL SIGNS: Reviewed. GENERAL: Well-developed in no acute distress. HEENT: Head is normocephalic. Pupils are equal, round. Sclerae anicteric. Mucous membranes of the mouth are moist. Neck supple. No JVD or thyromegaly LUNGS: Respirations even and unlabored. Lungs essentially clear to auscultation bilaterally. HEART: Regular rate and rhythm. S1 and S2 heard. ABDOMEN: Soft. Nondistended. Nontender. EXTREMITIES: Normal range of motion. No clubbing or cyanosis. Peripheral pulses intact. No lower extremity edema NEUROLOGIC: Awake and alert. Oriented x 3. ASSESSMENT: Left-sided facial numbness, resolved Possible small lacunar infarct per CT brain Chest pain, troponins negative 2 and EKG without evidence of ischemia Nonobstructive coronary artery disease Hypertension Hyperlipidemia Obstructive sleep apnea Diabetes Parkinson's disease Morbid obesity: BMI 45.5 PLAN: Continue current cardiac medications 2-D echo ordered. Await results. Neurology following. Patient is scheduled for MRI of the brain today. If neurology workup is negative, the patient will be scheduled for Lexiscan stress test. Nothing by mouth at midnight for possible stress test tomorrow. Further recommendations pending patient's course Nurse practitioner note has been reviewed by physician. Signing provider agrees with the documented findings, assessment, and plan of care. Objective - Vital Signs Vital signs: Vital Signs Temp 98.8 F 10/28/22 08:15 Pulse 90 10/28/22 08:15 Resp 18 10/28/22 08:15 BP 135/76 10/28/22 08:15 Pulse Ox 95 10/28/22 08:15 FiO2 Intake & Output 10/27/22 10/28/22 10/28/22 18:59 06:59 18:59 Weight 116.6 kg Other: # Voids 2 - Labs CBC & Chem 7: 10/27/22 08:30 10/27/22 08:30 Labs: Abnormal Lab Results - Last 24 Hours (Table) 10/27/22 10/27/22 10/27/22 Range/Units 12:06 16:39 20:28 POC Glucose (mg/dL) 184 H 159 H 190 H (70-110) mg/dL
--- NOTE | 2022-10-28 11:24 | CA ---
Transthoracic Echo Report Name: Maynor Hoffman Age: 62 Gender: M : 1960 Exam Date: 10/28/2022 08:42 Exam Location: [facility] Ht (in): 64 Wt (lb): 265 Ordering Physician: Rhoda Ayala DO Attending/Referring Phys: [id number], Jamie Warm In Worker Charisma Correia [facility] Procedure CPT: Indications: cp, possible cva Cardiac Hx: Technical Quality: Technically difficult study Contrast 1: Total Dose (mL): Contrast 2: Total Dose (mL): MEASUREMENTS (Male / Female) Normal Values 2D ECHO LV Diastolic Diameter PLAX 4.6 cm 4.2 - 5.9 / 3.9 - 5.3 cm LV Systolic Diameter PLAX 2.9 cm IVS Diastolic Thickness 1.0 cm 0.6 - 1.0 / 0.6 - 0.9 cm LVPW Diastolic Thickness 0.9 cm 0.6 - 1.0 / 0.6 - 0.9 cm LV Relative Wall Thickness 0.4 LVOT Diameter 2.0 cm Ascending Aorta Diameter 3.4 cm M-MODE Aortic Root Diameter MM 2.8 cm LA Systolic Diameter MM 2.9 cm LA Ao Ratio MM 1.1 AV Cusp Separation MM 2.0 cm DOPPLER AV Peak Velocity 99.9 cm/s AV Peak Gradient 4.0 mmHg AV Mean Velocity 82.9 cm/s AV Mean Gradient 2.8 mmHg AV Velocity Time Integral 15.8 cm LVOT Peak Velocity 89.8 cm/s LVOT Peak Gradient 3.2 mmHg LVOT Velocity Time Integral 16.1 cm LVOT Stroke Volume 51.2 cm??? LVOT Stroke Volume Index 23.2 ml/m??? LVOT Cardiac Index 1877.2 cm???/min???m??? AV Area Cont Eq vti 3.2 cm??? AV Area Cont Eq pk 2.9 cm??? Mitral E Point Velocity 56.9 cm/s Mitral A Point Velocity 70.7 cm/s Mitral E to A Ratio 0.8 MV Deceleration Time 202.8 ms LV E' Lateral Velocity 6.9 cm/s Mitral E to LV E' Lateral Ratio 8.2 LV E' Septal Velocity 5.1 cm/s Mitral E to LV E' Septal Ratio 11.3 Right Atrial Pressure 8.0 mmHg FINDINGS Left Ventricle Normal Left ventricular size, wall thickness, systolic function with no obvious regional wall motion abnormalities. Left ventricular ejection fraction is estimated at 55-60%. Right Ventricle Moderate right ventricular dilatation. Right Atrium Normal right atrial size. Left Atrium Normal left atrial size. Mitral Valve Structurally normal mitral valve. Trace mitral regurgitation. Aortic Valve Trileaflet aortic valve. No aortic regurgitation. Tricuspid Valve Structurally normal tricuspid valve. No tricuspid regurgitation. Pulmonic Valve Structurally normal pulmonic valve. No pulmonic regurgitation. Pericardium No pericardial effusion. Echo free space anterior to the right ventricle likely represents a fat pad. Aorta Normal size aortic root and proximal ascending aorta. CONCLUSIONS Normal LV size and systolic function with mild concentric LVH. Mild mitral and tricuspid regurgitation. Right ventricle is prominent. No pericardial effusion no significant pulmonary hypertension Previewed by: Dr. Rhea Black MD (Electronically Signed) Final Date: 28 October 2022 11:23
--- NOTE | 2022-10-28 11:34 | MR ---
EXAMINATION TYPE: MR brain wo/w con DATE OF EXAM: 10/28/2022 10:38 AM CLINICAL INDICATION:Male, 62 years old with history of left facial numbness; Left facial numbness. COMPARISON: CT brain 10/26/2022 TECHNIQUE: Multi planar, multi sequence imaging was performed through the brain including: T1, T2, In version recovery, susceptibility weighted imaging and gradient echo imaging and Diffusion weighted im aging. The patient was then given intravenous contrast and multi planar, T1 fat-saturation images wer e obtained. IV Contrast: 11 cc Gadavist FINDINGS: The chavez-white junctions, ventricular system, basal cisterns appear unremarkable. Diffusion-weighted imaging shows no evidence of restricted diffusion to suggest acute/subacute infarct. Intracranial art erial flow voids are maintained. Midline structures show no abnormality. The susceptibility weighted images do not reveal any evidence for micro-hemorrhage. After administration of gadolinium, no abnorm al enhancement is seen. The bone marrow signal is within normal limits. Paranasal sinuses and mastoid air cells: Mild paranasal sinus disease with mucosal thickening of the maxillary sinuses. Visualized orbits: Orbital contents are intact. IMPRESSION: No evidence of intracranial mass, acute/subacute infarct, or abnormal enhancement.
[2022-10-28 11:54] LABS: Glucose,Whole Blood 124 mg/dL (70-110)
--- NOTE | 2022-10-28 15:05 | P.PN ---
Subjective Progress Note Date: 10/28/22 Patient initially seen by Dr. Gurjit Vasquez. Please refer to his note for details. Patient is a 61-year-old male with transient left facial numbness last week. He also had some chest pain. Patient states that the numbness of left facial region lasted for about one night. At present he has no numbness, and no focal symptoms at this time. He has questionable abnormality in the right brainstem. Stroke workup is pending. Patient currently on aspirin. He was taking aspirin 81 mg daily prior to arrival to the hospital. Patient is nonsmoker. He was taking Lipitor 80 mg daily. Some of the workup during this hospital visit consisted of: Vitamin B12 is 362 Folate is 8.50 Hemoglobin A1c is 8.9. Lipid panel as triglycerides 223, cholesterol is 186, LDLs 110, HDL 31. Calcium is 9.5, magnesium is a 1.8, sodium is 135, serum glucose is 184. CT of the head is reported as 0.5 cm hypodensity in the right brainstem, correlate with symptoms. I'll lacunar infarcts be considered. MRI can be performed as clinically indicated. Personally reviewed that as CT and it was a hard to ascertain the brainstem with her this is an acute or subacute ischemia or artifact or vessel. Otherwise no appreciable acute or subacute ischemia or any bleeding noted. CT angiography of the head and neck was reported as no flow limiting stenosis bilateral carotid bifurcation. Normal [place]. Objective - Vital Signs Vital signs: Vital Signs Temp 98.8 F 10/28/22 08:15 Pulse 90 10/28/22 08:15 Resp 18 10/28/22 08:15 BP 135/76 10/28/22 08:15 Pulse Ox 95 10/28/22 08:15 FiO2 Intake & Output 10/27/22 10/28/22 10/28/22 18:59 06:59 18:59 Weight 116.6 kg Other: # Voids 2 - Exam Patient's mental status, speech and language functions are normal. Cranial nerves are normal. Visual alvarez are full, face is symmetric. Pupils are equal, round and reacting. Tongue protrudes the midline. Shoulder shrug normal. On muscle strength testing there is no pronator drift. Patient has postural tremor of the left hand > right hand. Muscle strength is normal in the arms and legs. Sensory to touch is equal with no neglect. Patient has tremor for [id number] testing bilaterally, left more than right. No tremors at rest. Gait deferred. Skin is dry. - Labs CBC & Chem 7: 10/27/22 08:30 10/27/22 08:30 Labs: Abnormal Lab Results - Last 24 Hours (Table) 10/27/22 10/27/22 10/27/22 Range/Units 12:06 16:39 20:28 POC Glucose (mg/dL) 184 H 159 H 190 H (70-110) mg/dL Assessment and Plan Assessment: This is a 61-year-old gentleman who presented emergency department because of chest pain or shortness of breath. It seems a week ago he had left facial numbness which lasted for a couple hours to resolve. Transient episode the left facial numbness with questionable abnormality over the right brainstem on the CT. Possible subacute ischemia. No IV tpa since symptoms resolved and outside window for tpa (>4.5 hours) and risk outweigh benefit. MRI of the brain negative for any acute stroke. Chest pain or shortness of breath, cardiology on board. Postural and intention tremor of left > right upper extremities, appears essential tremor. Patient currently on Sinemet. Diabetes mellitus, not well controlled Hypertension Hyperlipidemia Plan: MRI of the brain revealed no evidence of intracranial mass, acute/subacute infarct or abnormal enhancement. I personally reviewed MR agree with the findings. 2-D echo revealed normal left trigger size and systolic function with mild concentric LVH. Mild mitral and tricuspid regurgitation. Right ventricle is prominent. Left atrial size is normal. EF is normal 55-60%. No obvious embolic source. Patient was taking aspirin 81 mg daily prior to arrival to the hospital. Suggest continuing aspirin 81 mg. No indication for dual antiplatelet medication from neurology point, unless indicated from cardiac standpoint. Recommend aggressive control of all stroke risk factors. Patient's hemoglobin A1c 8.9. Recommend optimize control of diabetes to target A1c <7.0. Continue Lipitor 80 mg daily at bedtime. Patient's LDL is 110. Recommend optimizing LDL to target <70. Patient was taking Lipitor 80 mg at home. Blood pressure is well controlled. Cardiology also following the patient for chest pain. Probably undergoing Lexiscan tomorrow. Because of low normal vitamin B12 (362) as well as folate(8.9), Dr. Vasquez started the patient on vitamin B-12 1000 g daily as well as folic acid 1 mg daily. Continue Neurochecks Telemetry monitoring so far showing sinus rhythm. No other arrhythmia. PT OT is consulted Patient is on home medication of Sinemet 25-250mg 1 tab tid and is resumed. We'll defer the rest of the medical management to the primary team For DVT prophylaxis On subcu heparin 5000 units every 12 hours Neurologically clear for discharge, if cleared by cardiology.
[2022-10-28 16:34] LABS: Glucose,Whole Blood 112 mg/dL (70-110)
[2022-10-28 20:20] LABS: Glucose,Whole Blood 154 mg/dL (70-110)
[2022-10-28] MEDS: ATORVASTATIN 80 MG TAB PO SCH (21:31)
[2022-10-29] MEDS: HEPARIN SODIUM,PORCINE 5,000 UNIT/ML 1 ML VIAL SQ SCH ×3 (00:19→17:18)
[2022-10-29 04:50] VITALS: TEMP 97.8
[2022-10-29] MEDS: INSULIN DETEMIR (LEVEMIR) 100 UNIT/ML SYR SQ SCH (06:08)
[2022-10-29 06:35] LABS: Glucose,Whole Blood 86 mg/dL (70-110)
[2022-10-29] MEDS: INSULIN ASPART (NovoLOG) 100 UNIT/ML VIAL SQ SCH ×3 (07:01→17:22)
[2022-10-29] MEDS ORDERED: AMINOPHYLLINE 500 MG/20 ML VIAL IV PRN (08:13)
[2022-10-29] MEDS ORDERED: CAFFEINE CITRATE 60 MG/3 ML VIAL IV PRN (08:13)
[2022-10-29] MEDS ORDERED: REGADENOSON 0.4 MG/5 ML SYRINGE IV PRN (08:13)
[2022-10-29 09:22] VITALS: RESP 16
--- NOTE | 2022-10-29 11:24 | P.PN ---
Subjective HISTORY OF PRESENT ILLNESS: This is a 61-year-old male with a past medical history significant for nonobstructive coronary artery disease, hypertension, hyperlipidemia, obstructive sleep apnea, diabetes, and Parkinson's disease. Patient follows in the office with Dr. Black. We have been asked to see the patient in consultation for chest pain. Patient examined at the bedside in the emergency room. Patient states last week he had an episode of left-sided facial numbness. He reports last Friday he was at [employer] when he began to have chest pain. He is described the pain as a really bad heartburn and that then turned into chest tightness. He states the pain lasted for approximately 3-4 hours. He does re port feeling short of breath and diaphoretic with this. He states the pain radiated into his back. He states when he got home he drinks some water and rested and the pain resolved on its own. The patient reports having another episode similar to this yesterday. At the time of examination, he denies any chest pain or pressure. He denies any shortness of breath. Vital signs are stable. * EKG reveals sinus mechanism with incomplete right bundle branch block. No signs of acute ischemia. * Chest xray negative for acute process * CT brain 0.5 cm hypodensity right brainstem. Small lacunar infarct could be considered. * Laboratory data: WBC 11.6. Hemoglobin 13.0. Platelet count 185. Sodium 135. Potassium 4.9. BUN 26. Creatinine 1.23. Troponin negative 2. ProBNP 36. * Current home cardiac medication list has not been updated at the time of this dictation * Most recent echocardiogram obtained in June 2021 revealing ejection fraction 55%, mild pulmonary hypertension, mild mitral and tricuspid insufficiency * Underwent Cardiolite stress test in March 2019 with no evidence of ischemia * Cardiac catheterization history: January 2018 revealing 50% proximal RCA lesion. 35% body of left main lesion, 35% mid LAD. Circumflex has a 40% mid lesion. A branch of the LAD MDs directly into pulmonary artery. Right dominant system. FFR of RCA was negative. 10/27 Patient is seen today in follow-up. He denies having any true chest pain but states his tightness is improved. He complains of dyspnea on exertion which is not new today. Echocardiogram is pending. He is scheduled for MRI of the brain on Friday10/28/2022 Patient examined this morning. Patient is sitting up in the chair. Patient denies any further episodes of chest pain or pressure. He denies any shortness of breath. 2-D echo is pending. Patient is scheduled for MRI of the brain today. Vital signs are stable. Telemetry reveals sinus mechanism. Blood pressure 135/76. 10/29/2022 Patient examined this morning at the bedside. He denies chest pain or pressure. Denies SOB. MRI negative for CVA. Echocardiogram completed revealing ejection fraction 55-60%, mild mitral regurgitation, mild tricuspid regurgitation, and mild concentric LVH PHYSICAL EXAM: VITAL SIGNS: Reviewed. GENERAL: Well-developed in no acute distress. HEENT: Head is normocephalic. Pupils are equal, round. Sclerae anicteric. Mucous membranes of the mouth are moist. Neck supple. No JVD or thyromegaly LUNGS: Respirations even and unlabored. Lungs essentially clear to auscultation bilaterally. HEART: Regular rate and rhythm. S1 and S2 heard. ABDOMEN: Soft. Nondistended. Nontender. EXTREMITIES: Normal range of motion. No clubbing or cyanosis. Peripheral pulses intact. No lower extremity edema NEUROLOGIC: Awake and alert. Oriented x 3. ASSESSMENT: Left-sided facial numbness, resolved Possible small lacunar infarct per CT brain, MRI negative for CVA Chest pain, troponins negative 2 and EKG without evidence of ischemia Nonobstructive coronary artery disease Hypertension Hyperlipidemia Obstructive sleep apnea Diabetes Parkinson's disease Morbid obesity: BMI 45.5 PLAN: Continue current cardiac medications Obtain Lexiscan stress test today Further recommendations pending results of Lexiscan stress test Nurse practitioner note has been reviewed by physician. Signing provider agrees with the documented findings, assessment, and plan of care. Objective - Vital Signs Vital signs: Vital Signs Temp 97.8 F 10/29/22 09:21 Pulse 82 10/29/22 09:21 Resp 16 10/29/22 09:21 BP 117/76 10/29/22 09:21 Pulse Ox 97 10/29/22 09:21 FiO2 Intake & Output 10/28/22 10/29/22 10/29/22 18:59 06:59 18:59 Output Total 150 Balance -150 Weight 116.5 kg Output: Urine 150 Other: # Voids 2 # Bowel Movements 0 - Labs CBC & Chem 7: 10/27/22 08:30 10/27/22 08:30 Labs: Abnormal Lab Results - Last 24 Hours (Table) 10/28/22 10/28/22 10/28/22 Range/Units 11:52 16:32 20:19 POC Glucose (mg/dL) 124 H 112 H 154 H (70-110) mg/dL
--- NOTE | 2022-10-29 11:33 | CA ---
Lexiscan Nuclear Stress Test Report Name: Maynor Hoffman Exam Date: 10/29/2022 10:30 Exam Location: [facility] Ht (in): 64 Wt (lb): 256 BSA: 2.17 Ordering Phys: Teodora Ragland Referring Phys: TEODORA RAGLAND,, Technologist: Kvng Andujar Age: 62 Gender: M : 1960 Procedure CPT: Indications: Reflex order-Stress test ICD-10 Codes: Patient History: Medications: SEE CHART Meds past 24 hrs: Pretest Chest Pain: STRESS TEST Lexiscan Protocol Exercise Duration (min:sec): 02:[address] Depressions (mm): Angina Score: Phillips Score: Resting HR (bpm): 78 Peak HR (bpm): 97 Resting BP (mmHg): 139 / 59 Peak BP (mmHg): 126 / 48 MPHR: 158 Target HR: 134 % MPHR: 61 METS: 1.0 Total Dose: Peak Dose: Atropine: Double Product: 45982 BP Response: Stress Termination: PROTOCOL COMPLETE Stress Symptoms: NO SYMPTOMS Stress Summary: ECG ANALYSIS Resting ECG: Stress ECG: CONCLUSIONS Baseline EKG revealed normal sinus rhythm without significant ST-T changes. With Lexiscan administration as per protocol the heart rate change from 78-93 bpm and blood pressure changed from 139/58 9-126/48. Patient was asymptomatic and EKG was unremarkable. This is a unremarkable Lexiscan stress test by EKG criteria. The nuclear scan results to be reported by the radiologist Dr. Rhea Black MD (Electronically Signed) Final Date: 29 October 2022 11:32
[2022-10-29 11:41] LABS: Glucose,Whole Blood 115 mg/dL (70-110)
[2022-10-29] MEDS: DAPAGLIFLOZIN PROPANEDIOL 10 MG TABLET PO SCH (11:41)
[2022-10-29] MEDS: FOLIC ACID 1 MG TAB PO SCH (11:42)
[2022-10-29] MEDS: ASPIRIN 325 MG TAB PO SCH (11:42)
[2022-10-29] MEDS: METOPROLOL TARTRATE 25 MG TAB PO SCH (11:42)
[2022-10-29] MEDS: CARBIDOPA-LEVODOPA 25-250 MG 1 EACH TAB PO SCH ×2 (11:42→17:23)
[2022-10-29] MEDS: FUROSEMIDE 40 MG TAB PO SCH (11:42)
[2022-10-29] MEDS: CYANOCOBALAMIN 500 MCG TAB PO SCH (11:42)
[2022-10-29] MEDS: ISOSORBIDE MONONITRATE ER 30 MG TAB.ER.24H PO SCH (11:43)
--- NOTE | 2022-10-29 12:28 | NM ---
EXAMINATION TYPE: NM stress lexiscan cardiolite DATE OF EXAM: 10/29/2022 COMPARISON: NONE CLINICAL INDICATION: Male, 62 years old with history of cp; TECHNIQUE: After the intravenous administration of 9.6 mCi Tc 99m Sestamibi - Cardiolite resting SPE CT images acquired 45 minutes post injection. The patient received 0.4mg Lexiscan, 25.7 mCi Tc 99m Sestamibi - Stress images obtained [address] injection FINDINGS: Review of stress and rest SPECT images demonstrates fixed perfusion involving the cardiac apex and in ferior wall without evidence for stress-induced ischemia. Gated analysis shows normal wall motion wit h an estimated left ventricular ejection fraction of 54 %. IMPRESSION: No scintigraphic evidence for reversible ischemia.
[2022-10-29 15:27] VITALS: BP 99/62; PULSE 84
[2022-10-29 16:48] LABS: Glucose,Whole Blood 127 mg/dL (70-110)
--- NOTE | 2022-10-29 22:16 | DS ---
DISCHARGE SUMMARY CHIEF COMPLAINT: Chest pain and dizziness with hypoesthesia. HISTORY OF PRESENT ILLNESS AND PHYSICAL EXAMINATION: Details of this man's history and physical can be found in the initial workup. LABORATORY STUDIES: While he was in the hospital, he had laboratory studies, details of which can be found in the laboratory section of his chart. COURSE IN THE HOSPITAL: After admission, he was placed on bedrest, started on intravenous fluids, and placed on telemetry. He underwent exhaustive workup by Cardiology and Neurology, and all studies were unremarkable. There were no signs of any cerebrovascular insufficiency, cardiac abnormalities, etc. He was doing well and felt that he could go home on the , on his usual activity, diet, and medication, and he will follow up in the office in several days. FINAL DIAGNOSES: 1. Dizziness. 2. History of hypertension. 3. History of insulin-dependent diabetes mellitus. OPERATIONS: None. CONSULTATIONS: Cardiology and Neurology. CONDITION: He is improved. MMJOSÉ MIGUEL / KRYSN: [id number] /
--- NOTE | 2022-10-29 22:26 | PN ---
PROGRESS NOTE DATE OF SERVICE: 10/28/2022 CHIEF COMPLAINT: Chest pain. HISTORY OF PRESENT ILLNESS: This gentleman is doing fairly well. He is not having any further chest pain. He is undergoing studies directed by Cardiology. He denies any chest pain, shortness of breath, etc. Vital signs and blood sugars are in good control. PHYSICAL EXAMINATION: CHEST: Clear. CARDIAC: Normal. ABDOMEN: Protuberant, soft and nontender. IMPRESSION: 1. Chest pain. 2. Obesity. 3. Type 2 diabetes mellitus. PLAN: Continue with his workup. His troponins were negative. MMODL / IJN: [id number] /
--- NOTE | 2022-10-30 03:01 | PN ---
PROGRESS NOTE DATE OF SERVICE: 10/29/2022 CHIEF COMPLAINT: Chest pain. HISTORY OF PRESENT ILLNESS: This is a gentleman who is going down for further cardiac studies today. He has not had any further chest pain. All of his studies so far have been normal. Blood sugars are good. PHYSICAL EXAMINATION: CHEST: Clear. CARDIAC: Normal sinus rhythm and no murmurs or extra sounds. ABDOMEN: Soft and protuberant. IMPRESSION: Chest pain. PLAN: He is going down for further cardiac evaluation today. If this is negative, he may be able to go home today or tomorrow. MMODL / IJN: [id number] /
[2022-10-31] MEDS ORDERED: NON FORMULARY DRUG (Dulaglutide [Trulicity] 3 MG/0.5 ML Each) SQ SCH (13:44)
== END 2022-10-29 20:02 | disposition home or self-care (01) ==
LOC: EC 00:47 → 6NMEDSUR 04:13 → 3SCARD 13:50
PROVIDERS: ADMIT Family Medicine; ATTEND Family Medicine
DX: R42 Dizziness and giddiness (principal); R07.9 Chest pain, unspecified; R06.09 Other forms of dyspnea; I10 Essential (primary) hypertension; E78.5 Hyperlipidemia, unspecified; E11.9 Type 2 diabetes mellitus without complications; J44.9 Chronic obstructive pulmonary disease, unspecified; K21.9 Gastro-esophageal reflux disease without esophagitis; I25.10 Atherosclerotic heart disease of native coronary artery without angina pectoris; G47.33 Obstructive sleep apnea (adult) (pediatric); R20.0 Anesthesia of skin; I87.2 Venous insufficiency (chronic) (peripheral); G20 Parkinson's disease; E66.01 Morbid (severe) obesity due to excess calories; Z68.42 Body mass index [BMI] 45.0-49.9, adult; Z86.73 Personal history of transient ischemic attack (TIA), and cerebral infarction without residual deficits; Z79.899 Other long term (current) drug therapy; Z79.4 Long term (current) use of insulin; Z79.84 Long term (current) use of oral hypoglycemic drugs; Z79.82 Long term (current) use of aspirin
CPT/HCPCS: 96372 ×5; 96376; 96374; 96375; 99285; 36415; 93005; 93017; 93306; 97162; 83880; 80061; 80053; 80048; 84443; 82607; 82746; 83690; 83735; 84484; 85025 ×2; 85610; 85730; 83036; 71046; 70496; 70450; 70498; 70553; 78452; G0378 ×5; A9500; J2270; J1644 ×4; J1940 ×2; J2785; Q9967; A9585

== ENCOUNTER 2023-06-19 22:19 | Emergency (ER) | payer BC ==
[2023-06-19 22:46] VITALS: TEMP 97.6
--- NOTE | 2023-06-19 23:49 | ED ---
Extremity Problem HPI - General Source: patient Mode of arrival: ambulatory Limitations: no limitations <Tyson Snider - Last Filed: 06/19/23 23:49> <Rhoda Ayala - Last Filed: 06/22/23 06:25> - General Chief complaint: Extremity Problem,Nontraumatic Stated complaint: Cramps in legs, Abdominal pain Time Seen by Provider: 06/19/23 23:49 - History of Present Illness Initial comments: 62-year-old male present with chief complaint of leg cramps. Patient states that this evening he started having cramping in the bilateral legs. He also states that last night he was taking a bath and he had difficulty getting out of the bath, felt like his legs were weak. (Tyson Snider) 62-year-old male presents emergency department reporting bilateral leg cramps. States that he was taking a bath when he had sudden onset of cramping in his legs. He attempted to get out of the bath but was having significant difficulty and felt like his legs were weak. He admits that he has had intermittent cramping like this previously however nothing this bad. He has never been worked up for it. He denies history of DVT or PE. No calf pain or swelling. Denies any chest pain or shortness of breath. No fevers. No other alleviating, precipitating or modifying factors (Rhoda Ayala) - Related Data Home Medications Medication Instructions Recorded Confirmed Atorvastatin [Lipitor] 80 mg PO DAILY 09/10/17 10/26/22 Insulin Glargine,Hum.rec.anlog 100 unit SQ BID 03/31/18 10/26/22 [Basaglar Kwikpen U-100] Insulin Lispro [humaLOG Kwikpen] 24 unit SQ AC-TID 04/01/18 10/26/22 Carbidopa-Levodopa 25-250 mg 1 tab PO TID 03/06/20 10/26/22 [Sinemet 25-250 mg] lisinopriL [Zestril] 2.5 mg PO DAILY 03/06/20 10/26/22 Ergocalciferol [Vitamin D2 (1250 1,250 mcg PO QMONTHLY 07/16/22 10/26/22 Mcg = 52004 Iu)] HYDROcodone/APAP 7.5-325MG [[place] 1 tab PO Q6HR PRN 07/16/22 10/26/22 7.5-325] Hydrocortisone Cream 1 applic TOPICAL QID PRN 07/16/22 10/26/22 [Hydrocortisone 2.5% Cream] Ibuprofen [Motrin] 800 mg PO QID PRN 07/16/22 10/26/22 Latanoprost [Latanoprost 0.005%] 1 drop BOTH EYES HS 07/16/22 10/26/22 Metoprolol Tartrate [Lopressor] 25 mg PO BID 07/16/22 10/26/22 Cyclobenzaprine [Flexeril] 10 mg PO Q6H PRN 09/01/22 10/26/22 Dulaglutide [Trulicity] 3 mg SQ TH 09/01/22 10/26/22 Empagliflozin [Jardiance] 25 mg PO DAILY 10/26/22 10/26/22 Furosemide [Lasix] 40 mg PO DAILY 10/26/22 10/26/22 Propranolol LA [Inderal LA] 60 mg PO DAILY 10/26/22 10/26/22 Previous Rx's Medication Instructions Recorded Aspirin 81 mg PO DAILY #100 chew 02/10/19 Nitroglycerin Sl Tabs [Nitrostat] 0.4 mg SUBLINGUAL Q5M PRN #20 tab 02/10/19 Folic Acid 1 mg PO DAILY tab 10/29/22 Allergies Allergy/AdvReac Type Severity Reaction Status Date / Time aluminum hydroxide Allergy Nausea & Verified 06/19/23 22:25 [From Mylanta] Vomiting barium iodide Allergy Nausea & Verified 06/19/23 22:25 Vomiting barium sulfate Allergy Nausea & Verified 06/19/23 22:25 Vomiting bee venom protein (honey bee) Allergy Swelling Verified 06/19/23 22:25 calcium carbonate Allergy Nausea & Verified 06/19/23 22:25 [From Mylanta] Vomiting magnesium [From Mylanta] Allergy Nausea & Verified 06/19/23 22:25 Vomiting magnesium hydroxide Allergy Nausea & Verified 06/19/23 22:25 [From Mylanta] Vomiting simethicone [From Mylanta] Allergy Nausea & Verified 06/19/23 22:25 Vomiting LYSAL SPRAY Allergy Unknown Dyspnea Uncoded 06/19/23 22:25 Review of Systems ROS Other: All systems not noted in ROS Statement are negative. <Tyson Snider - Last Filed: 06/19/23 23:49> ROS Other: All systems not noted in ROS Statement are negative. <Rhoda Ayala - Last Filed: 06/22/23 06:25> ROS Statement: Those systems with pertinent positive or pertinent negative responses have been documented in the HPI. Past Medical History Past Medical History: Asthma, COPD, Diabetes Mellitus, Eye Disorder, GERD/Reflux, Hyperlipidemia, Hypertension, Sleep Apnea/CPAP/BIPAP Additional Past Medical History / Comment(s): hx glaucoma with surgery, bilateral hand tremors, sleep apnea (no machine)., states positive blood in stool. History of Any Multi-Drug Resistant Organisms: None Reported Past Surgical History: Heart Catheterization Additional Past Surgical History / Comment(s): bilateral eye laser surgery for cataract removal/lens implants, Past Anesthesia/Blood Transfusion Reactions: No Reported Reaction Additional Past Anesthesia/Blood Transfusion Reaction / Comment(s): . Past Psychological History: No Psychological Hx Reported Smoking Status: Never smoker Past Alcohol Use History: None Reported Past Drug Use History: None Reported - Past Family History Mother Family Medical History: Diabetes Mellitus Additional Family Medical History / Comment(s): Mother in her sleep when she was in her 60s. Pt does not know cause of . Father Family Medical History: No Reported History Additional Family Medical History / Comment(s): . <Tyson Snider - Last Filed: 06/19/23 23:49> General Exam Limitations: no limitations <Tyson Snider - Last Filed: 06/19/23 23:49> General appearance: alert, in no apparent distress Head exam: Present: atraumatic, normocephalic, normal inspection Eye exam: Present: normal appearance, PERRL, EOMI. Absent: scleral icterus, conjunctival injection, periorbital swelling ENT exam: Present: normal exam, mucous membranes moist Neck exam: Present: normal inspection. Absent: tenderness, meningismus, lymphadenopathy Respiratory exam: Present: normal lung sounds bilaterally. Absent: respiratory distress, wheezes, rales, rhonchi, stridor Cardiovascular Exam: Present: regular rate, normal rhythm, normal heart sounds. Absent: systolic murmur, diastolic murmur, rubs, gallop, clicks GI/Abdominal exam: Present: soft, normal bowel sounds. Absent: distended, tenderness, guarding, rebound, rigid Extremities exam: Present: full ROM, normal capillary refill, pedal edema (Mild). Absent: tenderness, joint swelling, calf tenderness Back exam: Present: normal inspection Neurological exam: Present: alert, oriented X3, CN II-XII intact Psychiatric exam: Present: normal affect, normal mood Skin exam: Present: warm, dry, intact, normal color. Absent: rash <Rhoda Ayala - Last Filed: 06/22/23 06:25> - General Exam Comments Initial Comments: Visual Physical Exam Vital signs reviewed General: Well-appearing, nontoxic, no acute distress. Head: Normocephalic, atraumatic Eyes: PERRLA, EOMI ENT: Airway patent Chest: Nonlabored breathing Skin: No visual rash, normal skin tone Neuro: Alert and oriented 3 Musculoskeletal: No gross abnormalities (Tyson Snider) Course Vital Signs 06/19/23 06/20/23 22:23 01:00 Temperature 97.6 F Pulse Rate 82 89 Respiratory 18 20 Rate Blood Pressure 152/90 128/79 O2 Sat by Pulse 97 95 Oximetry Medical Decision Making <Tyson Snider - Last Filed: 06/19/23 23:49> - Lab Data Result diagrams: 06/19/23 23:34 06/19/23 23:34 <Rhoda Ayala - Last Filed: 06/22/23 06:25> - Medical Decision Making I performed the quick note portion of this visit, electronically signed Tyson Snider PA-C (Tyson Snider) Was pt. sent in by a medical professional or institution (JOSEFINA Brown, REGULATORY CONSULTANT, urgent care, hospital, or senior living...) When possible be specific @ -No Did you speak to anyone other than the patient for history (EMS, parent, family, police, friend...)? What history was obtained from this source @ -No Did you review nursing and triage notes (agree or disagree)? Why? @ -I reviewed and agree with nursing and triage notes Were old charts reviewed (outside hosp., previous admission, EMS record, old EKG, old radiological studies, urgent care reports/EKG's, senior living records)? Report findings @ -No old charts were reviewed Differential Diagnosis (chest pain, altered mental status, abdominal pain women, abdominal pain men, vaginal bleeding, weakness, fever, dyspnea, syncope, headache, dizziness, GI bleed, back pain, seizure, CVA, palpatations, mental health, musculoskeletal)? @ -Differential Musculoskeletal Muscular strain, contusion, ligament sprain, fracture, arthritis, septic arthritis, bursitis, cellulitis, muscle spasm, nerve compression, DVT, arterial occlusion, herpes zoster, electrolyte abnormality, tumor.... This is not meant to be in all inclusive list EKG interpreted by me (3pts min.). @ -Not done X-rays interpreted by me (1pt min.). @ -None done CT interpreted by me (1pt min.). @ -None done U/S interpreted by me (1pt. min.). @ -US was considered however patient did have very short duration of symptoms which were bilateral. The ultrasound machine was used to find Doppler pulses in the patient's lower extremity What testing was considered but not performed or refused? (CT, X-rays, U/S, labs)? Why? @ -None What meds were considered but not given or refused? Why? @ -None Did you discuss the management of the patient with other professionals (professionals i.e. , PA, REGULATORY CONSULTANT, lab, RT, psych nurse, licensed social worker, bleach boiler filler, teacher, property disposal officer, pillowcase cleaner)? Give summary @ -No Was smoking cessation discussed for >3mins.? @ -No Was critical care preformed (if so, how long)? @ -No Were there social determinants of health that impacted care today? How? (Homelessness, low income, unemployed, alcoholism, drug addiction, transportation, low edu. Level, literacy, decrease access to med. care, assisted, rehab)? @ -No Was there de-escalation of care discussed even if they declined (Discuss DNR or withdrawal of care, Hospice)? DNR status @ -No What co-morbidities impacted this encounter? (DM, HTN, Smoking, COPD, CAD, Cancer, CVA, ARF, Chemo, Hep., AIDS, mental health diagnosis, sleep apnea, morbid obesity)? @ -None Was patient admitted / discharged? Hospital course, mention meds given and route, prescriptions, significant lab abnormalities, going to OR and other pertinent info. @ -Upon arrival patient was placed in room 23. Thorough history and physical exam was performed. I did utilize ultrasound to find pulses in the patient's lower extremity. They are present. Patient has good cap refill. He has intact sensation. Symptoms are present at this time. No redness or swelling. Laboratory studies are conducted and are within normal limits. I did discuss the possibilities with the patient. Did recommend NEVA studies to evaluate for flow. Patient does have positive pulses today. I recommended that he take magnesium for his cramping. Follow-up with his primary care doctor and return for any new or worsening symptoms Undiagnosed new problem with uncertain prognosis? @ -Acute Drug Therapy requiring intensive monitoring for toxicity (Heparin, Nitro, Insulin, Cardizem)? @ -No Were any procedures done? @ -No Diagnosis/symptom? @ -Acute bilateral lower extremity crampingresolved Acute, or Chronic, or Acute on Chronic? @ -acute Uncomplicated (without systemic symptoms) or Complicated (systemic symptoms)? @ -Complicated Side effects of treatment? @ -No Exacerbation, Progression, or Severe Exacerbation? @ -No Poses a threat to life or bodily function? How? (Chest pain, [place], [place], pneumonia, PE, COPD, DKA, ARF, appy, cholecystitis, CVA, Diverticulitis, Homicidal, Suicid al, threat to staff... and all critical care pts) @ -No (Rhoda Ayala) - Lab Data Lab Results 06/19/23 06/19/23 06/20/23 Range/Units 23:34 23:34 00:16 WBC 11.3 H (3.8-10.6) k/uL RBC 4.83 (4.30-5.90) m/uL Hgb 14.0 (13.0-17.5) gm/dL Hct 42.8 (39.0-53.0) % MCV 88.6 (80.0-100.0) fL MCH 29.1 (25.0-35.0) pg MCHC 32.8 (31.0-37.0) g/dL RDW 15.0 (11.5-15.5) % Plt Count 200 (150-450) k/uL MPV 8.2 Neutrophils % 70 % Lymphocytes % 19 % Monocytes % 6 % Eosinophils % 3 % Basophils % 1 % Neutrophils # 7.9 H (1.3-7.7) k/uL Lymphocytes # 2.2 (1.0-4.8) k/uL Monocytes # 0.6 (0-1.0) k/uL Eosinophils # 0.3 (0-0.7) k/uL Basophils # 0.1 (0-0.2) k/uL Sodium 135 L (137-145) mmol/L Potassium 4.0 (3.5-5.1) mmol/L Chloride 104 (98-107) mmol/L Carbon Dioxide 21 L (22-30) mmol/L Anion Gap 10 mmol/L BUN 26 H (9-20) mg/dL Creatinine 1.06 (0.66-1.25) mg/dL Est GFR (CKD-EPI)AfAm 87 (>60 ml/min/1.73 sqM) Est GFR (CKD-EPI)NonAf 75 (>60 ml/min/1.73 sqM) Glucose 241 H (74-99) mg/dL Calcium 8.7 (8.4-10.2) mg/dL Magnesium 2.0 (1.6-2.3) mg/dL Total Bilirubin 0.7 (0.2-1.3) mg/dL AST 20 (17-59) U/L ALT 16 (4-49) U/L Alkaline Phosphatase 122 (38-126) U/L Creatine Kinase 109 (55-170) U/L Total Protein 6.7 (6.3-8.2) g/dL Albumin 3.8 (3.5-5.0) g/dL Influenza Type A (PCR) Not Detected (Not Detectd) Influenza Type B (PCR) Not Detected (Not Detectd) RSV (PCR) Not Detected (Not Detectd) SARS-CoV-2 (PCR) Not Detected (Not Detectd) Disposition <Tyson Snider - Last Filed: 06/19/23 23:49> Is patient prescribed a controlled substance at d/c from ED?: No Time of Disposition: 01:48 <Rhoda Ayala - Last Filed: 06/22/23 06:25> Clinical Impression: Leg cramps Disposition: HOME SELF-CARE Condition: Stable Instructions (If sedation given, give patient instructions): Leg Cramps (ED) Additional Instructions: Please follow-up with your primary care doctor. I do recommend NEVA testing to evaluate the blood flow to your legs. Return for any new or worsening symptoms. Referrals: Jonas Holden MD [Primary Care Provider] - 1-2 days
[2023-06-20] LABS: Basophils # (A) 0.1 k/uL (0-0.2); Basophils % (A) 1 %; Eosinophils # (A) 0.3 k/uL (0-0.7); Eosinophils % (A) 3 %; HCT 42.8 % (39.0-53.0); Lymphocytes # (A) 2.2 k/uL (1.0-4.8); Lymphocytes % (A) 19 %; MCH 29.1 pg (25.0-35.0); MCHC 32.8 g/dL (31.0-37.0); MCV 88.6 fL (80.0-100.0); Mean Platelet Volume 8.2; Monocytes # (A) 0.6 k/uL (0-1.0); Monocytes % (A) 6 %; Neutrophils # (A) 7.9 k/uL (1.3-7.7); Neutrophils % (A) 70 %; Platelet Count 200 k/uL (150-450); RBC 4.83 m/uL (4.30-5.90); WBC 11.3 k/uL (3.8-10.6)
[2023-06-20 00:15] LABS: ALT 16 U/L (4-49); AST 20 U/L (17-59); African American GFR (CKD) 87 (>60 ml/min/1.73 sqM); Albumin 3.8 g/dL (3.5-5.0); Alkaline Phosphatase 122 U/L (38-126); Anion Gap 10 mmol/L; Blood Urea Nitrogen 26 mg/dL (9-20); Calcium 8.7 mg/dL (8.4-10.2); Carbon Dioxide 21 mmol/L (22-30); Chloride 104 mmol/L (98-107); Creatine Kinase 109 U/L (55-170); Glucose 241 mg/dL (74-99); Non-African American GFR(CKD) 75 (>60 ml/min/1.73 sqM); Sodium 135 mmol/L (137-145); Total Bilirubin 0.7 mg/dL (0.2-1.3); Total Protein 6.7 g/dL (6.3-8.2)
[2023-06-20 01:21] VITALS: BP 128/79; PULSE 89; RESP 20
== END 2023-06-20 02:15 | disposition home or self-care (01) ==
LOC: EC 22:19
DX: G47.62 Sleep related leg cramps (principal); Z91.030 Bee allergy status; Z88.8 Allergy status to other drugs, medicaments and biological substances
CPT/HCPCS: 36415; 80053; 82550; 83735; 85025; 87636; 99283

== ENCOUNTER → 2023-07-07 | Outpatient (CLI) | payer BC ==
--- NOTE | 2023-07-07 14:29 | US ---
EXAMINATION TYPE: US venous doppler duplex LE BI DATE OF EXAM: 07/07/2023 2:23 PM COMPARISON: NONE CLINICAL INDICATION: Male, 62 years old with history of R25.2 CRAMPS IN LEGS; Pt states Tesfaye Horse s in legs, and leg discoloration, more in left leg SIDE PERFORMED: Bilateral TECHNIQUE: The lower extremity deep venous system is examined utilizing real time linear array sonog caleb with graded compression, doppler sonography and color-flow sonography. VESSELS IMAGED: Common Femoral Vein Deep Femoral Vein Greater Saphenous Vein * Femoral Vein Popliteal Vein Small Saphenous Vein * Proximal Calf Veins (* superficial vessels) Right Leg: Negative for DVT Left Leg: Negative for DVT IMPRESSION: 1. Bilateral lower extremity ultrasound negative for deep venous thrombosis.
== END | disposition home or self-care (01) ==
LOC: RADUSWWP 13:53
PROVIDERS: ATTEND Family Medicine
DX: R25.2 Cramp and spasm (principal); L81.9 Disorder of pigmentation, unspecified
CPT/HCPCS: 93970

== ENCOUNTER → 2023-07-21 | Outpatient (CLI) | payer BC ==
--- NOTE | 2023-07-21 14:25 | US ---
EXAMINATION TYPE: US arterial LE single level DATE OF EXAM: 07/21/2023 12:42 PM CLINICAL INDICATION: Male, 62 years old with history of M79.622 PAIN LEFT LOWER LEG M79.661 PAIN RIGH T LEG; History of: Smoker: No Hypertension: Yes Diabetic: Yes Hyperlipidemia: ? TIA/CVA: No Previous Vascular Surgery: No CAD: No NM: No Vascular Ulcers: No Claudication: No Gangrene: No Doppler Waveforms: Right: Biphasic Left: Biphasic Right Brachial Pressure: 130 Left Brachial Pressure: 134 Ankle-Brachial Indices: Right: 1.17 Left: 1.10 (Vessel hardening > 1.4; Normal 0.9 - 1.4, Moderate 0.7 - 0.9, Severe 0.5-0.7) Toe Brachial Indices: Right: 0.74 Left: 0.65 IMPRESSION: Normal ankle-brachial indices bilaterally.
== END | disposition home or self-care (01) ==
LOC: RADUSWWP 12:19
PROVIDERS: ATTEND Family Medicine
DX: M79.662 Pain in left lower leg (principal); M79.661 Pain in right lower leg; L81.9 Disorder of pigmentation, unspecified; I10 Essential (primary) hypertension; E11.9 Type 2 diabetes mellitus without complications; R22.43 Localized swelling, mass and lump, lower limb, bilateral
CPT/HCPCS: 93922

== ENCOUNTER → 2023-08-14 | Outpatient (CLI) | payer BC ==
--- NOTE | 2023-08-14 20:46 | US ---
EXAMINATION TYPE: US gallbladder DATE OF EXAM: 08/14/2023 COMPARISON: CT 09/28/2021 CLINICAL INDICATION: Male, 62 years old with history of R10 ABDOMINAL PAIN x few weeks. Hx HTN, DM TECHNIQUE: Multiple sonographic images of the right upper quadrant are obtained. FINDINGS: EXAM MEASUREMENTS: Liver Length: 16.8 cm Gallbladder Wall: 0.3 cm CBD: 0.3 cm Right Kidney: 12.1 x 5.7 x 6.4 cm PINION POLISHER NOTES: Pancreas: wnl Liver: Increased attenuation, decreased visualization of vessels suggestive of fatty infiltrate Gallbladder: wnl Evidence for sonographic Ceballos's sign: No CBD: wnl Right Kidney: wnl Visualized portions of the pancreas are unremarkable. Liver demonstrates diffuse increased echogenici ty consistent with steatosis. This appearance limits evaluation for small intrahepatic masses. Gallbl adder demonstrates no evidence of wall thickening, surrounding fluid, or gallstones. Negative sonogra phic Ceballos's sign. Common bile duct within normal limits. Right kidney is unremarkable without evide nce for hydronephrosis, nephrolithiasis, or solid mass. IMPRESSION: 1. No ultrasound evidence for an acute process. 2. Hepatic steatosis.
== END | disposition home or self-care (01) ==
LOC: RADUSWWP 06:50
PROVIDERS: ATTEND Family Medicine
DX: K76.0 Fatty (change of) liver, not elsewhere classified (principal)
CPT/HCPCS: 76705

== ENCOUNTER 2023-08-26 13:57 | Emergency (ER) | payer BC ==
--- NOTE | 2023-08-26 15:28 | ED ---
General Adult HPI - General Chief complaint: Neuro Symptoms/Deficit Stated complaint: R side head numb, falling over Time Seen by Provider: 08/26/23 14:00 Source: patient, RN notes reviewed, old records reviewed Mode of arrival: wheelchair Limitations: no limitations - History of Present Illness Initial comments: This is a 62-year-old male who presents to the emergency department complaint of having 2 to 3 days of dizziness. Patient states he woke up this morning with tingling on the right side of his face and his right arm and continues to be dizzy. Patient denies a headache patient denies any actual decrease sensation or weakness. Patient denies any blurred vision. Patient denies any slurred speech. Patient Nuys any chest pain difficulty breathing. Patient Nuys any abdominal pain patient denies any recent fever chills or cough. Patient denies any vomiting or diarrhea - Related Data Home Medications Medication Instructions Recorded Confirmed Atorvastatin [Lipitor] 80 mg PO DAILY 09/10/17 08/26/23 Insulin Glargine,Hum.rec.anlog 120 unit SQ DAILY 03/31/18 08/26/23 [Basaglar Kwikpen U-100] Insulin Lispro [humaLOG Kwikpen] 24 unit SQ AC-TID 04/01/18 08/26/23 Carbidopa-Levodopa 25-250 mg 1 tab PO BID 03/06/20 08/26/23 [Sinemet 25-250 mg] lisinopriL [Zestril] 2.5 mg PO DAILY 03/06/20 08/26/23 Ergocalciferol [Vitamin D2 (1250 1,250 mcg PO Q30D 07/16/22 08/26/23 Mcg = 31594 Iu)] HYDROcodone/APAP 7.5-325MG [[place] 1 tab PO Q6HR PRN 07/16/22 08/26/23 7.5-325] Ibuprofen [Motrin] 800 mg PO BID PRN 07/16/22 08/26/23 Latanoprost [Latanoprost 0.005%] 1 drop BOTH EYES HS 07/16/22 08/26/23 Metoprolol Tartrate [Lopressor] 25 mg PO BID 07/16/22 08/26/23 Cyclobenzaprine [Flexeril] 10 mg PO DAILY 09/01/22 08/26/23 Dulaglutide [Trulicity] 3 mg SQ TH 09/01/22 08/26/23 Empagliflozin [Jardiance] 25 mg PO DAILY 10/26/22 08/26/23 Furosemide [Lasix] 40 mg PO DAILY 10/26/22 08/26/23 Insulin Glargine,Hum.rec.anlog 110 unit SQ HS 08/26/23 08/26/23 [Basaglar [place] U-100] Omeprazole 20 mg PO BID 08/26/23 08/26/23 Propranolol HCl [Propranolol HCl 120 mg PO DAILY 08/26/23 08/26/23 ER] metFORMIN HCL 1,000 mg PO BID 08/26/23 08/26/23 Previous Rx's Medication Instructions Recorded Aspirin 81 mg PO DAILY #100 chew 02/10/19 Nitroglycerin Sl Tabs [Nitrostat] 0.4 mg SUBLINGUAL Q5M PRN #20 tab 02/10/19 Folic Acid 1 mg PO DAILY tab 10/29/22 Meclizine [Antivert] 25 mg PO TID #20 tab 08/26/23 Allergies Allergy/AdvReac Type Severity Reaction Status Date / Time bee venom protein (honey bee) Allergy Swelling Verified 08/26/23 15:22 aluminum hydroxide AdvReac Nausea & Verified 08/26/23 15:22 [From Mylanta] Vomiting barium iodide AdvReac Nausea & Verified 08/26/23 15:22 Vomiting barium sulfate AdvReac Nausea & Verified 08/26/23 15:22 Vomiting calcium carbonate AdvReac Nausea & Verified 08/26/23 15:22 [From Mylanta] Vomiting magnesium [From Mylanta] AdvReac Nausea & Verified 08/26/23 15:22 Vomiting magnesium hydroxide AdvReac Nausea & Verified 08/26/23 15:22 [From Mylanta] Vomiting simethicone [From Mylanta] AdvReac Nausea & Verified 08/26/23 15:22 Vomiting LYSAL SPRAY AdvReac Unknown Dyspnea Uncoded 08/26/23 15:22 Review of Systems ROS Statement: Those systems with pertinent positive or pertinent negative responses have been documented in the HPI. ROS Other: All systems not noted in ROS Statement are negative. Past Medical History Past Medical History: Asthma, COPD, Diabetes Mellitus, Eye Disorder, GERD/Reflux, Hyperlipidemia, Hypertension, Sleep Apnea/CPAP/BIPAP Additional Past Medical History / Comment(s): hx glaucoma with surgery, bilateral hand tremors, sleep apnea (no machine)., states positive blood in stool. History of Any Multi-Drug Resistant Organisms: None Reported Past Surgical History: Heart Catheterization Additional Past Surgical History / Comment(s): bilateral eye laser surgery for cataract removal/lens implants, Past Anesthesia/Blood Transfusion Reactions: No Reported Reaction Additional Past Anesthesia/Blood Transfusion Reaction / Comment(s): . Past Psychological History: No Psychological Hx Reported Smoking Status: Never smoker Past Alcohol Use History: None Reported Past Drug Use History: None Reported - Past Family History Mother Family Medical History: Diabetes Mellitus Additional Family Medical History / Comment(s): Mother in her sleep when she was in her 60s. Pt does not know cause of . Father Family Medical History: No Reported History Additional Family Medical History / Comment(s): . General Exam - General Exam Comments Initial Comments: GENERAL: Patient is well-developed and well-nourished. Patient is nontoxic and well- hydrated and is in no acute distress. ENT: Neck is soft and supple. No significant lymphadenopathy is noted. Oropharynx is clear. Moist mucous membranes. Neck has full range of motion without eliciting any pain. EYES: The sclera were anicteric and conjunctiva were pink and moist. Extraocular movements were intact and pupils were equal round and reactive to light. Eyelids were unremarkable. PULMONARY: Unlabored respirations. Good breath sounds bilaterally. No audible rales rhonchi or wheezing was noted. CARDIOVASCULAR: There is a regular rate and rhythm without any murmurs gallops or rubs. ABDOMEN: Soft and nontender with normal bowel sounds. SKIN: Skin is clear with no lesions or rashes and otherwise unremarkable. NEUROLOGIC: Patient is alert and oriented x3. Cranial nerves II through XII are grossly intact. Motor and sensory are also intact. Normal speech, volume and content. Symmetrical smile. NIH is 0 finger-nose testing is normal bilaterally MUSCULOSKELETAL: Normal extremities with adequate strength and full range of motion. LYMPHATICS: No significant lymphadenopathy is noted PSYCHIATRIC: Normal psychiatric evaluation. Limitations: no limitations Course Vital Signs 08/26/23 08/26/23 08/26/23 13:59 15:13 16:23 Temperature 97.6 F 97.7 F 97.4 F L Pulse Rate 67 70 68 Respiratory 18 16 16 Rate Blood Pressure 141/90 129/77 135/81 O2 Sat by Pulse 96 96 97 Oximetry 08/26/23 17:26 Temperature Pulse Rate 66 Respiratory 16 Rate Blood Pressure 136/82 O2 Sat by Pulse 98 Oximetry Medical Decision Making - Medical Decision Making EKG is interpreted by myself. EKG shows a sinus rhythm at 69 bpm parables 177 QRS is 88 QT interval is 389 QTc is 408. Patient's EKG shows no ST segment elevation or depression. Was pt. sent in by a medical professional or institution (, [facility], [facility], urgent care, hospital, or fdc...) When possible be specific @ -No Did you speak to anyone other than the patient for history (EMS, parent, family, police, friend...)? What history was obtained from this source @ -No Did you review nursing and triage notes (agree or disagree)? Why? @ -I reviewed and agree with nursing and triage notes Were old charts reviewed (outside hosp., previous admission, EMS record, old EKG, old radiological studies, urgent care reports/EKG's, fdc records)? Report findings @ -No old charts were reviewed Differential Diagnosis (chest pain, altered mental status, abdominal pain women, abdominal pain men, vaginal bleeding, weakness, fever, dyspnea, syncope, headache, dizziness, GI bleed, back pain, seizure, CVA, palpatations, mental health, musculoskeletal)? @ -Differential Dizziness: Benign paroxysmal positional Vertigo, Menieres disease, otitis media, acoustic neuroma, vertebrobasilar insufficiency, cerebellar stroke, encephalitis, hypovolemic, arrhythmia, coronary artery syndrome, anemia, this is not meant to be an all-inclusive list EKG interpreted by me (3pts min.). @ -As above X-rays interpreted by me (1pt min.). @ -Chest x-ray shows no acute normality CT interpreted by me (1pt min.). @ -CT of the brain shows no acute abnormality U/S interpreted by me (1pt. min.). @ -None done What testing was considered but not performed or refused? (CT, X-rays, U/S, labs)? Why? @ -None What meds were considered but not given or refused? Why? @ -None Did you discuss the management of the patient with other professionals (professionals i.e. , [facility], [facility], lab, RT, psych nurse, social professionals, gas shovel operator, teacher, protocol officer, case finisher)? Give summary @ -No Was smoking cessation discussed for >3mins.? @ -No Was critical care preformed (if so, how long)? @ -No Were there social determinants of health that impacted care today? How? (Homelessness, low income, unemployed, alcoholism, drug addiction, transportation, low edu. Level, literacy, decrease access to med. care, fdc, rehab)? @ -No Was there de-escalation of care discussed even if they declined (Discuss DNR or withdrawal of care, Hospice)? DNR status @ -No What co-morbidities impacted this encounter? (DM, HTN, Smoking, COPD, CAD, Cancer, CVA, ARF, Chemo, Hep., AIDS, mental health diagnosis, sleep apnea, morbid obesity)? @ -None Was patient admitted / discharged? Hospital course, mention meds given and route, prescriptions, significant lab abnormalities, going to OR and other pertinent info. @ -Patient was in no distress while in the emergency department. Patient stated he did not feel quite as dizzy when gave him his results of his labs which were all within normal range. Patient will follow-up with a primary medical care doctor Undiagnosed new problem with uncertain prognosis? @ -No Drug Therapy requiring intensive monitoring for toxicity (Heparin, Nitro, Insulin, Cardizem)? @ -No Were any procedures done? @ -No Diagnosis/symptom? @ -Dizziness acute Acute, or Chronic, or Acute on Chronic? @ -Acute Uncomplicated (without systemic symptoms) or Complicated (systemic symptoms)? @ -Complicated Side effects of treatment? @ -No Exacerbation, Progression, or Severe Exacerbation? @ -No Poses a threat to life or bodily function? How? (Chest pain, [place], [place], pneumonia, PE, COPD, DKA, ARF, appy, cholecystitis, CVA, Diverticulitis, Homicidal, Suicidal, threat to staff... and all critical care pts) @ -No Diagnosis/symptom? @ -Paresthesias Acute, or Chronic, or Acute on Chronic? @ -Acute Uncomplicated (without systemic symptoms) or Complicated (systemic symptoms)? @ -Complicated Side effects of treatment? @ -None Exacerbation, Progression, or Severe Exacerbation] @ -No Poses a threat to life or bodily function? @ -No - Lab Data Result diagrams: 08/26/23 15:22 08/26/23 15:22 Lab Results 08/26/23 08/26/23 08/26/23 Range/Units 15:22 15:22 15:22 WBC 8.2 (3.8-10.6) k/uL RBC 4.98 (4.30-5.90) m/uL Hgb 14.8 (13.0-17.5) gm/dL Hct 44.7 (39.0-53.0) % MCV 89.9 (80.0-100.0) fL MCH 29.7 (25.0-35.0) pg MCHC 33.1 (31.0-37.0) g/dL RDW 14.7 (11.5-15.5) % Plt Count 171 (150-450) k/uL MPV 8.0 Neutrophils % 80 % Lymphocytes % 13 % Monocytes % 4 % Eosinophils % 1 % Basophils % 1 % Neutrophils # 6.6 (1.3-7.7) k/uL Lymphocytes # 1.1 (1.0-4.8) k/uL Monocytes # 0.3 (0-1.0) k/uL Eosinophils # 0.1 (0-0.7) k/uL Basophils # 0.1 (0-0.2) k/uL PT 10.2 (10.0-12.5) sec INR 0.9 (<1.2) APTT 23.8 (22.0-30.0) sec Sodium 134 L (137-145) mmol/L Potassium 4.8 (3.5-5.1) mmol/L Chloride 104 (98-107) mmol/L Carbon Dioxide 23 (22-30) mmol/L Anion Gap 7 mmol/L BUN 13 (9-20) mg/dL Creatinine 0.74 (0.66-1.25) mg/dL Est GFR (CKD-EPI)AfAm >90 (>60 ml/min/1.73 sqM) Est GFR (CKD-EPI)NonAf >90 (>60 ml/min/1.73 sqM) Glucose 334 H (74-99) mg/dL Calcium 8.6 (8.4-10.2) mg/dL Magnesium 1.6 (1.6-2.3) mg/dL Total Bilirubin 0.9 (0.2-1.3) mg/dL AST 21 (17-59) U/L ALT 22 (4-49) U/L Alkaline Phosphatase 127 H (38-126) U/L Troponin I (0.000-0.034) ng/mL Total Protein 6.9 (6.3-8.2) g/dL Albumin 3.9 (3.5-5.0) g/dL 08/26/23 Range/Units 15:22 WBC (3.8-10.6) k/uL RBC (4.30-5.90) m/uL Hgb (13.0-17.5) gm/dL Hct (39.0-53.0) % MCV (80.0-100.0) fL MCH (25.0-35.0) pg MCHC (31.0-37.0) g/dL RDW (11.5-15.5) % Plt Count (150-450) k/uL MPV Neutrophils % % Lymphocytes % % Monocytes % % Eosinophils % % Basophils % % Neutrophils # (1.3-7.7) k/uL Lymphocytes # (1.0-4.8) k/uL Monocytes # (0-1.0) k/uL Eosinophils # (0-0.7) k/uL Basophils # (0-0.2) k/uL PT (10.0-12.5) sec INR (<1.2) APTT (22.0-30.0) sec Sodium (137-145) mmol/L Potassium (3.5-5.1) mmol/L Chloride (98-107) mmol/L Carbon Dioxide (22-30) mmol/L Anion Gap mmol/L BUN (9-20) mg/dL Creatinine (0.66-1.25) mg/dL Est GFR (CKD-EPI)AfAm (>60 ml/min/1.73 sqM) Est GFR (CKD-EPI)NonAf (>60 ml/min/1.73 sqM) Glucose (74-99) mg/dL Calcium (8.4-10.2) mg/dL Magnesium (1.6-2.3) mg/dL Total Bilirubin (0.2-1.3) mg/dL AST (17-59) U/L ALT (4-49) U/L Alkaline Phosphatase (38-126) U/L Troponin I <0.012 (0.000-0.034) ng/mL Total Protein (6.3-8.2) g/dL Albumin (3.5-5.0) g/dL Disposition Clinical Impression: Paresthesia, Dizziness Disposition: HOME SELF-CARE Condition: Good Instructions (If sedation given, give patient instructions): Vertigo (ED), Dizziness (ED) Prescriptions: Meclizine [Antivert] 25 mg PO TID #20 tab Is patient prescribed a controlled substance at d/c from ED?: No Referrals: Jonas Holden MD [Primary Care Provider] - 1-2 days Time of Disposition: 18:11
[2023-08-26 15:30] LABS: Basophils # (A) 0.1 k/uL (0-0.2); Basophils % (A) 1 %; Eosinophils # (A) 0.1 k/uL (0-0.7); Eosinophils % (A) 1 %; HCT 44.7 % (39.0-53.0); HGB 14.8 gm/dL (13.0-17.5); Lymphocytes # (A) 1.1 k/uL (1.0-4.8); Lymphocytes % (A) 13 %; MCH 29.7 pg (25.0-35.0); MCHC 33.1 g/dL (31.0-37.0); MCV 89.9 fL (80.0-100.0); Monocytes # (A) 0.3 k/uL (0-1.0); Monocytes % (A) 4 %; Neutrophils # (A) 6.6 k/uL (1.3-7.7); Neutrophils % (A) 80 %; Platelet Count 171 k/uL (150-450); RBC 4.98 m/uL (4.30-5.90); RDW 14.7 % (11.5-15.5); WBC 8.2 k/uL (3.8-10.6)
[2023-08-26 15:38] LABS: INR 0.9 (<1.2); Partial Thromboplastin Time 23.8 sec (22.0-30.0); Prothrombin Time 10.2 sec (10.0-12.5)
[2023-08-26 15:40] LABS: ALT 22 U/L (4-49); AST 21 U/L (17-59); African American GFR (CKD) >90 (>60 ml/min/1.73 sqM); Albumin 3.9 g/dL (3.5-5.0); Alkaline Phosphatase 127 U/L (38-126); Anion Gap 7 mmol/L; Blood Urea Nitrogen 13 mg/dL (9-20); Calcium 8.6 mg/dL (8.4-10.2); Carbon Dioxide 23 mmol/L (22-30); Chloride 104 mmol/L (98-107); Glucose 334 mg/dL (74-99); Magnesium 1.6 mg/dL (1.6-2.3); Non-African American GFR(CKD) >90 (>60 ml/min/1.73 sqM); Potassium 4.8 mmol/L (3.5-5.1); Sodium 134 mmol/L (137-145); Total Bilirubin 0.9 mg/dL (0.2-1.3); Total Protein 6.9 g/dL (6.3-8.2)
--- NOTE | 2023-08-26 16:05 | CT ---
EXAMINATION TYPE: CT brain wo con CT DLP: 1271.4 mGycm, Automated exposure control for dose reduction was used. DATE OF EXAM: 08/26/2023 3:46 PM COMPARISON: CT brain 10/26/2022. CLINICAL INDICATION:Male, 62 years old with history of Tingling on the right side of the face and arm , tingling right side of body, dizziness. TECHNIQUE: Brain: Axial CT images of the brain were obtained with coronal and sagittal reformats created and rev iewed. Contrast used: None. Oral contrast used: None. FINDINGS: Brain: Extra-axial spaces: No abnormal extra-axial fluid collections. Ventricular system: Within normal limits Cerebral parenchyma: No acute intraparenchymal hemorrhage or mass effect. The chavez-white junction is well differentiated. Cerebellum: Unremarkable. Mass effect: No evidence of midline shift. Intracranial vasculature: unremarkable Soft tissues: Normal. Calvarium/osseous structures: No depressed skull fracture. Paranasal sinuses and mastoid air cells: Minimal sinus disease Visualized orbits: Orbital contents are intact. IMPRESSION: No acute intracranial process. Minimal age-related changes, nonspecific.
[2023-08-26] MEDS: SODIUM CHLORIDE 0.9% 500 ML 500 ML IV STA (16:21)
[2023-08-26 16:27] VITALS: TEMP 97.4
--- NOTE | 2023-08-26 16:45 | XR ---
EXAMINATION TYPE: XR chest 2V DATE OF EXAM: 08/26/2023 4:16 PM CLINICAL INDICATION:Male, 62 years old with history of Chest Pain; [facility] COMPARISON: Chest radiographs from 10/26/2022 TECHNIQUE: XR chest 2V Frontal and lateral views of the chest. FINDINGS: Lungs/Pleura: There is no evidence of pleural effusion, focal consolidation, or pneumothorax. Pulmonary vascularity: Unremarkable. Heart/mediastinum: Cardiomediastinal silhouette is unremarkable. Musculoskeletal: No acute osseous pathology. Other findings: None Lines/Tubes: IMPRESSION: No acute cardiopulmonary disease/process.
[2023-08-26] MEDS: MECLIZINE 25 MG TAB PO STA (18:33)
[2023-08-26 18:46] VITALS: BP 139/87; PULSE 74; RESP 18
== END 2023-08-26 18:47 | disposition home or self-care (01) ==
LOC: EC 13:57
DX: R20.2 Paresthesia of skin (principal); R42 Dizziness and giddiness; Z88.8 Allergy status to other drugs, medicaments and biological substances; Z91.030 Bee allergy status; Z91.048 Other nonmedicinal substance allergy status
CPT/HCPCS: 36415; 70450; 71046; 80053; 83735; 84484; 85025; 85610; 85730; 93005; 96360; 96361; 99285

== ENCOUNTER → 2023-09-29 | Outpatient (CLI) | payer BC ==
--- NOTE | 2023-10-14 11:57 | EM ---
EVENT MONITOR This is a 14-day event monitor. INDICATION: Dizziness. FINDINGS: Underlying rhythm is sinus with an average heart rate of 69 beats per minute. Heart rate varied from 51 beats per minute to 120 beats per minute. There were no episodes of sustained ventricular or supraventricular tachyarrhythmias. There were no episodes of more than 2-second pauses. CONCLUSION: This 14-day event monitor shows sinus rhythm without significant tachy or ilya arrhythmias. MMODL / IJN: [id number] /
== END | disposition home or self-care (01) ==
LOC: RADECHMAIN 06:56
PROVIDERS: ATTEND Family Medicine
DX: R42 Dizziness and giddiness (principal)
CPT/HCPCS: 93270

== ENCOUNTER → 2024-08-03 | Outpatient (CLI) | payer BC ==
--- NOTE | 2024-08-03 13:49 | US ---
EXAMINATION TYPE: US kidneys/renal and bladder DATE OF EXAM: 08/03/2024 COMPARISON: Gallbladder ultrasound 08/14/2023 CLINICAL INDICATION: Male, 63 years old with history of R32 URINARY INCONTINENCE R35.0 FREQUENCY OF M ICTUR; Pt states urinary urgency/frequency TECHNIQUE: Grayscale imaging of the bilateral kidneys and urinary bladder: FINDINGS: EXAM MEASUREMENTS: Right Kidney: 12.0 x 6.1 x 5.6 cm Left Kidney: 13.5 x 6.2 x 4.7 cm Post Void Residual Volume: 15.7 mL Materials Scheduler notes:Large pt body habitus Right Kidney: No evidence of hydro, possible 4mm echogenic foci mid Left Kidney: No evidence of hydro, cortical thinning Bladder: Initial partially distended bladder shows no gross abnormality. Bilateral Jets seen: No Normal Post Void Residual: Yes IMPRESSION: 1. No hydronephrosis. 2. Possible nonobstructive 4 mm right midpole renal calculus. 3. Increased postvoid bladder volume of 16 mL falls within acceptable limits. [facility], , 08/03/2024 1:46 PM
== END | disposition home or self-care (01) ==
LOC: RADUSWWP 12:26
PROVIDERS: ATTEND Family Medicine
DX: R32 Unspecified urinary incontinence (principal); R35.0 Frequency of micturition
CPT/HCPCS: 76770